=== PATIENT | female | born 1985 | race Caucasian/White ===

== ENCOUNTER 2023-03-06 22:23 | Inpatient (IN) | payer MEDICARE, MEDICAID, SELFPAY ==
--- NOTE | ~2023-03-06 | MR_ITS ---
EXAMINATION: MR FOOT WITHOUT AND WITH CONTRAST, RIGHT CLINICAL INFORMATION: Multiple ulcerations. Evaluate for osteomyelitis. COMPARISON: Right foot and ankle radiographs done earlier the same day. TECHNIQUE: MRI of the right foot was performed before and after the intravenous administration of 10 mL Gadavist on a high-field scanner. FINDINGS: Diffuse subcutaneous edema throughout the forefoot. There is dorsal skin thickening with mild subcutaneous enhancement along the medial aspect of the dorsal midfoot, consistent with focal cellulitis. No organized fluid collection or abscess formation. No marrow edema or enhancement. No periosteal reaction or cortical erosion. No evidence of acute osteomyelitis. Articular cartilage loss with mild subchondral cystic change and small marginal osteophytes at the 4th and 5th tarsometatarsal joints. No metatarsal stress reaction or fracture. No concerning lytic or blastic osseous lesion. The visualized flexor and extensor tendons are intact. No transverse tendon tear or tendon retraction. Intact Lisfranc ligament. MR/MR foot RT wo/w con IMPRESSION: 1. Focal cellulitis along the dorsal aspect of the midfoot with diffuse subcutaneous edema. No abscess formation. No evidence of acute osteomyelitis. 2. 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
--- NOTE | ~2023-03-06 | XR_ITS ---
EXAMINATION: XR ANKLE, RIGHT XR ANKLE, LEFT XR FOOT, RIGHT XR FOOT, LEFT CLINICAL INFORMATION: Cellulitis. Evaluate for osteomyelitis. COMPARISON: None available. TECHNIQUE: AP, oblique, and lateral views of the right and left ankle as well as the right and left foot. FINDINGS: RIGHT ANKLE: No acute fracture or dislocation. The ankle mortise is maintained. Small tibiotalar marginal osteophytes. No osseous erosion or periosteal reaction. Mild circumferential soft tissue swelling. Atherosclerotic calcifications. LEFT ANKLE: No acute fracture or dislocation. The ankle mortise is maintained. No joint space narrowing. Tiny tibiotalar marginal osteophytes. No osseous erosion. Mild circumferential soft tissue swelling. RIGHT FOOT: Prominent forefoot soft tissue swelling. No periosteal reaction or osseous erosion. No abnormal soft tissue calcification. No acute fracture or dislocation. LEFT FOOT: Prominent circumferential soft tissue swelling. No periosteal reaction or cortical erosion. Faint density within the dorsal soft tissues which could represent tiny foreign bodies measuring up to 0.3 cm. Mild degenerative change at the dorsal midfoot. No fracture or dislocation. XR/XR ankle RT 2V IMPRESSION: RIGHT ANKLE: Mild circumferential soft tissue swelling without acute osseous abnormality. LEFT ANKLE: Circumferential soft tissue swelling without acute osseous abnormality. RIGHT FOOT: Prominent forefoot soft tissue swelling without periosteal reaction or osseous erosion. LEFT FOOT: Prominent circumferential soft tissue swelling without acute osseous abnormality. Possible tiny foreign bodies within the dorsal soft tissues. Early osteomyelitis may be occult on plain radiographs, and if there is persistent clinical concern, nuclear medicine bone scan or MRI could help further evaluate.
--- NOTE | ~2023-03-06 | XR_ITS ---
EXAMINATION: XR ANKLE, RIGHT XR ANKLE, LEFT XR FOOT, RIGHT XR FOOT, LEFT CLINICAL INFORMATION: Cellulitis. Evaluate for osteomyelitis. COMPARISON: None available. TECHNIQUE: AP, oblique, and lateral views of the right and left ankle as well as the right and left foot. FINDINGS: RIGHT ANKLE: No acute fracture or dislocation. The ankle mortise is maintained. Small tibiotalar marginal osteophytes. No osseous erosion or periosteal reaction. Mild circumferential soft tissue swelling. Atherosclerotic calcifications. LEFT ANKLE: No acute fracture or dislocation. The ankle mortise is maintained. No joint space narrowing. Tiny tibiotalar marginal osteophytes. No osseous erosion. Mild circumferential soft tissue swelling. RIGHT FOOT: Prominent forefoot soft tissue swelling. No periosteal reaction or osseous erosion. No abnormal soft tissue calcification. No acute fracture or dislocation. LEFT FOOT: Prominent circumferential soft tissue swelling. No periosteal reaction or cortical erosion. Faint density within the dorsal soft tissues which could represent tiny foreign bodies measuring up to 0.3 cm. Mild degenerative change at the dorsal midfoot. No fracture or dislocation. XR/XR foot RT 2V IMPRESSION: RIGHT ANKLE: Mild circumferential soft tissue swelling without acute osseous abnormality. LEFT ANKLE: Circumferential soft tissue swelling without acute osseous abnormality. RIGHT FOOT: Prominent forefoot soft tissue swelling without periosteal reaction or osseous erosion. LEFT FOOT: Prominent circumferential soft tissue swelling without acute osseous abnormality. Possible tiny foreign bodies within the dorsal soft tissues. Early osteomyelitis may be occult on plain radiographs, and if there is persistent clinical concern, nuclear medicine bone scan or MRI could help further evaluate.
--- NOTE | ~2023-03-06 | XR_ITS ---
EXAMINATION: XR ANKLE, RIGHT XR ANKLE, LEFT XR FOOT, RIGHT XR FOOT, LEFT CLINICAL INFORMATION: Cellulitis. Evaluate for osteomyelitis. COMPARISON: None available. TECHNIQUE: AP, oblique, and lateral views of the right and left ankle as well as the right and left foot. FINDINGS: RIGHT ANKLE: No acute fracture or dislocation. The ankle mortise is maintained. Small tibiotalar marginal osteophytes. No osseous erosion or periosteal reaction. Mild circumferential soft tissue swelling. Atherosclerotic calcifications. LEFT ANKLE: No acute fracture or dislocation. The ankle mortise is maintained. No joint space narrowing. Tiny tibiotalar marginal osteophytes. No osseous erosion. Mild circumferential soft tissue swelling. RIGHT FOOT: Prominent forefoot soft tissue swelling. No periosteal reaction or osseous erosion. No abnormal soft tissue calcification. No acute fracture or dislocation. LEFT FOOT: Prominent circumferential soft tissue swelling. No periosteal reaction or cortical erosion. Faint density within the dorsal soft tissues which could represent tiny foreign bodies measuring up to 0.3 cm. Mild degenerative change at the dorsal midfoot. No fracture or dislocation. XR/XR foot LT 2V IMPRESSION: RIGHT ANKLE: Mild circumferential soft tissue swelling without acute osseous abnormality. LEFT ANKLE: Circumferential soft tissue swelling without acute osseous abnormality. RIGHT FOOT: Prominent forefoot soft tissue swelling without periosteal reaction or osseous erosion. LEFT FOOT: Prominent circumferential soft tissue swelling without acute osseous abnormality. Possible tiny foreign bodies within the dorsal soft tissues. Early osteomyelitis may be occult on plain radiographs, and if there is persistent clinical concern, nuclear medicine bone scan or MRI could help further evaluate.
--- NOTE | ~2023-03-06 | MR_ITS ---
EXAMINATION: MR FOOT WITHOUT AND WITH CONTRAST, LEFT CLINICAL INFORMATION: Multiple ulcerations. Evaluate for osteomyelitis. COMPARISON: Left ankle and foot radiographs dated 03/07/2023. TECHNIQUE: MRI of the left foot was performed before and after the intravenous administration of 10 mL Gadavist on a high-field scanner. FINDINGS: Soft tissue defect/ulceration along the dorsal/medial aspect of the midfoot at the level of the tarsometatarsal joints. Adjacent skin thickening and enhancement, consistent with cellulitis. There is peripherally enhancing fluid extending from the medial aspect of the midfoot along the dorsum from the 1st to the 5th metatarsals. This area measures approximately 4.0 x 7.6 x 1.2 cm (AP x ML x CC), consistent with abscess formation. No adjacent marrow edema, enhancement, periosteal reaction, or cortical erosion to suggest acute osteomyelitis. Articular cartilage loss with subchondral cystic change and marginal osteophytes at the 4th and 5th tarsometatarsal joints as well as at the cuneonavicular and talonavicular joints. No concerning lytic or blastic osseous lesion. The visualized flexor and extensor tendons are intact. Intact Lisfranc ligament. Prominent circumferential subcutaneous edema without additional abscess formation. MR/MR foot LT wo/w con IMPRESSION: 1. Soft tissue defect/ulceration along the dorsal/medial aspect of the midfoot at the level of the tarsometatarsal joints. Adjacent cellulitis with peripherally enhancing fluid extending along the dorsum of the midfoot, consistent with an abscess formation. No adjacent osseous abnormality to suggest acute osteomyelitis. 2. Prominent circumferential subcutaneous edema without additional abscess formation. 3. Moderate degenerative arthritis at the 4th and 5th tarsometatarsal joints as well as at the cuneonavicular and talonavicular joints.
--- NOTE | ~2023-03-06 | XR_ITS ---
EXAMINATION: XR WRIST, RIGHT XR WRIST, LEFT XR HAND, RIGHT XR HAND, LEFT CLINICAL INFORMATION: IV drug abuse. Ulceration. Evaluate for osseous lesion. COMPARISON: None available. TECHNIQUE: PA, lateral, oblique, and scaphoid views of the right and left hand and wrist. FINDINGS: RIGHT HAND AND WRIST: No acute fracture or dislocation. Normal carpal alignment. No joint space narrowing or marginal osteophytes. No osseous erosion or periosteal reaction. No radiopaque foreign body. Circumferential soft tissue swelling. LEFT HAND AND WRIST: No acute fracture or dislocation. Normal carpal alignment. No joint space narrowing or marginal osteophytes. No osseous erosion or periosteal reaction. No radiopaque foreign body. Circumferential soft tissue swelling. XR/XR hand wrist RT IMPRESSION: 1. RIGHT HAND AND WRIST: Circumferential soft tissue swelling without acute osseous abnormality. No osseous erosion or periosteal reaction. 2. LEFT HAND AND WRIST: Circumferential soft tissue swelling without acute osseous abnormality. No osseous erosion or periosteal reaction.
--- NOTE | ~2023-03-06 | XR_ITS ---
EXAMINATION: XR ANKLE, RIGHT XR ANKLE, LEFT XR FOOT, RIGHT XR FOOT, LEFT CLINICAL INFORMATION: Cellulitis. Evaluate for osteomyelitis. COMPARISON: None available. TECHNIQUE: AP, oblique, and lateral views of the right and left ankle as well as the right and left foot. FINDINGS: RIGHT ANKLE: No acute fracture or dislocation. The ankle mortise is maintained. Small tibiotalar marginal osteophytes. No osseous erosion or periosteal reaction. Mild circumferential soft tissue swelling. Atherosclerotic calcifications. LEFT ANKLE: No acute fracture or dislocation. The ankle mortise is maintained. No joint space narrowing. Tiny tibiotalar marginal osteophytes. No osseous erosion. Mild circumferential soft tissue swelling. RIGHT FOOT: Prominent forefoot soft tissue swelling. No periosteal reaction or osseous erosion. No abnormal soft tissue calcification. No acute fracture or dislocation. LEFT FOOT: Prominent circumferential soft tissue swelling. No periosteal reaction or cortical erosion. Faint density within the dorsal soft tissues which could represent tiny foreign bodies measuring up to 0.3 cm. Mild degenerative change at the dorsal midfoot. No fracture or dislocation. XR/XR ankle LT 2V IMPRESSION: RIGHT ANKLE: Mild circumferential soft tissue swelling without acute osseous abnormality. LEFT ANKLE: Circumferential soft tissue swelling without acute osseous abnormality. RIGHT FOOT: Prominent forefoot soft tissue swelling without periosteal reaction or osseous erosion. LEFT FOOT: Prominent circumferential soft tissue swelling without acute osseous abnormality. Possible tiny foreign bodies within the dorsal soft tissues. Early osteomyelitis may be occult on plain radiographs, and if there is persistent clinical concern, nuclear medicine bone scan or MRI could help further evaluate.
--- NOTE | ~2023-03-06 | XR_ITS ---
EXAMINATION: XR WRIST, RIGHT XR WRIST, LEFT XR HAND, RIGHT XR HAND, LEFT CLINICAL INFORMATION: IV drug abuse. Ulceration. Evaluate for osseous lesion. COMPARISON: None available. TECHNIQUE: PA, lateral, oblique, and scaphoid views of the right and left hand and wrist. FINDINGS: RIGHT HAND AND WRIST: No acute fracture or dislocation. Normal carpal alignment. No joint space narrowing or marginal osteophytes. No osseous erosion or periosteal reaction. No radiopaque foreign body. Circumferential soft tissue swelling. LEFT HAND AND WRIST: No acute fracture or dislocation. Normal carpal alignment. No joint space narrowing or marginal osteophytes. No osseous erosion or periosteal reaction. No radiopaque foreign body. Circumferential soft tissue swelling. XR/XR hand wrist LT IMPRESSION: 1. RIGHT HAND AND WRIST: Circumferential soft tissue swelling without acute osseous abnormality. No osseous erosion or periosteal reaction. 2. LEFT HAND AND WRIST: Circumferential soft tissue swelling without acute osseous abnormality. No osseous erosion or periosteal reaction.
[2023-03-06 22:44] VITALS: BP 160/90; PULSE 95; O2SAT 100
[2023-03-06 23:49] VITALS: BP 125/81; PULSE 101; RESP 20; TEMP 37.4; O2SAT 97; BMI 35.8
[2023-03-07] VITALS (9 sets, daily range): BP systolic 99–139; BP diastolic 51–72; PULSE 70–93; RESP 16–24; TEMP 36.2–38.1; O2SAT 95–98
--- NOTE | 2023-03-07 00:18 | ED.SKABFB ---
HPI - Skin/Abscess/Foreign Bdy General Chief complaint: Skin/Abscess/Foreign Body Stated complaint: WEAKNESS Time Seen by Provider: 03/07/23 00:04 Source: patient Mode of arrival: EMS Limitations: no limitations History of Present Illness HPI narrative: 38-year-old female who presents emergency department for evaluation of bilateral lower extremity skin infection. Patient states she has had cellulitis in the past and she now has cellulitis of the left ankle and right foot. She states that she also has lesions on her arms. The patient states that the infections on her feet are draining pus air and she is unable to remove her socks since they are stuck to her skin. She states she is feeling weak and fatigued. She states that whenever she feels this way she needs to be admitted for IV vancomycin. Patient states that she has been using injection opiates daily anywhere from 1-2 bags. She states that she is supposed to be in a methadone clinic however she has not received methadone for 2-3 weeks since she moved to the [facility] and has not been able to set up methadone treatment at the clinic on [facility]. Related Data Allergies Allergy/AdvReac Type Severity Reaction Status Date / Time No Known Allergies Allergy Verified 03/06/23 23:44 Review of Systems Review of Systems: Yes all other systems are reviewed and are negative PMFSH Social History Social History Smoked in Last 30 Days: No Substance Use Type: Opiates Last Used Substance: Days (ago) Any prior treatment program specific to substance use: Yes (methadone) Advance Directives: No Advance Directives Information Provided: No Physical Exam Vital Signs: Vital Signs: Last Vital Signs Temp 100.6 F H 03/07/23 05:20 Pulse 85 03/07/23 06:39 Resp 22 H 03/07/23 06:39 BP 112/51 L 03/07/23 06:39 Pulse Ox 97 03/07/23 06:39 O2 Del Method Room Air 03/07/23 06:39 BMI result Body Mass Index 35.8 Vital signs revealed an elevated pulse of 101 Exam General: Awake, alert in no distress Head: Normocephalic, atraumatic EENT: PERRL, Lids normal, sclera normal, conjunctiva normal, nose normal , ears normal, throat without erythema or exudates Neck: Supple, no adenopathy, no trachea midline or C-spine tenderness Lung: breath sounds symmetric, no wheezing, rales or rhonchi Chest: symmetric movement, nontender Heart: regular rate and rhythm, normal S1, S2 no murmurs or rubs Abdomen: soft, non-tender, nondistended, normal bowel sounds Back: no vertebral tenderness, no CVAT Extremities: no deformities, moves all extremities symmetrically Skin: Patient has purulent skin lesions on her feet with erythema of the left ankle and foot, she also has other lesions on her arms which are consistent with skin infections Neuro: Awake, alert, oriented, normal speech, cranial nerves intact, moves all extremities symmetrically Psych: Pleasant, cooperative Medications Administered Generic Name Dose Route Start Last Admin Trade Name Freq PRN Reason Stop Dose Admin Vancomycin HCl 2,000 mg in 520 mls @ 250 mls/hr 03/07/23 06:24 03/07/23 06:31 Vancomycin/Ns IV 03/07/23 08:28 250 mls/hr ONCE ONE Administration Discontinued Medications Generic Name Dose Route Start Last Admin Trade Name Freq PRN Reason Stop Dose Admin Hydromorphone HCl 1 mg 03/07/23 03:29 03/07/23 03:37 Hydromorphone Hcl 1 Mg/Ml Syringe IVPUSH 03/07/23 03:30 1 mg ONCE STA Administration Protocol Hydromorphone HCl 1 mg 03/07/23 06:29 03/07/23 06:33 Hydromorphone Hcl 1 Mg/Ml Syringe IVPUSH 03/07/23 06:30 1 mg ONCE STA Administration Protocol Sodium Chloride 1,000 mls @ 999 mls/hr 03/07/23 00:15 03/07/23 01:46 Ns IV 03/07/23 01:15 Infused .Q1H1M STA Infusion Ceftriaxone Sodium 1 gm/ 50 mls @ 100 mls/hr 03/07/23 00:16 03/07/23 06:38 Sodium Chloride IV 03/07/23 00:45 Infused ONCE ONE Infusion Lorazepam 1 mg 03/07/23 03:29 03/07/23 03:37 Lorazepam 2 Mg/Ml Vial IVPUSH 03/07/23 03:30 1 mg STAT STA Administration Medical Decision Making Medical Decision Making MDM Narrative: 38-year-old female who presents emergency department for evaluation of bilateral lower extremity skin infection. Patient states she had similar presentations in the past has had to be admitted for IV vancomycin. The patient does inject several bags of heroin per day. Patient has not received methadone from the methadone clinic for least 3 weeks. On physical examination the patient has multiple areas of purulence draining wounds on her left ankles with cellulitis of the left ankle. She also has purulent lesions without erythema of the right ankle. She has multiple chronic skin lesions on her hands and forearms bilaterally. Patient's findings are consistent with hematologic spread of bacteria from injecting drugs mainly to her ankle and consistent with cellulitis of the left ankle.. Nursing staff was able to get an IV in the patient however there was a delay in getting blood secondary to difficulty getting access. 07:27 Patient's laboratory evaluation [place] [address] and elevated CRP of 18.69. Lactic acid was elevated at 2.1. Patient was treated with hydromorphone 1 mg IV x2 for pain and Ativan 1 mg IV for anxiety. She received normal saline x1 L and was treated with ceftriaxone 1 g IV and vancomycin 2 g IV. I discussed admission over tiger text with the covering hospitalist, Dr. Burroughs and the patient will be admitted for further management. 07:36 I did discuss admission with the covering hospitalist, Dr. Lopez, he requested x-rays of the patient's ankles and feet to rule out osteomyelitis. Differential Diagnosis Differential Diagnoses: The differential diagnosis associated with the presentation includes Differential diagnosis includes but is not limited to cellulitis, abscess, bacteremia, electrolyte abnormalities, anemia Admission/Observation Consideration of admission/observation: Escalation of care including admission/observation considered Consult Healthcare Provider Management of the patient was discussed with: Hospitalist (Dr. Ashford) Lab Data [facility] Lab Attestation statement: I reviewed the patient's lab results. See MDM 03/07/23 05:13 03/07/23 05:13 Labs: Lab Results 03/07/23 Range/Units 05:13 WBC 16.8 H (4.8-10.8) X10*3/uL RBC 4.85 (4.20-5.50) X10*6/uL Hgb 12.6 (12.0-16.0) g/dl Hct 39.5 (37.0-47.0) % MCV 81.4 (80.0-98.0) fL MCH 26.0 L (27.0-33.0) pg MCHC 31.9 (31.0-35.0) g/dl RDW 14.5 (11.0-16.0) % Plt Count 250 (160-400) X10*3/uL MPV 10.6 (9.4-12.3) fL Immature Gran % (Auto) 0.5 H (0.0-0.4) % Neut % (Auto) 69.2 (45-73) % Lymph % (Auto) 21.2 (20-40) % Knox % (Auto) 7.5 (2-11) % Eos % (Auto) 1.1 (0-4) % Baso % (Auto) 0.5 (0-2) % Lymph # (Auto) 3.6 (1.2-4.9) X10*3/uL Knox # (Auto) 1.3 H (0.1-1.2) X10*3/uL Eos # (Auto) 0.2 (0.0-0.4) X10*3/uL Baso # (Auto) 0.1 (0.0-0.2) X10*3/uL Abs Immat Gran (auto) 0.09 H (0.00-0.03) X10*3/uL Absolute Neuts (auto) 11.6 H (2.0-8.3) x10*3/uL Absolute Nucleated RBC 0.000 (0.0-0.012) X10*3/uL Nucleated RBC % (auto) 0.0 (0.0-0.2) /100WBC Sodium 137 (135-145) mmol/L Potassium 3.5 (3.3-5.1) mmol/L Chloride 101 (96-108) mmol/L Carbon Dioxide 24 (22-29) mmol/L Anion Gap 16 (12-20) BUN 6 L (9-16) mg/dL Creatinine 0.79 (0.5-1.4) mg/dL Estim Creat Clear Calc 117.2 Estimated GFR > 60 Random Glucose 188 H (60-115) mg/dL Lactic Acid 2.1 H* (0.5-2.0) mmol/L Calcium 8.7 (8.4-10.2) mg/dL Total Bilirubin 0.4 (0.0-1.0) mg/dL AST 12 (5-31) U/L ALT 7 (0-31) U/L Alkaline Phosphatase 70 (39-117) U/L C-Reactive Protein 18.69 H (< or = 0.50) mg/dL Total Protein 7.3 (6.5-8.0) g/dL Albumin 3.4 L (3.5-5.0) g/dL Chronic Conditions Patient?s care impacted by: Diabetes and Other (Injection drug use)
[2023-03-07] MEDS: 0.9 % Sodium Chloride 1,000 ML 999 ML IV (00:39)
--- NOTE | 2023-03-07 00:56 | PC.NURSE ---
placed iv ling unable to get blood from it provider aware
--- NOTE | 2023-03-07 01:46 | PC.NURSE ---
delay in antibiotics as difficult stick for blood cultures
--- NOTE | 2023-03-07 03:06 | PC.NURSE ---
bethanie sandoval for contact [phone]
[2023-03-07] MEDS: LORazepam 2 MG/ML VIAL 1 MG IVPUSH ×2 (03:37→07:54)
[2023-03-07] MEDS: HYDROmorphone HCl 1 MG/ML SYRINGE IVPUSH ×4 (03:37→21:21)
[2023-03-07] MEDS: cefTRIAXone sodium 1 GM in 0.9 % Sodium Chloride 50 ML IV (05:18)
--- NOTE | 2023-03-07 05:21 | MHC.EDTECH ---
Patient is a very hard stick. This tech was able to get limited labs, only 1 set of blood cultures were able to be obtained.
--- NOTE | 2023-03-07 05:22 | PC.NURSE ---
only one set of blood cultures able to be drawn due to hard stick
[2023-03-07 05:24] LABS: MANUAL DIFF FLAG NO
[2023-03-07 05:25] LABS: Basophils Absolute Auto 0.1 X10*3/uL (0.0-0.2); Basophils Percent Auto 0.5 % (0-2); Eosinophils Absolute Auto 0.2 X10*3/uL (0.0-0.4); Eosinophils Percent Auto 1.1 % (0-4); Hematocrit 39.5 % (37.0-47.0); Hemoglobin 12.6 g/dl (12.0-16.0); Imm Gran Abs Auto 0.09 X10*3/uL (0.00-0.03); Imm Gran Pct Auto 0.5 % (0.0-0.4); Lymphocytes Absolute Auto 3.6 X10*3/uL (1.2-4.9); Lymphocytes Percent Auto 21.2 % (20-40); Mean Corpuscular HGB Conc 31.9 g/dl (31.0-35.0); Mean Corpuscular Volume 81.4 fL (80.0-98.0); Mean Platelet Volume 10.6 fL (9.4-12.3); Monocytes Absolute Auto 1.3 X10*3/uL (0.1-1.2); Monocytes Percent Auto 7.5 % (2-11); Neutrophils Absolute Auto 11.6 x10*3/uL (2.0-8.3); Neutrophils Percent Auto 69.2 % (45-73); Platelet Count 250 X10*3/uL (160-400); Red Blood Count 4.85 X10*6/uL (4.20-5.50); Red Cell Distribution Width 14.5 % (11.0-16.0); White Blood Count 16.8 X10*3/uL (4.8-10.8)
[2023-03-07 05:41] LABS: Lactic Acid 2.1 mmol/L (0.5-2.0)
[2023-03-07 05:42] LABS: Alanine Aminotransferase 7 U/L (0-31); Albumin Level 3.4 g/dL (3.5-5.0); Alkaline Phosphatase 70 U/L (39-117); Anion Gap 16 (12-20); Aspartate Amino Transferase 12 U/L (5-31); Bilirubin Total 0.4 mg/dL (0.0-1.0); Blood Urea Nitrogen 6 mg/dL (9-16); C Reactive Protein 18.69 mg/dL (< or = 0.50); Calcium 8.7 mg/dL (8.4-10.2); Carbon Dioxide 24 mmol/L (22-29); Chloride 101 mmol/L (96-108); Creatinine Clr Calc Pharmacy 117.2; Estimated Glomerular Filt Rate > 60; Glucose Random 188 mg/dL (60-115); Potassium 3.5 mmol/L (3.3-5.1); Sodium 137 mmol/L (135-145); Total Protein 7.3 g/dL (6.5-8.0)
[2023-03-07 07:22] LABS: Reflex Lactate? Lactic Acid Added
[2023-03-07] MEDS: Acetaminophen 325 MG TABLET 975 MG PO (07:52)
--- NOTE | 2023-03-07 08:00 | PC.NURSE ---
pt reporting feeling really warm. oral temp taken, pt 99.9. pt medicated per mar for low grade fever and provided with cool wash cloths.
--- NOTE | 2023-03-07 08:10 | PHA.PROG ---
Admission Date/Time: Indication: SKIN AND STRUCTURE Weight in k.7 kg Adjusted body weight in K.44 [place] body weight in K.6 Obesity Dosing Indication % IBW: 35.8 Serum Creatinine - Last 168 Hours 03/07/23 05:13 Creatinine 0.79 Estimated CrCl and GFR - Last 168 Hours 03/07/23 05:13 Estim Creat Clear Calc 117.2 Estimated GFR > 60 Vancomycin Loading Dose:2000 MG Current Vancomycin Dosing Regimen: 1250 MG Q12 Vancomycin Monitoring using AUC goal of 400 - 600 range with trough as surrogate marker: 461 (14.2) Date and Time for next Vancomycin Level to be drawn: 03/08 @1600 Pharmacist Comments on Vancomycin Plan: PT IS OBESE. WILL CHANGE INSIGHT TO OBESE MODELING AFTER FIRST TROUGH OBTAINED. Vancomycin dosing will take advantage of [employer] as a clinical decision support tool that uses Bayesian modeling to calculate individual patient's pharmacokinetic parameters and forecast the patient's drug concentration time course with the target goal AUC 24 range of 400 - 600 mg/L/hr.
--- NOTE | 2023-03-07 08:58 | PHA.MEDREC ---
Pharmacy Consult ? Medication Reconciliation Pharmacy has completed the medication reconciliation. Spoke to patient to confirm meds. Pt currently takes 38 units of lantus at bedtime. Takes adderall BID@0800,1300. Pt mentioned lorazepam, but could not name dose or regimen. PDMP reports no lorazepam.
[2023-03-07 09:46] LABS: Appearance Urine Cloudy; Color Urine Dark Yellow; Glucose Urine UA 500 mg/dL (Negative); Leukocyte Esterase Urine Trace (Negative); Nitrite Urine Negative (Negative); PH 5.5 (5.0-9.0); Specific Gravity - Urine >= 1.030 (1.005-1.025); UMIC TRIGGER UACC YES; Urine Blood Negative (Negative); Urine Ketones Trace mg/dL (Negative); Urine Protein 30 (1+) mg/dL (Neg-Trace)
[2023-03-07 09:49] LABS: Bacteria Urine 1+ (None Seen); Hyaline Casts Urine 0-2 /LPF (0-2); WBC Urine 0-5 /HPF (0-5)
[2023-03-07 09:53] LABS: Amphetamine Screen Urine Not Detected (Not Detect); Barbiturates, Urine Not Detected (Not Detect); Benzodiazepines Screen Urine Not Detected (Not Detect); Cannabinoid Screen Urine POSITIVE (Not Detect); Cocaine Screen Urine POSITIVE (Not Detect); Fentanyl, urine POSITIVE (Not Detect); Opiate Screen Urine POSITIVE (Not Detect); Phencyclidine Screen Urine Not Detected (Not Detect)
--- NOTE | 2023-03-07 09:55 | PC.NURSE ---
pt used bedside commode and gave urine sample. security asked to search pt as pt seemed very lethargic and falling asleep during conversation. security found pt's prescription for gabapentin. med sheet filled out and medications sent to pharmacy. pt compliant and understanding.
--- NOTE | 2023-03-07 10:12 | PM.IMHP ---
History of Present Illness Date of Service: 03/07/23 Attending physician on admission: David Lopez Chief Complaint: pain ble 38-year-old female with history of polysubstance abuse previously in remission with relapse about 6 days ago, IV drug abuse, mild persistent asthma, insulin-dependent type 2 diabetes, diabetic polyneuropathy, and ADHD who is severely obese with BMI greater than 35 presented to the ED earlier today for evaluation of severe pain in the bilateral lower extremities. The patient states she had had the same pair of socks on the bilateral lower legs for 2 weeks and was unable to remove them due to significant pain. Upon removal, ED provider found multiple weeping ulcers as well as swelling and erythema. The patient adamantly denies to me injecting any IV drugs into the lower extremities but states that she does use IV drugs in the arms bilaterally. States prior to 2 weeks ago, she did not notice these lesions. Has been admitted in the past [facility] in April in June of 2022 for cellulitis in the lower extremities, but no recent admissions. She has felt generally weak with chills and sweats but has not taken her temperature. She states she has 10/10 pain that limits her ambulation. SHe had planned to start methadone at [facility] 4 days ago but this did not happen. Last IVDA was yesterday. Also smokes 1/2 ppd. No etoh. On arrival, mild tachycardia of 101, vitals otherwise stable. However did develop fever of 100.6 early this morning with intermittent tachypnea to 24. Her leukocytosis of 16.8. Renal function electrolyte levels normal ID glucose 188. Initial lactic acid 2.1, repeat pending. CRP 18.69, ESR pending. Urinalysis significant for trace leukocytes, moderate glucose, 1+ protein, elevated specific gravity, negative urinary sediment, 1+ bacteria. Urine tox screen positive for opiates, fentanyl, cocaine, THC. X-rays of the bilateral ankles and bilateral feet without definitive evidence of osteomyelitis but early occult osteomyelitis possible to her radiologist. There is prominent soft tissue swelling in the bilateral ankles and feet. Review of Systems Review of Systems: General: +subjective fevers, +chills/sweats. No malaise, unintentional weight loss Cardiovascular: No chest pain, palpitations, or leg edema Respiratory: No shortness of breath, wheezing, cough GI: No abdominal pain, nausea, vomiting, diarrhea, constipation, melena, hematochezia : No dysuria, hematuria, increased urinary frequency MSK: No myalgia, back pain. +pain ble Neuro: No headaches, weakness, paresthesias Skin: +ulcers ble PMFSH Medical History (Updated 03/07/23 @ 10:35 by SHANTA Castro) Diabetic polyneuropathy ADHD Type 2 diabetes mellitus Asthma Polysubstance abuse Intravenous drug abuse Opiate use Social History (Updated 03/07/23 @ 10:36 by SHANTA Castro) Household Members: None Housing: Apartment Do you presently have visiting nurse or other home services: No Patient Tobacco Use Status: Current someday Tobacco user Tobacco use type: Cigarette Cigarette Packs Per Day: 0.5 Cigarettes Per Day: 8 Smoked in Last 30 Days: Yes Patient Interested in Nicotine Replacement: Yes Use of substances other than those prescribed or required for medical reasons: Yes Substance Use Type: Heroin Substance Use Frequency: Recent Binge Last Used Substance: Days (ago) Currently Displaying Signs/Symptoms of Drug Intoxication Withdrawal: No Any prior treatment program specific to substance use: Yes Have you been hit, kicked, punched, or otherwise hurt by someone within the past year? If so, by whom?: No Do you feel safe in your current relationship?: Yes Is there a partner from a previous relationship who is making you feel unsafe now?: No Are you made to feel afraid or neglected: No Advance Directives: No Advance Directives Information Provided: No Do you have thoughts of harming others: None Do you have a plan to hurt others: No Plan Recently lost weight without trying: No Eating poorly because of decreased appetite: No Nutrition Risks: No Nutritional Risk Patient : No : No Poor oral hygiene: No service: No Meds Allergies Allergy/AdvReac Type Severity Reaction Status Date / Time morphine Allergy Hives Verified 03/07/23 20:50 Active Medications: Current Medications Acetaminophen (Acetaminophen 325 Mg Tablet) 650 mg PO Q6H PRN PRN Reason: Pain, Mild (Pain Scale 1-3) Albuterol Sulfate (Albuterol Sulfate 90 Mcg 8 Gm Inhaler) 2 puff INHALE Q6H PRN PRN Reason: Shortness Of Breath Or Wheezing Amphetamine/Dextroamphetamine (Amphetamine Mixed Salts 10 Mg Tablet) 30 mg PO BID@0800,1300 CLARE Atorvastatin Calcium (Atorvastatin Calcium 40 Mg Tablet) 40 mg PO DAILY COUNT INCLUDES THE [facility] Dextrose (Dextrose 50 % 25 Gm/50 Ml Syringe) 25 gm IVPUSH Q15M PRN; Protocol PRN Reason: per Hypoglycemia Standing Ord. Enoxaparin Sodium (Enoxaparin Sodium 40 Mg/0.4 Ml Syringe) 40 mg SUBCUT Q24H COUNT INCLUDES THE [facility] Gabapentin (Gabapentin 400 Mg Capsule) 800 mg PO TID COUNT INCLUDES THE [facility] Glucose (Glucose Gel 15 Gm Gel..Gram.) 15 gm PO Q15M PRN; Protocol PRN Reason: per Hypoglycemia Standing Ord. Piperacillin Sod/Tazobactam (Sod 4.5 gm/ Sodium Chloride) 100 mls @ 200 mls/hr IV Q8H COUNT INCLUDES THE [facility] Vancomycin HCl 1,250 mg/ (Sodium Chloride) 250 mls @ 166.667 mls/hr IV Q12H COUNT INCLUDES THE [facility] Insulin Glargine (Insulin Glargine,Hum.Rec.Anlog 100 Unit/Ml 10 Ml Vial) 29 unit SUBCUT BEDTIME COUNT INCLUDES THE [facility] Insulin Human Lispro (Insulin Lispro 100 Unit/Ml 3 Ml Vial) 0 unit SUBCUT QIDACHS COUNT INCLUDES THE [facility]; Protocol Non-Formulary Medication (Fluticasone Propionate [Flovent Hfa]) 2 puff INHALE BID COUNT INCLUDES THE [facility] Non-Formulary Medication (Pantoprazole) 40 mg PO DAILY@0630 COUNT INCLUDES THE [facility] Ondansetron HCl (Ondansetron Hcl 4 Mg/2 Ml Vial) 4 mg IVPUSH Q8H PRN PRN Reason: Nausea and Vomiting Pharmacy Consult (Consult Rx Vancomycin Dosing) 1 each MISCELLANE DAILY PRN PRN Reason: Consult order Senna (Sennosides 8.6 Mg Tablet) 17.2 mg PO BEDTIME PRN PRN Reason: Constipation Sertraline HCl (Sertraline Hcl 25 Mg Tablet) 75 mg PO DAILY COUNT INCLUDES THE [facility] Sodium Chloride (0.9 % Sodium Chloride Flush 3 Ml Syringe) 3 ml IVFLUSH QSHIFT COUNT INCLUDES THE [facility] Home Medications Medication Instructions Recorded Confirmed Last Taken Type albuterol sulfate 90 mcg/actuation 2 puff inhalation Q6H PRN 03/07/23 03/07/23 Unknown History aerosol inhaler (Ventolin HFA) Shortness Of Breath Or Wheezing atorvastatin 40 mg tablet 40 mg PO DAILY 03/07/23 03/07/23 03/05/23 History dextroamphetamine-amphetamine 30 30 mg PO BID@0800,1300 03/07/23 03/07/23 03/05/23 History mg tablet fluticasone propionate 220 2 puff inhalation BID 03/07/23 03/07/23 03/05/23 History mcg/actuation HFA aerosol inhaler (Flovent HFA) gabapentin 800 mg tablet 800 mg PO TID 03/07/23 03/07/23 03/05/23 History insulin glargine 100 unit/mL (3 38 unit subcut BEDTIME 03/07/23 03/07/23 03/05/23 History mL) subcutaneous pen (Lantus Solostar U-100 Insulin) insulin lispro 100 unit/mL 1 sliding scale dose subcut TIDAC 03/07/23 03/07/23 03/05/23 History subcutaneous pen metformin 500 mg tablet 500 mg PO BID 03/07/23 03/07/23 03/05/23 History pantoprazole 40 mg tablet,delayed 40 mg PO DAILY@0630 03/07/23 03/07/23 03/05/23 History release sennosides 8.6 mg-docusate sodium 1 tab PO DAILY 03/07/23 03/07/23 03/05/23 History 50 mg tablet (Stool Softener-Laxative) sertraline 50 mg tablet 75 mg PO DAILY 03/07/23 03/07/23 03/05/23 History Physical Exam Vital Signs and Narrative: Vital Signs: Last Vital Signs Temp 98.3 F 03/07/23 09:15 Pulse 93 03/07/23 07:53 Resp 24 H 03/07/23 07:53 BP 112/51 L 03/07/23 06:39 Pulse Ox 97 03/07/23 06:39 O2 Del Method Room Air 03/07/23 06:39 BMI result Body Mass Index 35.8 Constitutional - Awake and Alert, No apparent distress Eyes - PERRLA, EOMI Cardiovascular - S1S2, RRR, No edema. 2+pedal pulses Respiratory - Normal lung expansion, Normal respiratory effort, No respiratory distress, CTA bilaterally Gastrointestinal - NT / ND; +BS; No rebound or guarding Extremities - no calf tenderness bilaterally, no swelling Skin - Warm/Dry. Left foot ankle- moderate circumferential swelling of the foot and ankle with 2.5cm x 1cm shallow ulceration medial aspect with purulent drainage and surrounding erythema. There also additional shallow ulceration abotu 1cm on the dorsal aspect of the foot with serous drainage. Right foot/lower leg- moderate swelling ankle with multiple shallow ulceration with purulent drainage on the dorsal and medial aspects of the about quarter sized foot with surrounding erythema and warmth. Multiple track parker noted on BUE without any fluctuance, induration. Shallow scabbed ulcerations over the dorsal aspect right wrist and left 3rd and 5th fingers with scabbing. There is induration noted on the ventral aspect of the left wrist without any purulent drainage. See images Neurological - Alert & oriented x3. sensation in tact Psychological - Appropriate affect Results Labs 03/08/23 06:04 03/08/23 06:04 Labs: Laboratory Results - last 24 hr 03/07/23 03/07/23 05:13 09:35 MCV 81.4 MCH 26.0 L MCHC 31.9 RDW 14.5 Plt Count 250 MPV 10.6 Immature Gran % (Auto) 0.5 H Neut % (Auto) 69.2 Lymph % (Auto) 21.2 [place] % (Auto) 7.5 Eos % (Auto) 1.1 Baso % (Auto) 0.5 Lymph # (Auto) 3.6 [place] # (Auto) 1.3 H Eos # (Auto) 0.2 Baso # (Auto) 0.1 Abs Immat Gran (auto) 0.09 H Absolute Neuts (auto) 11.6 H Absolute Nucleated RBC 0.000 Nucleated RBC % (auto) 0.0 Anion Gap 16 Estim Creat Clear Calc 117.2 Estimated GFR > 60 Random Glucose 188 H Lactic Acid 2.1 H* Calcium 8.7 Total Bilirubin 0.4 AST 12 ALT 7 Alkaline Phosphatase 70 C-Reactive Protein 18.69 H Total Protein 7.3 Albumin 3.4 L Urine Color Dark Yellow Urine Appearance Cloudy Urine pH 5.5 Ur Specific Thor >= 1.030 H Urine Protein 30 (1+) H Urine Glucose (UA) 500 H Urine Ketones Trace Urine Blood Negative Urine Nitrite Negative Ur Leukocyte Esterase Trace H Urine RBC 3-5 H Urine WBC 0-5 Ur Squamous Epith Cells 11-20 Urine Bacteria 1+ Hyaline Casts 0-2 Urine Opiates Screen POSITIVE H Urine Fentanyl Screen POSITIVE H Ur Barbiturates Screen Not Detected Ur Phencyclidine Scrn Not Detected Ur Amphetamines Screen Not Detected U Benzodiazepines Scrn Not Detected Urine Cocaine Screen POSITIVE H U Marijuana (THC) Screen POSITIVE H Imaging Radiologist's Impressions: Impressions Ankle X-Ray 03/07/23 07:49 IMPRESSION: RIGHT ANKLE: Mild circumferential soft tissue swelling without acute osseous abnormality. LEFT ANKLE: Circumferential soft tissue swelling without acute osseous abnormality. RIGHT FOOT: Prominent forefoot soft tissue swelling without periosteal reaction or osseous erosion. LEFT FOOT: Prominent circumferential soft tissue swelling without acute osseous abnormality. Possible tiny foreign bodies within the dorsal soft tissues. Early osteomyelitis may be occult on plain radiographs, and if there is persistent clinical concern, nuclear medicine bone scan or MRI could help further evaluate. Ankle X-Ray 03/07/23 07:49 IMPRESSION: RIGHT ANKLE: Mild circumferential soft tissue swelling without acute osseous abnormality. LEFT ANKLE: Circumferential soft tissue swelling without acute osseous abnormality. RIGHT FOOT: Prominent forefoot soft tissue swelling without periosteal reaction or osseous erosion. LEFT FOOT: Prominent circumferential soft tissue swelling without acute osseous abnormality. Possible tiny foreign bodies within the dorsal soft tissues. Early osteomyelitis may be occult on plain radiographs, and if there is persistent clinical concern, nuclear medicine bone scan or MRI could help further evaluate. Foot X-Ray 03/07/23 07:49 IMPRESSION: RIGHT ANKLE: Mild circumferential soft tissue swelling without acute osseous abnormality. LEFT ANKLE: Circumferential soft tissue swelling without acute osseous abnormality. RIGHT FOOT: Prominent forefoot soft tissue swelling without periosteal reaction or osseous erosion. LEFT FOOT: Prominent circumferential soft tissue swelling without acute osseous abnormality. Possible tiny foreign bodies within the dorsal soft tissues. Early osteomyelitis may be occult on plain radiographs, and if there is persistent clinical concern, nuclear medicine bone scan or MRI could help further evaluate. Foot X-Ray 03/07/23 07:49 IMPRESSION: RIGHT ANKLE: Mild circumferential soft tissue swelling without acute osseous abnormality. LEFT ANKLE: Circumferential soft tissue swelling without acute osseous abnormality. RIGHT FOOT: Prominent forefoot soft tissue swelling without periosteal reaction or osseous erosion. LEFT FOOT: Prominent circumferential soft tissue swelling without acute osseous abnormality. Possible tiny foreign bodies within the dorsal soft tissues. Early osteomyelitis may be occult on plain radiographs, and if there is persistent clinical concern, nuclear medicine bone scan or MRI could help further evaluate. Assessment and Plan (1) Cellulitis of left ankle: Status: Acute (2) Infected skin lesion: Status: Acute (3) Intravenous drug abuse: Status: Acute Plan 38-year-old female with history of polysubstance abuse previously in remission with relapse about 6 days ago, IV drug abuse, mild persistent asthma, insulin-dependent type 2 diabetes, diabetic polyneuropathy, and ADHD who is severely obese with BMI greater than 35 admitted for infected non pressure ulcerations BLE with cellulitis in IVDA. # infected non pressure ulcerations of the bilateral lower extremities with sepsis -febrile to 100.6, tachypneic to 24. Leukocytosis 16.4. Acute lactic acidosis 2.1 likely secondary to metformin use, but repeat pending. Doubt severe sepsis. -CRP 18.69, ESR pending. X-ray bilateral feet and ankles negative for any definitive osseous abnormality. Check MRI right lower leg, right foot, left foot -patient adamantly denies injecting any IV drugs into the lower legs and denies picking -IV vancomycin and Zosyn (initiated 03/07) -General surgery consult -wound RN consult -wound culture pending -pain management using pain scale p.r.n. -Follow CBC, cultures # polysubstance abuse with ongoing IV drug abuse -urine tox screen positive for opiates, fentanyl, cocaine, THC -initiate methadone 30 mg daily -naloxone prn RR<10 -addiction medicine consult -monitor COWS -Check HIV, Hep B/C # insulin-dependent type 2 diabetes -check hemoglobin A1c -dose adjusted basal insulin -diabetic diet -POC glucose, Humalog on sliding scale # diabetic polyneuropathy -continue gabapentin # ADHD -continue home meds # mild persistent asthma -no acute exacerbation -continue maintenance inhalers, albuterol p.r.n. DVT prophylaxis-Lovenox Full code Given significant cellulitis of the bilateral lower extremities with sepsis in active IV drug abuser at high risk for MRSA as well as bacteremia, patient will require IV antibiotics, possible debridement of ulcerations with extra consultation, and further investigation to rule out osteomyelitis which would require PICC line placement and prolonged antibiotics, awaiting blood cultures. Quality Stroke Does the patient have a stroke diagnosis?: No VTE Prior VTE?: No VTE Risk Level:: Medical - moderate - high VTE Device Contraindication: Treatment Not Indicated VTE Drug Contraindication: N/A - Med Ordered
[2023-03-07] MEDS: Piperacillin Sodium/Tazobactam 4.5 GM in 0.9 % Sodium Chloride 100 ML IV ×2 (10:24→17:37)
[2023-03-07] MEDS: Gabapentin 400 MG CAPSULE 800 MG PO ×3 (11:20→21:19)
[2023-03-07] MEDS: methADONE HCl 20 MG/2 ML ORAL.CONC 30 MG PO (11:20)
[2023-03-07] MEDS: Nicotine 14 MG PATCH.TD24 TRANSDERMA (11:21)
[2023-03-07] MEDS: Enoxaparin Sodium 40 MG/0.4 ML SYRINGE SUBCUT (11:25)
--- NOTE | 2023-03-07 11:36 | PC.NURSE ---
pt appears lethargic, sts she's really tired. with SHANTA Alvarez at bedside, t/w asked pt again if she took her prescription gabapentin that she had in possession while she was here. pt denied taking any and t/w medicated pt per mar. pt boyfriend at bedside. SHANTA Alvarez requested pt's curtain stays open.
[2023-03-07 12:12] LABS: Glucose, Whole Blood 327 mg/dL (60-115)
[2023-03-07] MEDS: Insulin Lispro 100 UNIT/ML 3 ML VIAL SUBCUT ×3 (12:47→21:20)
--- NOTE | 2023-03-07 13:11 | PC.NURSE ---
pt medicated per may for pain. nicotine patch taken off for MRI. pt on route to MRI.
[2023-03-07] MEDS: gadobutroL 10 ML VIAL IVPUSH (15:03)
--- NOTE | 2023-03-07 15:14 | MHC.RECOVRN ---
Attempted to meet with pt x 2 in ED6 after consult placed to Addiction Medicine for substance use. Per ED triage note, pt had presented with chills, bilateral LE swelling (L>R) x1.5 weeks with it getting worse over the last week with red swollen areas to her extremities x4 (some open wounds in different healing stages, some blisters, some scabbed). She reports history of admission to [facility] for similar (including skin lesions/redness with infectious disease involvement) Mar/Apr and . She reports socks on feet she has had on for over a week due to not being able to get them off; reports having them in place for over a week. Tylenol PM last taken at 2300. Upon evaluation, pt admitted for cellulitis, infected skin lesion, and IV substance use. Chart reviewed. Pt received 30 mg methadone this morning. T/w unable to meet with pt due to pt being in MRI x 4 hours per RN. Rose Marie Greenwood APRN, aware.
[2023-03-07] MEDS: Amphetamine Mixed Salts 10 MG TABLET 30 MG PO (16:46)
--- NOTE | 2023-03-07 16:53 | PC.NURSE ---
Addendum entered by Kiki Hill RN 03/07/23 16:54: pt unable to be drawn by ED techs or phlebotomy. SHANTA Alvarez aware. Original Note: pt back from MRI. medicated per may. pt eating lunch in bed. visitor at bedside. rr even/unlabored. plan of care ongoing. awaiting bed assignment.
[2023-03-07 17:18] LABS: Glucose, Whole Blood 208 mg/dL (60-115)
[2023-03-07 17:35] LABS: ~Lactic Acid-LAB USE ONLY 1.4 mmol/L (0.5-2.0)
[2023-03-07 17:40] LABS: Estimated Average Glucose 163 mg/dL; Hemoglobin A1c % 7.3 % (<6.0)
[2023-03-07 17:53] LABS: Erythrocyte Sedimentation Rate 51 MM/HR (0-20)
--- NOTE | 2023-03-07 18:48 | PC.NURSE ---
admission report complete. pt awaiting transport.
--- NOTE | 2023-03-07 19:26 | PC.NURSE ---
sister Yaritza Johnson [phone]
[2023-03-07 20:03] LABS: Glucose, Whole Blood 258 mg/dL (60-115)
[2023-03-07] MEDS: Insulin Glargine,Hum.rec.anlog 100 UNIT/ML 10 ML VIAL 29 UNIT SUBCUT (21:20)
[2023-03-07] MEDS: vancomycin HCL 1,250 MG in 0.9 % Sodium Chloride 250 ML 166.67 MG IV (21:21)
[2023-03-07] MEDS: 0.9 % Sodium Chloride Flush 3 ML SYRINGE IVFLUSH (21:22)
[2023-03-08] MEDS: Piperacillin Sodium/Tazobactam 4.5 GM in 0.9 % Sodium Chloride 100 ML IV ×3 (00:53→17:15)
[2023-03-08 04:07] LABS: HBS Num1 43.69 mIU/mL (0-7.99); HBc Num1 0.07 S/CO (0.00-0.79); HBsAGNum1 0.27 S/CO (0.00-0.99); HIV AB/AG Nonreactive (Nonreactive); HIV Num 1 0.05 S/CO (0.00-0.99); Hepatitis B Core Antibody Nonreactive (Nonreactive); Hepatitis B Surface Antigen Negative (Negative); ~HepC Num1 12.51 S/CO (0.00-0.79); ~Hepatitis B Surface Antibody REACTIVE (Nonreactive); ~Hepatitis C Antibody Reactive (Nonreactive)
--- NOTE | 2023-03-08 04:13 | HO.SKINPHOTO ---
Location:Left foot Category:ulcerative areas from IVDA Stage: Length: Width: Depth: cm Location: Category: Stage: Length: Width: Depth: cm Location: Category: Stage: Length: Width: Depth: cm Location: Category: Stage: Length: Width: Depth: cm Location: Category: Stage: Length: Width: Depth: cm Location: Category: Stage: Length: Width: Depth: cm
[2023-03-08] MEDS: HYDROmorphone HCl 1 MG/ML SYRINGE IVPUSH ×4 (04:20→23:16)
--- NOTE | 2023-03-08 04:26 | HO.SKINPHOTO ---
Location:right foot Category:ulcerative areas from IVDA Stage: Length: Width: Depth: cm Location: Category: Stage: Length: Width: Depth: cm Location: Category: Stage: Length: Width: Depth: cm Location: Category: Stage: Length: Width: Depth: cm Location: Category: Stage: Length: Width: Depth: cm Location: Category: Stage: Length: Width: Depth: cm
--- NOTE | 2023-03-08 04:31 | HO.SKINPHOTO ---
Location:Left hand Category:ulcerative areas from IVDA Stage: Length: Width: Depth: cm Location: Category: Stage: Length: Width: Depth: cm Location: Category: Stage: Length: Width: Depth: cm Location: Category: Stage: Length: Width: Depth: cm Location: Category: Stage: Length: Width: Depth: cm Location: Category: Stage: Length: Width: Depth: cm
--- NOTE | 2023-03-08 04:34 | HO.SKINPHOTO ---
Location:right hand Category: ulcerative areas from IVDA Stage: Length: Width: Depth: cm Location: Category: Stage: Length: Width: Depth: cm Location: Category: Stage: Length: Width: Depth: cm Location: Category: Stage: Length: Width: Depth: cm Location: Category: Stage: Length: Width: Depth: cm Location: Category: Stage: Length: Width: Depth: cm
--- NOTE | 2023-03-08 04:37 | PC.NURSE ---
Patient has leaking ulcerative areas on both feet from IVDA, offered to apply dressing but pt. refused and likes to keep feet uncovered . Protective pad placed under lower legs to absorb drainage.
[2023-03-08] MEDS: Omeprazole 20 MG CAPSULE.DR PO (06:22)
--- NOTE | 2023-03-08 06:27 | PC.NURSE ---
patient unable to void, blader scanned for 752 ml, st cath for 700. MD aware.
[2023-03-08 06:43] LABS: MANUAL DIFF FLAG NO
[2023-03-08 06:50] LABS: Basophils Absolute Auto 0.1 X10*3/uL (0.0-0.2); Basophils Percent Auto 0.5 % (0-2); Eosinophils Absolute Auto 0.2 X10*3/uL (0.0-0.4); Eosinophils Percent Auto 1.6 % (0-4); Hematocrit 38.5 % (37.0-47.0); Hemoglobin 12.3 g/dl (12.0-16.0); Imm Gran Abs Auto 0.09 X10*3/uL (0.00-0.03); Imm Gran Pct Auto 0.8 % (0.0-0.4); Lymphocytes Absolute Auto 2.6 X10*3/uL (1.2-4.9); Lymphocytes Percent Auto 22.6 % (20-40); Mean Corpuscular HGB Conc 31.9 g/dl (31.0-35.0); Mean Corpuscular Hemoglobin 26.1 pg (27.0-33.0); Mean Corpuscular Volume 81.7 fL (80.0-98.0); Mean Platelet Volume 11.7 fL (9.4-12.3); Monocytes Absolute Auto 0.7 X10*3/uL (0.1-1.2); Monocytes Percent Auto 5.6 % (2-11); Neutrophils Percent Auto 68.9 % (45-73); Platelet Count 235 X10*3/uL (160-400); Red Blood Count 4.71 X10*6/uL (4.20-5.50); Red Cell Distribution Width 14.5 % (11.0-16.0); White Blood Count 11.6 X10*3/uL (4.8-10.8)
[2023-03-08 07:04] LABS: Anion Gap 12 (12-20); Blood Urea Nitrogen 7 mg/dL (9-16); Calcium 8.5 mg/dL (8.4-10.2); Carbon Dioxide 27 mmol/L (22-29); Chloride 100 mmol/L (96-108); Creatinine Clr Calc Pharmacy 130.4; Estimated Glomerular Filt Rate > 60; Glucose Random 284 mg/dL (60-115); Potassium 3.6 mmol/L (3.3-5.1); Sodium 135 mmol/L (135-145)
--- NOTE | 2023-03-08 07:07 | PC.NURSE ---
Refusing dressings on her multiple wounds.
[2023-03-08 07:39] LABS: Glucose, Whole Blood 245 mg/dL (60-115)
[2023-03-08] MEDS: Insulin Lispro 100 UNIT/ML 3 ML VIAL SUBCUT ×4 (07:53→20:21)
[2023-03-08] MEDS: Nicotine 14 MG PATCH.TD24 TRANSDERMA (07:54)
[2023-03-08] MEDS: Amphetamine Mixed Salts 10 MG TABLET 30 MG PO ×2 (07:54→14:19)
[2023-03-08] MEDS: Sertraline HCL 25 MG TABLET 75 MG PO (07:54)
[2023-03-08] MEDS: Gabapentin 400 MG CAPSULE 800 MG PO ×3 (07:54→20:20)
[2023-03-08] MEDS: Atorvastatin Calcium 40 MG TABLET PO (07:54)
[2023-03-08] MEDS: 0.9 % Sodium Chloride Flush 3 ML SYRINGE IVFLUSH ×3 (07:54→23:17)
[2023-03-08] MEDS: methADONE HCl 20 MG/2 ML ORAL.CONC 30 MG PO (07:55)
--- NOTE | 2023-03-08 07:58 | PM.CNGS ---
History of Present Illness Consult details Consult date: 03/07/23 Narrative: Multiple lower extremity skin carbuncles most likely secondary to skin popping from IVDA heroin use. Pt. has had prior admissions for this in the past, treated rust IV Abx and local wound care. Similar presentation today. Pt. is semi obtunded from Rx use. Her boy friend provided collateral Hx. Chart was reviewed and Pt. evaluated. [facility] Past Medical History Medical History (Updated 03/07/23 @ 10:35 by SHANTA Castro) Diabetic polyneuropathy ADHD Type 2 diabetes mellitus Asthma Polysubstance abuse Intravenous drug abuse Opiate use Social History Social History (Updated 03/07/23 @ 10:36 by SHNATA Castro) Household Members: None Housing: Apartment Do you presently have visiting nurse or other home services: No Patient Tobacco Use Status: Current someday Tobacco user Tobacco use type: Cigarette Cigarette Packs Per Day: 0.5 Cigarettes Per Day: 8 Smoked in Last 30 Days: Yes Patient Interested in Nicotine Replacement: Yes Use of substances other than those prescribed or required for medical reasons: Yes Substance Use Type: Heroin Substance Use Frequency: Recent Binge Last Used Substance: Days (ago) Currently Displaying Signs/Symptoms of Drug Intoxication Withdrawal: No Any prior treatment program specific to substance use: Yes Have you been hit, kicked, punched, or otherwise hurt by someone within the past year? If so, by whom?: No Do you feel safe in your current relationship?: Yes Is there a partner from a previous relationship who is making you feel unsafe now?: No Are you made to feel afraid or neglected: No Advance Directives: No Advance Directives Information Provided: No Do you have thoughts of harming others: None Do you have a plan to hurt others: No Plan Recently lost weight without trying: No Eating poorly because of decreased appetite: No Nutrition Risks: No Nutritional Risk Patient : No : No Poor oral hygiene: No Meds Allergies Allergy/AdvReac Type Severity Reaction Status Date / Time morphine Allergy Hives Verified 03/07/23 20:50 Active Medications: Current Medications Acetaminophen (Acetaminophen 325 Mg Tablet) 650 mg PO Q6H PRN PRN Reason: Pain, Mild (Pain Scale 1-3) Albuterol Sulfate (Albuterol Sulfate 90 Mcg 8 Gm Inhaler) 2 puff INHALE Q6H PRN PRN Reason: Shortness Of Breath Or Wheezing Amphetamine/Dextroamphetamine (Amphetamine Mixed Salts 10 Mg Tablet) 30 mg PO BID@0800,1300 [facility] Last Admin: 03/08/23 07:54 Dose: 30 mg Atorvastatin Calcium (Atorvastatin Calcium 40 Mg Tablet) 40 mg PO DAILY [facility] Last Admin: 03/08/23 07:54 Dose: 40 mg Dextrose (Dextrose 50 % 25 Gm/50 Ml Syringe) 25 gm IVPUSH Q15M PRN; Protocol PRN Reason: per Hypoglycemia Standing Ord. Enoxaparin Sodium (Enoxaparin Sodium 40 Mg/0.4 Ml Syringe) 40 mg SUBCUT Q24H [facility] Last Admin: 03/07/23 11:25 Dose: 40 mg Fluticasone Propionate (Fluticasone Propionate 250 Mcg Blst.W.Dev) 2 puff INHALE RBID [facility] Last Admin: 03/07/23 19:24 Dose: Not Given Gabapentin (Gabapentin 400 Mg Capsule) 800 mg PO TID [facility] Last Admin: 03/08/23 07:54 Dose: 800 mg Glucose (Glucose Gel 15 Gm Gel..Gram.) 15 gm PO Q15M PRN; Protocol PRN Reason: per Hypoglycemia Standing Ord. Hydromorphone HCl (Hydromorphone Hcl 1 Mg/Ml Syringe) 1 mg IVPUSH Q4H PRN; Protocol PRN Reason: Pain, Mild (Pain Scale 1-3) Piperacillin Sod/Tazobactam (Sod 4.5 gm/ Sodium Chloride) 100 mls @ 200 mls/hr IV Q8H [facility] Last Admin: 03/08/23 07:56 Dose: 200 mls/hr Vancomycin HCl 1,250 mg/ (Sodium Chloride) 250 mls @ 166.667 mls/hr IV Q12H [facility] Last Infusion: 03/07/23 22:54 Dose: Infused Insulin Glargine (Insulin Glargine,Hum.Rec.Anlog 100 Unit/Ml 10 Ml Vial) 29 unit SUBCUT BEDTIME [facility] Last Admin: 03/07/23 21:20 Dose: 29 unit Insulin Human Lispro (Insulin Lispro 100 Unit/Ml 3 Ml Vial) 0 unit SUBCUT QIDACHS [facility]; Protocol Last Admin: 03/08/23 07:53 Dose: 4 unit Methadone HCl (Methadone Hcl 20 Mg/2 Ml Oral.Conc) 30 mg PO DAILY [facility] Last Admin: 03/08/23 07:55 Dose: 30 mg Naloxone HCl (Naloxone Hcl 0.4 Mg/Ml Vial) 0.4 mg IVPUSH ONCE PRN PRN Reason: Respiratory Rate < 10 Nicotine (Nicotine 14 Mg Patch.Td24) 14 mg TRANSDERMA DAILY [facility] Last Admin: 03/08/23 07:54 Dose: 14 mg Omeprazole (Omeprazole 20 Mg Capsule.Dr) 20 mg PO DAILY@0630 [facility] Last Admin: 03/08/23 06:22 Dose: 20 mg Ondansetron HCl (Ondansetron Hcl 4 Mg/2 Ml Vial) 4 mg IVPUSH Q8H PRN PRN Reason: Nausea and Vomiting Oxycodone HCl (Oxycodone Hcl Immed Release 5 Mg Tablet) 5 mg PO Q6H PRN PRN Reason: Pain, Moderate(Pain Scale 4-6) Pharmacy Consult (Consult Rx Vancomycin Dosing) 1 each MISCELLANE DAILY PRN PRN Reason: Consult order Senna (Sennosides 8.6 Mg Tablet) 17.2 mg PO BEDTIME PRN PRN Reason: Constipation Sertraline HCl (Sertraline Hcl 25 Mg Tablet) 75 mg PO DAILY [facility] Last Admin: 03/08/23 07:54 Dose: 75 mg Sodium Chloride (0.9 % Sodium Chloride Flush 3 Ml Syringe) 3 ml IVFLUSH QSHIFT [facility] Last Admin: 03/08/23 07:54 Dose: 3 ml Home Medications Medication Instructions Recorded Confirmed Last Taken Type albuterol sulfate 90 mcg/actuation 2 puff inhalation Q6H PRN 03/07/23 03/07/23 Unknown History aerosol inhaler (Ventolin HFA) Shortness Of Breath Or Wheezing atorvastatin 40 mg tablet 40 mg PO DAILY 03/07/23 03/07/23 03/05/23 History dextroamphetamine-amphetamine 30 30 mg PO BID@0800,1300 03/07/23 03/07/23 03/05/23 History mg tablet fluticasone propionate 220 2 puff inhalation BID 03/07/23 03/07/23 03/05/23 History mcg/actuation HFA aerosol inhaler (Flovent HFA) gabapentin 800 mg tablet 800 mg PO TID 03/07/23 03/07/23 03/05/23 History insulin glargine 100 unit/mL (3 38 unit subcut BEDTIME 03/07/23 03/07/23 03/05/23 History mL) subcutaneous pen (Lantus Solostar U-100 Insulin) insulin lispro 100 unit/mL 1 sliding scale dose subcut TIDAC 03/07/23 03/07/23 03/05/23 History subcutaneous pen metformin 500 mg tablet 500 mg PO BID 03/07/23 03/07/23 03/05/23 History pantoprazole 40 mg tablet,delayed 40 mg PO DAILY@0630 03/07/23 03/07/23 03/05/23 History release sennosides 8.6 mg-docusate sodium 1 tab PO DAILY 03/07/23 03/07/23 03/05/23 History 50 mg tablet (Stool Softener-Laxative) sertraline 50 mg tablet 75 mg PO DAILY 03/07/23 03/07/23 03/05/23 History Physical Exam Vital Signs: Vital Signs: Last Vital Signs Temp 97.2 F 03/07/23 23:46 Pulse 83 03/07/23 23:46 Resp 16 03/07/23 23:46 BP 109/59 L 03/07/23 23:46 Pulse Ox 96 03/07/23 23:46 O2 Del Method Room Air 03/07/23 23:46 BMI result Body Mass Index 35.8 Extrem: Other: Bilat LE's grossley N-vasc intact. Multiple bilateral skin lesions/carbuncles 1 to 2 cm in size, spontaneously draining. Left foot dorsum has a larger such lesion . Results Labs 03/08/23 06:04 03/08/23 06:04 Labs: Abnormal lab results 03/07/23 03/07/23 03/07/23 Range/Units 09:35 12:08 17:08 WBC (4.8-10.8) X10*3/uL MCH (27.0-33.0) pg Immature Gran % (Auto) (0.0-0.4) % Abs Immat Gran (auto) (0.00-0.03) X10*3/uL ESR 51 H (0-20) MM/HR BUN (9-16) mg/dL POC Glucose 327 H (60-115) mg/dL Random Glucose (60-115) mg/dL Hemoglobin A1c % 7.3 H (<6.0) % Ur Specific [place] >= 1.030 H (1.005-1.025) Urine Protein 30 (1+) H (Neg-Trace) mg/dL Urine Glucose (UA) 500 H (Negative) mg/dL Ur Leukocyte Esterase Trace H (Negative) Urine RBC 3-5 H (0-2) /HPF Urine Opiates Screen POSITIVE H (Not Detect) Urine Fentanyl Screen POSITIVE H (Not Detect) Urine Cocaine Screen POSITIVE H (Not Detect) U Marijuana (THC) Screen POSITIVE H (Not Detect) Hepatitis C Ab (EIA) Reactive H (Nonreactive) 03/07/23 03/07/23 03/08/23 Range/Units 17:15 19:58 06:04 WBC 11.6 H (4.8-10.8) X10*3/uL MCH 26.1 L (27.0-33.0) pg Immature Gran % (Auto) 0.8 H (0.0-0.4) % Abs Immat Gran (auto) 0.09 H (0.00-0.03) X10*3/uL ESR (0-20) MM/HR BUN 7 L (9-16) mg/dL POC Glucose 208 H 258 H (60-115) mg/dL Random Glucose 284 H (60-115) mg/dL Hemoglobin A1c % (<6.0) % Ur Specific [place] (1.005-1.025) Urine Protein (Neg-Trace) mg/dL Urine Glucose (UA) (Negative) mg/dL Ur Leukocyte Esterase (Negative) Urine RBC (0-2) /HPF Urine Opiates Screen (Not Detect) Urine Fentanyl Screen (Not Detect) Urine Cocaine Screen (Not Detect) U Marijuana (THC) Screen (Not Detect) Hepatitis C Ab (EIA) (Nonreactive) 03/08/23 Range/Units 07:23 WBC (4.8-10.8) X10*3/uL MCH (27.0-33.0) pg Immature Gran % (Auto) (0.0-0.4) % Abs Immat Gran (auto) (0.00-0.03) X10*3/uL ESR (0-20) MM/HR BUN (9-16) mg/dL POC Glucose 245 H (60-115) mg/dL Random Glucose (60-115) mg/dL Hemoglobin A1c % (<6.0) % Ur Specific [place] (1.005-1.025) Urine Protein (Neg-Trace) mg/dL Urine Glucose (UA) (Negative) mg/dL Ur Leukocyte Esterase (Negative) Urine RBC (0-2) /HPF Urine Opiates Screen (Not Detect) Urine Fentanyl Screen (Not Detect) Urine Cocaine Screen (Not Detect) U Marijuana (THC) Screen (Not Detect) Hepatitis C Ab (EIA) (Nonreactive) Short CBC 03/08/23 Range/Units 06:04 WBC 11.6 H (4.8-10.8) X10*3/uL Hgb 12.3 (12.0-16.0) g/dl Hct 38.5 (37.0-47.0) % Plt Count 235 (160-400) X10*3/uL BMP 03/08/23 06:04 Sodium 135 Potassium 3.6 Chloride 100 Carbon Dioxide 27 BUN 7 L Creatinine 0.71 Calcium 8.5 Urine 03/07/23 Range/Units 09:35 Urine Color Dark Yellow Urine Appearance Cloudy Urine pH 5.5 (5.0-9.0) Ur Specific [place] >= 1.030 H (1.005-1.025) Urine Protein 30 (1+) H (Neg-Trace) mg/dL Urine Glucose (UA) 500 H (Negative) mg/dL All other labs normal. Assessment and Plan (1) Cellulitis of left ankle: Status: Acute (2) Infected skin lesion: Status: Acute (3) Polysubstance abuse: Status: Acute (4) Intravenous drug abuse: Status: Acute (5) Sepsis: Status: Acute Plan local wound care IV Abx. Further intervention directed by Pt's clinical course. Procedures Date of Service Date of Service: 03/08/23
[2023-03-08 08:00] VITALS: BP 127/58; PULSE 80; RESP 17; TEMP 36.6; O2SAT 96
[2023-03-08 08:44] LABS: Estimated Average Glucose 166 mg/dL; Hemoglobin A1c % 7.4 % (<6.0)
[2023-03-08] MEDS: vancomycin HCL 1,250 MG in 0.9 % Sodium Chloride 250 ML 166.67 MG IV (09:01)
[2023-03-08] MEDS: Fluticasone Propionate 250 MCG BLST.W.DEV 2 PUFF INHALE ×2 (09:10→22:29)
[2023-03-08 09:12] VITALS: PULSE 80; RESP 17; O2SAT 96
[2023-03-08] MEDS: Enoxaparin Sodium 40 MG/0.4 ML SYRINGE SUBCUT (11:13)
[2023-03-08] MEDS: oxyCODONE HCl Immed Release 5 MG TABLET PO ×2 (11:13→17:15)
[2023-03-08 11:20] LABS: Glucose, Whole Blood 195 mg/dL (60-115)
--- NOTE | 2023-03-08 12:01 | MHC.CM.PN ---
pt lives alone will need lt iv antbiotics when medically stable referrals initiiated hcp completed
--- NOTE | 2023-03-08 14:00 | HO.PM.IMPN ---
Subjective Subjective Date of Service: 03/08/23 Interval History: leg cellulitis Review of Systems leg erythema and pain seems similar no fever or chills . Physical Exam Vital Signs: Vital Signs: Last Vital Signs Temp 97.8 F 03/08/23 08:00 Pulse 80 03/08/23 09:12 Resp 17 03/08/23 09:12 BP 127/58 L 03/08/23 08:00 Pulse Ox 96 03/08/23 08:00 O2 Del Method Room Air 03/08/23 08:00 BMI result Body Mass Index 35.8 Appearance: Alert.? Oriented X3.? Eyes: Pupils equal, round and reactive to light.? Sclera nonicteric.? ENT: Pharynx normal.? Moist mucous membranes. cvs: rrr, [id number]. res: clear to auscultation ,no rhonchii or wheezing abd: no rebound or guarding ,nt, bs present. ext pulses present , skin erythema and ulcers seems similar -please see pic from h&P. neuro: axo3 , nonfocal. Objective Data Active Medications Acetaminophen (Acetaminophen 325 Mg Tablet) 650 mg PO Q6H PRN PRN Reason: Pain, Mild (Pain Scale 1-3) Albuterol Sulfate (Albuterol Sulfate 90 Mcg 8 Gm Inhaler) 2 puff INHALE Q6H PRN PRN Reason: Shortness Of Breath Or Wheezing Amphetamine/Dextroamphetamine (Amphetamine Mixed Salts 10 Mg Tablet) 30 mg PO BID@0800,1300 [facility] Last Admin: 03/08/23 07:54 Dose: 30 mg Documented By: GEE Atorvastatin Calcium (Atorvastatin Calcium 40 Mg Tablet) 40 mg PO DAILY [facility] Last Admin: 03/08/23 07:54 Dose: 40 mg Documented By: GEE Dextrose (Dextrose 50 % 25 Gm/50 Ml Syringe) 25 gm IVPUSH Q15M PRN; Protocol PRN Reason: per Hypoglycemia Standing Ord. Enoxaparin Sodium (Enoxaparin Sodium 40 Mg/0.4 Ml Syringe) 40 mg SUBCUT Q24H [facility] Last Admin: 03/08/23 11:13 Dose: 40 mg Documented By: KARINE Fluticasone Propionate (Fluticasone Propionate 250 Mcg Blst.W.Dev) 2 puff INHALE RBID [facility] Last Admin: 03/08/23 09:10 Dose: 2 puff Documented By: ACACIA Gabapentin (Gabapentin 400 Mg Capsule) 800 mg PO TID [facility] Last Admin: 03/08/23 07:54 Dose: 800 mg Documented By: GEE Glucose (Glucose Gel 15 Gm Gel..Gram.) 15 gm PO Q15M PRN; Protocol PRN Reason: per Hypoglycemia Standing Ord. Hydromorphone HCl (Hydromorphone Hcl 1 Mg/Ml Syringe) 1 mg IVPUSH Q4H PRN; Protocol PRN Reason: Pain, Mild (Pain Scale 1-3) Last Admin: 03/08/23 08:02 Dose: 1 mg Documented By: GEE Piperacillin Sod/Tazobactam (Sod 4.5 gm/ Sodium Chloride) 100 mls @ 200 mls/hr IV Q8H [facility] Last Infusion: 03/08/23 08:38 Dose: Infused Documented By: GEE Vancomycin HCl 1,250 mg/ (Sodium Chloride) 250 mls @ 166.667 mls/hr IV Q12H [facility] Last Infusion: 03/08/23 10:34 Dose: Infused Documented By: GEE Insulin Glargine (Insulin Glargine,Hum.Rec.Anlog 100 Unit/Ml 10 Ml Vial) 29 unit SUBCUT BEDTIME [facility] Last Admin: 03/07/23 21:20 Dose: 29 unit Documented By: JACKIE Insulin Human Lispro (Insulin Lispro 100 Unit/Ml 3 Ml Vial) 0 unit SUBCUT QIDACHS [facility]; Protocol Last Admin: 03/08/23 11:13 Dose: 2 unit Documented By: KARINE Methadone HCl (Methadone Hcl 20 Mg/2 Ml Oral.Conc) 30 mg PO DAILY [facility] Last Admin: 03/08/23 07:55 Dose: 30 mg Documented By: GEE Methadone HCl (Methadone Hcl 20 Mg/2 Ml Oral.Conc) 10 mg PO DAILY PRN PRN Reason: Opiate Withdrawal Naloxone HCl (Naloxone Hcl 0.4 Mg/Ml Vial) 0.4 mg IVPUSH ONCE PRN PRN Reason: Respiratory Rate < 10 Nicotine (Nicotine 14 Mg Patch.Td24) 14 mg TRANSDERMA DAILY [facility] Last Admin: 03/08/23 07:54 Dose: 14 mg Documented By: GEE Omeprazole (Omeprazole 20 Mg Capsule.Dr) 20 mg PO DAILY@0630 [facility] Last Admin: 03/08/23 06:22 Dose: 20 mg Documented By: JACKIE Ondansetron HCl (Ondansetron Hcl 4 Mg/2 Ml Vial) 4 mg IVPUSH Q8H PRN PRN Reason: Nausea and Vomiting Oxycodone HCl (Oxycodone Hcl Immed Release 5 Mg Tablet) 5 mg PO Q6H PRN PRN Reason: Pain, Moderate(Pain Scale 4-6) Last Admin: 03/08/23 11:13 Dose: 5 mg Documented By: KARINE Pharmacy Consult (Consult Rx Vancomycin Dosing) 1 each MISCELLANE DAILY PRN PRN Reason: Consult order Senna (Sennosides 8.6 Mg Tablet) 17.2 mg PO BEDTIME PRN PRN Reason: Constipation Sertraline HCl (Sertraline Hcl 25 Mg Tablet) 75 mg PO DAILY [facility] Last Admin: 03/08/23 07:54 Dose: 75 mg Documented By: GEE Sodium Chloride (0.9 % Sodium Chloride Flush 3 Ml Syringe) 3 ml IVFLUSH QSHIFT [facility] Last Admin: 03/08/23 07:54 Dose: 3 ml Documented By: GEE Labs 03/08/23 06:04 03/08/23 06:04 Labs: Laboratory Results - last 24 hr 03/07/23 03/07/23 03/07/23 17:08 17:15 19:58 MCV MCH MCHC RDW Plt Count MPV Immature Gran % (Auto) Neut % (Auto) Lymph % (Auto) [place] % (Auto) Eos % (Auto) Baso % (Auto) Lymph # (Auto) [place] # (Auto) Eos # (Auto) Baso # (Auto) Abs Immat Gran (auto) Absolute Neuts (auto) Absolute Nucleated RBC Nucleated RBC % (auto) ESR 51 H Anion Gap Estim Creat Clear Calc Estimated GFR POC Glucose 208 H 258 H Random Glucose Estimat Average Glucose 163 Hemoglobin A1c % 7.3 H Lactic Acid F/U @ 2Hr 1.4 Calcium Hep Bs Antigen Negative Hep Bs Antibody REACTIVE Hep B Core Total Ab Nonreactive Hepatitis C Ab (EIA) Reactive H HIV 1&2 Ab/P24 Ag 4thGn Nonreactive 03/08/23 03/08/23 03/08/23 06:04 07:23 11:10 MCV 81.7 MCH 26.1 L MCHC 31.9 RDW 14.5 Plt Count 235 MPV 11.7 Immature Gran % (Auto) 0.8 H Neut % (Auto) 68.9 Lymph % (Auto) 22.6 [place] % (Auto) 5.6 Eos % (Auto) 1.6 Baso % (Auto) 0.5 Lymph # (Auto) 2.6 [place] # (Auto) 0.7 Eos # (Auto) 0.2 Baso # (Auto) 0.1 Abs Immat Gran (auto) 0.09 H Absolute Neuts (auto) 8.0 Absolute Nucleated RBC 0.000 Nucleated RBC % (auto) 0.0 ESR Anion Gap 12 Estim Creat Clear Calc 130.4 Estimated GFR > 60 POC Glucose 245 H 195 H Random Glucose 284 H Estimat Average Glucose 166 Hemoglobin A1c % 7.4 H Lactic Acid F/U @ 2Hr Calcium 8.5 Hep Bs Antigen Hep Bs Antibody Hep B Core Total Ab Hepatitis C Ab (EIA) HIV 1&2 Ab/P24 Ag 4thGn Microbiology Microbiology Results: Microbiology 03/07/23 03:54 Gram Stain - Final Foot - Abscess Routine Culture - Preliminary Staphylococcus aureus Streptococcus pyogenes (Grp A) 03/07/23 05:13 Blood Culture - Preliminary Blood - Venous No growth after 24 hours. Assessment and Plan (1) Sepsis: Status: Acute (2) Cellulitis of left ankle: Status: Acute (3) Infected skin lesion: Status: Acute (4) Polysubstance abuse: Status: Acute Plan 38-year-old female with history of polysubstance abuse previously in remission with relapse about 6 days ago, IV drug abuse, mild persistent asthma, insulin-dependent type 2 diabetes, diabetic polyneuropathy, and ADHD who is severely obese with BMI greater than 35 admitted for infected non pressure ulcerations BLE with cellulitis in IVDA. infected non pressure ulcerations of the bilateral lower extremities with sepsis febrile to 100.6, tachypneic to 24. Leukocytosis 16.4 improving 11.6 Acute lactic acidosis likely secondary to metformin use. CRP 18.69, ESR 51. blood culture pending X-ray bilateral feet and ankles negative for any definitive osseous abnormality. Check MRI right lower leg, right foot, left foot patient adamantly denies injecting any IV drugs into the lower legs and denies picking-IV vancomycin and Zosyn (initiated 03/07),wound RN consult,wound culture pending,pain management using pain scale p.r.n. Id eval and surgery eval. polysubstance abuse with ongoing IV drug abuse-urine tox screen positive for opiates, fentanyl, cocaine, THC. initiate methadone 30 mg daily,naloxone prn RR<10 addiction medicine consult monitor COWS HIV, Hep B: non reactive hep C(EIA) Positive Id eval insulin-dependent type 2 diabetes hemoglobin A1c 7.4 diabetic diet POC glucose, Humalog on sliding scale diabetic polyneuropathy-continue gabapentin ADHD-continue home meds mild persistent asthma-no acute exacerbation -continue maintenance inhalers, albuterol p.r.n. DVT prophylaxis-Lovenox Full code ongoing hospitlisation need : cellulitis of the bilateral lower extremities with sepsis : active IV drug abuser at high risk for MRSA as well as bacteremia, patient will require IV antibiotics, possible debridement of ulcerations with extra consultation, and further investigation to rule out osteomyelitis which would require PICC line placement and prolonged antibiotics, awaiting blood cultures. Quality Stroke Does the patient have a stroke diagnosis?: No VTE Prior VTE?: No VTE Risk Level:: Medical - moderate - high VTE Device Contraindication: Treatment Not Indicated VTE Drug Contraindication: N/A - Med Ordered
[2023-03-08 15:33] VITALS: BP 139/77; PULSE 89; RESP 16; TEMP 36.4; O2SAT 95
[2023-03-08 16:29] LABS: Glucose, Whole Blood 181 mg/dL (60-115)
[2023-03-08] MEDS: Acetaminophen 325 MG TABLET 650 MG PO (17:15)
[2023-03-08 20:03] LABS: Glucose, Whole Blood 189 mg/dL (60-115)
[2023-03-08] MEDS: Insulin Glargine,Hum.rec.anlog 100 UNIT/ML 10 ML VIAL 29 UNIT SUBCUT (20:20)
[2023-03-08 20:48] LABS: Vancomycin Random 7.7 mcg/mL (15-20)
[2023-03-08] MEDS: vancomycin HCL 1,500 MG in 0.9 % Sodium Chloride 500 ML 333.33 MG IV (21:43)
[2023-03-08 22:29] VITALS: PULSE 84; RESP 16; O2SAT 96
[2023-03-08 23:23] VITALS: BP 155/93; PULSE 84; RESP 18; TEMP 36.7; O2SAT 97
[2023-03-08 23:28] VITALS: PULSE 97
[2023-03-09] MEDS: Piperacillin Sodium/Tazobactam 4.5 GM in 0.9 % Sodium Chloride 100 ML IV ×3 (00:04→17:26)
[2023-03-09] MEDS: Omeprazole 20 MG CAPSULE.DR PO (05:45)
[2023-03-09 07:45] VITALS: BP 123/66; PULSE 73; RESP 18; TEMP 36.3; O2SAT 97
[2023-03-09] MEDS: HYDROmorphone HCl 1 MG/ML SYRINGE IVPUSH ×4 (07:53→22:39)
[2023-03-09 07:54] LABS: Glucose, Whole Blood 190 mg/dL (60-115)
[2023-03-09] MEDS: Gabapentin 400 MG CAPSULE 800 MG PO ×3 (07:57→22:38)
[2023-03-09] MEDS: Sertraline HCL 25 MG TABLET 75 MG PO (07:57)
[2023-03-09] MEDS: Amphetamine Mixed Salts 10 MG TABLET 30 MG PO ×2 (07:58→12:21)
[2023-03-09] MEDS: methADONE HCl 20 MG/2 ML ORAL.CONC 30 MG PO (07:58)
[2023-03-09] MEDS: Atorvastatin Calcium 40 MG TABLET PO (07:58)
[2023-03-09] MEDS: Nicotine 14 MG PATCH.TD24 TRANSDERMA (08:01)
[2023-03-09] MEDS: 0.9 % Sodium Chloride Flush 3 ML SYRINGE IVFLUSH ×2 (08:02→13:58)
[2023-03-09] MEDS: Insulin Lispro 100 UNIT/ML 3 ML VIAL SUBCUT ×3 (08:05→22:39)
[2023-03-09] MEDS: Fluticasone Propionate 250 MCG BLST.W.DEV 2 PUFF INHALE ×2 (08:33→19:33)
[2023-03-09 08:55] LABS: Creatinine Clr Calc Pharmacy 144.7; Estimated Glomerular Filt Rate > 60
[2023-03-09 10:11] VITALS: PULSE 73; RESP 18
[2023-03-09] MEDS: Enoxaparin Sodium 40 MG/0.4 ML SYRINGE SUBCUT (10:36)
[2023-03-09] MEDS: vancomycin HCL 1,500 MG in 0.9 % Sodium Chloride 500 ML 333.33 MG IV (10:37)
[2023-03-09] MEDS: methADONE HCl 20 MG/2 ML ORAL.CONC 10 MG PO (10:37)
--- NOTE | 2023-03-09 11:02 | MHC.CM.PN ---
EMR REVIEWED. NOT MEDICALLY CLEARED FOR DC AT THIS TIME. PLAN TO DC TO [facility] FOR IV ABX. METHADONE WAS RESTARTED AT [facility] - RUBBING BED OPERATOR TO SET UP GUEST DOSING. WILL NEED PICC. CM WILL CONTINUE TO FOLLOW.
--- NOTE | 2023-03-09 11:24 | MHC.RECOVRN ---
Met with pt in 364 to follow up on Addiction Medicine consult. Pt sitting in bed, awake, alert, easily engages in conversation. Appears comfortable. Pt received 30 mg methadone this morning. Pt reports almost 5 years in recovery with recurrence around [place]. Pt reports she had been receiving methadone from [facility] in [place] prior to , 165 mg daily. Pt reports moving from [place] to [place] and had difficulty with transportation to the [facility]. Pt reports missing doses frequently. Pt had presented to [facility] on 02/13 and was restarted at 30 mg, pt reports she was able to increase to 50 mg but was unable to return to the [facility] due to lack of transportation. Pt reports transfer had been initiated to [facility], however, pt has not presented to that OTP yet. Pt would like to continue methadone titration and continue outpatient. Pt currently reports diaphoresis and expects withdrawal to continue to progress as the day goes on. Pt reports heroin/fentanyl use, 2-10 bags daily, IV. Pt reports occasional cocaine use, IV, hx cocaine, INH, use. Pt reports last INH use years ago. Pt aware she will need terminal clerk IV antibiotics and will dose with [facility] while at [facility]. Pt denies questions or concerns for t/w. Discussed with Rose Marie Greenwood APRN.
[2023-03-09 11:35] LABS: Glucose, Whole Blood 180 mg/dL (60-115)
--- NOTE | 2023-03-09 13:55 | P.PNIM_ITS ---
Subjective Subjective Date of Service: 03/09/23 Interval History: States some subjective improvement in right foot since admission. Dorsum of left foot with large fluid filled blister. Review of Systems Denies chest pain Denies shortness of breath Denies nausea vomiting diarrhea Denies fever chills Physical Exam 2 Vital Signs: Vital Signs: Last Vital Signs Temp 97.3 F 03/09/23 07:45 Pulse 73 03/09/23 10:11 Resp 18 03/09/23 10:11 BP 123/66 03/09/23 07:45 Pulse Ox 97 03/09/23 07:45 O2 Del Method Room Air 03/09/23 07:45 BMI result Body Mass Index 35.8 Const: Other: Awake alert no acute distress Resp: Other: Clear to auscultation bilaterally no rales rhonchi or wheezes Cardio: Other: No S4; positive S1-S2; no S3 murmurs rubs or gallops GI: Other: Soft nontender nondistended normoactive bowel sounds Skin: Other: See admission photos Extrem: Other: Trace edema bilaterally Objective Data Active Medications Acetaminophen (Acetaminophen 325 Mg Tablet) 650 mg PO Q6H PRN PRN Reason: Pain, Mild (Pain Scale 1-3) Last Admin: 03/08/23 17:15 Dose: 650 mg Documented By: KARINE Albuterol Sulfate (Albuterol Sulfate 90 Mcg 8 Gm Inhaler) 2 puff INHALE Q6H PRN PRN Reason: Shortness Of Breath Or Wheezing Amphetamine/Dextroamphetamine (Amphetamine Mixed Salts 10 Mg Tablet) 30 mg PO BID@0800,1300 [facility] Last Admin: 03/09/23 12:21 Dose: 30 mg Documented By: MEME Atorvastatin Calcium (Atorvastatin Calcium 40 Mg Tablet) 40 mg PO DAILY [facility] Last Admin: 03/09/23 07:58 Dose: 40 mg Documented By: MEME Dextrose (Dextrose 50 % 25 Gm/50 Ml Syringe) 25 gm IVPUSH Q15M PRN; Protocol PRN Reason: per Hypoglycemia Standing Ord. Enoxaparin Sodium (Enoxaparin Sodium 40 Mg/0.4 Ml Syringe) 40 mg SUBCUT Q24H [facility] Last Admin: 03/09/23 10:36 Dose: 40 mg Documented By: MEME Fluticasone Propionate (Fluticasone Propionate 250 Mcg Blst.W.Dev) 2 puff INHALE RBID [facility] Last Admin: 03/09/23 08:33 Dose: 2 puff Documented By: ABHINAV Gabapentin (Gabapentin 400 Mg Capsule) 800 mg PO TID [facility] Last Admin: 03/09/23 07:57 Dose: 800 mg Documented By: MEME Glucose (Glucose Gel 15 Gm Gel..Gram.) 15 gm PO Q15M PRN; Protocol PRN Reason: per Hypoglycemia Standing Ord. Hydromorphone HCl (Hydromorphone Hcl 1 Mg/Ml Syringe) 1 mg IVPUSH Q4H PRN; Protocol PRN Reason: Pain, Mild (Pain Scale 1-3) Last Admin: 03/09/23 07:53 Dose: 1 mg Documented By: MEME Piperacillin Sod/Tazobactam (Sod 4.5 gm/ Sodium Chloride) 100 mls @ 200 mls/hr IV Q8H [facility] Last Infusion: 03/09/23 09:02 Dose: Infused Documented By: MEME Vancomycin HCl 1,500 mg/ (Sodium Chloride) 500 mls @ 333.333 mls/hr IV Q12H [facility] Last Infusion: 03/09/23 12:44 Dose: Infused Documented By: MEME Insulin Glargine (Insulin Glargine,Hum.Rec.Anlog 100 Unit/Ml 10 Ml Vial) 29 unit SUBCUT BEDTIME [facility] Last Admin: 03/08/23 20:20 Dose: 29 unit Documented By: KARINE Insulin Human Lispro (Insulin Lispro 100 Unit/Ml 3 Ml Vial) 0 unit SUBCUT QIDACHS [facility]; Protocol Last Admin: 03/09/23 12:21 Dose: 2 unit Documented By: MEME Methadone HCl (Methadone Hcl 20 Mg/2 Ml Oral.Conc) 30 mg PO DAILY [facility] Last Admin: 03/09/23 07:58 Dose: 30 mg Documented By: MEME Methadone HCl (Methadone Hcl 20 Mg/2 Ml Oral.Conc) 10 mg PO DAILY PRN PRN Reason: Opiate Withdrawal Last Admin: 03/09/23 10:37 Dose: 10 mg Documented By: MEME Naloxone HCl (Naloxone Hcl 0.4 Mg/Ml Vial) 0.4 mg IVPUSH ONCE PRN PRN Reason: Respiratory Rate < 10 Nicotine (Nicotine 14 Mg Patch.Td24) 14 mg TRANSDERMA DAILY [facility] Last Admin: 03/09/23 08:01 Dose: 14 mg Documented By: MEME Omeprazole (Omeprazole 20 Mg Capsule.Dr) 20 mg PO DAILY@0630 [facility] Last Admin: 03/09/23 05:45 Dose: 20 mg Documented By: DEVYN Ondansetron HCl (Ondansetron Hcl 4 Mg/2 Ml Vial) 4 mg IVPUSH Q8H PRN PRN Reason: Nausea and Vomiting Oxycodone HCl (Oxycodone Hcl Immed Release 5 Mg Tablet) 5 mg PO Q6H PRN PRN Reason: Pain, Moderate(Pain Scale 4-6) Last Admin: 03/08/23 17:15 Dose: 5 mg Documented By: KARINE Pharmacy Consult (Consult Rx Vancomycin Dosing) 1 each MISCELLANE DAILY PRN PRN Reason: Consult order Senna (Sennosides 8.6 Mg Tablet) 17.2 mg PO BEDTIME PRN PRN Reason: Constipation Sertraline HCl (Sertraline Hcl 25 Mg Tablet) 75 mg PO DAILY [facility] Last Admin: 03/09/23 07:57 Dose: 75 mg Documented By: MEME Sodium Chloride (0.9 % Sodium Chloride Flush 3 Ml Syringe) 3 ml IVFLUSH QSHIFT [facility] Last Admin: 03/09/23 08:02 Dose: 3 ml Documented By: MEME Labs 03/08/23 06:04 03/09/23 08:13 Labs: Laboratory Results - last 24 hr 03/08/23 03/08/23 03/08/23 16:21 19:58 20:03 Estim Creat Clear Calc Estimated GFR POC Glucose 181 H 189 H Random Vancomycin 7.7 L 03/09/23 03/09/23 03/09/23 07:40 08:13 11:30 Estim Creat Clear Calc 144.7 Estimated GFR > 60 POC Glucose 190 H 180 H Random Vancomycin Microbiology Microbiology Results: Microbiology 03/07/23 03:54 Gram Stain - Final Foot - Abscess Routine Culture - Final Staphylococcus aureus Streptococcus pyogenes (Grp A) 03/07/23 05:13 Blood Culture - Preliminary Blood - Venous No growth after 48 hours. 03/07/23 17:08 Blood Culture - Preliminary Blood - Venous No growth after 24 hours. Assessment and Plan (1) Infected skin lesion: Status: Acute (2) Polysubstance abuse: Status: Acute (3) Type 2 diabetes mellitus: Status: Acute Plan 38-year-old female with history of polysubstance abuse previously in remission with relapse about 6 days ago, IV drug abuse, mild persistent asthma, insulin- dependent type 2 diabetes, diabetic polyneuropathy, and ADHD who is severely obese with BMI greater than 35 admitted for infected non pressure ulcerations BLE with cellulitis in IVDA. 1.Infected non pressure ulcerations..bilateral lower extremities with sepsis Sepsis now resolved with treatment. MRI of feet failed to demonstrate acute osteomyelitis however ID consult pending. Inflammatory markers high -vancomycin/Zosyn (2) -wound care as ordered -await ID input 2.Polysubstance abuse Patient stays relapse secondary to the change in methadone clinics; states she was previously on large dose of methadone was withdrawing quite severely which prompted her to seek street drugs for relief -initiate methadone 30 mg daily,naloxone prn RR<10 -addiction medicine consult -monitor COWS 3.Insulin-dependent type 2 diabetes Patient notes fairly well-controlled sugars as outpatient. No acute issues thus far this admission -acceptable control on current therapies -lispro correctional scale -adjust as indicated 4.Mild persistent asthma Not a clinical factor this admission -continue maintenance inhalers, albuterol p.r.n. Lovenox Full code Requires ongoing hospitalization for IV antibiotics pending completion of cultures to determine need and duration for antibiotics. Also requiring specialist consultation at this time Quality Stroke Does the patient have a stroke diagnosis?: No VTE Prior VTE?: No VTE Risk Level:: Medical - moderate - high VTE Device Contraindication: Treatment Not Indicated VTE Drug Contraindication: N/A - Med Ordered
[2023-03-09 15:15] VITALS: BP 167/84; PULSE 75; RESP 18; TEMP 37; O2SAT 98
[2023-03-09 16:06] LABS: Glucose, Whole Blood 141 mg/dL (60-115)
--- NOTE | 2023-03-09 17:17 | HO.WOUND ---
Wound Consult: Initial 38yr old female admitted to [facility] on? 03/07/23 10:05- See progress notes and H&P for detailed history. Wound consult placed for Multiple wound sites - bilateral hands, bilateral lower legs and bilateral feet. Pt reports she did not inject into these sites however she has injected with drugs obtained from a new supplier. Infectious disease following. Left foot Left Foot Right Foot Right Foot Right Index finger Left hand Left hand Etiology: ??Ulceration suspect Xylazine wound secondary to IVDU Wound Bed: various stages of wound development Drainage / Odor: serous drainage in some wounds - left leg with serous filled bulla and purulent bulla to medial foot Edges: ? irregular Lucrecia wound: ?red pink erythema Pain: significant pain reported Goals of Treatment: ? moist wound healing Recommendations: 1. Multiple wound sites - Cleanse with NS, pat dry. Apply xeroform, gauze and gauze wrap. Change Daily. Left foot - Consider refer to General surgery for debridement. Re-consult wound care Nurse for wound deterioration or wound changes.
--- NOTE | 2023-03-09 18:29 | P.PNADD_ITS ---
Subjective Subjective Date of Service: 03/09/23 Reason For Visit: cellulitis in IVDA with multiple infected injectio Interim History: Patient is a 38 year old female currently medically admitted with sepsis. OUD--had been in recovery for several years up until late January when she started to use opiates again. Prior to January, she reports she had been stable on 165mg methadone via [facility] in [place]. She reports that January has historically been a challenging month for her, but this year compounded with transportation challenges and other social stressors. Discussed numerous wounds on hands, arms, legs and feet. She reports they started to appear the day after she started to inject. She denies any injection drug use beyond her arms. She reports that she was using various products, so unable to determine if it was any one type of bag that may have caused this. She was started on methadone upon admission and today received 40mg. When seen by this commercial insurance underwriter she was awake, alert, bright and appearing very comfortable. She acknowledged still having some withdrawal sx, but much improved. She would like to continue titrating dose with goal of establishing care with [facility] in [place] as it is very close to her apt. Review of Systems Constitutional: Reports as per HPI Mental Status Exam Mental Status Exam Patient Appearance: Appropriate Level of Consciousness: Awake and Appropriate Mood Description: Calm Affect Description: Calm Diagnostics Vital Signs (24Hr): Vital Signs - 24 hr 03/08/23 22:29 03/08/23 23:23 03/09/23 07:45 Temperature 98.0 F 97.3 F Pulse Rate 84 84 73 Respiratory Rate 16 18 18 Blood Pressure 155/93 H 123/66 Pulse Oximetry 97 97 Oxygen Delivery Method Room Air Room Air 03/09/23 10:11 03/09/23 15:15 Temperature 98.6 F Pulse Rate 73 75 Respiratory Rate 18 18 Blood Pressure 167/84 H Pulse Oximetry 98 Oxygen Delivery Method Room Air BMI result Body Mass Index 35.8 Labs 03/08/23 06:04 03/09/23 08:13 Labs: Laboratory Results - last 48 hr 03/07/23 03/07/23 03/08/23 17:08 19:58 06:04 WBC 11.6 H RBC 4.71 Hgb 12.3 Hct 38.5 MCV 81.7 MCH 26.1 L MCHC 31.9 RDW 14.5 Plt Count 235 MPV 11.7 Immature Gran % (Auto) 0.8 H Neut % (Auto) 68.9 Lymph % (Auto) 22.6 Sac % (Auto) 5.6 Eos % (Auto) 1.6 Baso % (Auto) 0.5 Lymph # (Auto) 2.6 Sac # (Auto) 0.7 Eos # (Auto) 0.2 Baso # (Auto) 0.1 Abs Immat Gran (auto) 0.09 H Absolute Neuts (auto) 8.0 Absolute Nucleated RBC 0.000 Nucleated RBC % (auto) 0.0 Sodium 135 Potassium 3.6 Chloride 100 Carbon Dioxide 27 Anion Gap 12 BUN 7 L Creatinine 0.71 Estim Creat Clear Calc 130.4 Estimated GFR > 60 POC Glucose 258 H Random Glucose 284 H Estimat Average Glucose 166 Hemoglobin A1c % 7.4 H Calcium 8.5 Random Vancomycin Hep Bs Antigen Negative Hep Bs Antibody REACTIVE Hep B Core Total Ab Nonreactive Hepatitis C Ab (EIA) Reactive H HIV 1&2 Ab/P24 Ag 4thGn Nonreactive 03/08/23 03/08/23 03/08/23 07:23 11:10 16:21 WBC RBC Hgb Hct MCV MCH MCHC RDW Plt Count MPV Immature Gran % (Auto) Neut % (Auto) Lymph % (Auto) Sac % (Auto) Eos % (Auto) Baso % (Auto) Lymph # (Auto) Sac # (Auto) Eos # (Auto) Baso # (Auto) Abs Immat Gran (auto) Absolute Neuts (auto) Absolute Nucleated RBC Nucleated RBC % (auto) Sodium Potassium Chloride Carbon Dioxide Anion Gap BUN Creatinine Estim Creat Clear Calc Estimated GFR POC Glucose 245 H 195 H 181 H Random Glucose Estimat Average Glucose Hemoglobin A1c % Calcium Random Vancomycin Hep Bs Antigen Hep Bs Antibody Hep B Core Total Ab Hepatitis C Ab (EIA) HIV 1&2 Ab/P24 Ag 4thGn 03/08/23 03/08/23 03/09/23 19:58 20:03 07:40 WBC RBC Hgb Hct MCV MCH MCHC RDW Plt Count MPV Immature Gran % (Auto) Neut % (Auto) Lymph % (Auto) Sac % (Auto) Eos % (Auto) Baso % (Auto) Lymph # (Auto) Sac # (Auto) Eos # (Auto) Baso # (Auto) Abs Immat Gran (auto) Absolute Neuts (auto) Absolute Nucleated RBC Nucleated RBC % (auto) Sodium Potassium Chloride Carbon Dioxide Anion Gap BUN Creatinine Estim Creat Clear Calc Estimated GFR POC Glucose 189 H 190 H Random Glucose Estimat Average Glucose Hemoglobin A1c % Calcium Random Vancomycin 7.7 L Hep Bs Antigen Hep Bs Antibody Hep B Core Total Ab Hepatitis C Ab (EIA) HIV 1&2 Ab/P24 Ag 4thGn 03/09/23 03/09/23 03/09/23 08:13 11:30 16:03 WBC RBC Hgb Hct MCV MCH MCHC RDW Plt Count MPV Immature Gran % (Auto) Neut % (Auto) Lymph % (Auto) Sac % (Auto) Eos % (Auto) Baso % (Auto) Lymph # (Auto) Sac # (Auto) Eos # (Auto) Baso # (Auto) Abs Immat Gran (auto) Absolute Neuts (auto) Absolute Nucleated RBC Nucleated RBC % (auto) Sodium Potassium Chloride Carbon Dioxide Anion Gap BUN Creatinine 0.64 Estim Creat Clear Calc 144.7 Estimated GFR > 60 POC Glucose 180 H 141 H Random Glucose Estimat Average Glucose Hemoglobin A1c % Calcium Random Vancomycin Hep Bs Antigen Hep Bs Antibody Hep B Core Total Ab Hepatitis C Ab (EIA) HIV 1&2 Ab/P24 Ag 4thGn Imaging Radiology Impressions: ITS Impressions Ankle X-Ray 03/07/23 07:49 IMPRESSION: RIGHT ANKLE: Mild circumferential soft tissue swelling without acute osseous abnormality. LEFT ANKLE: Circumferential soft tissue swelling without acute osseous abnormality. RIGHT FOOT: Prominent forefoot soft tissue swelling without periosteal reaction or osseous erosion. LEFT FOOT: Prominent circumferential soft tissue swelling without acute osseous abnormality. Possible tiny foreign bodies within the dorsal soft tissues. Early osteomyelitis may be occult on plain radiographs, and if there is persistent clinical concern, nuclear medicine bone scan or MRI could help further evaluate. Ankle X-Ray 03/07/23 07:49 IMPRESSION: RIGHT ANKLE: Mild circumferential soft tissue swelling without acute osseous abnormality. LEFT ANKLE: Circumferential soft tissue swelling without acute osseous abnormality. RIGHT FOOT: Prominent forefoot soft tissue swelling without periosteal reaction or osseous erosion. LEFT FOOT: Prominent circumferential soft tissue swelling without acute osseous abnormality. Possible tiny foreign bodies within the dorsal soft tissues. Early osteomyelitis may be occult on plain radiographs, and if there is persistent clinical concern, nuclear medicine bone scan or MRI could help further evaluate. Foot X-Ray 03/07/23 07:49 IMPRESSION: RIGHT ANKLE: Mild circumferential soft tissue swelling without acute osseous abnormality. LEFT ANKLE: Circumferential soft tissue swelling without acute osseous abnormality. RIGHT FOOT: Prominent forefoot soft tissue swelling without periosteal reaction or osseous erosion. LEFT FOOT: Prominent circumferential soft tissue swelling without acute osseous abnormality. Possible tiny foreign bodies within the dorsal soft tissues. Early osteomyelitis may be occult on plain radiographs, and if there is persistent clinical concern, nuclear medicine bone scan or MRI could help further evaluate. Foot X-Ray 03/07/23 07:49 IMPRESSION: RIGHT ANKLE: Mild circumferential soft tissue swelling without acute osseous abnormality. LEFT ANKLE: Circumferential soft tissue swelling without acute osseous abnormality. RIGHT FOOT: Prominent forefoot soft tissue swelling without periosteal reaction or osseous erosion. LEFT FOOT: Prominent circumferential soft tissue swelling without acute osseous abnormality. Possible tiny foreign bodies within the dorsal soft tissues. Early osteomyelitis may be occult on plain radiographs, and if there is persistent clinical concern, nuclear medicine bone scan or MRI could help further evaluate. Hand/Wrist X-Ray 03/07/23 11:19 IMPRESSION: 1. RIGHT HAND AND WRIST: Circumferential soft tissue swelling without acute osseous abnormality. No osseous erosion or periosteal reaction. 2. LEFT HAND AND WRIST: Circumferential soft tissue swelling without acute osseous abnormality. No osseous erosion or periosteal reaction. Hand/Wrist X-Ray 03/07/23 11:19 IMPRESSION: 1. RIGHT HAND AND WRIST: Circumferential soft tissue swelling without acute osseous abnormality. No osseous erosion or periosteal reaction. 2. LEFT HAND AND WRIST: Circumferential soft tissue swelling without acute osseous abnormality. No osseous erosion or periosteal reaction. Foot MRI 03/07/23 15:11 IMPRESSION: 1. Focal cellulitis along the dorsal aspect of the midfoot with diffuse subcutaneous edema. No abscess formation. No evidence of acute osteomyelitis. 2. 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 Foot MRI 03/07/23 15:27 IMPRESSION: 1. Soft tissue defect/ulceration along the dorsal/medial aspect of the midfoot at the level of the tarsometatarsal joints. Adjacent cellulitis with peripherally enhancing fluid extending along the dorsum of the midfoot, consistent with an abscess formation. No adjacent osseous abnormality to suggest acute osteomyelitis. 2. Prominent circumferential subcutaneous edema without additional abscess formation. 3. Moderate degenerative arthritis at the 4th and 5th tarsometatarsal joints as well as at the cuneonavicular and talonavicular joints. Medications Medications Current Medications Acetaminophen (Acetaminophen 325 Mg Tablet) 650 mg PO Q6H PRN PRN Reason: Pain, Mild (Pain Scale 1-3) Last Admin: 03/08/23 17:15 Dose: 650 mg Albuterol Sulfate (Albuterol Sulfate 90 Mcg 8 Gm Inhaler) 2 puff INHALE Q6H PRN PRN Reason: Shortness Of Breath Or Wheezing Amphetamine/Dextroamphetamine (Amphetamine Mixed Salts 10 Mg Tablet) 30 mg PO BID@0800,1300 [facility] Last Admin: 03/09/23 12:21 Dose: 30 mg Atorvastatin Calcium (Atorvastatin Calcium 40 Mg Tablet) 40 mg PO DAILY [facility] Last Admin: 03/09/23 07:58 Dose: 40 mg Dextrose (Dextrose 50 % 25 Gm/50 Ml Syringe) 25 gm IVPUSH Q15M PRN; Protocol PRN Reason: per Hypoglycemia Standing Ord. Enoxaparin Sodium (Enoxaparin Sodium 40 Mg/0.4 Ml Syringe) 40 mg SUBCUT Q24H [facility] Last Admin: 03/09/23 10:36 Dose: 40 mg Fluticasone Propionate (Fluticasone Propionate 250 Mcg Blst.W.Dev) 2 puff INHALE RBID [facility] Last Admin: 03/09/23 08:33 Dose: 2 puff Gabapentin (Gabapentin 400 Mg Capsule) 800 mg PO TID [facility] Last Admin: 03/09/23 15:17 Dose: 800 mg Glucose (Glucose Gel 15 Gm Gel..Gram.) 15 gm PO Q15M PRN; Protocol PRN Reason: per Hypoglycemia Standing Ord. Hydromorphone HCl (Hydromorphone Hcl 1 Mg/Ml Syringe) 1 mg IVPUSH Q4H PRN; Protocol PRN Reason: Pain, Mild (Pain Scale 1-3) Last Admin: 03/09/23 18:20 Dose: 1 mg Piperacillin Sod/Tazobactam (Sod 4.5 gm/ Sodium Chloride) 100 mls @ 200 mls/hr IV Q8H [facility] Last Infusion: 03/09/23 18:02 Dose: Infused Vancomycin HCl 1,500 mg/ (Sodium Chloride) 500 mls @ 333.333 mls/hr IV Q12H [facility] Last Infusion: 03/09/23 12:44 Dose: Infused Insulin Glargine (Insulin Glargine,Hum.Rec.Anlog 100 Unit/Ml 10 Ml Vial) 29 unit SUBCUT BEDTIME [facility] Last Admin: 03/08/23 20:20 Dose: 29 unit Insulin Human Lispro (Insulin Lispro 100 Unit/Ml 3 Ml Vial) 0 unit SUBCUT QIDACHS [facility]; Protocol Last Admin: 03/09/23 16:33 Dose: Not Given Methadone HCl (Methadone Hcl 20 Mg/2 Ml Oral.Conc) 10 mg PO DAILY PRN PRN Reason: Opiate Withdrawal Last Admin: 03/09/23 10:37 Dose: 10 mg Methadone HCl (Methadone Hcl 20 Mg/2 Ml Oral.Conc) 55 mg PO DAILY [facility] Naloxone HCl (Naloxone Hcl 0.4 Mg/Ml Vial) 0.4 mg IVPUSH ONCE PRN PRN Reason: Respiratory Rate < 10 Nicotine (Nicotine 14 Mg Patch.Td24) 14 mg TRANSDERMA DAILY [facility] Last Admin: 03/09/23 08:01 Dose: 14 mg Omeprazole (Omeprazole 20 Mg Capsule.Dr) 20 mg PO DAILY@0630 [facility] Last Admin: 03/09/23 05:45 Dose: 20 mg Ondansetron HCl (Ondansetron Hcl 4 Mg/2 Ml Vial) 4 mg IVPUSH Q8H PRN PRN Reason: Nausea and Vomiting Oxycodone HCl (Oxycodone Hcl Immed Release 5 Mg Tablet) 5 mg PO Q6H PRN PRN Reason: Pain, Moderate(Pain Scale 4-6) Last Admin: 03/08/23 17:15 Dose: 5 mg Pharmacy Consult (Consult Rx Vancomycin Dosing) 1 each MISCELLANE DAILY PRN PRN Reason: Consult order Senna (Sennosides 8.6 Mg Tablet) 17.2 mg PO BEDTIME PRN PRN Reason: Constipation Sertraline HCl (Sertraline Hcl 25 Mg Tablet) 75 mg PO DAILY [facility] Last Admin: 03/09/23 07:57 Dose: 75 mg Sodium Chloride (0.9 % Sodium Chloride Flush 3 Ml Syringe) 3 ml IVFLUSH QSHIFT [facility] Last Admin: 03/09/23 13:58 Dose: 3 ml Allergies Allergies Allergy/AdvReac Type Severity Reaction Status Date / Time morphine Allergy Hives Verified 03/07/23 20:50 Assessment & Plan Assessment & Plan (1) Opioid use disorder: Status: Acute Code(s): F11.90 - Opioid use, unspecified, uncomplicated Plan * increase methadone to 55mg in AM * continue 10mg methadone QD PRN * wounds on arms and legs consistent with appearance of xylanize related wounds--which are known to appear on areas of the body NOT used for injection drug use (patients who only inject into hands or arms, with wounds appearing on legs). Patient denies any history of skin popping as reported by other provider. * harm reduction discussion with patient, although patient is quite knowledgeable as it pertains to safer injection use, community resources, overdose prevention, etc. * salmon troll fisher to assist CM as needed to set up continuation of methadone upon discharge Total time managing care of this patient today 40 ____ minutes.
[2023-03-09 19:35] VITALS: PULSE 78; RESP 16; O2SAT 96
[2023-03-09 19:52] VITALS: BP 168/71; PULSE 64; RESP 18; TEMP 37; O2SAT 97
[2023-03-09 20:59] LABS: Glucose, Whole Blood 162 mg/dL (60-115)
[2023-03-09 21:05] LABS: Vancomycin Random 12.4 mcg/mL (15-20)
--- NOTE | 2023-03-09 21:28 | W.PM.IDCN ---
History of Present Illness Data of Consult Service Date: 03/09/23 Requesting physician: Aleksey Carlton Primary Care Provider: [facility] HPI Reason for consult: multiple infected injection drug sites She presents with one to two weeks redness and erythema over different body sites. She has left wrist redness and blisters as well as left foot blistered. She has Group A strep and MSSA from blistered areas. She has no MRSA but says only Vancomycin works well for her infected skin sites. She has temperature of 100.6 and pulse 101 on admission. Review of Systems Review of Systems: Yes all other systems are reviewed and are negative [facility] Past Medical History Medical History Diabetic polyneuropathy ADHD Type 2 diabetes mellitus Asthma Polysubstance abuse Intravenous drug abuse Opiate use Family History Family history: reviewed and not pertinent Social History Social History Household Members: None Housing: Apartment Do you presently have visiting nurse or other home services: No Patient Tobacco Use Status: Current someday Tobacco user Tobacco use type: Cigarette Cigarette Packs Per Day: 0.5 Cigarettes Per Day: 8 Smoked in Last 30 Days: Yes Patient Interested in Nicotine Replacement: Yes Use of substances other than those prescribed or required for medical reasons: Yes Substance Use Type: Heroin Substance Use Frequency: Recent Binge Last Used Substance: Days (ago) Currently Displaying Signs/Symptoms of Drug Intoxication Withdrawal: No Any prior treatment program specific to substance use: Yes Have you been hit, kicked, punched, or otherwise hurt by someone within the past year? If so, by whom?: No Do you feel safe in your current relationship?: Yes Is there a partner from a previous relationship who is making you feel unsafe now?: No Are you made to feel afraid or neglected: No Advance Directives: No Advance Directives Information Provided: No Do you have thoughts of harming others: None Do you have a plan to hurt others: No Plan Recently lost weight without trying: No Eating poorly because of decreased appetite: No Nutrition Risks: No Nutritional Risk Patient : No : No Poor oral hygiene: No service: No Meds Allergies Allergy/AdvReac Type Severity Reaction Status Date / Time morphine Allergy Hives Verified 12/31/23 20:50 Active Medications: Current Medications Acetaminophen (Acetaminophen 325 Mg Tablet) 650 mg PO Q6H PRN PRN Reason: Pain, Mild (Pain Scale 1-3) Last Admin: 03/08/23 17:15 Dose: 650 mg Albuterol Sulfate (Albuterol Sulfate 90 Mcg 8 Gm Inhaler) 2 puff INHALE Q6H PRN PRN Reason: Shortness Of Breath Or Wheezing Amphetamine/Dextroamphetamine (Amphetamine Mixed Salts 10 Mg Tablet) 30 mg PO BID@0800,1300 [facility] Last Admin: 03/09/23 12:21 Dose: 30 mg Atorvastatin Calcium (Atorvastatin Calcium 40 Mg Tablet) 40 mg PO DAILY [facility] Last Admin: 03/09/23 07:58 Dose: 40 mg Dextrose (Dextrose 50 % 25 Gm/50 Ml Syringe) 25 gm IVPUSH Q15M PRN; Protocol PRN Reason: per Hypoglycemia Standing Ord. Enoxaparin Sodium (Enoxaparin Sodium 40 Mg/0.4 Ml Syringe) 40 mg SUBCUT Q24H [facility] Last Admin: 03/09/23 10:36 Dose: 40 mg Fluticasone Propionate (Fluticasone Propionate 250 Mcg Blst.W.Dev) 2 puff INHALE RBID [facility] Last Admin: 03/09/23 19:33 Dose: 2 puff Gabapentin (Gabapentin 400 Mg Capsule) 800 mg PO TID [facility] Last Admin: 03/09/23 15:17 Dose: 800 mg Glucose (Glucose Gel 15 Gm Gel..Gram.) 15 gm PO Q15M PRN; Protocol PRN Reason: per Hypoglycemia Standing Ord. Hydromorphone HCl (Hydromorphone Hcl 1 Mg/Ml Syringe) 1 mg IVPUSH Q4H PRN; Protocol PRN Reason: Pain, Mild (Pain Scale 1-3) Last Admin: 03/09/23 18:20 Dose: 1 mg Piperacillin Sod/Tazobactam (Sod 4.5 gm/ Sodium Chloride) 100 mls @ 200 mls/hr IV Q8H [facility] Last Infusion: 03/09/23 18:02 Dose: Infused Vancomycin HCl 1,000 mg/Vancomycin HCl 750 mg/ Sodium Chloride 535 mls @ 267.5 mls/hr IV Q12H [facility] Insulin Glargine (Insulin Glargine,Hum.Rec.Anlog 100 Unit/Ml 10 Ml Vial) 29 unit SUBCUT BEDTIME [facility] Last Admin: 03/08/23 20:20 Dose: 29 unit Insulin Human Lispro (Insulin Lispro 100 Unit/Ml 3 Ml Vial) 0 unit SUBCUT QIDACHS [facility]; Protocol Last Admin: 03/09/23 16:33 Dose: Not Given Methadone HCl (Methadone Hcl 20 Mg/2 Ml Oral.Conc) 10 mg PO DAILY PRN PRN Reason: Opiate Withdrawal Last Admin: 03/09/23 10:37 Dose: 10 mg Methadone HCl (Methadone Hcl 20 Mg/2 Ml Oral.Conc) 55 mg PO DAILY [facility] Naloxone HCl (Naloxone Hcl 0.4 Mg/Ml Vial) 0.4 mg IVPUSH ONCE PRN PRN Reason: Respiratory Rate < 10 Nicotine (Nicotine 14 Mg Patch.Td24) 14 mg TRANSDERMA DAILY [facility] Last Admin: 03/09/23 08:01 Dose: 14 mg Omeprazole (Omeprazole 20 Mg Capsule.Dr) 20 mg PO DAILY@0630 [facility] Last Admin: 03/09/23 05:45 Dose: 20 mg Ondansetron HCl (Ondansetron Hcl 4 Mg/2 Ml Vial) 4 mg IVPUSH Q8H PRN PRN Reason: Nausea and Vomiting Oxycodone HCl (Oxycodone Hcl Immed Release 5 Mg Tablet) 5 mg PO Q6H PRN PRN Reason: Pain, Moderate(Pain Scale 4-6) Last Admin: 03/08/23 17:15 Dose: 5 mg Pharmacy Consult (Consult Rx Vancomycin Dosing) 1 each MISCELLANE DAILY PRN PRN Reason: Consult order Senna (Sennosides 8.6 Mg Tablet) 17.2 mg PO BEDTIME PRN PRN Reason: Constipation Sertraline HCl (Sertraline Hcl 25 Mg Tablet) 75 mg PO DAILY [facility] Last Admin: 03/09/23 07:57 Dose: 75 mg Sodium Chloride (0.9 % Sodium Chloride Flush 3 Ml Syringe) 3 ml IVFLUSH QSHIFT [facility] Last Admin: 03/09/23 13:58 Dose: 3 ml Home Medications Medication Instructions Recorded Confirmed Last Taken Type albuterol sulfate 90 mcg/actuation 2 puff inhalation Q6H PRN 03/07/23 03/07/23 Unknown History aerosol inhaler (Ventolin HFA) Shortness Of Breath Or Wheezing atorvastatin 40 mg tablet 40 mg PO DAILY 03/07/23 03/07/23 03/05/23 History dextroamphetamine-amphetamine 30 30 mg PO BID@0800,1300 03/07/23 03/07/23 03/05/23 History mg tablet fluticasone propionate 220 2 puff inhalation BID 03/07/23 03/07/23 03/05/23 History mcg/actuation HFA aerosol inhaler (Flovent HFA) gabapentin 800 mg tablet 800 mg PO TID 03/07/23 03/07/23 03/05/23 History insulin glargine 100 unit/mL (3 38 unit subcut BEDTIME 03/07/23 03/07/23 03/05/23 History mL) subcutaneous pen (Lantus Solostar U-100 Insulin) insulin lispro 100 unit/mL 1 sliding scale dose subcut TIDAC 03/07/23 03/07/23 03/05/23 History subcutaneous pen metformin 500 mg tablet 500 mg PO BID 03/07/23 03/07/23 03/05/23 History pantoprazole 40 mg tablet,delayed 40 mg PO DAILY@0630 03/07/23 03/07/23 03/05/23 History release sennosides 8.6 mg-docusate sodium 1 tab PO DAILY 03/07/23 03/07/23 03/05/23 History 50 mg tablet (Stool Softener-Laxative) sertraline 50 mg tablet 75 mg PO DAILY 03/07/23 03/07/23 03/05/23 History Physical Exam Vital Signs: Vital Signs: Last Vital Signs Temp 98.6 F 03/09/23 19:52 Pulse 64 03/09/23 19:52 Resp 18 03/09/23 19:52 BP 168/71 H 03/09/23 19:52 Pulse Ox 97 03/09/23 19:52 O2 Del Method Room Air 03/09/23 19:52 BMI result Body Mass Index 35.8 Const: General: cooperative HEENT: Head: Yes normal to inspection Face and sinus: Yes normal facial exam Mouth: Normal oral and palatal mucosa present Teeth and gingiva: dentition normal Eyes: General: appearance normal, both eyes and all related structures Pupils: Equal, round and reactive pupils present Resp: Effort & Inspection: normal respiratory effort Cardio: Rate: regular rate Rhythm: regular rhythm GI: Palpation (GI): Soft to palpation and nontender : General: Yes no CVA tenderness Back/Spine/Pelvis: Back: no CVA tenderness Skin: General skin exam: no rashes or lesions noted Neuro: General: moves all extremities Cranial nerves: Yes Equal, round and reactive pupils present Extrem: Other: left foot blister and redness, left leg redness left wrist blister Psych: Appearance: grossly normal Results Labs 03/08/23 06:04 03/09/23 08:13 Labs: BMP 03/09/23 08:13 Creatinine 0.64 Microbiology Microbiology Results: Microbiology 03/07/23 17:08 Blood - Venous Blood Culture - Preliminary No growth after 48 hours. 03/07/23 03:54 Foot - Abscess Gram Stain - Final 03/07/23 03:54 Foot - Abscess Routine Culture - Final Staphylococcus aureus Streptococcus pyogenes (Grp A) 03/07/23 05:13 Blood - Venous Blood Culture - Preliminary No growth after 48 hours. Assessment and Plan (1) Sepsis: Status: Acute Sepsis Tachycardia and fever. Likely organisms MSSA and Group A strep (2) Cellulitis of left ankle: Status: Acute Plan Would continue piperacillin/tazobactam. Can discharge Vancomycin next day or two. Po Augmentin for two weeks after.
--- NOTE | 2023-03-09 22:33 | HE.PHANOTE ---
RE: CHRIS patients level came back this evening at 12.4, renal function continues to improve. will increase dose to 1750 mg Q12H and get a level tomorrow @ 2000 to ensure safety vs efficacy
[2023-03-09] MEDS: Insulin Glargine,Hum.rec.anlog 100 UNIT/ML 10 ML VIAL 29 UNIT SUBCUT (22:38)
[2023-03-09] MEDS: vancomycin HCL 1,000 MG, vancomycin HCL 750 MG in 0.9 % Sodium Chloride 500 ML 267.5 MG IV (23:11)
[2023-03-09 23:25] VITALS: BP 147/84; PULSE 61; RESP 18; TEMP 36.6; O2SAT 97
[2023-03-10] MEDS: 0.9 % Sodium Chloride Flush 3 ML SYRINGE IVFLUSH ×3 (01:15→20:49)
[2023-03-10] MEDS: Piperacillin Sodium/Tazobactam 4.5 GM in 0.9 % Sodium Chloride 100 ML IV ×3 (01:15→18:06)
[2023-03-10] MEDS: Omeprazole 20 MG CAPSULE.DR PO (05:36)
[2023-03-10] MEDS: HYDROmorphone HCl 1 MG/ML SYRINGE IVPUSH ×2 (05:39→09:49)
[2023-03-10 07:44] VITALS: BP 140/74; PULSE 56; RESP 16; TEMP 36; O2SAT 96
[2023-03-10 07:45] LABS: Glucose, Whole Blood 106 mg/dL (60-115)
[2023-03-10] MEDS: Nicotine 14 MG PATCH.TD24 TRANSDERMA (08:01)
[2023-03-10] MEDS: methADONE HCl 20 MG/2 ML ORAL.CONC 55 MG PO (08:02)
[2023-03-10] MEDS: Atorvastatin Calcium 40 MG TABLET PO (08:02)
[2023-03-10] MEDS: Amphetamine Mixed Salts 10 MG TABLET 30 MG PO ×2 (08:02→11:59)
[2023-03-10] MEDS: Sertraline HCL 25 MG TABLET 75 MG PO (08:02)
[2023-03-10] MEDS: Gabapentin 400 MG CAPSULE 800 MG PO ×3 (08:02→20:46)
[2023-03-10] MEDS: ondansetron HCL 4 MG/2 ML VIAL IVPUSH (09:49)
[2023-03-10] MEDS: vancomycin HCL 1,000 MG, vancomycin HCL 750 MG in 0.9 % Sodium Chloride 500 ML 267.5 MG IV ×2 (09:50→20:46)
[2023-03-10] MEDS: Enoxaparin Sodium 40 MG/0.4 ML SYRINGE SUBCUT (09:50)
[2023-03-10] MEDS: Acetaminophen 325 MG TABLET 650 MG PO (12:00)
--- NOTE | 2023-03-10 12:49 | HO.PM.IMPN ---
Subjective Subjective Date of Service: 03/10/23 Interval History: No acute issues overnight. Id note appreciated. Review of Systems Denies chest pain Denies shortness of breath Denies nausea vomiting diarrhea Denies fever chills Physical Exam Vital Signs: Vital Signs: Last Vital Signs Temp 96.8 F 03/10/23 07:44 Pulse 56 03/10/23 07:44 Resp 16 03/10/23 07:44 BP 140/74 H 03/10/23 07:44 Pulse Ox 96 03/10/23 07:44 O2 Del Method Room Air 03/10/23 07:44 BMI result Body Mass Index 35.8 Const: Other: Awake alert no acute distress Resp: Other: Clear to auscultation bilaterally no rales rhonchi or wheezes Cardio: Other: No S4; positive S1-S2; no S3 murmurs rubs or gallops GI: Other: Soft nontender nondistended normoactive bowel sounds Skin: Other: See admission photos Extrem: Other: Trace edema bilaterally Objective Data Active Medications Acetaminophen (Acetaminophen 325 Mg Tablet) 650 mg PO Q6H PRN PRN Reason: Pain, Mild (Pain Scale 1-3) Last Admin: 03/10/23 12:00 Dose: 650 mg Documented By: KARINE Albuterol Sulfate (Albuterol Sulfate 90 Mcg 8 Gm Inhaler) 2 puff INHALE Q6H PRN PRN Reason: Shortness Of Breath Or Wheezing Amphetamine/Dextroamphetamine (Amphetamine Mixed Salts 10 Mg Tablet) 30 mg PO BID@0800,1300 [facility] Last Admin: 03/10/23 11:59 Dose: 30 mg Documented By: KARINE Atorvastatin Calcium (Atorvastatin Calcium 40 Mg Tablet) 40 mg PO DAILY [facility] Last Admin: 03/10/23 08:02 Dose: 40 mg Documented By: JAJA Dextrose (Dextrose 50 % 25 Gm/50 Ml Syringe) 25 gm IVPUSH Q15M PRN; Protocol PRN Reason: per Hypoglycemia Standing Ord. Enoxaparin Sodium (Enoxaparin Sodium 40 Mg/0.4 Ml Syringe) 40 mg SUBCUT Q24H [facility] Last Admin: 03/10/23 09:50 Dose: 40 mg Documented By: JAJA Fluticasone Propionate (Fluticasone Propionate 250 Mcg Blst.W.Dev) 2 puff INHALE RBID [facility] Last Admin: 03/10/23 08:18 Dose: Not Given Documented By: SASHA Non-Admin Reason: Patient Refused Gabapentin (Gabapentin 400 Mg Capsule) 800 mg PO TID [facility] Last Admin: 03/10/23 08:02 Dose: 800 mg Documented By: JAJA Glucose (Glucose Gel 15 Gm Gel..Gram.) 15 gm PO Q15M PRN; Protocol PRN Reason: per Hypoglycemia Standing Ord. Hydromorphone HCl (Hydromorphone Hcl 1 Mg/Ml Syringe) 1 mg IVPUSH Q4H PRN; Protocol PRN Reason: Pain, Mild (Pain Scale 1-3) Last Admin: 03/10/23 09:49 Dose: 1 mg Documented By: JAJA Piperacillin Sod/Tazobactam (Sod 4.5 gm/ Sodium Chloride) 100 mls @ 200 mls/hr IV Q8H [facility] Last Infusion: 03/10/23 08:39 Dose: Infused Documented By: JAJA Vancomycin HCl 1,000 mg/Vancomycin HCl 750 mg/ Sodium Chloride 535 mls @ 267.5 mls/hr IV Q12H [facility] Last Infusion: 03/10/23 11:50 Dose: Infused Documented By: JAJA Insulin Glargine (Insulin Glargine,Hum.Rec.Anlog 100 Unit/Ml 10 Ml Vial) 29 unit SUBCUT BEDTIME [facility] Last Admin: 03/09/23 22:38 Dose: 29 unit Documented By: JACKIE Insulin Human Lispro (Insulin Lispro 100 Unit/Ml 3 Ml Vial) 0 unit SUBCUT QIDACHS [facility]; Protocol Last Admin: 03/10/23 11:36 Dose: Not Given Documented By: JAJA Non-Admin Reason: No Insulin Coverage Methadone HCl (Methadone Hcl 20 Mg/2 Ml Oral.Conc) 10 mg PO DAILY PRN PRN Reason: Opiate Withdrawal Last Admin: 03/09/23 10:37 Dose: 10 mg Documented By: MEME Methadone HCl (Methadone Hcl 20 Mg/2 Ml Oral.Conc) 55 mg PO DAILY [facility] Last Admin: 03/10/23 08:02 Dose: 55 mg Documented By: JAJA Naloxone HCl (Naloxone Hcl 0.4 Mg/Ml Vial) 0.4 mg IVPUSH ONCE PRN PRN Reason: Respiratory Rate < 10 Nicotine (Nicotine 14 Mg Patch.Td24) 14 mg TRANSDERMA DAILY [facility] Last Admin: 03/10/23 08:01 Dose: 14 mg Documented By: JAJA Omeprazole (Omeprazole 20 Mg Capsule.Dr) 20 mg PO DAILY@0630 [facility] Last Admin: 03/10/23 05:36 Dose: 20 mg Documented By: AMY Ondansetron HCl (Ondansetron Hcl 4 Mg/2 Ml Vial) 4 mg IVPUSH Q8H PRN PRN Reason: Nausea and Vomiting Last Admin: 03/10/23 09:49 Dose: 4 mg Documented By: JAJA Oxycodone HCl (Oxycodone Hcl Immed Release 5 Mg Tablet) 5 mg PO Q6H PRN PRN Reason: Pain, Moderate(Pain Scale 4-6) Last Admin: 03/08/23 17:15 Dose: 5 mg Documented By: KARINE Pharmacy Consult (Consult Rx Vancomycin Dosing) 1 each MISCELLANE DAILY PRN PRN Reason: Consult order Senna (Sennosides 8.6 Mg Tablet) 17.2 mg PO BEDTIME PRN PRN Reason: Constipation Sertraline HCl (Sertraline Hcl 25 Mg Tablet) 75 mg PO DAILY [facility] Last Admin: 03/10/23 08:02 Dose: 75 mg Documented By: JAJA Sodium Chloride (0.9 % Sodium Chloride Flush 3 Ml Syringe) 3 ml IVFLUSH QSHIFT [facility] Last Admin: 03/10/23 08:38 Dose: Not Given Documented By: JAJA Non-Admin Reason: IV Running Labs 03/08/23 06:04 03/09/23 08:13 Labs: Laboratory Results - last 24 hr 03/09/23 03/09/23 03/09/23 16:03 20:38 20:54 POC Glucose 141 H 162 H Random Vancomycin 12.4 L 03/10/23 03/10/23 07:40 11:25 POC Glucose 106 126 H Random Vancomycin Microbiology Microbiology Results: Microbiology 03/07/23 17:08 Blood Culture - Preliminary Blood - Venous No growth after 48 hours. Assessment and Plan (1) Cellulitis of left ankle: Status: Acute (2) Sepsis: Status: Acute (3) Type 2 diabetes mellitus: Status: Acute (4) Opioid use disorder: Status: Acute Plan 38-year-old female with history of polysubstance abuse previously in remission with relapse about 6 days ago, IV drug abuse, mild persistent asthma, insulin-dependent type 2 diabetes, diabetic polyneuropathy, and ADHD who is severely obese with BMI greater than 35 admitted for infected non pressure ulcerations BLE with cellulitis in IVDA. 1.Infected non pressure ulcerations..bilateral lower extremities with sepsis Sepsis now resolved with treatment. MRI of feet failed to demonstrate acute osteomyelitis ;Inflammatory markers high; remains afebrile -vancomycin/Zosyn (3)... If continues to do well as per ID will DC vancomycin. -switch to Augmentin on DC -wound care as ordered 2.Polysubstance abuse Patient stays relapse secondary to the change in methadone clinics; states she was previously on large dose of methadone was withdrawing quite severely which prompted her to seek street drugs for relief -initiate methadone 30 mg daily,naloxone prn RR<10 -addiction medicine consult appreciated -monitor COWS 3.Insulin-dependent type 2 diabetes Patient notes fairly well-controlled sugars as outpatient. No acute issues thus far this admission -acceptable control on current therapies -lispro correctional scale -adjust as indicated 4.Mild persistent asthma Not a clinical factor this admission -continue maintenance inhalers, albuterol p.r.n. Lovenox Full code Requires ongoing hospitalization for IV antibiotics pending completion of cultures to determine need and duration for antibiotics. Also requiring specialist consultation at this time ongoing with Infectious Disease and surgery Quality Stroke Does the patient have a stroke diagnosis?: No VTE Prior VTE?: No VTE Risk Level:: Medical - moderate - high VTE Device Contraindication: Treatment Not Indicated VTE Drug Contraindication: N/A - Med Ordered
--- NOTE | 2023-03-10 13:15 | MHC.CM.PN ---
EMR reviewed. Per MD rounds patient improving, may not require [facility] will continue to follow.
--- NOTE | 2023-03-10 13:26 | MHC.RECOVRN ---
Pts referral sent to [facility].
--- NOTE | 2023-03-10 14:36 | MHC.RECOVRN ---
Met with pt to follow up and provide support. Pt received 55 mg methadone this morning. Reports already feeling sweaty. Informed pt there is a 10 mg methadone prn order if needed. Pt also informed referral has been sent to [facility], pt plans to present to the [facility] day after discharge. Pt denies questions or concerns for t/w.
[2023-03-10 15:32] VITALS: BP 171/97; PULSE 59; RESP 18; TEMP 36; O2SAT 96
[2023-03-10] MEDS: Insulin Lispro 100 UNIT/ML 3 ML VIAL SUBCUT ×2 (17:10→20:46)
[2023-03-10 20:43] LABS: Basophils Absolute Auto 0.1 X10*3/uL (0.0-0.2); Eosinophils Absolute Auto 0.2 X10*3/uL (0.0-0.4); Eosinophils Percent Auto 2.8 % (0-4); Hematocrit 40.7 % (37.0-47.0); Hemoglobin 13.3 g/dl (12.0-16.0); Imm Gran Abs Auto 0.06 X10*3/uL (0.00-0.03); Lymphocytes Absolute Auto 1.8 X10*3/uL (1.2-4.9); Lymphocytes Percent Auto 29.8 % (20-40); MANUAL DIFF FLAG SCAN; Mean Corpuscular HGB Conc 32.7 g/dl (31.0-35.0); Mean Corpuscular Hemoglobin 26.6 pg (27.0-33.0); Mean Corpuscular Volume 81.4 fL (80.0-98.0); Mean Platelet Volume 10.9 fL (9.4-12.3); Monocytes Absolute Auto 0.3 X10*3/uL (0.1-1.2); Monocytes Percent Auto 4.9 % (2-11); NRBC Pct Auto 0.3 /100WBC (0.0-0.2); Neutrophils Absolute Auto 3.7 x10*3/uL (2.0-8.3); Neutrophils Percent Auto 60.5 % (45-73); PLT CLUMP 1; Red Cell Distribution Width 14.5 % (11.0-16.0); SCAN SMEAR FLAG 1
[2023-03-10] MEDS: Insulin Glargine,Hum.rec.anlog 100 UNIT/ML 10 ML VIAL 29 UNIT SUBCUT (20:47)
[2023-03-10 20:52] LABS: Vancomycin Random 14.3 mcg/mL (15-20)
[2023-03-10 20:55] LABS: Alanine Aminotransferase 16 U/L (0-31); Albumin Level 2.9 g/dL (3.5-5.0); Alkaline Phosphatase 155 U/L (39-117); Anion Gap 15 (12-20); Aspartate Amino Transferase 27 U/L (5-31); Bilirubin Total 0.3 mg/dL (0.0-1.0); Blood Urea Nitrogen 6 mg/dL (9-16); Calcium 8.8 mg/dL (8.4-10.2); Carbon Dioxide 26 mmol/L (22-29); Chloride 104 mmol/L (96-108); Creatinine Clr Calc Pharmacy 123.4; Estimated Glomerular Filt Rate > 60; Glucose Fasting 156 mg/dL (60-99); Potassium 4.7 mmol/L (3.3-5.1); Sodium 140 mmol/L (135-145); Total Protein 6.9 g/dL (6.5-8.0)
--- NOTE | 2023-03-10 21:10 | HE.PHANOTE ---
re [facility] PATIENTS LEVEL CAME BACK THIS EVENING AT 14.3. PATIENTS RENAL FUNCTION HAS WORSENED, SCR OF 0.64 YESTERDAY, NOW 0.75 TODAY. CONCERNED FOR DOSE DUMPING WELL. WILL LOWER DOSE TO 1500 MG Q12H. AUC IS STILL WITHIN RANGE AT 558 PREDICTED. NEXT LEVEL 03/11 @1999
[2023-03-10 21:27] LABS: Platelet Count 220 X10*3/uL (160-400); SLIDE REVIEW VERIFIED; White Blood Count 6.1 X10*3/uL (4.8-10.8)
[2023-03-11] MEDS: Piperacillin Sodium/Tazobactam 4.5 GM in 0.9 % Sodium Chloride 100 ML IV ×2 (01:37→08:18)
[2023-03-11 06:52] VITALS: BP 172/90; PULSE 54; RESP 17; TEMP 36.6; O2SAT 95
[2023-03-11 07:16] VITALS: BP 148/72
[2023-03-11] MEDS: 0.9 % Sodium Chloride Flush 3 ML SYRINGE IVFLUSH ×2 (08:18→14:45)
[2023-03-11] MEDS: Insulin Lispro 100 UNIT/ML 3 ML VIAL SUBCUT ×3 (08:18→22:09)
[2023-03-11] MEDS: Atorvastatin Calcium 40 MG TABLET PO (08:19)
[2023-03-11] MEDS: Nicotine 14 MG PATCH.TD24 TRANSDERMA (08:19)
[2023-03-11] MEDS: Amphetamine Mixed Salts 10 MG TABLET 30 MG PO ×2 (08:19→11:52)
--- NOTE | 2023-03-11 11:49 | HO.PM.IMPN ---
Subjective Subjective Date of Service: 03/11/23 Interval History: Left foot remains painful; states cannot bear weight. Remains afebrile Review of Systems Denies chest pain Denies shortness of breath Denies nausea vomiting diarrhea Denies fever chills Physical Exam Vital Signs: Vital Signs: Last Vital Signs Temp 98 F 03/11/23 06:52 Pulse 54 03/11/23 06:52 Resp 17 03/11/23 06:52 BP 148/72 H 03/11/23 07:16 Pulse Ox 95 03/11/23 06:52 O2 Del Method Room Air 03/11/23 06:52 BMI result Body Mass Index 35.8 Const: Other: Awake alert no acute distress Resp: Other: Clear to auscultation bilaterally no rales rhonchi or wheezes Cardio: Other: No S4; positive S1-S2; no S3 murmurs rubs or gallops GI: Other: Soft nontender nondistended normoactive bowel sounds Skin: Other: See admission photos Extrem: Other: Trace edema bilaterally Objective Data Active Medications Acetaminophen (Acetaminophen 325 Mg Tablet) 650 mg PO Q6H PRN PRN Reason: Pain, Mild (Pain Scale 1-3) Last Admin: 03/10/23 12:00 Dose: 650 mg Documented By: KARINE Albuterol Sulfate (Albuterol Sulfate 90 Mcg 8 Gm Inhaler) 2 puff INHALE Q6H PRN PRN Reason: Shortness Of Breath Or Wheezing Amphetamine/Dextroamphetamine (Amphetamine Mixed Salts 10 Mg Tablet) 30 mg PO BID@0800,1300 [facility] Last Admin: 03/11/23 08:19 Dose: 30 mg Documented By: TEMI Atorvastatin Calcium (Atorvastatin Calcium 40 Mg Tablet) 40 mg PO DAILY [facility] Last Admin: 03/11/23 08:19 Dose: 40 mg Documented By: TEMI Dextrose (Dextrose 50 % 25 Gm/50 Ml Syringe) 25 gm IVPUSH Q15M PRN; Protocol PRN Reason: per Hypoglycemia Standing Ord. Enoxaparin Sodium (Enoxaparin Sodium 40 Mg/0.4 Ml Syringe) 40 mg SUBCUT Q24H [facility] Last Admin: 03/10/23 09:50 Dose: 40 mg Documented By: FOGARTB Fluticasone Propionate (Fluticasone Propionate 250 Mcg Blst.W.Dev) 2 puff INHALE RBID [facility] Last Admin: 03/11/23 07:31 Dose: Not Given Documented By: RANDI Non-Admin Reason: Patient Refused Gabapentin (Gabapentin 400 Mg Capsule) 800 mg PO TID [facility] Last Admin: 03/11/23 08:19 Dose: 800 mg Documented By: TEMI Glucose (Glucose Gel 15 Gm Gel..Gram.) 15 gm PO Q15M PRN; Protocol PRN Reason: per Hypoglycemia Standing Ord. Hydromorphone HCl (Hydromorphone Hcl 1 Mg/Ml Syringe) 1 mg IVPUSH Q4H PRN; Protocol PRN Reason: Pain, Mild (Pain Scale 1-3) Last Admin: 03/11/23 08:52 Dose: 1 mg Documented By: TEMI Piperacillin Sod/Tazobactam (Sod 4.5 gm/ Sodium Chloride) 100 mls @ 200 mls/hr IV Q8H [facility] Last Infusion: 03/11/23 08:55 Dose: Infused Documented By: TEMI Vancomycin HCl 1,500 mg/ (Sodium Chloride) 500 mls @ 333.333 mls/hr IV Q12H [facility] Last Admin: 03/11/23 10:14 Dose: 333.33 mls/hr Documented By: TEMI Insulin Glargine (Insulin Glargine,Hum.Rec.Anlog 100 Unit/Ml 10 Ml Vial) 29 unit SUBCUT BEDTIME [facility] Last Admin: 03/10/23 20:47 Dose: 29 unit Documented By: ABDULAZIZ Insulin Human Lispro (Insulin Lispro 100 Unit/Ml 3 Ml Vial) 0 unit SUBCUT QIDACHS [facility]; Protocol Last Admin: 03/11/23 11:14 Dose: Not Given Documented By: TEMI Non-Admin Reason: No Insulin Coverage Lisinopril (Lisinopril 5 Mg Tablet) 5 mg PO DAILY [facility]; Protocol Last Admin: 03/11/23 08:19 Dose: 5 mg Documented By: TEMI Methadone HCl (Methadone Hcl 20 Mg/2 Ml Oral.Conc) 10 mg PO DAILY PRN PRN Reason: Opiate Withdrawal Last Admin: 03/09/23 10:37 Dose: 10 mg Documented By: MEME Methadone HCl (Methadone Hcl 20 Mg/2 Ml Oral.Conc) 55 mg PO DAILY [facility] Last Admin: 03/11/23 08:18 Dose: 55 mg Documented By: TEMI Naloxone HCl (Naloxone Hcl 0.4 Mg/Ml Vial) 0.4 mg IVPUSH ONCE PRN PRN Reason: Respiratory Rate < 10 Nicotine (Nicotine 14 Mg Patch.Td24) 14 mg TRANSDERMA DAILY [facility] Last Admin: 03/11/23 08:19 Dose: 14 mg Documented By: TEMI Omeprazole (Omeprazole 20 Mg Capsule.Dr) 20 mg PO DAILY@0630 [facility] Last Admin: 03/11/23 06:10 Dose: 20 mg Documented By: ABDULAZIZ Ondansetron HCl (Ondansetron Hcl 4 Mg/2 Ml Vial) 4 mg IVPUSH Q8H PRN PRN Reason: Nausea and Vomiting Last Admin: 03/10/23 09:49 Dose: 4 mg Documented By: JAJA Oxycodone HCl (Oxycodone Hcl Immed Release 5 Mg Tablet) 5 mg PO Q6H PRN PRN Reason: Pain, Moderate(Pain Scale 4-6) Last Admin: 03/08/23 17:15 Dose: 5 mg Documented By: KARINE Pharmacy Consult (Consult Rx Vancomycin Dosing) 1 each MISCELLANE DAILY PRN PRN Reason: Consult order Senna (Sennosides 8.6 Mg Tablet) 17.2 mg PO BEDTIME PRN PRN Reason: Constipation Sertraline HCl (Sertraline Hcl 25 Mg Tablet) 75 mg PO DAILY [facility] Last Admin: 03/11/23 08:19 Dose: 75 mg Documented By: TEMI Sodium Chloride (0.9 % Sodium Chloride Flush 3 Ml Syringe) 3 ml IVFLUSH QSHIFT [facility] Last Admin: 03/11/23 08:18 Dose: 3 ml Documented By: TEMI Labs 03/10/23 20:24 03/10/23 20:24 Labs: Laboratory Results - last 24 hr 03/10/23 03/10/23 03/10/23 15:59 20:24 20:32 MCV 81.4 MCH 26.6 L MCHC 32.7 RDW 14.5 Plt Count 220 MPV 10.9 Immature Gran % (Auto) 1.0 H Neut % (Auto) 60.5 Lymph % (Auto) 29.8 Kane % (Auto) 4.9 Eos % (Auto) 2.8 Baso % (Auto) 1.0 Lymph # (Auto) 1.8 [place] # (Auto) 0.3 Eos # (Auto) 0.2 Baso # (Auto) 0.1 Abs Immat Gran (auto) 0.06 H Absolute Neuts (auto) 3.7 Absolute Nucleated RBC 0.020 H Nucleated RBC % (auto) 0.3 H Smear Tech's Comments VERIFIED Anion Gap 15 Estim Creat Clear Calc 123.4 Estimated GFR > 60 POC Glucose 187 H 153 H Fasting Glucose 156 H Calcium 8.8 Total Bilirubin 0.3 AST 27 ALT 16 Alkaline Phosphatase 155 H Total Protein 6.9 Albumin 2.9 L Random Vancomycin 14.3 L 03/11/23 03/11/23 07:04 11:01 MCV MCH MCHC RDW Plt Count MPV Immature Gran % (Auto) Neut % (Auto) Lymph % (Auto) Kane % (Auto) Eos % (Auto) Baso % (Auto) Lymph # (Auto) Kane # (Auto) Eos # (Auto) Baso # (Auto) Abs Immat Gran (auto) Absolute Neuts (auto) Absolute Nucleated RBC Nucleated RBC % (auto) Smear Tech's Comments Anion Gap Estim Creat Clear Calc Estimated GFR POC Glucose 184 H 115 Fasting Glucose Calcium Total Bilirubin AST ALT Alkaline Phosphatase Total Protein Albumin Random Vancomycin Assessment and Plan (1) Infected skin lesion: Status: Acute (2) Type 2 diabetes mellitus: Status: Acute Plan 38-year-old female with history of polysubstance abuse previously in remission with relapse about 6 days ago, IV drug abuse, mild persistent asthma, insulin-dependent type 2 diabetes, diabetic polyneuropathy, and ADHD who is severely obese with BMI greater than 35 admitted for infected non pressure ulcerations BLE with cellulitis in IVDA. 1.Infected non pressure ulcerations..bilateral lower extremities with sepsis Sepsis now resolved with treatment. MRI of feet failed to demonstrate acute osteomyelitis ;Inflammatory markers high; remains afebrile -vancomycin/Zosyn (3)... Can DC vancomycin today after dosing complete -switch to Augmentin on DC -wound care as ordered 2.Polysubstance abuse Patient stays relapse secondary to the change in methadone clinics; states she was previously on large dose of methadone was withdrawing quite severely which prompted her to seek street drugs for relief -initiate methadone 30 mg daily,naloxone prn RR<10 -addiction medicine consult appreciated -monitor COWS 3.Insulin-dependent type 2 diabetes Patient notes fairly well-controlled sugars as outpatient. No acute issues thus far this admission -acceptable control on current therapies -lispro correctional scale -adjust as indicated 4.Mild persistent asthma Not a clinical factor this admission -continue maintenance inhalers, albuterol p.r.n. Lovenox Full code Requires ongoing hospitalization for IV antibiotics pending completion of cultures to determine need and duration for antibiotics. Also requiring specialist consultation at this time ongoing with Infectious Disease and surgery Quality Stroke Does the patient have a stroke diagnosis?: No VTE Prior VTE?: No VTE Risk Level:: Medical - moderate - high VTE Device Contraindication: Treatment Not Indicated VTE Drug Contraindication: N/A - Med Ordered
[2023-03-11] MEDS: Enoxaparin Sodium 40 MG/0.4 ML SYRINGE SUBCUT (11:52)
--- NOTE | 2023-03-11 12:58 | MHC.CM.PN ---
Per MD patient will dc home with PO abx. However, per RN patient is not able to bear weight left foot and would like crutches. Dr. Carlton will order PT eval.
[2023-03-11 15:54] VITALS: BP 140/72; PULSE 61; RESP 18; TEMP 36.8; O2SAT 98
[2023-03-11] MEDS: methADONE HCl 20 MG/2 ML ORAL.CONC 10 MG PO (17:13)
[2023-03-11 19:59] VITALS: BP 166/99; PULSE 57; RESP 17; TEMP 36.2; O2SAT 96
[2023-03-11 20:56] LABS: Vancomycin Random 14.6 mcg/mL (15-20)
--- NOTE | 2023-03-11 21:02 | HE.PHANOTE ---
aleja cates Pts level came back this evening at 14.6. Patients AUC is within goal at about 544, will continue with current dose 1500 mg Q12H. getting a level 03/13 @1999.
[2023-03-11 23:43] VITALS: BP 154/78; PULSE 55; RESP 18; TEMP 36; O2SAT 95
[2023-03-12 06:51] VITALS: BP 152/90; PULSE 58; RESP 17; TEMP 36.1; O2SAT 98
[2023-03-12] MEDS: Nicotine 14 MG PATCH.TD24 TRANSDERMA (07:31)
[2023-03-12] MEDS: Amphetamine Mixed Salts 10 MG TABLET 30 MG PO (07:31)
[2023-03-12 10:57] LABS: Alanine Aminotransferase 22 U/L (0-31); Albumin Level 3.2 g/dL (3.5-5.0); Alkaline Phosphatase 144 U/L (39-117); Anion Gap 13 (12-20); Aspartate Amino Transferase 33 U/L (5-31); Bilirubin Total 0.3 mg/dL (0.0-1.0); Blood Urea Nitrogen 6 mg/dL (9-16); Carbon Dioxide 30 mmol/L (22-29); Chloride 101 mmol/L (96-108); Creatinine Clr Calc Pharmacy 120.2; Estimated Glomerular Filt Rate > 60; Glucose Fasting 152 mg/dL (60-99); Potassium 3.8 mmol/L (3.3-5.1); Sodium 140 mmol/L (135-145); Total Protein 7.5 g/dL (6.5-8.0)
[2023-03-12 11:14] VITALS: BP 152/90; PULSE 58; O2SAT 98
--- NOTE | 2023-03-12 11:37 | MHC.CM.PN ---
EMR REVIEWED. PER MD ROUNDS PATIENT MEDICALLY CLEARED. PT RECOMMENDING STR - REFERRAL IS IN TO [facility]. TOOL INSPECTOR TO SET UP GUEST DOSING. CM WILL CONTINUE TO FOLLOW.
--- NOTE | 2023-03-12 11:50 | MHC.RECOVRN ---
CM notified t/w pt discharge plan is to go to [facility]. Spoke with Lorna at [facility] who informed t/w pt is still active in their system. Lorna also informed t/w that pts referral needs to come from [facility], not directly to [facility]. Once referral is received and reviewed, pt will be all set to dose while at [facility]. T/w sent referral to CM who will forward to [facility]. Discussed with CM. T/w available if needed.
--- NOTE | 2023-03-12 13:19 | HO.PM.IMPN ---
Subjective Subjective Date of Service: 03/12/23 Interval History: Complaining of bilateral lower extremity pain left greater than right, unable to ambulate, denies fever, no chills, no nausea, no vomiting tolerating diet, no other acute issues overnight. Review of Systems All other system reviewed and negative. Physical Exam Vital Signs: Vital Signs: Last Vital Signs Temp 97 F 03/12/23 06:51 Pulse 58 03/12/23 11:14 Resp 17 03/12/23 06:51 BP 152/90 H 03/12/23 11:14 Pulse Ox 98 03/12/23 11:14 O2 Del Method Room Air 03/12/23 06:51 BMI result Body Mass Index 35.8 Const: Other: General resting comfortably in no acute distress. Neck no JVD. CVS regular rate rhythm, Respiratory lungs clear to auscultation, no respiratory distress, no wheeze, no rhonchi. Gastrointestinal abdomen soft, nontender, bowel sounds audible Extremities . Multiple bilateral skin lesions 1-2 cm in size no drainage/dorsum of left foot large lesion Neuro nonfocal Psych appropriate affect Objective Data Active Medications Acetaminophen (Acetaminophen 325 Mg Tablet) 650 mg PO Q6H PRN PRN Reason: Pain, Mild (Pain Scale 1-3) Last Admin: 03/10/23 12:00 Dose: 650 mg Documented By: KARINE Albuterol Sulfate (Albuterol Sulfate 90 Mcg 8 Gm Inhaler) 2 puff INHALE Q6H PRN PRN Reason: Shortness Of Breath Or Wheezing Amphetamine/Dextroamphetamine (Amphetamine Mixed Salts 10 Mg Tablet) 30 mg PO BID@0800,1300 [facility] Last Admin: 03/12/23 07:31 Dose: 30 mg Documented By: KARINE Atorvastatin Calcium (Atorvastatin Calcium 40 Mg Tablet) 40 mg PO DAILY [facility] Last Admin: 03/12/23 07:31 Dose: 40 mg Documented By: KARINE Dextrose (Dextrose 50 % 25 Gm/50 Ml Syringe) 25 gm IVPUSH Q15M PRN; Protocol PRN Reason: per Hypoglycemia Standing Ord. Enoxaparin Sodium (Enoxaparin Sodium 40 Mg/0.4 Ml Syringe) 40 mg SUBCUT Q24H [facility] Last Admin: 03/12/23 11:03 Dose: 40 mg Documented By: TEMI Fluticasone Propionate (Fluticasone Propionate 250 Mcg Blst.W.Dev) 2 puff INHALE RBID [facility] Last Admin: 03/12/23 07:36 Dose: Not Given Documented By: RANDI Non-Admin Reason: Patient Refused Gabapentin (Gabapentin 400 Mg Capsule) 800 mg PO TID [facility] Last Admin: 03/12/23 07:32 Dose: 800 mg Documented By: KARINE Glucose (Glucose Gel 15 Gm Gel..Gram.) 15 gm PO Q15M PRN; Protocol PRN Reason: per Hypoglycemia Standing Ord. Hydromorphone HCl (Hydromorphone Hcl 1 Mg/Ml Syringe) 1 mg IVPUSH Q4H PRN; Protocol PRN Reason: Pain, Mild (Pain Scale 1-3) Last Admin: 03/12/23 09:08 Dose: 1 mg Documented By: TEMI Piperacillin Sod/Tazobactam (Sod 4.5 gm/ Sodium Chloride) 100 mls @ 200 mls/hr IV Q8H [facility] Last Infusion: 03/12/23 09:06 Dose: Infused Documented By: TEMI Vancomycin HCl 1,500 mg/ (Sodium Chloride) 500 mls @ 333.333 mls/hr IV Q12H [facility] Last Infusion: 03/12/23 10:55 Dose: Infused Documented By: TEMI Insulin Glargine (Insulin Glargine,Hum.Rec.Anlog 100 Unit/Ml 10 Ml Vial) 29 unit SUBCUT BEDTIME [facility] Last Admin: 03/11/23 22:08 Dose: 29 unit Documented By: ABDULAZIZ Insulin Human Lispro (Insulin Lispro 100 Unit/Ml 3 Ml Vial) 0 unit SUBCUT QIDACHS [facility]; Protocol Last Admin: 03/12/23 11:04 Dose: Not Given Documented By: TEMI Non-Admin Reason: No Insulin Coverage Lisinopril (Lisinopril 5 Mg Tablet) 5 mg PO DAILY [facility]; Protocol Last Admin: 03/12/23 07:31 Dose: 5 mg Documented By: KARINE Methadone HCl (Methadone Hcl 20 Mg/2 Ml Oral.Conc) 10 mg PO DAILY PRN PRN Reason: Opiate Withdrawal Last Admin: 03/11/23 17:13 Dose: 10 mg Documented By: TEMI Methadone HCl (Methadone Hcl 20 Mg/2 Ml Oral.Conc) 55 mg PO DAILY [facility] Last Admin: 03/12/23 07:32 Dose: 55 mg Documented By: KARINE Naloxone HCl (Naloxone Hcl 0.4 Mg/Ml Vial) 0.4 mg IVPUSH ONCE PRN PRN Reason: Respiratory Rate < 10 Nicotine (Nicotine 14 Mg Patch.Td24) 14 mg TRANSDERMA DAILY [facility] Last Admin: 03/12/23 07:31 Dose: 14 mg Documented By: KARINE Omeprazole (Omeprazole 20 Mg Capsule.Dr) 20 mg PO DAILY@0630 [facility] Last Admin: 03/12/23 04:34 Dose: 20 mg Documented By: ABDULAZIZ Ondansetron HCl (Ondansetron Hcl 4 Mg/2 Ml Vial) 4 mg IVPUSH Q8H PRN PRN Reason: Nausea and Vomiting Last Admin: 03/10/23 09:49 Dose: 4 mg Documented By: JAJA Pharmacy Consult (Consult Rx Vancomycin Dosing) 1 each MISCELLANE DAILY PRN PRN Reason: Consult order Senna (Sennosides 8.6 Mg Tablet) 17.2 mg PO BEDTIME PRN PRN Reason: Constipation Sertraline HCl (Sertraline Hcl 25 Mg Tablet) 75 mg PO DAILY [facility] Last Admin: 03/12/23 07:31 Dose: 75 mg Documented By: KARINE Sodium Chloride (0.9 % Sodium Chloride Flush 3 Ml Syringe) 3 ml IVFLUSH QSHIFT [facility] Last Admin: 03/12/23 07:31 Dose: 3 ml Documented By: KARINE Labs 03/12/23 10:00 03/12/23 10:00 Labs: Laboratory Results - last 24 hr 03/11/23 03/11/23 03/11/23 16:39 20:27 20:48 MCV MCH MCHC RDW Plt Count MPV Immature Gran % (Auto) Neut % (Auto) Lymph % (Auto) [place] % (Auto) Eos % (Auto) Baso % (Auto) Lymph # (Auto) [place] # (Auto) Eos # (Auto) Baso # (Auto) Abs Immat Gran (auto) Absolute Neuts (auto) Absolute Nucleated RBC Nucleated RBC % (auto) Anion Gap Estim Creat Clear Calc 121.8 Estimated GFR > 60 POC Glucose 170 H 164 H Fasting Glucose Calcium Total Bilirubin AST ALT Alkaline Phosphatase Total Protein Albumin Random Vancomycin 14.6 L 03/12/23 03/12/23 03/12/23 07:02 10:00 10:56 MCV 80.8 MCH 26.1 L MCHC 32.3 RDW 14.2 Plt Count 336 D MPV 10.9 Immature Gran % (Auto) 0.9 H Neut % (Auto) 53.0 Lymph % (Auto) 36.5 [place] % (Auto) 5.8 Eos % (Auto) 2.9 Baso % (Auto) 0.9 Lymph # (Auto) 3.2 [place] # (Auto) 0.5 Eos # (Auto) 0.3 Baso # (Auto) 0.1 Abs Immat Gran (auto) 0.08 H Absolute Neuts (auto) 4.6 Absolute Nucleated RBC 0.000 Nucleated RBC % (auto) 0.0 Anion Gap 13 Estim Creat Clear Calc 120.2 Estimated GFR > 60 POC Glucose 144 H 144 H Fasting Glucose 152 H Calcium 9.0 Total Bilirubin 0.3 AST 33 H ALT 22 Alkaline Phosphatase 144 H Total Protein 7.5 Albumin 3.2 L Random Vancomycin Microbiology Microbiology Results: Microbiology 03/07/23 05:13 Blood Culture - Final Blood - Venous No growth after 5 days. Assessment and Plan (1) Infected skin lesion: Status: Acute (2) Type 2 diabetes mellitus: Status: Acute Plan 38-year-old female with history of polysubstance abuse previously in remission with relapse about 6 days ago, IV drug abuse, mild persistent asthma, insulin-dependent type 2 diabetes, diabetic polyneuropathy, and ADHD who is severely obese with BMI greater than 35 admitted for infected non pressure ulcerations BLE with cellulitis in IVDA. 1.Infected non pressure ulcerations..bilateral lower extremities with sepsis Sepsis resolved with treatment. MRI of feet failed to demonstrate acute osteomyelitis ;Inflammatory markers high; remains afebrile Will DC IV vancomycin Continue IV Zosyn and place on by mouth Augmentin prior to discharge for 2 weeks, continue wound care as ordered. Obtained PT eval since patient unable to ambulate, PT recommend short-term rehab. 2.Polysubstance abuse Patient says relapse secondary to the change in methadone clinics; states she was previously on large dose of methadone was withdrawing quite severely which prompted her to seek street drugs for relief -continue methadone 55 mg daily, and 10 mg as needed, naloxone prn RR<10 -addiction medicine consult appreciated -monitor COWS 3.Insulin-dependent type 2 diabetes Patient notes fairly well-controlled sugars as outpatient. Blood sugars stable, continue Lantus 29 units at bedtime and lispro correctional scale, adjust as indicated 4.Mild persistent asthma no acute exacerbation continue home inhalers Lovenox Full code Requires ongoing hospitalization for IV antibiotics pending completion of cultures to determine need and duration for antibiotics. Also requiring specialist consultation at this time ongoing with Infectious Disease and surgery Quality Stroke Does the patient have a stroke diagnosis?: No VTE Prior VTE?: No VTE Risk Level:: Medical - moderate - high VTE Device Contraindication: Treatment Not Indicated VTE Drug Contraindication: N/A - Med Ordered
--- NOTE | 2023-03-12 15:59 | HO.WOUND ---
Wound Consult: Follow up 38yr old female admitted to [facility] on? 03/07/23 10:05- See progress notes and H&P for detailed history. Wound consult placed for Multiple wound sites - bilateral hands, bilateral lower legs and bilateral feet. Pt reports she did not inject into these sites however she has injected with drugs obtained from a new supplier. Infectious disease following. Todays assessment she reports dressing was last completed 03/10/23 and reports decrease in pain outside of Left midfoot - she reports significant pain and unable to apply pressure. Dressings were removed and skin assessed - see below for details. Overall the wounds have significantly improved - Left mid foot site remains concerning. Surgery reconsulted by Dr. Maloney. Left foot 03/09/23 03/09/23 Right Foot 03/09/23 Todays 03/12/23 Left hand 03/09/23 Etiology: ??Ulceration suspect Xylazine wound secondary to IVDU Wound Bed: various stages of wound development - overall improving - all wounds progressing towards healing. Drainage / Odor: serous drainage in some wounds - left leg bulla ruptured - area observed in photo with fluctuance to yellow fibrinous necrotic yellow green tissue. Probes 0.5cm soft wound bed - creamy drainage concern for abscess. Edges: ? irregular Lucrecia wound: ?red pink erythema Pain: significant pain reported to left mid foot unable to walk per pt statement Goals of Treatment: ? moist wound healing Recommendations: 1. Multiple wound sites - Cleanse with NS, pat dry. Apply xeroform, gauze and gauze wrap. Change Daily. Left foot - Consider refer to General surgery for debridement. Cleanse with NS, pat dry. Apply single layer xeroform to ruptured bulla and Alginate to mid foot wound. Cover with ABD pad wrap and Change daily. Re-consult wound care Nurse for wound deterioration or wound changes.
[2023-03-12 16:00] VITALS: BP 133/84; PULSE 80; RESP 18; TEMP 37.1; O2SAT 97
[2023-03-13] VITALS: BP 146/89; PULSE 80; PULSE 88; RESP 18; TEMP 36.1; O2SAT 98
[2023-03-13 04:15] VITALS: BP 130/84; PULSE 75
[2023-03-13 07:20] VITALS: BP 118/79; PULSE 71; RESP 18; TEMP 36; O2SAT 95
[2023-03-13] MEDS: Nicotine 14 MG PATCH.TD24 TRANSDERMA (07:50)
[2023-03-13 08:00] VITALS: PULSE 71
--- NOTE | 2023-03-13 15:36 | HO.PM.IMPN ---
Subjective Subjective Date of Service: 03/13/23 Interval History: Complaining of bilateral foot pain receiving IV Dilaudid for pain control, no fevers, no chills tolerating diet no acute issues overnight. Review of Systems All other system are reviewed and negative. Physical Exam Vital Signs: Vital Signs: Last Vital Signs Temp 96.8 F 03/13/23 07:20 Pulse 71 03/13/23 07:20 Resp 18 03/13/23 07:20 BP 118/79 03/13/23 07:20 Pulse Ox 95 03/13/23 07:20 O2 Del Method Room Air 03/13/23 07:20 BMI result Body Mass Index 35.8 Const: Other: General resting comfortably in no acute distress. Neck no JVD. CVS regular rate rhythm, Respiratory lungs clear to auscultation, no respiratory distress, no wheeze, no rhonchi. Gastrointestinal abdomen soft, nontender, bowel sounds audible Extremities . Multiple bilateral skin lesions 1-2 cm in size no drainage/dorsum of left foot large bullae , small lesion medial right foot with yellow eschar, no surrounding fluctuation. Neuro non focal Psych appropriate affect Objective Data Active Medications Acetaminophen (Acetaminophen 325 Mg Tablet) 650 mg PO Q6H PRN PRN Reason: Pain, Mild (Pain Scale 1-3) Last Admin: 03/13/23 05:51 Dose: 650 mg Documented By: QUETA Albuterol Sulfate (Albuterol Sulfate 90 Mcg 8 Gm Inhaler) 2 puff INHALE Q6H PRN PRN Reason: Shortness Of Breath Or Wheezing Amphetamine/Dextroamphetamine (Amphetamine Mixed Salts 10 Mg Tablet) 30 mg PO BID@0800,1300 [facility] Last Admin: 03/13/23 13:43 Dose: 30 mg Documented By: STEPHANIE Atorvastatin Calcium (Atorvastatin Calcium 40 Mg Tablet) 40 mg PO DAILY [facility] Last Admin: 03/13/23 07:50 Dose: 40 mg Documented By: STEPHANIE Dextrose (Dextrose 50 % 25 Gm/50 Ml Syringe) 25 gm IVPUSH Q15M PRN; Protocol PRN Reason: per Hypoglycemia Standing Ord. Enoxaparin Sodium (Enoxaparin Sodium 40 Mg/0.4 Ml Syringe) 40 mg SUBCUT Q24H [facility] Last Admin: 03/13/23 11:49 Dose: 40 mg Documented By: STEPHANIE Fluticasone Propionate (Fluticasone Propionate 250 Mcg Blst.W.Dev) 2 puff INHALE RBID [facility] Last Admin: 03/13/23 08:45 Dose: Not Given Documented By: ACACIA Non-Admin Reason: Patient Refused Gabapentin (Gabapentin 400 Mg Capsule) 800 mg PO TID [facility] Last Admin: 03/13/23 14:18 Dose: 800 mg Documented By: STEPHANIE Glucose (Glucose Gel 15 Gm Gel..Gram.) 15 gm PO Q15M PRN; Protocol PRN Reason: per Hypoglycemia Standing Ord. Hydromorphone HCl (Hydromorphone Hcl 1 Mg/Ml Syringe) 0.5 mg IVPUSH Q4H PRN; Protocol PRN Reason: Pain, Mild (Pain Scale 1-3) Last Admin: 03/13/23 13:43 Dose: 0.5 mg Documented By: STEPHANIE Piperacillin Sod/Tazobactam (Sod 4.5 gm/ Sodium Chloride) 100 mls @ 200 mls/hr IV Q8H [facility] Last Infusion: 03/13/23 08:30 Dose: Infused Documented By: STEPHANIE Insulin Glargine (Insulin Glargine,Hum.Rec.Anlog 100 Unit/Ml 10 Ml Vial) 29 unit SUBCUT BEDTIME [facility] Last Admin: 03/12/23 20:50 Dose: 29 unit Documented By: JOSSRISGianna Insulin Human Lispro (Insulin Lispro 100 Unit/Ml 3 Ml Vial) 0 unit SUBCUT QIDACHS [facility]; Protocol Last Admin: 03/13/23 11:47 Dose: Not Given Documented By: STEPHANIE Non-Admin Reason: No Insulin Coverage Lisinopril (Lisinopril 5 Mg Tablet) 5 mg PO DAILY [facility]; Protocol Last Admin: 03/13/23 07:49 Dose: 5 mg Documented By: STEPHANIE Methadone HCl (Methadone Hcl 20 Mg/2 Ml Oral.Conc) 10 mg PO DAILY PRN PRN Reason: Opiate Withdrawal Last Admin: 03/11/23 17:13 Dose: 10 mg Documented By: TEMI Methadone HCl (Methadone Hcl 20 Mg/2 Ml Oral.Conc) 55 mg PO DAILY [facility] Last Admin: 03/13/23 07:49 Dose: 55 mg Documented By: STEPHANIE Naloxone HCl (Naloxone Hcl 0.4 Mg/Ml Vial) 0.4 mg IVPUSH ONCE PRN PRN Reason: Respiratory Rate < 10 Nicotine (Nicotine 14 Mg Patch.Td24) 14 mg TRANSDERMA DAILY [facility] Last Admin: 03/13/23 07:50 Dose: 14 mg Documented By: STEPHANIE Omeprazole (Omeprazole 20 Mg Capsule.Dr) 20 mg PO DAILY@0630 [facility] Last Admin: 03/13/23 05:51 Dose: 20 mg Documented By: QUETA Ondansetron HCl (Ondansetron Hcl 4 Mg/2 Ml Vial) 4 mg IVPUSH Q8H PRN PRN Reason: Nausea and Vomiting Last Admin: 03/10/23 09:49 Dose: 4 mg Documented By: FOGARTWill Senna (Sennosides 8.6 Mg Tablet) 17.2 mg PO BEDTIME PRN PRN Reason: Constipation Sertraline HCl (Sertraline Hcl 25 Mg Tablet) 75 mg PO DAILY [facility] Last Admin: 03/13/23 07:50 Dose: 75 mg Documented By: STEPHANIE Sodium Chloride (0.9 % Sodium Chloride Flush 3 Ml Syringe) 3 ml IVFLUSH QSHIFT [facility] Last Admin: 03/13/23 07:51 Dose: 3 ml Documented By: STEPHANIE Labs 03/12/23 10:00 03/12/23 10:00 Labs: Laboratory Results - last 24 hr 03/12/23 03/12/23 03/13/23 16:38 20:31 07:18 POC Glucose 142 H 135 H 155 H 03/13/23 11:27 POC Glucose 129 H Microbiology Microbiology Results: Microbiology 03/07/23 17:08 Blood Culture - Final Blood - Venous No growth after 5 days. Assessment and Plan (1) Infected skin lesion: Status: Acute (2) Type 2 diabetes mellitus: Status: Acute Plan 38-year-old female with history of polysubstance abuse previously in remission with relapse about 6 days ago, IV drug abuse, mild persistent asthma, insulin-dependent type 2 diabetes, diabetic polyneuropathy, and ADHD who is severely obese with BMI greater than 35 admitted for infected non pressure ulcerations BLE with cellulitis in IVDA. 1.Infected non pressure ulcerations..bilateral lower extremities with sepsis Sepsis resolved with treatment. MRI of feet failed to demonstrate acute osteomyelitis ;Inflammatory markers high; remains afebrile Continue IV Zosyn and place on by mouth Augmentin prior to discharge for 2 weeks, continue wound care as ordered. PT recommend short-term rehab. manager call center arranging for safe discharge. Will DC IV Dilaudid and transition to by mouth oxycodone 2.Polysubstance abuse Patient says relapse secondary to the change in methadone clinics; states she was previously on large dose of methadone was withdrawing quite severely which prompted her to seek street drugs for relief -continue methadone 55 mg daily, and 10 mg as needed, naloxone prn RR<10 -addiction medicine consult appreciated 3.Insulin-dependent type 2 diabetes Blood sugars stable, continue Lantus 29 units at bedtime and lispro correctional scale, adjust as indicated 4.Mild persistent asthma no acute exacerbation continue home inhalers Lovenox Full code Requires ongoing hospitalization for IV antibiotics pending completion of cultures to determine need and duration for antibiotics. Also requiring specialist consultation at this time ongoing with Infectious Disease and surgery Quality Stroke Does the patient have a stroke diagnosis?: No VTE Prior VTE?: No VTE Risk Level:: Medical - moderate - high VTE Device Contraindication: Treatment Not Indicated VTE Drug Contraindication: N/A - Med Ordered
[2023-03-13 16:00] VITALS: BP 112/68; PULSE 71; RESP 18; TEMP 36.1; O2SAT 96
[2023-03-14] VITALS: BP 137/83; PULSE 64; PULSE 71; RESP 16; TEMP 36.2; O2SAT 94
[2023-03-14 06:41] VITALS: BP 116/74; PULSE 76
[2023-03-14 07:48] VITALS: BP 107/67; PULSE 74; RESP 18; TEMP 36; O2SAT 96
[2023-03-14] MEDS: Nicotine 14 MG PATCH.TD24 TRANSDERMA (07:59)
--- NOTE | 2023-03-14 10:10 | HO.PM.IMPN ---
Subjective Subjective Date of Service: 03/14/23 Interval History: Offers no acute complaints, good pain control both feet, tolerating diet no nausea, no vomiting, no abdominal pain, no withdrawal symptoms no acute issues overnight. Review of Systems All other system reviewed and negative Physical Exam Vital Signs: Vital Signs: Last Vital Signs Temp 96.8 F 03/14/23 07:48 Pulse 74 03/14/23 07:48 Resp 18 03/14/23 07:48 BP 107/67 03/14/23 07:48 Pulse Ox 96 03/14/23 07:48 O2 Del Method Room Air 03/14/23 07:48 BMI result Body Mass Index 35.8 Const: Other: General awake alert x3, resting comfortably in no acute distress. Neck no JVD. CVS regular rate rhythm, Respiratory lungs clear to auscultation, no respiratory distress, no wheeze, no rhonchi. Gastrointestinal abdomen soft, non tender, bowel sounds audible Extremities . Multiple bilateral skin lesions 1-2 cm in size no drainage/dorsum of left foot large bullae , small lesion medial right foot , no drainage, no surrounding fluctuation. Neuro non focal Psych appropriate affect Objective Data Active Medications Acetaminophen (Acetaminophen 325 Mg Tablet) 650 mg PO Q6H PRN PRN Reason: Pain, Mild (Pain Scale 1-3) Last Admin: 03/14/23 07:58 Dose: 650 mg Documented By: KARINE Albuterol Sulfate (Albuterol Sulfate 90 Mcg 8 Gm Inhaler) 2 puff INHALE Q6H PRN PRN Reason: Shortness Of Breath Or Wheezing Amphetamine/Dextroamphetamine (Amphetamine Mixed Salts 10 Mg Tablet) 30 mg PO BID@0800,1300 [facility] Last Admin: 03/14/23 07:58 Dose: 30 mg Documented By: KARINE Atorvastatin Calcium (Atorvastatin Calcium 40 Mg Tablet) 40 mg PO DAILY [facility] Last Admin: 03/14/23 07:58 Dose: 40 mg Documented By: KARINE Dextrose (Dextrose 50 % 25 Gm/50 Ml Syringe) 25 gm IVPUSH Q15M PRN; Protocol PRN Reason: per Hypoglycemia Standing Ord. Enoxaparin Sodium (Enoxaparin Sodium 40 Mg/0.4 Ml Syringe) 40 mg SUBCUT Q24H [facility] Last Admin: 03/13/23 11:49 Dose: 40 mg Documented By: STEPHANIE Fluticasone Propionate (Fluticasone Propionate 250 Mcg Blst.W.Dev) 2 puff INHALE RBID [facility] Last Admin: 03/14/23 08:17 Dose: Not Given Documented By: ACACIA Non-Admin Reason: Patient Refused Gabapentin (Gabapentin 400 Mg Capsule) 800 mg PO TID [facility] Last Admin: 03/14/23 07:58 Dose: 800 mg Documented By: KARINE Glucose (Glucose Gel 15 Gm Gel..Gram.) 15 gm PO Q15M PRN; Protocol PRN Reason: per Hypoglycemia Standing Ord. Piperacillin Sod/Tazobactam (Sod 4.5 gm/ Sodium Chloride) 100 mls @ 200 mls/hr IV Q8H [facility] Last Infusion: 03/14/23 08:42 Dose: Infused Documented By: KARINE Insulin Glargine (Insulin Glargine,Hum.Rec.Anlog 100 Unit/Ml 10 Ml Vial) 29 unit SUBCUT BEDTIME [facility] Last Admin: 03/13/23 20:45 Dose: 29 unit Documented By: CATHLEENDEGianna Insulin Human Lispro (Insulin Lispro 100 Unit/Ml 3 Ml Vial) 0 unit SUBCUT QIDACHS [facility]; Protocol Last Admin: 03/14/23 07:48 Dose: Not Given Documented By: KARINE Non-Admin Reason: No Insulin Coverage Lisinopril (Lisinopril 5 Mg Tablet) 5 mg PO DAILY [facility]; Protocol Last Admin: 03/14/23 07:58 Dose: 5 mg Documented By: KARINE Methadone HCl (Methadone Hcl 20 Mg/2 Ml Oral.Conc) 10 mg PO DAILY PRN PRN Reason: Opiate Withdrawal Last Admin: 03/11/23 17:13 Dose: 10 mg Documented By: TEMI Methadone HCl (Methadone Hcl 20 Mg/2 Ml Oral.Conc) 55 mg PO DAILY [facility] Last Admin: 03/14/23 07:59 Dose: 55 mg Documented By: KARINE Naloxone HCl (Naloxone Hcl 0.4 Mg/Ml Vial) 0.4 mg IVPUSH ONCE PRN PRN Reason: Respiratory Rate < 10 Nicotine (Nicotine 14 Mg Patch.Td24) 14 mg TRANSDERMA DAILY [facility] Last Admin: 03/14/23 07:59 Dose: 14 mg Documented By: KARINE Omeprazole (Omeprazole 20 Mg Capsule.Dr) 20 mg PO DAILY@0630 [facility] Last Admin: 03/14/23 06:36 Dose: 20 mg Documented By: QUETA Ondansetron HCl (Ondansetron Hcl 4 Mg/2 Ml Vial) 4 mg IVPUSH Q8H PRN PRN Reason: Nausea and Vomiting Last Admin: 03/10/23 09:49 Dose: 4 mg Documented By: FOGARTB Oxycodone HCl (Oxycodone Hcl Immed Release 5 Mg Tablet) 5 mg PO Q4H PRN PRN Reason: Pain, Severe (Pain Scale 7-10) Last Admin: 03/14/23 07:59 Dose: 5 mg Documented By: KARINE Senna (Sennosides 8.6 Mg Tablet) 17.2 mg PO BEDTIME PRN PRN Reason: Constipation Sertraline HCl (Sertraline Hcl 25 Mg Tablet) 75 mg PO DAILY [facility] Last Admin: 03/14/23 07:57 Dose: 75 mg Documented By: KARINE Sodium Chloride (0.9 % Sodium Chloride Flush 3 Ml Syringe) 3 ml IVFLUSH QSHIFT [facility] Last Admin: 03/14/23 06:50 Dose: 3 ml Documented By: QUETA Labs 03/12/23 10:00 03/12/23 10:00 Labs: Laboratory Results - last 24 hr 03/13/23 03/13/23 03/13/23 11:27 16:30 20:04 POC Glucose 129 H 158 H 217 H 03/14/23 07:47 POC Glucose 86 Assessment and Plan (1) Infected skin lesion: Status: Acute (2) Type 2 diabetes mellitus: Status: Acute Plan 38-year-old female with history of polysubstance abuse previously in remission with relapse about 6 days ago, IV drug abuse, mild persistent asthma, insulin-dependent type 2 diabetes, diabetic polyneuropathy, and ADHD who is severely obese with BMI greater than 35 admitted for infected non pressure ulcerations BLE with cellulitis in IV. 1.Infected non pressure ulcerations..bilateral lower extremities with sepsis Sepsis resolved MRI of feet showed no acute osteomyelitis on IV Zosyn ,place on by mouth Augmentin prior to discharge for 2 weeks, continue wound care as ordered. PT recommend short-term rehab. manager of international arranging for safe discharge. good pain control on by mouth oxycodone 2.Polysubstance abuse Patient says relapse secondary to the change in methadone clinics; states she was previously on large dose of methadone was withdrawing quite severely which prompted her to seek street drugs for relief -continue methadone 55 mg daily, and 10 mg as needed, naloxone prn RR<10 -addiction medicine consult appreciated 3.Insulin-dependent type 2 diabetes Blood sugars stable, continue Lantus 29 units at bedtime and lispro correctional scale, adjust as indicated 4.Mild persistent asthma no acute exacerbation continue home inhalers Lovenox Full code Requires ongoing hospitalization for IV antibiotics pending completion of cultures to determine need and duration for antibiotics. Also requiring specialist consultation at this time ongoing with Infectious Disease and surgery Quality Stroke Does the patient have a stroke diagnosis?: No VTE Prior VTE?: No VTE Risk Level:: Medical - moderate - high VTE Device Contraindication: Treatment Not Indicated VTE Drug Contraindication: N/A - Med Ordered
[2023-03-14 16:00] VITALS: BP 123/64; PULSE 54; RESP 16; TEMP 36.2; O2SAT 96
[2023-03-14 19:25] VITALS: BP 136/72; PULSE 76; RESP 18; TEMP 37.1; O2SAT 95
[2023-03-15] VITALS: BP 124/81; PULSE 67; RESP 16; TEMP 36; O2SAT 97
[2023-03-15 07:48] VITALS: BP 123/79; PULSE 65; RESP 16; TEMP 36; O2SAT 97
[2023-03-15 08:00] VITALS: PULSE 65
[2023-03-15] MEDS: Nicotine 14 MG PATCH.TD24 TRANSDERMA (09:48)
--- NOTE | 2023-03-15 10:59 | MHC.CM.PN ---
EMR reviewed. Per MD rounds patient is medically cleared for dc to [facility]. BLS transport booked for 1pm to [facility]. Patient, RN and MD aware. IMM delivered.
--- NOTE | 2023-03-15 12:25 | PM.DS ---
DS: Providers Provider Date of Service: 03/15/23 Date of admission: 03/07/23 10:05 Primary care physician: [facility] Consults: 03/07/23 10:08 Addiction Medicine Routine Consulting Provider: Addiction Covering Reason for consultation: IVDA, polysubstance abuse 03/07/23 10:49 Consult to General Surgery Routine Consulting Provider: [facility] General Surgeons Reason for consultation: infected ulcer L foot, ?debridement Consult to Wound Care Routine Reason for consultation: wound rn- multiple ulcer ble 03/08/23 14:11 Consult to Infectious Diseases Routine Consulting Provider: [facility] Infectious Disease Reason for consultation: sepsis sec to cellulitis Has provider been notified: No 03/12/23 07:17 Consult to Wound Care Routine Reason for consultation: ZOEY le cellulitis DS: Diagnosis Discharge Diagnosis (1) Infected skin lesion: Status: Acute (2) Type 2 diabetes mellitus: Status: Acute DS: Summary Hospital Course Hospital Course: History of presenting illness: Date of Service: 03/07/23 Attending physician on admission: David Lopez Chief Complaint: pain ble 38-year-old female with history of polysubstance abuse previously in remission with relapse about 6 days ago, IV drug abuse, mild persistent asthma, insulin-dependent type 2 diabetes, diabetic polyneuropathy, and ADHD who is severely obese with BMI greater than 35 presented to the ED earlier today for evaluation of severe pain in the bilateral lower extremities. The patient states she had had the same pair of socks on the bilateral lower legs for 2 weeks and was unable to remove them due to significant pain. Upon removal, ED provider found multiple weeping ulcers as well as swelling and erythema. The patient adamantly denies to me injecting any IV drugs into the lower extremities but states that she does use IV drugs in the arms bilaterally. States prior to 2 weeks ago, she did not notice these lesions. Has been admitted in the past [facility] in April in June of 2022 for cellulitis in the lower extremities, but no recent admissions. She has felt generally weak with chills and sweats but has not taken her temperature. She states she has 10/10 pain that limits her ambulation. SHe had planned to start methadone at [facility] 4 days ago but this did not happen. Last IVDA was yesterday. Also smokes 1/2 ppd. No etoh. On arrival, mild tachycardia of 101, vitals otherwise stable. However did develop fever of 100.6 early this morning with intermittent tachypnea to 24. Her leukocytosis of 16.8. Renal function electrolyte levels normal DC glucose 188. Initial lactic acid 2.1, repeat pending. CRP 18.69, ESR pending. Urinalysis significant for trace leukocytes, moderate glucose, 1+ protein, elevated specific gravity, negative urinary sediment, 1+ bacteria. Urine tox screen positive for opiates, fentanyl, cocaine, THC. X-rays of the bilateral ankles and bilateral feet without definitive evidence of osteomyelitis but early occult osteomyelitis possible to her radiologist. There is prominent soft tissue swelling in the bilateral ankles and feet. Hospital course: 38-year-old female with history of polysubstance abuse previously in remission with relapse about 6 days ago, IV drug abuse, mild persistent asthma, insulin-dependent type 2 diabetes, diabetic polyneuropathy, and ADHD who is severely obese with BMI greater than 35 admitted for infected non pressure ulcerations BLE with cellulitis in IV. Patient admitted with a diagnosis of sepsis due to Infected non pressure ulcerations,bilateral lower extremities with left ankle cellulitis patient treated with IV vancomycin and Zosyn blood cultures came back negative MRI of both feet showed no evidence of acute osteomyelitis, patient seen by General surgery and Wound Care and received dressing changes to open wounds that her gradually healing, ID recommend 2 weeks of by mouth Augmentin is started today with end date 03/29, continue oxycodone 5 mg as needed for pain control, patient seen by Physical therapy and is being discharged to short-term rehab due to difficulty in ambulation. In regard to Polysubstance abuse , patient seen by Addiction Team and started on methadone 55 mg daily and 10 mg as needed as per patient she relapse secondary to the change in methadone clinics; states she was previously on large dose of methadone was withdrawing quite severely which prompted her to seek street drugs for relief. Insulin-dependent type 2 diabetes Blood sugars stable, continue Lantus at bedtime and lispro correctional scale, adjust as indicated and resume metformin Mild persistent asthma no acute exacerbation continue home inhalers. Time Attestation Discharge coordination time: Greater than 30 minutes Quality: Safe Use of Opioids Does Pt have an Active Cancer Diagnosis on the Problem List?: No Quality: Stroke Does the patient have a stroke diagnosis?: No Physical Exam Vital Signs: Vital Signs: Last Vital Signs Temp 96.8 F 03/15/23 07:48 Pulse 65 03/15/23 07:48 Resp 16 03/15/23 07:48 BP 123/79 03/15/23 07:48 Pulse Ox 97 03/15/23 07:48 O2 Del Method Room Air 03/15/23 07:48 BMI result Body Mass Index 35.8 Const: Other: General awake alert x3, resting comfortably in no acute distress. Neck no JVD. CVS regular rate rhythm, Respiratory lungs clear to auscultation, no respiratory distress, no wheeze, no rhonchi. Gastrointestinal abdomen soft, non tender, bowel sounds audible Extremities . Multiple bilateral skin lesions 1-2 cm in size no drainage/dorsum of left foot large bullae , small lesion medial right foot , no drainage, no surrounding fluctuation. Neuro non focal Psych appropriate affect DS: Data Data Completed and Pending Labs on day of discharge: Laboratory Results - last 24 hr 03/14/23 03/14/23 03/15/23 16:26 19:24 07:52 POC Glucose 214 H 190 H 133 H 03/15/23 11:19 POC Glucose 158 H Discharge Plan Discharge Anticipated Discharge Date/Time: 03/15/23 11:59 Patient Disposition: Xfer SNF Discharge Diagnosis: Bilateral lower extremity infected non pressure ulcers Sepsis/ Polysubstance abuse Referrals: [facility] [Outside] - 1 Day (For short term rehab) Center,[facility] [Primary Care Provider] - 1 Week Discharge Medications: New nicotine 14 mg/24 hr Patch 24 Hour 14 mg transdermal DAILY Qty: 28 0RF amoxicillin-pot clavulanate 875-125 mg tablet 1 tab PO BID Qty: 28 0RF oxycodone 5 mg Tablet 5 mg PO Q4H PRN (Reason: Pain, Severe (Pain Scale 7-10)) Qty: 20 0RF Rx Instructions: Partial Fill upon patient request. Continued atorvastatin 40 mg tablet 40 mg PO DAILY metformin 500 mg tablet 500 mg PO BID sennosides-docusate sodium [Stool Softener-Laxative] 8.6-50 mg tablet 1 tab PO DAILY dextroamphetamine-amphetamine 30 mg tablet 30 mg PO BID@0800,1300 gabapentin 800 mg tablet 800 mg PO TID pantoprazole 40 mg tablet,delayed release (DR/EC) 40 mg PO DAILY@0630 fluticasone propionate [Flovent HFA] 220 mcg/actuation HFA aerosol inhaler 2 puff inhalation BID albuterol sulfate [Ventolin HFA] 90 mcg/actuation HFA aerosol inhaler 2 puff inhalation Q6H PRN (Reason: Shortness Of Breath Or Wheezing) sertraline 50 mg tablet 75 mg PO DAILY insulin lispro 100 unit/mL insulin pen 1 sliding scale dose subcut TIDAC Changed insulin glargine [Lantus Solostar U-100 Insulin] 100 unit/mL (3 mL) insulin pen 30 unit subcut BEDTIME Qty: 15 0RF Discharge Orders: Discharge Order (Routine); Ordered 03/15/23 Ordered By: Jayshree Burroughs Diet: Diabetic diet Activity on Discharge: As tolerated Stand Alone Forms: Patient Portal Discharge page Activity Restrictions/Additional Instructions: Dressing change orders: Left foot - cleanse with NS, pat dry. Apply single layer xeroform to ruptured bulla and alginate to mid foot wound. Cover with ABD paid and gauze wrap. Change daily. Multiple wound sites - Cleanse with NS, pat dry. Apply xeroform, gauze and wrap. Change daily. Care Plan Goals: Dressing change both feet as directed Continue methadone Take Augmentin 1 tablet twice daily for 2 weeks Health Concerns: Diabetes/polysubstance abuse Plan of Treatment: Outpatient follow-up with primary care physician Assessment: As above
== END 2023-03-15 14:34 | disposition skilled nursing facility (03) | DRG 872 ==
LOC: HO.ED 03-07 07:29 → HO.EDOVER 03-07 10:12 → HO.S3 03-07 17:05
PROVIDERS: Hospitalist; Internal Medicine; Admitting Provider Physician Assistant; Emergency Provider Emergency Medicine Emergency Medical Services; Visit Provider Hospitalist
DX: A41.9 Sepsis, unspecified organism (principal); L03.116 Cellulitis of left lower limb; F11.20 Opioid dependence, uncomplicated; L03.115 Cellulitis of right lower limb; E87.21 Acute metabolic acidosis; L97.829 Non-pressure chronic ulcer of other part of left lower leg with unspecified severity; L97.819 Non-pressure chronic ulcer of other part of right lower leg with unspecified severity; F90.9 Attention-deficit hyperactivity disorder, unspecified type; E66.01 Morbid (severe) obesity due to excess calories; Z68.35 Body mass index [BMI] 35.0-35.9, adult; L02.436 Carbuncle of left lower limb; L02.435 Carbuncle of right lower limb; E11.42 Type 2 diabetes mellitus with diabetic polyneuropathy; F17.210 Nicotine dependence, cigarettes, uncomplicated; F19.10 Other psychoactive substance abuse, uncomplicated; Z59.82 Transportation insecurity; J45.30 Mild persistent asthma, uncomplicated; Z71.6 Tobacco abuse counseling; Z91.148 Patient's other noncompliance with medication regimen for other reason; Z79.4 Long term (current) use of insulin; Z79.51 Long term (current) use of inhaled steroids; Z79.84 Long term (current) use of oral hypoglycemic drugs; Z79.899 Other long term (current) drug therapy
CPT/HCPCS: 36415; 73110; 73130; 73600; 73620; 73720; 80048; 80053; 80202; 80307; 81001; 82565; 82947; 83036; 83605; 85025; 85652; 86140; 86704; 86706; 86803; 87040; 87070; 87077; 87147; 87186; 87205; 87340; 87389; 94640; 97162; 99285; A9585; J0696; J1170; J1650; J2060; J2405; J2543; J3370; J3371

== ENCOUNTER → 2023-03-07 10:05 | Outpatient (BNV) | payer MEDICARE, MEDICAID, SELFPAY | PROVIDERS: Admitting Provider Physician Assistant; Emergency Provider Emergency Medicine Emergency Medical Services; Visit Provider Internal Medicine | DX: A41.9 Sepsis, unspecified organism (principal); L03.116 Cellulitis of left lower limb | CPT/HCPCS: 99222 ==

== ENCOUNTER → 2023-03-07 10:05 | Outpatient (BNV) | payer MEDICARE, MEDICAID, SELFPAY | PROVIDERS: Admitting Provider Physician Assistant; Emergency Provider Emergency Medicine Emergency Medical Services; Visit Provider Nurse Practitioner Psychiatric/Mental Health | DX: F11.90 Opioid use, unspecified, uncomplicated (principal) | CPT/HCPCS: 99232 ==

== ENCOUNTER → 2023-03-07 10:05 | Outpatient (BNV) | payer MEDICARE, MEDICAID, SELFPAY | PROVIDERS: Admitting Provider Physician Assistant; Emergency Provider Emergency Medicine Emergency Medical Services; Visit Provider Physician Assistant | DX: L08.89 Other specified local infections of the skin and subcutaneous tissue (principal); E11.628 Type 2 diabetes mellitus with other skin complications | CPT/HCPCS: 99223; 99232; 99233; 99239 ==

== ENCOUNTER → 2023-03-07 10:05 | Outpatient (BNV) | payer MEDICARE, MEDICAID, SELFPAY | PROVIDERS: Admitting Provider Physician Assistant; Emergency Provider Emergency Medicine Emergency Medical Services; Visit Provider Surgery | DX: L03.116 Cellulitis of left lower limb (principal); L08.9 Local infection of the skin and subcutaneous tissue, unspecified; F19.10 Other psychoactive substance abuse, uncomplicated; A41.9 Sepsis, unspecified organism | CPT/HCPCS: 99222 ==

== ENCOUNTER 2023-05-01 18:32 | Inpatient (IN) | payer MEDICARE, MEDICAID, SELFPAY ==
[2023-05-01] VITALS (14 sets, daily range): BP systolic 127–157; BP diastolic 79–101; PULSE 97–113; RESP 17–26; TEMP 36.5–36.9; O2SAT 90–99; BMI 37.1
--- NOTE | 2023-05-01 | ECG_ITS ---
Test Reason : SOB Blood Pressure : / mmHG Vent. Rate : 114 BPM Atrial Rate : 114 BPM P-R Int : 120 ms QRS Dur : 084 ms QT Int : 316 ms P-R-T Axes : 027 086 038 degrees QTc Int : 435 ms Sinus tachycardia Possible Left atrial enlargement Borderline ECG No previous ECGs available Referred By: Generic ED Physician Electronically Signed By:MERLINE BURNS MD
--- NOTE | ~2023-05-01 | XR_ITS ---
EXAMINATION: XR CHEST CLINICAL INFORMATION: Shortness of breath COMPARISON: None available. TECHNIQUE: Frontal view of the chest was obtained. FINDINGS: Bilateral low lung volumes. Slight bronchial thickening. Right basilar opacity which may represent atelectasis versus evolving infectious/inflammatory etiology. No pneumothorax. Trachea is midline. Cardiac mediastinal silhouette is not enlarged. No large pleural effusion. Osseous structures are intact. Soft tissues are unremarkable. XR/XR chest 1V IMPRESSION: 1. Bilateral low lung volumes. 2. Slight bronchial thickening. 3. Right basilar opacity which may represent atelectasis versus evolving infectious/inflammatory etiology.
--- NOTE | ~2023-05-01 | MR_ITS ---
EXAMINATION: MR HAND WITHOUT AND WITH CONTRAST, LEFT CLINICAL INFORMATION: Wound at the base of the 1st metacarpal. Evaluate for osteomyelitis, abscess. COMPARISON: Left hand and wrist radiographs dated 05/03/2023 and 03/07/2023. TECHNIQUE: Multisequence MR imaging of the left hand was obtained before and after the IV administration of 10 mL Gadavist contrast on a high-field strength scanner. FINDINGS: Soft tissue defect along the radial aspect of the 1st metacarpal with adjacent skin thickening and subcutaneous edema as well as postcontrast enhancement. Edema extends distally within the thumb. Findings are consistent with acute cellulitis. No organized fluid collection or abscess formation. No adjacent marrow edema, periosteal reaction, cortical erosion, or postcontrast enhancement to suggest acute osteomyelitis. No acute fracture or dislocation. Normal carpal alignment. No concerning lytic or blastic osseous lesion. Lobulated fluid/cystic structure along the dorsal aspect of the 2nd metacarpophalangeal joint measuring up to 0.5 x 1.5 x 2.4 cm with minimal peripheral postcontrast enhancement. Findings could represent a synovial recess versus ganglion cyst. Alternatively, findings could indicate a giant cell tumor of the tendon sheath. Volar and dorsal subcutaneous edema adjacent to the metacarpals and extending into the fingers. No additional organized fluid collection. No soft tissue mass or enhancing soft tissue lesion. The visualized flexor and extensor tendons are intact. No transverse tendon tear or tendon retraction. The collateral ligament are grossly intact. MR/MR hand LT wo/w con IMPRESSION: 1. Soft tissue defect along the radial aspect of the 1st metacarpal with adjacent cellulitis. No abscess formation. No evidence of acute osteomyelitis. 2. Lobulated fluid/cystic structure along the dorsal aspect of the 2nd metacarpophalangeal joint measuring up to 2.4 cm with minimal peripheral enhancement. Findings could represent a synovial recess versus ganglion cyst. Alternatively, findings could indicate a giant cell tumor of the tendon sheath. 3. Volar and dorsal subcutaneous edema adjacent to the metacarpals and extending into the fingers.
--- NOTE | ~2023-05-01 | CT_ITS ---
EXAMINATION: CT ANGIOGRAM OF THE CHEST WITH AND WITHOUT CONTRAST (CT PULMONARY ANGIOGRAM FOR PE) CLINICAL INFORMATION: Reason for Exam R sided pleuritic chest pain, IVDA COMPARISON: Previous chest x-ray from earlier the same day TECHNIQUE: Prior to contrast administration, noncontrast localization images were obtained. Subsequently, multidetector volumetric imaging was performed from the thoracic inlet to below the diaphragms following the administration of 65 mL Omnipaque 350 intravenous contrast. No contrast reaction reported Sagittal, coronal, and MIP oblique sagittal reformatted images were obtained on the CT workstation, uploaded to PACS, and reviewed. This CT examination was performed using dose optimization techniques as appropriate, variously including the following: *Automated exposure control *Adjustment of mA and/or kV according to patient size (this includes techniques or standardized protocols for targeted exams where dose is matched to indication/reason for exam; i.e. extremities or head) *Use of iterative reconstruction technique Total exam dose-length product 513 mGy-cm FINDINGS: Limited exam due to artifact from respiratory motion. QUALITY OF STUDY/CONTRAST BOLUS: Satisfactory. PULMONARY ARTERIES: No pulmonary emboli. THORACIC AORTA: No aneurysm. LUNG: Airspace disease in the right middle lobe suggestive of pneumonia. Peripheral 2.5 cm upper lobe nodule with question cavitation. The left lung is clear. PLEURA: No pleural effusion or pneumothorax. MEDIASTINUM: Normal heart size. No pericardial effusion. No hilar or mediastinal lymphadenopathy. No evidence of septal bowing or right heart strain. CORONARY ARTERY CALCIFICATION: None visualized on this study. CHEST WALL/AXILLA: No axillary or internal mammary lymphadenopathy. OSSEOUS STRUCTURES: No acute or suspicious osseous abnormality. UPPER ABDOMEN: Unremarkable. No reflux of contrast into the hepatic veins to suggest elevated right heart pressures. CT/CT angio chest PE protocol IMPRESSION: Limited exam due to respiratory motion. No evidence of pulmonary embolism. Right middle lobe pneumonia. Cavitary nodule right upper lobe, probably infectious or inflammatory as well. Given history, septic emboli should be considered. VTE: negative
--- NOTE | ~2023-05-01 | XR_ITS ---
EXAMINATION: XR HAND/WRIST, LEFT CLINICAL INFORMATION: Left hand infection COMPARISON: Left hand x-ray on 03/07/2023 TECHNIQUE: PA, lateral, and oblique views of the left hand and wrist, left scaphoid view. FINDINGS: BONES: Bony structures are intact. There is no focal bone destruction or periosteal reaction seen. JOINTS: Alignment of joints is normal. SOFT TISSUE: Soft tissue prominence is again visualized in left hand extending to proximal segment of the left fingers. No radiopaque foreign body or abnormal air collection is seen. XR/XR hand wrist LT IMPRESSION: 1. Unchanged Normal x-rays of left hand and left wrist. No fracture or dislocation or signs of osteomyelitis are found. 2. Possible recurrence left hand cellulitis.
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
--- NOTE | 2023-05-01 19:03 | MHC.EDTECH ---
Patient difficult stick. Kylee, orthotic technician will try to get collect labs.
--- NOTE | 2023-05-01 20:06 | PC.NURSE ---
pt desat to 90 placed on 2L and went up to 93 with more comfort. Let provider know
[2023-05-01 20:13] LABS: Hematocrit 40.9 % (37.0-47.0); Hemoglobin 13.5 g/dl (12.0-16.0); Mean Corpuscular Hemoglobin 26.9 pg (27.0-33.0); Mean Corpuscular Volume 81.5 fL (80.0-98.0); Mean Platelet Volume 10.2 fL (9.4-12.3); Platelet Count 279 X10*3/uL (160-400); Red Blood Count 5.02 X10*6/uL (4.20-5.50); Red Cell Distribution Width 16.2 % (11.0-16.0); White Blood Count 25.8 X10*3/uL (4.8-10.8)
[2023-05-01] MEDS: HYDROmorphone HCl 0.5 MG/0.5 ML SYRINGE IVPUSH (20:15)
[2023-05-01] MEDS: cefTRIAXone sodium 2 GM in 0.9 % Sodium Chloride 50 ML IV (20:15)
[2023-05-01 20:18] LABS: INTERNATIONAL NORM RATIO 1.3 (0.9-1.1); Prothrombin Time 15.5 SEC (11.1-13.3)
[2023-05-01] MEDS: 0.9 % Sodium Chloride 500 ML IV (20:25)
[2023-05-01 20:26] LABS: Lactic Acid 1.8 mmol/L (0.5-2.0)
[2023-05-01 20:31] LABS: Alanine Aminotransferase 10 U/L (0-31); Albumin Level 4.2 g/dL (3.5-5.0); Alkaline Phosphatase 88 U/L (39-117); Anion Gap 20 (12-20); Aspartate Amino Transferase 9 U/L (5-31); Bilirubin Total 1.1 mg/dL (0.0-1.0); Blood Urea Nitrogen 13 mg/dL (9-16); C Reactive Protein 21.16 mg/dL (< or = 0.50); Calcium 9.4 mg/dL (8.4-10.2); Carbon Dioxide 23 mmol/L (22-29); Chloride 93 mmol/L (96-108); Creatinine Clr Calc Pharmacy 91.6; Estimated Glomerular Filt Rate 59; Glucose Random 337 mg/dL (60-115); Potassium 3.8 mmol/L (3.3-5.1); Sodium 132 mmol/L (135-145); Total Protein 8.4 g/dL (6.5-8.0)
[2023-05-01 20:34] LABS: SLIDE REVIEW MANUAL DIFF
[2023-05-01 20:37] LABS: Atypical Lymph Absolute Manual 0.3 x10*3/uL; Atypical Lymphs Percent Manual 1 % (0-6); Band Neutrophils Percent 4 % (3-5); Lymphocytes Absolute Manual 2.8 X10*3/uL (1.2-4.9); Lymphocytes Percent Manual 11 % (20-40); Monocytes Absolute Manual 1.5 X10*3/uL (0.1-1.2); Monocytes Percent Manual 6 % (2-11); Neutrophils Absolute Manual 21.2 X10*3/uL (2.0-8.3); Neutrophils Percent Manual 78 % (45-73); Troponin-I High Sensitivity < 2.7 ng/L (<3.5-17.0)
[2023-05-01 20:40] LABS: Platelet Estimate NORMAL (NORMAL); Platelet Morphology Comment NORMAL; RBC Morphology NORMAL
[2023-05-01] MEDS: vancomycin/NS 2,000 MG/500 ML PLAST..BAG 250 MG IV (20:47)
[2023-05-01 20:49] LABS: Influenza A PCR NEGATIVE (Negative); Influenza B PCR NEGATIVE (Negative); Resp Syncy Virus RNA Qual PCR NEGATIVE (Negative); SARS COV2 PCR INHOUSE NEGATIVE (Negative)
[2023-05-01] MEDS: LORazepam 1 MG TABLET PO (21:02)
[2023-05-01 21:10] LABS: Erythrocyte Sedimentation Rate 48 MM/HR (0-20)
--- NOTE | 2023-05-01 21:20 | PC.NURSE ---
pt IV not suitable for IV contrast, IV ultrasound line was placed and may have infiltrated. Josefina stopped and provider made aware. Another IV ultrasound will have to be placed
[2023-05-01 22:01] LABS: B Type Natriuretic Peptide 17 pg/mL (<100)
[2023-05-01] MEDS: Magnesium Sulfate/H2O 2 GM/50 ML PIGGYBACK IV (22:02)
[2023-05-01] MEDS: iohexoL 350 MG/ML 100 ML INFUS..BTL IV (22:02)
[2023-05-01] MEDS: HYDROmorphone HCl 1 MG/ML SYRINGE IVPUSH (22:04)
--- NOTE | 2023-05-01 22:14 | PC.NURSE ---
delay in administration of mag and vayncomyicin due to needing another IV line placed. Provider aware
[2023-05-02] VITALS (7 sets, daily range): BP systolic 98–148; BP diastolic 57–80; PULSE 70–107; RESP 16–20; TEMP 36.3–36.9; O2SAT 93–97; BMI 36.9
[2023-05-02] MEDS: Ketorolac Tromethamine 15 MG/ML VIAL IVPUSH ×2 (00:45→08:34)
[2023-05-02] MEDS: Acetaminophen 325 MG TABLET 650 MG PO ×2 (00:45→16:40)
--- NOTE | 2023-05-02 00:47 | PM.IMHP ---
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 She described the pain as a stabbing sensation with intensity of 10/10. It increases with inspiration. The pain radiates to the right back. She denied any cough, fevers and chills. Despite taking methadone she is to using IV heroin. She denied any gastrointestinal or genitourinary symptoms. In the ED, she was found to have sinus tachycardia. She was placed on supplemental oxygen via nasal cannula -she is now on 2L/min. Blood workup was remarkable for leukocytosis of 25.8 and hypomagnesemia of 1.0. There is no lactic acidosis. Her glucose is 337. Bicarb is normal. BNP and LFTs are normal. Creatinine is 1.8. Chest CTA was limited however showed no evidence of pulmonary embolism. There is right middle lobe pneumonia + cavitary nodule of the right upper lobe (infectious versus inflammatory, given the history septic emboli should be considered). ED tx: Ceftriaxone 1 g IV, vancomycin 2 g IV, magnesium 2 g IV, lorazepam 1 mg p.o., Dilaudid 1.5 mg IV (total). Review of Systems Review of Systems: All 12 systems were reviewed and normal except as noted in HPI. [facility] Medical History Diabetic polyneuropathy ADHD Type 2 diabetes mellitus Asthma Polysubstance abuse Intravenous drug abuse Opiate use Social History Household Members: None Housing: Apartment Do you presently have visiting nurse or other home services: No Patient Tobacco Use Status: Never used Tobacco Tobacco use type: Cigarette Cigarette Packs Per Day: 0.5 Cigarettes Per Day: 8 Smoked in Last 30 Days: Yes Substance Use Type: Heroin Advance Directives: No Advance Directives Information Provided: No Nutrition Risks: No Nutritional Risk Patient : No service: No Meds Allergies Allergy/AdvReac Type Severity Reaction Status Date / Time morphine Allergy Hives Verified 03/07/23 20:50 Active Medications: Current Medications Acetaminophen (Acetaminophen 325 Mg Tablet) 650 mg PO Q6H [facility] Stop: 05/02/23 18:31 Last Admin: 05/02/23 00:45 Dose: 650 mg Heparin Sodium (Porcine) (Heparin Sodium,Porcine 5,000 Unit/Ml Vial) 5,000 unit SUBCUT Q8H [facility] Hydromorphone HCl (Hydromorphone Hcl 1 Mg/Ml Syringe) 0.8 mg IVPUSH Q3H PRN; Protocol PRN Reason: Pain, Severe (Pain Scale 7-10) Ceftriaxone Sodium 2 gm/ (Sodium Chloride) 50 mls @ 100 mls/hr IV Q24H [facility] Sodium Chloride (Ns) 1,000 mls @ 150 mls/hr IVCONT .Q6H40M [facility] Ketorolac Tromethamine (Ketorolac Tromethamine 15 Mg/Ml Vial) 15 mg IVPUSH Q8H [facility] Stop: 05/02/23 08:36 Last Admin: 05/02/23 00:45 Dose: 15 mg Lorazepam (Lorazepam 0.5 Mg Tablet) 0.5 mg PO Q4H PRN PRN Reason: Anxiety Methadone HCl (Methadone Hcl 20 Mg/2 Ml Oral.Conc) 105 mg PO DAILY [facility] Pharmacy Consult (Consult Rx Vancomycin Dosing) 1 each MISCELLANE DAILY PRN PRN Reason: Consult order Sodium Chloride (0.9 % Sodium Chloride Flush 3 Ml Syringe) 3 ml IVFLUSH QSHIFT [facility] Home Medications Medication Instructions Recorded Confirmed Last Taken Type albuterol sulfate 90 mcg/actuation 2 puff inhalation Q6H PRN 03/07/23 03/07/23 Unknown History aerosol inhaler (Ventolin HFA) Shortness Of Breath Or Wheezing atorvastatin 40 mg tablet 40 mg PO DAILY 03/07/23 03/07/23 03/05/23 History dextroamphetamine-amphetamine 30 30 mg PO BID@0800,1300 03/07/23 03/07/23 03/05/23 History mg tablet fluticasone propionate 220 2 puff inhalation BID 03/07/23 03/07/23 03/05/23 History mcg/actuation HFA aerosol inhaler (Flovent HFA) gabapentin 800 mg tablet 800 mg PO TID 03/07/23 03/07/23 03/05/23 History insulin lispro 100 unit/mL 1 sliding scale dose subcut TIDAC 03/07/23 03/07/23 03/05/23 History subcutaneous pen metformin 500 mg tablet 500 mg PO BID 03/07/23 03/07/23 03/05/23 History pantoprazole 40 mg tablet,delayed 40 mg PO DAILY@0630 03/07/23 03/07/23 03/05/23 History release sennosides 8.6 mg-docusate sodium 1 tab PO DAILY 03/07/23 03/07/23 03/05/23 History 50 mg tablet (Stool Softener-Laxative) sertraline 50 mg tablet 75 mg PO DAILY 03/07/23 03/07/23 03/05/23 History Physical Exam Vital Signs and Narrative: Vital Signs: Last Vital Signs Temp 97.7 F 05/01/23 22:12 Pulse 97 05/01/23 23:23 Resp 17 05/01/23 22:30 BP 127/97 H 05/01/23 23:23 Pulse Ox 95 05/01/23 23:23 O2 Del Method Nasal Cannula 05/01/23 23:23 O2 Flow Rate 2 05/01/23 23:23 BMI result Body Mass Index 37.1 Constitutional - Awake and Alert. Looks uncomfortable due to pain. Drowsy but able to communicate. HEENT - Atraumatic, normocephalic. No scleral icterus. Dry oral mucosa. Heart - RRR, (+) murmur. Lungs - Normal lung expansion, Normal respiratory effort, No respiratory distress, Tachypnea. Right mid/lower field decreased breath sounds. Left lung clear. No wheezing. Gastrointestinal - NT / ND; +BS; No rebound or guarding - No CVA tenderness Extremities - no calf tenderness bilaterally, no swelling Musculoskeletal - Normal inspection, normal ROM Skin - Warm/Dry. Multiple needle track parker more prominent in the arms. Neurological - Alert & oriented x3. No focal weakness. Normal speech. Psychological - Anxious affect Results Labs 05/01/23 20:02 05/01/23 20:02 Labs: Laboratory Results - last 24 hr 05/01/23 20:02 MCV 81.5 MCH 26.9 L MCHC 33.0 RDW 16.2 H Plt Count 279 MPV 10.2 Immature Gran % (Auto) Cancelled Neut % (Auto) Cancelled Lymph % (Auto) Cancelled [place] % (Auto) Cancelled Eos % (Auto) Cancelled Baso % (Auto) Cancelled Lymph # (Auto) Cancelled [place] # (Auto) Cancelled Eos # (Auto) Cancelled Baso # (Auto) Cancelled Abs Immat Gran (auto) Cancelled Absolute Neuts (auto) Cancelled Absolute Nucleated RBC 0.000 Nucleated RBC % (auto) 0.0 Neutrophils % (Manual) 78 H Band Neutrophils % 4 Lymphocytes % (Manual) 11 L Atypical Lymphs % (Man) 1 Monocytes % (Manual) 6 Abs Neuts (Manual) 21.2 H Lymphocytes # (Manual) 2.8 Atyp Lymphs # (Manual) 0.3 Monocytes # (Manual) 1.5 H Platelet Estimate NORMAL Plt Morphology Comment NORMAL RBC Morphology NORMAL Smear Tech's Comments MANUAL DIFF ESR 48 H PT 15.5 H INR 1.3 H Anion Gap 20 Estim Creat Clear Calc 91.6 Estimated GFR 59 Random Glucose 337 H Lactic Acid 1.8 Calcium 9.4 Magnesium 1.0 L* Total Bilirubin 1.1 H AST 9 ALT 10 Alkaline Phosphatase 88 Troponin I High Sens < 2.7 C-Reactive Protein 21.16 H B-Natriuretic Peptide 17 Total Protein 8.4 H Albumin 4.2 Influenza Type A (PCR) NEGATIVE Influenza Type B (PCR) NEGATIVE RSV RNA Qual (PCR) NEGATIVE SARS-CoV-2 RNA (RT-PCR) NEGATIVE Imaging Radiologist's Impressions: Impressions Chest X-Ray 05/01/23 19:39 IMPRESSION: 1. Bilateral low lung volumes. 2. Slight bronchial thickening. 3. Right basilar opacity which may represent atelectasis versus evolving infectious/inflammatory etiology. Chest CTA 05/01/23 22:06 IMPRESSION: Limited exam due to respiratory motion. No evidence of pulmonary embolism. Right middle lobe pneumonia. Cavitary nodule right upper lobe, probably infectious or inflammatory as well. Given history, septic emboli should be considered. VTE: negative Assessment and Plan (1) Pneumonia: Qualifiers: Laterality: right Lung location: unspecified part of lung Pneumonia type: due to unspecified organism Qualified Code(s): J18.9 - Pneumonia, unspecified organism Status: Acute (2) Opioid use disorder: Status: Acute (3) Hypomagnesemia: Status: Acute Plan Gloria Hernandez is a 38 years old woman admitted with: Right upper lobe cavitary nodule likely abscess associated with right middle lobe pneumonia and sepsis likely secondary to septic emboli/endocarditis. Admit to hospitalist service. Telemetry. Pulse oximetry. Supplemental oxygen as needed. Continue IV fluids. Continue empiric IV antibiotic therapy with vancomycin and ceftriaxone. Check echocardiogram. Blood cultures obtained -will follow results. ID and pulmonology consult. Right chest pain, pleuritic secondary to above. Continue treatment with acetaminophen, Toradol and Dilaudid. IV drug use, ongoing. Continue methadone. Addiction medicine consult fever. Type 2 diabetes mellitus, uncontrolled. Blood glucose monitoring before meals at bedtime. Continue treatment with Lantus and insulin sliding scale. Diabetic diet. Check hemoglobin A1c. Asthma. DuoNeb as needed. History of ADHD. Dextroamphetamine on hold -pt is tachycardic. DVT prophylaxis: Heparin subcut Code status: Full Patient will need hospitalization for at least 2 midnights for right lung abscess/pneumonia/sepsis/? Endocarditis treatment with IV antibiotics, IV fluids and close monitoring of vital signs. Also, she will need to undergo an echocardiogram and ID consult. Quality Stroke Does the patient have a stroke diagnosis?: No VTE Prior VTE?: No VTE Risk Level:: Medical - moderate - high VTE Device Contraindication: Treatment Not Indicated VTE Drug Contraindication: N/A - Med Ordered
--- NOTE | 2023-05-02 00:59 | PC.NURSE ---
38 year old presents with R side R pain x 3 days and dyspnea ( desat to 90 in ED so placed on 2L) . Pt also has R hand cellulits due to IV drug abuse heroin. Last used yesterday. PMH : IVDA, asthma, DM. Sepsis protocol iniciated at 2018 . IV antibiotics given with 500 bolus. Mag was 1.0 and replaced. Lactic 1.[address]- possibly septic emboli due to hx however poor imaging. Pt will have echo in am as well as meet with infectious disease and addition medicine. Pt is on methadone. Pt is hard stick and has ultrasound 20 gauge in R forearm. Can ambulate however in a lot of pain.
[2023-05-02 01:13] LABS: Amphetamine Screen Urine Not Detected (Not Detect); Barbiturates, Urine Not Detected (Not Detect); Benzodiazepines Screen Urine Not Detected (Not Detect); Cannabinoid Screen Urine POSITIVE (Not Detect); Cocaine Screen Urine POSITIVE (Not Detect); Fentanyl, urine POSITIVE (Not Detect); Opiate Screen Urine POSITIVE (Not Detect); Phencyclidine Screen Urine Not Detected (Not Detect)
[2023-05-02] MEDS: 0.9 % Sodium Chloride 1,000 ML 150 ML IVCONT ×4 (01:19→21:40)
[2023-05-02] MEDS: 0.9 % Sodium Chloride 250 ML 999 ML IV (01:19)
[2023-05-02 01:45] LABS: Glucose, Whole Blood 283 mg/dL (60-115)
[2023-05-02] MEDS: Insulin Glargine,Hum.rec.anlog 100 UNIT/ML 10 ML VIAL 30 UNIT SUBCUT ×2 (01:46→21:36)
[2023-05-02] MEDS: Insulin Lispro 100 UNIT/ML 3 ML VIAL SUBCUT ×5 (01:46→21:35)
[2023-05-02 01:47] LABS: Hematocrit 38.6 % (37.0-47.0); Hemoglobin 12.9 g/dl (12.0-16.0); Mean Corpuscular HGB Conc 33.4 g/dl (31.0-35.0); Mean Corpuscular Hemoglobin 27.4 pg (27.0-33.0); Mean Platelet Volume 10.2 fL (9.4-12.3); Platelet Count 246 X10*3/uL (160-400); Red Blood Count 4.71 X10*6/uL (4.20-5.50); Red Cell Distribution Width 16.1 % (11.0-16.0); White Blood Count 25.6 X10*3/uL (4.8-10.8)
[2023-05-02 01:59] LABS: Alanine Aminotransferase 9 U/L (0-31); Albumin Level 3.8 g/dL (3.5-5.0); Alkaline Phosphatase 82 U/L (39-117); Anion Gap 17 (12-20); Aspartate Amino Transferase 9 U/L (5-31); Basophils Percent Auto 0.4 % (0-2); Blood Urea Nitrogen 13 mg/dL (9-16); Calcium 8.8 mg/dL (8.4-10.2); Carbon Dioxide 22 mmol/L (22-29); Chloride 96 mmol/L (96-108); Creatinine Clr Calc Pharmacy 109.7; Eosinophils Percent Auto 0.4 % (0-4); Estimated Glomerular Filt Rate > 60; Glucose Random 292 mg/dL (60-115); Imm Gran Abs Auto 0.72 X10*3/uL (0.00-0.03); Imm Gran Pct Auto 2.8 % (0.0-0.4); Lymphocytes Percent Auto 7.3 % (20-40); Magnesium 1.5 mg/dL (1.6-2.6); Neutrophils Absolute Auto 20.7 x10*3/uL (2.0-8.3); Neutrophils Percent Auto 81.1 % (45-73); Potassium 3.9 mmol/L (3.3-5.1); Sodium 131 mmol/L (135-145); Total Protein 7.6 g/dL (6.5-8.0)
[2023-05-02 02:00] LABS: Basophils Absolute Auto 0.1 X10*3/uL (0.0-0.2); Eosinophils Absolute Auto 0.1 X10*3/uL (0.0-0.4); Lymphocytes Absolute Auto 1.9 X10*3/uL (1.2-4.9); MANUAL DIFF FLAG SCAN; SCAN SMEAR FLAG 1
[2023-05-02] MEDS: LORazepam 0.5 MG TABLET PO ×2 (07:14→21:59)
[2023-05-02 07:21] LABS: Glucose, Whole Blood 243 mg/dL (60-115)
--- NOTE | 2023-05-02 07:46 | PC.NURSE ---
patient a&ox3, lungs diminished throughout, monitor technician intact-nsr, ivf running per order, poc obtained, pt requested ativan- pt medicated per pt request, warm blankets given for comfort, call bazan within reach, will continue to monitor
[2023-05-02] MEDS: methADONE HCl 20 MG/2 ML ORAL.CONC 105 MG PO (08:29)
[2023-05-02] MEDS: Heparin Sodium,Porcine 5,000 UNIT/ML VIAL 5000 UNIT SUBCUT ×2 (08:29→16:40)
--- NOTE | 2023-05-02 08:33 | PC.NURSE ---
patient sleeping, woke to verbal stimulus, pt medicated per order, given breakfast, ivf running per order, call bazan within reach, will continue to monitor
--- NOTE | 2023-05-02 08:51 | HE.PHANOTE ---
re methadone last dose 105 mg given 05/01/23 @miguelina salamanca
--- NOTE | 2023-05-02 10:23 | PHA.PROG ---
Admission Date/Time: May 02, 2023 00:27 Indication: endocarditis Weight in k.501 kg Adjusted body weight in K.961 [place] body weight in Kg: Obesity Dosing Indication % IBW: BMI 37.1 Serum Creatinine - Last 168 Hours 05/01/23 05/02/23 20:02 01:36 Creatinine 1.03 0.86 Estimated CrCl and GFR - Last 168 Hours 05/01/23 05/02/23 20:02 01:36 Estim Creat Clear Calc 91.6 109.7 Estimated GFR 59 > 60 Vancomycin Loading Dose: 2000 mg Current Vancomycin Dosing Regimen: 750 mg Q8H Vancomycin Monitoring using AUC goal of 400 - 600 range with trough as surrogate marker: 551 Date and Time for next Vancomycin Level to be drawn: 05/03 @0900 Pharmacist Comments on Vancomycin Plan: predicted trough 17.9 Vancomycin dosing will take advantage of [id number] as a clinical decision support tool that uses Bayesian modeling to calculate individual patient's pharmacokinetic parameters and forecast the patient's drug concentration time course with the target goal AUC 24 range of 400 - 600 mg/L/hr.
--- NOTE | 2023-05-02 10:36 | PHA.MEDREC ---
Pharmacy Consult ? Medication Reconciliation Pharmacy has completed the medication reconciliation. Patient does not take metformin anymore due to it giving the patient extreme diarrhea . Pt takes methadone 105 mg daily and gets at [facility].
[2023-05-02] MEDS: vancomycin HCL 750 MG in 0.9 % Sodium Chloride 250 ML 265 MG IV ×2 (11:12→18:29)
[2023-05-02 11:15] LABS: Glucose, Whole Blood 220 mg/dL (60-115)
--- NOTE | 2023-05-02 13:13 | PM.CNPUL ---
History of Present Illness History of Present Illness Consult date: 05/02/23 Chief complaint: Right Lung Cavitary Nodule Narrative: 38-year-old lady, active 15+ pack-year smoker, with underlying history of diabetes mellitus, IV substance abuse, asthma admitted on 05/02/2023 with dyspnea and right-sided chest pain for 3 days slowly progressive. On initial CT chest patient with right basilar early pneumonia and developing right upper lobe abscess. Patient with prior history of MSSA infections. She was started on broad-spectrum antibiotics and admitted to Medicine [facility]. Review of Systems Constitutional: Constitutional: Denies daytime sleepiness, Denies excessive sweating, Denies fatigue, Denies fever(s), Denies lethargy, Denies malaise, Denies night sweats, Denies snoring and Denies weight loss Eyes: Eyes: Denies blurry vision and Denies itchy eyes ENT: Denies nasal congestion, Denies post nasal drip, Denies sinus pain, Denies sinus pressure and Denies other ( Thrush) Cardiovascular: Cardiovascular: Denies chest pain, Denies pedal edema, Denies dyspnea, Denies orthopnea and Denies paroxysmal nocturnal dyspnea Respiratory: Respiratory: Denies cough, Denies hemoptysis, Denies excessive phlegm production, Denies dyspnea, Denies snoring and Denies wheezing Gastrointestinal: Gastrointestinal: Denies abdominal pain and Denies heartburn Musculoskeletal: Musculoskeletal: Denies myalgias, Denies arthralgias and Denies joint swelling Integumentary/Breasts: Skin/Breast: Denies rash Neurologic: Denies memory loss and Denies seizure-like activity Psychiatric: Psychiatric: Denies abnormal sleep pattern, Denies anxiety and Denies memory loss Endocrine: Endocrine: Denies excessive sweating, Denies fatigue and Denies heat intolerance Hematologic/Lymphatic: Hematologic/Lymphatic: Denies easy bruising Allergic/Immunologic: Allergic/Immunologic: Denies itchy eyes, Denies seasonal rhinorrhea and Denies wheezing PMFSH Past Medical History Medical History Diabetic polyneuropathy ADHD Type 2 diabetes mellitus Asthma Polysubstance abuse Intravenous drug abuse Opiate use Social History Social History Household Members: None Housing: Apartment Do you presently have visiting nurse or other home services: No Patient Tobacco Use Status: Never used Tobacco Tobacco use type: Cigarette Cigarette Packs Per Day: 0.5 Cigarettes Per Day: 8 Smoked in Last 30 Days: Yes Substance Use Type: Heroin Advance Directives: No Advance Directives Information Provided: No Nutrition Risks: No Nutritional Risk Patient : No service: No Meds Allergies Allergy/AdvReac Type Severity Reaction Status Date / Time morphine Allergy Hives Verified 03/07/23 20:50 Active Medications: Current Medications Acetaminophen (Acetaminophen 325 Mg Tablet) 650 mg PO Q6H [facility] Stop: 05/02/23 18:31 Last Admin: 05/02/23 07:03 Dose: Not Given Albuterol/Ipratropium (Albuterol/Iprat 2.5/0.5mg 3 Ml Ampul.Neb) 3 ml INHALE RQ4H WHILE AWAKE PRN PRN Reason: Shortness of Breath/Wheezing Dextrose (Dextrose 50 % 25 Gm/50 Ml Syringe) 25 gm IVPUSH Q15M PRN; Protocol PRN Reason: per Hypoglycemia Standing Ord. Glucose (Glucose Gel 15 Gm Gel..Gram.) 15 gm PO Q15M PRN; Protocol PRN Reason: per Hypoglycemia Standing Ord. Heparin Sodium (Porcine) (Heparin Sodium,Porcine 5,000 Unit/Ml Vial) 5,000 unit SUBCUT Q8H [facility] Last Admin: 05/02/23 08:29 Dose: 5,000 unit Hydromorphone HCl (Hydromorphone Hcl 1 Mg/Ml Syringe) 1 mg IVPUSH Q3H PRN; Protocol PRN Reason: Pain, Severe (Pain Scale 7-10) Ceftriaxone Sodium 2 gm/ (Sodium Chloride) 50 mls @ 100 mls/hr IV Q24H [facility] Sodium Chloride (Ns) 1,000 mls @ 150 mls/hr IVCONT .Q6H40M [facility] Last Admin: 05/02/23 07:09 Dose: 150 mls/hr Vancomycin HCl 750 mg/ Sodium (Chloride) 265 mls @ 265 mls/hr IV Q8H [facility] Last Admin: 05/02/23 11:12 Dose: 265 mls/hr Insulin Glargine (Insulin Glargine,Hum.Rec.Anlog 100 Unit/Ml 10 Ml Vial) 30 unit SUBCUT BEDTIME [facility] Last Admin: 05/02/23 01:46 Dose: 30 unit Insulin Human Lispro (Insulin Lispro 100 Unit/Ml 3 Ml Vial) 0 unit SUBCUT QIDACHS [facility]; Protocol Last Admin: 05/02/23 08:28 Dose: 4 unit Lorazepam (Lorazepam 0.5 Mg Tablet) 0.5 mg PO Q4H PRN PRN Reason: Anxiety Last Admin: 05/02/23 07:14 Dose: 0.5 mg Methadone HCl (Methadone Hcl 20 Mg/2 Ml Oral.Conc) 105 mg PO DAILY [facility] Last Admin: 05/02/23 08:29 Dose: 105 mg Pharmacy Consult (Consult Rx Vancomycin Dosing) 1 each MISCELLANE DAILY PRN PRN Reason: Consult order Sodium Chloride (0.9 % Sodium Chloride Flush 3 Ml Syringe) 3 ml IVFLUSH QSHIFT [facility] Last Admin: 05/02/23 07:09 Dose: Not Given Home Medications Medication Instructions Recorded Confirmed Last Taken Type albuterol sulfate 90 mcg/actuation 2 puff inhalation Q6H PRN 03/07/23 05/02/23 Unknown History aerosol inhaler (Ventolin HFA) Shortness Of Breath Or Wheezing atorvastatin 40 mg tablet 40 mg PO DAILY 03/07/23 05/02/23 3 Days Ago History ~04/29/23 dextroamphetamine-amphetamine 30 30 mg PO BID@0800,1300 03/07/23 05/02/23 3 Days Ago History mg tablet ~04/29/23 gabapentin 800 mg tablet 800 mg PO TID 03/07/23 05/02/23 3 Days Ago History ~04/29/23 insulin lispro 100 unit/mL 1 sliding scale dose subcut TIDAC 03/07/23 05/02/23 3 Days Ago History subcutaneous pen ~04/29/23 pantoprazole 40 mg tablet,delayed 40 mg PO DAILY@0630 03/07/23 05/02/23 3 Days Ago History release ~04/29/23 sennosides 8.6 mg-docusate sodium 1 tab PO DAILY PRN Constipation 03/07/23 05/02/23 03/05/23 History 50 mg tablet (Stool Softener-Laxative) sertraline 50 mg tablet 75 mg PO DAILY 03/07/23 05/02/23 3 Days Ago History ~04/29/23 acetaminophen 325 mg tablet 650 mg PO Q6H PRN Pain 05/02/23 05/02/23 Unknown History (Tylenol) methadone 10 mg/mL oral 105 mg PO DAILY 05/02/23 05/02/23 05/01/23 History concentrate (Methadone Intensol) nicotine 21 mg/24 hr daily 1 patch transdermal DAILY 05/02/23 05/02/23 3 Days Ago History transdermal patch ~04/29/23 Physical Exam Vital Signs: Vital Signs: Last Vital Signs Temp 98.1 F 05/02/23 11:29 Pulse 86 05/02/23 11:29 Resp 17 05/02/23 11:29 BP 98/58 L 05/02/23 11:29 Pulse Ox 94 05/02/23 11:29 O2 Del Method Room Air 05/02/23 11:29 O2 Flow Rate 2 05/01/23 23:23 BMI result Body Mass Index 37.1 Const: General: no acute distress and alert Nutritional Appearance: obese Orientation/consciousness: Other orientation findings ( oriented) HEENT: Head: Yes atraumatic Eyes: General: appearance normal, both eyes and all related structures Sclerae: sclerae normal EOM: EOMs intact bilaterally Neck: Neck: Yes supple Lymphatic: no lymphadenopathy noted Resp: Effort & Inspection: normal respiratory effort and no use of accessory muscles Auscultation: clear to auscultation bilaterally Cardio: Rate: regular rate Rhythm: regular rhythm Heart sounds: no gallops, no murmurs and no rubs Skin: General skin exam: other ( warm) Extrem: General: No clubbing, No cyanosis and No edema Results Laboratory Findings 05/02/23 01:36 05/02/23 01:36 ABG, PT/INR, D-dimer: PT/INR, D-dimer PT 15.5 SEC (11.1-13.3) H 05/01/23 20:02 INR 1.3 (0.9-1.1) H 05/01/23 20:02 Abnormal lab findings: Abnormal Labs 05/01/23 05/02/23 05/02/23 20:02 00:59 01:36 WBC 25.8 H 25.6 H MCH 26.9 L RDW 16.2 H 16.1 H Immature Gran % (Auto) 2.8 H Neut % (Auto) 81.1 H Lymph % (Auto) 7.3 L [place] # (Auto) 2.0 H Abs Immat Gran (auto) 0.72 H Absolute Neuts (auto) 20.7 H Neutrophils % (Manual) 78 H Lymphocytes % (Manual) 11 L Abs Neuts (Manual) 21.2 H Monocytes # (Manual) 1.5 H ESR 48 H PT 15.5 H INR 1.3 H Sodium 132 L 131 L Chloride 93 L POC Glucose Random Glucose 337 H 292 H Magnesium 1.0 L* 1.5 L Total Bilirubin 1.1 H C-Reactive Protein 21.16 H Total Protein 8.4 H Urine Opiates Screen POSITIVE H Urine Fentanyl Screen POSITIVE H Urine Cocaine Screen POSITIVE H U Marijuana (THC) Screen POSITIVE H 05/02/23 05/02/23 05/02/23 01:40 07:17 11:11 WBC MCH RDW Immature Gran % (Auto) Neut % (Auto) Lymph % (Auto) [place] # (Auto) Abs Immat Gran (auto) Absolute Neuts (auto) Neutrophils % (Manual) Lymphocytes % (Manual) Abs Neuts (Manual) Monocytes # (Manual) ESR PT INR Sodium Chloride POC Glucose 283 H 243 H 220 H Random Glucose Magnesium Total Bilirubin C-Reactive Protein Total Protein Urine Opiates Screen Urine Fentanyl Screen Urine Cocaine Screen U Marijuana (THC) Screen Assessment and Plan (1) Pulmonary abscess: Status: Acute (2) Pneumonia: Qualifiers: Laterality: right Lung location: unspecified part of lung Pneumonia type: due to unspecified organism Qualified Code(s): J18.9 - Pneumonia, unspecified organism Status: Acute Plan Impression: 38-year-old lady IV drug user admitted with dyspnea and right-sided chest pain secondary to developing pneumonia/pulmonary abscess versus septic embolus. Recommendations: Agree with broad-spectrum antibiotics with staphylococcal coverage until cultures speciated. Will require total 28 day treatment course. Follow-up in pulmonary office with CT scan in 1 month. Procedures Date of Service Date of Service: 05/02/23
[2023-05-02 13:41] LABS: Glucose, Whole Blood 190 mg/dL (60-115)
--- NOTE | 2023-05-02 15:16 | PM.EVENT ---
Event Note Date of Service: 05/02/23 Event Note: Patient is seen and examined this morning by hospitalist service. Seen and examined again Denies any new complaints, has some chest soreness right side,seem to be short of breath improving . No fevers Physical exam: Unchanged from H&P Assessment and plan: Unchanged from H&P Pneumonia versus possible pulmonary abscess: seen by Pulmonary-Continue IV vanco and Zosyn Monitor respiratory status mild hyponatremia due to decreased po intake will recheck sodium Above management discussed with the patient in detail length she understand in agreement with the plan, discussed with the Pulmonary plan is to be continued on IV vanco and Zosyn, may need antibiotics for a month and then repeat CT scan outpatient. Time Spent With Patient Time: Total time managing care of this patient today ____ minutes.
--- NOTE | 2023-05-02 15:22 | MHC.RECOVRN ---
Met with pt in ED 20 (awaiting inpt. Bed) after consult placed to Addiction Medicine for H/O IVDU and currently on Methadone.? Chart review completed and received report from floor nurse Karlee. Pt had presented to the ED with right chest pain for 3 days which worsened and was accompanied by SOB, chills, fever.? ?Pt is admitted ?to the floor for right upper lobe nodule and right middle lobe pneumonia and sepsis requiring IV abx.? She is currently on 105mg of methadone for MAT with a h/o IV drug use.? ? Upon assessment pt is sitting up in bed awake but drowsy.? ?Pt denies any current W/D sx other than sweating and that is consistent with my assessment.? Pt reports he has been on MAT for several years (around 20 years).? She reports at her highest use she was injecting 5 bundles of heroin/day.? She was managed on 165mg of methadone/day until Nov when? she missed several days of her clinic appt?s and she was decreased back to 30mg.? Since then she has been in the hospital and rehab and most recent D/C was from [facility] approx. 1 month ago.? At that time she was on 90mg of methadone and was recently increased (about a week ago) to 105mg at [facility].? She does report that even with the 165mg she was experiencing W/D sx to include yawning, sneezing, diarrhea and nausea every day around 3-4PM.? Her last use of heroin was yesterday when she used 1 bag via nasal route.? Pt has cellulitis to bilat hands from injecting.? Pt is interested in continuing her titration of methadone and possibly a split dose. T/W gave report to newspaper carriers supervisor Rose Marie Greenwood, SON and pt?s nurse Karlee.? Provider to F/U with pt tomorrow.? I went back and informed nurse of provider recommendations and she will update pt.? Will continue to provide support while admitted.
[2023-05-02 16:26] LABS: Glucose, Whole Blood 235 mg/dL (60-115)
[2023-05-02 16:42] LABS: Sodium 134 mmol/L (135-145)
[2023-05-02] MEDS: oxyCODONE HCl Immed Release 5 MG TABLET PO (16:42)
[2023-05-02 19:45] LABS: Glucose, Whole Blood 179 mg/dL (60-115)
[2023-05-02] MEDS: Gabapentin 400 MG CAPSULE 800 MG PO (21:36)
[2023-05-02] MEDS: cefTRIAXone sodium 2 GM in 0.9 % Sodium Chloride 50 ML IV (21:52)
[2023-05-03] VITALS (18 sets, daily range): BP systolic 131–168; BP diastolic 75–99; PULSE 103–123; RESP 17–20; TEMP 36.2–37.1; O2SAT 89–95
[2023-05-03] MEDS: oxyCODONE HCl Immed Release 5 MG TABLET PO (00:59)
[2023-05-03] MEDS: Heparin Sodium,Porcine 5,000 UNIT/ML VIAL 5000 UNIT SUBCUT ×3 (01:00→16:32)
[2023-05-03] MEDS: vancomycin HCL 750 MG in 0.9 % Sodium Chloride 250 ML 265 MG IV (02:51)
[2023-05-03] MEDS: HYDROmorphone HCl 1 MG/ML SYRINGE IVPUSH ×6 (03:16→22:25)
[2023-05-03] MEDS: LORazepam 0.5 MG TABLET PO ×3 (04:13→16:32)
[2023-05-03] MEDS: Omeprazole 20 MG CAPSULE.DR PO (05:50)
[2023-05-03] MEDS: methADONE HCl 20 MG/2 ML ORAL.CONC 105 MG PO (05:50)
[2023-05-03 06:13] LABS: Estimated Average Glucose 154 mg/dL
[2023-05-03] MEDS: 0.9 % Sodium Chloride 1,000 ML 150 ML IVCONT ×3 (06:15→22:11)
[2023-05-03 06:18] LABS: Creatinine Clr Calc Pharmacy 136.3; Estimated Glomerular Filt Rate > 60
[2023-05-03 06:18] LABS: Lactic Acid 1.8 mmol/L (0.5-2.0)
--- NOTE | 2023-05-03 07:00 | CA_ITS ---
Transthoracic Echocardiogram Patient (Last, First, Middle): Gloria Hernandez, Gender: Female Date of : 1985 Age: 38 Procedure Date: 05/03/2023 Procedure Type: Transthoracic Echocardiogram [place] [facility] [place]: 170.18 cm Weight: 106.6 kg BSA: 2.17 m2 Heart Rate: bpm BP: 135 / 90 mmHg Spud Sorter: Referring MD: Carmen Rain MD Symptoms: BACTEREMIA, Assess for endocarditis Study Quality: Adequate ECG Rhythm: Sinus Conclusions: - The left ventricular systolic function is normal. The calculated ejection fraction is 65% by biplane method. - No obvious valvular pathology seen on this study. Findings Left Ventricle Normal left ventricular cavity size. There is normal left ventricular wall thickness. The left ventricular systolic function is normal. The calculated ejection fraction is 65% by biplane method. There is no evidence of regional wall motion abnormalities. Diastolic function is normal for age. Right Ventricle Normal right ventricular cavity size and systolic function. Atria Both atria are normal in size. Aortic Valve There is a normal trileaflet aortic valve. There is no aortic valve stenosis. There is no aortic valve regurgitation. Mitral Valve The mitral valve appears normal. There is trace mitral valve regurgitation. There is no mitral valve stenosis. Pulmonic Valve The pulmonic valve is likely normal. Tricuspid Valve There is trace tricuspid valve regurgitation. There is no evidence of pulmonary hypertension. Great Vessels The asc aorta is normal in size. Venous The inferior vena cava is normal in size and collapses greater than 50% with inspiration. Pericardium/Pleural There is no evidence of pericardial effusion. Prior Study Comparison No prior study available for comparison. Recommendations, Care & Conclusions No obvious valvular pathology seen on this study. Consider a RAHEL if clinically appropriate. Measurements 2D Linear Measurements IVSd: 1.00 0.6-0.9/0.6-1.0 cm LVIDd: 4.65 3.9-5.3/4.2-5.9 cm LVIDd Index: 2.14 2.4-3.2/2.2-3.1 cm/m2 LVIDs: 3.01 2.0-3.6 cm LVPWd: 1.06 0.7-1.1 cm Ao Root: 3.00 2.1-3.5 cm LA Diam: 3.80 2.7-3.8/3.0-4.0 cm LAIDs Index: 1.75 1.5-2.3 cm/m2 LV Mass: 209.21 67-162/88-224 g LV Mass Index: 96.41 43-95/49-115 g/m2 LVOT Diam: 2.00 3.0+(-)1.3 cm 2D Systolic Function EF 4C: 71.60 >55% EF 2C: 55.90 >55% EF BiP: 65.30 >55% Mitral Valve MV Pk E: 1.05 MV PK A: 1.30 MV Decel Time: 139.00 E/A: 0.80 E'Lateral: 14.10 E'Medial: 7.94 E/E' Med: 13.20 E/E' Lat: 7.40 PHT: 41.00 MVA PHT: 5.37 Decel Austin: 7.52 Aortic Valve AoV Pk Kb: 2.20 AoV Mn Kb: 1.53 AoV VTI: 0.40 AoV Pk Grad: 19.00 Aov Mn Grad: 11.00 DAVID Cont.VTI: 1.73 LVOT LVOT Pk Kb: 1.11 LVOT Mn Kb: 0.76 LVOT VTI: 0.22 LVOT Pk Grad: 5.00 LVOT Mn Grad: 3.00 LVOT Diam: 2.00 LVOT Area: 3.14 Diastolic Function MV Pk E: 1.05 MV Pk A: 1.30 E/A: 0.80 E'Medial: 7.94 E/E' Med: 13.20 E' Laterial: 14.10 E/E' Lat: 7.40 Right Ventricle TAPSE (mm): 28.00 TVS' Kb: 15.00 Tricuspid Valve TR Pk Kb: 1.98 TR Pk Grad: 16.00 RA Press: 3.00 RVSP: 19.00 Great Vessels Aorta Ao Root-2D: 3.00 2.0-3.7 cm Ao Asc: 3.20 2.1-3.4 cm Pulmonary Valve PV Pk Kb: 1.40 Peak PV Grad: 8.00 Updated in Other Vendor System with Status of Final Jack Reed MD electronically signed on 05/03/2023 1:35:41 PM with status of Final
[2023-05-03 07:43] LABS: Glucose, Whole Blood 222 mg/dL (60-115)
[2023-05-03] MEDS: Sertraline HCL 25 MG TABLET 75 MG PO (07:44)
[2023-05-03] MEDS: Atorvastatin Calcium 40 MG TABLET PO (07:44)
[2023-05-03] MEDS: Nicotine 21 MG PATCH.TD24 TRANSDERMA (07:44)
[2023-05-03] MEDS: Gabapentin 400 MG CAPSULE 800 MG PO ×3 (07:44→22:10)
[2023-05-03] MEDS: Amphetamine Mixed Salts 10 MG TABLET 30 MG PO ×2 (07:44→11:27)
[2023-05-03] MEDS: Insulin Lispro 100 UNIT/ML 3 ML VIAL SUBCUT ×2 (07:45→16:32)
--- NOTE | 2023-05-03 08:22 | MHC.CM.PN ---
CM met with Patient at bedside and addressed IMM with her, providing Patient with the original and a copy has been placed on the chart. Patient lives alone in an apartment and she was not using any DME [employer]MINISTR[employer]. Home/resume Methadone from [facility] on is the plan and CM has initialed and will follow for dc planning. HCP is on file (Mark), and the PCP is Dr. Luz Elena Miller.
[2023-05-03 09:28] LABS: Hematocrit 37.1 % (37.0-47.0); Mean Corpuscular HGB Conc 32.3 g/dl (31.0-35.0); Mean Corpuscular Hemoglobin 26.6 pg (27.0-33.0); Mean Corpuscular Volume 82.3 fL (80.0-98.0); Mean Platelet Volume 10.7 fL (9.4-12.3); Platelet Count 227 X10*3/uL (160-400); Red Blood Count 4.51 X10*6/uL (4.20-5.50); Red Cell Distribution Width 16.3 % (11.0-16.0); White Blood Count 19.6 X10*3/uL (4.8-10.8)
[2023-05-03 09:42] LABS: Vancomycin Trough 6.8 mcg/mL (10.0-20.0)
--- NOTE | 2023-05-03 10:06 | HE.PHANOTE ---
Re: Vanco Renal function remains stable. Trough returned at 6.8. Based on patient's age and weight, dose is increased to 1,250mg Q8H. Next trough 05/04 at 0900.
--- NOTE | 2023-05-03 11:12 | HO.ADDICTCON ---
History of Present Illness Date of Service: 05/03/2023 Chief Complaint: Right Lung Cavitary Nodule Reason for Consult: OUD--methadone dose adjustment Sources of Information: patient interviewed and chart reviewed HPI Narrative: Patient is a 38 year old female with history of OUD, currently medically admitted with pulmonary abscess. Consult request as patient reported to golf technician that current methadoen dose was not covering her sx the entire day Patient seen in room 453 with golf technician. She was awake, sitting up in bed, engaged in interview. Noted to have heavy eyelids several times during interview--but still appropriately responding to questions. She reports her methadone dose is currently 105mg, however it was 165mg (unclear how recently) and due to missing several doses her previous clinic ([facility]) restarted her dose at 30mg once she presented to the clinic again. She states that when she receives her AM dose she feels perfectly fine, great until about 4 or 5pm when she reports mild withdrawal sx present --yawning, teary eyes, restlessness. She states she has been talking to her OTP about this and, per her report, were considering split dosing. She denies any ongoing substance use, with the exception of prior to admission using one bag to help with the pain in her chest. No withdrawal sx noted during assessment. Patient showing various areas on arms and legs where wounds have healed--left hand, around the thumb, noted to be red and swollen. Several other similar areas on her fingers noted. Visibly becoming SOB when talking. Medical Evaluation Reviewed: Yes Review of Systems Constitutional: Reports as per HPI Cardiovascular: Reports dyspnea Respiratory: Reports dyspnea Diagnostics Vital Signs (24Hr): Vital Signs - 24 hr 05/02/23 11:29 05/02/23 16:00 05/02/23 19:30 Temperature 98.1 F 97.6 F 97.9 F Pulse Rate 86 84 70 Respiratory Rate 17 20 20 Blood Pressure 98/58 L 109/57 L 120/71 Pulse Oximetry 94 94 93 Oxygen Delivery Method Room Air Room Air Room Air 05/02/23 23:05 05/03/23 03:11 05/03/23 04:07 Temperature 97.3 F 98.5 F Pulse Rate 77 105 H Respiratory Rate 20 20 20 Blood Pressure 148/73 H 159/85 H Pulse Oximetry 93 93 Oxygen Delivery Method Room Air Room Air 05/03/23 05:24 05/03/23 07:11 05/03/23 07:44 Temperature 98.7 F Pulse Rate 110 H Respiratory Rate 20 17 18 Blood Pressure 135/90 H Pulse Oximetry 89 L Oxygen Delivery Method Room Air 05/03/23 08:14 Temperature Pulse Rate Respiratory Rate 18 Blood Pressure Pulse Oximetry Oxygen Delivery Method BMI result Body Mass Index 36.9 Labs 05/03/23 09:17 05/03/23 05:44 Labs: Laboratory Results - last 48 hr 05/01/23 05/02/23 05/02/23 20:02 00:59 01:36 WBC 25.8 H 25.6 H RBC 5.02 4.71 Hgb 13.5 12.9 Hct 40.9 38.6 MCV 81.5 82.0 MCH 26.9 L 27.4 MCHC 33.0 33.4 RDW 16.2 H 16.1 H Plt Count 279 246 MPV 10.2 10.2 Immature Gran % (Auto) Cancelled 2.8 H Neut % (Auto) Cancelled 81.1 H Lymph % (Auto) Cancelled 7.3 L Cooper % (Auto) Cancelled 8.0 Eos % (Auto) Cancelled 0.4 Baso % (Auto) Cancelled 0.4 Lymph # (Auto) Cancelled 1.9 Cooper # (Auto) Cancelled 2.0 H Eos # (Auto) Cancelled 0.1 Baso # (Auto) Cancelled 0.1 Abs Immat Gran (auto) Cancelled 0.72 H Absolute Neuts (auto) Cancelled 20.7 H Absolute Nucleated RBC 0.000 0.000 Nucleated RBC % (auto) 0.0 0.0 Neutrophils % (Manual) 78 H Band Neutrophils % 4 Lymphocytes % (Manual) 11 L Atypical Lymphs % (Man) 1 Monocytes % (Manual) 6 Abs Neuts (Manual) 21.2 H Lymphocytes # (Manual) 2.8 Atyp Lymphs # (Manual) 0.3 Monocytes # (Manual) 1.5 H Platelet Estimate NORMAL Plt Morphology Comment NORMAL RBC Morphology NORMAL Smear Tech's Comments MANUAL DIFF ESR 48 H PT 15.5 H INR 1.3 H Sodium 132 L 131 L Potassium 3.8 3.9 Chloride 93 L 96 Carbon Dioxide 23 22 Anion Gap 20 17 BUN 13 13 Creatinine 1.03 0.86 Estim Creat Clear Calc 91.6 109.7 Estimated GFR 59 > 60 POC Glucose Random Glucose 337 H 292 H Estimat Average Glucose Hemoglobin A1c % Lactic Acid 1.8 Calcium 9.4 8.8 D Magnesium 1.0 L* 1.5 L Total Bilirubin 1.1 H 1.0 AST 9 9 ALT 10 9 Alkaline Phosphatase 88 82 Troponin I High Sens < 2.7 C-Reactive Protein 21.16 H B-Natriuretic Peptide 17 Total Protein 8.4 H 7.6 Albumin 4.2 3.8 Hold Red Top See Note Hold Yellow Top Vancomycin Trough Urine Opiates Screen POSITIVE H Urine Fentanyl Screen POSITIVE H Ur Barbiturates Screen Not Detected Ur Phencyclidine Scrn Not Detected Ur Amphetamines Screen Not Detected U Benzodiazepines Scrn Not Detected Urine Cocaine Screen POSITIVE H U Marijuana (THC) Screen POSITIVE H Influenza Type A (PCR) NEGATIVE Influenza Type B (PCR) NEGATIVE RSV RNA Qual (PCR) NEGATIVE SARS-CoV-2 RNA (RT-PCR) NEGATIVE 05/02/23 05/02/23 05/02/23 01:40 07:17 11:11 WBC RBC Hgb Hct MCV MCH MCHC RDW Plt Count MPV Immature Gran % (Auto) Neut % (Auto) Lymph % (Auto) Cooper % (Auto) Eos % (Auto) Baso % (Auto) Lymph # (Auto) Cooper # (Auto) Eos # (Auto) Baso # (Auto) Abs Immat Gran (auto) Absolute Neuts (auto) Absolute Nucleated RBC Nucleated RBC % (auto) Neutrophils % (Manual) Band Neutrophils % Lymphocytes % (Manual) Atypical Lymphs % (Man) Monocytes % (Manual) Abs Neuts (Manual) Lymphocytes # (Manual) Atyp Lymphs # (Manual) Monocytes # (Manual) Platelet Estimate Plt Morphology Comment RBC Morphology Smear Tech's Comments ESR PT INR Sodium Potassium Chloride Carbon Dioxide Anion Gap BUN Creatinine Estim Creat Clear Calc Estimated GFR POC Glucose 283 H 243 H 220 H Random Glucose Estimat Average Glucose Hemoglobin A1c % Lactic Acid Calcium Magnesium Total Bilirubin AST ALT Alkaline Phosphatase Troponin I High Sens C-Reactive Protein B-Natriuretic Peptide Total Protein Albumin Hold Red Top Hold Yellow Top Vancomycin Trough Urine Opiates Screen Urine Fentanyl Screen Ur Barbiturates Screen Ur Phencyclidine Scrn Ur Amphetamines Screen U Benzodiazepines Scrn Urine Cocaine Screen U Marijuana (THC) Screen Influenza Type A (PCR) Influenza Type B (PCR) RSV RNA Qual (PCR) SARS-CoV-2 RNA (RT-PCR) 05/02/23 05/02/23 05/02/23 13:38 15:51 16:23 WBC RBC Hgb Hct MCV MCH MCHC RDW Plt Count MPV Immature Gran % (Auto) Neut % (Auto) Lymph % (Auto) Cooper % (Auto) Eos % (Auto) Baso % (Auto) Lymph # (Auto) Cooper # (Auto) Eos # (Auto) Baso # (Auto) Abs Immat Gran (auto) Absolute Neuts (auto) Absolute Nucleated RBC Nucleated RBC % (auto) Neutrophils % (Manual) Band Neutrophils % Lymphocytes % (Manual) Atypical Lymphs % (Man) Monocytes % (Manual) Abs Neuts (Manual) Lymphocytes # (Manual) Atyp Lymphs # (Manual) Monocytes # (Manual) Platelet Estimate Plt Morphology Comment RBC Morphology Smear Tech's Comments ESR PT INR Sodium 134 L Potassium Chloride Carbon Dioxide Anion Gap BUN Creatinine Estim Creat Clear Calc Estimated GFR POC Glucose 190 H 235 H Random Glucose Estimat Average Glucose Hemoglobin A1c % Lactic Acid Calcium Magnesium Total Bilirubin AST ALT Alkaline Phosphatase Troponin I High Sens C-Reactive Protein B-Natriuretic Peptide Total Protein Albumin Hold Red Top Hold Yellow Top Vancomycin Trough Urine Opiates Screen Urine Fentanyl Screen Ur Barbiturates Screen Ur Phencyclidine Scrn Ur Amphetamines Screen U Benzodiazepines Scrn Urine Cocaine Screen U Marijuana (THC) Screen Influenza Type A (PCR) Influenza Type B (PCR) RSV RNA Qual (PCR) SARS-CoV-2 RNA (RT-PCR) 05/02/23 05/03/23 05/03/23 19:32 05:44 05:45 WBC RBC Hgb Hct MCV MCH MCHC RDW Plt Count MPV Immature Gran % (Auto) Neut % (Auto) Lymph % (Auto) Cooper % (Auto) Eos % (Auto) Baso % (Auto) Lymph # (Auto) Cooper # (Auto) Eos # (Auto) Baso # (Auto) Abs Immat Gran (auto) Absolute Neuts (auto) Absolute Nucleated RBC Nucleated RBC % (auto) Neutrophils % (Manual) Band Neutrophils % Lymphocytes % (Manual) Atypical Lymphs % (Man) Monocytes % (Manual) Abs Neuts (Manual) Lymphocytes # (Manual) Atyp Lymphs # (Manual) Monocytes # (Manual) Platelet Estimate Plt Morphology Comment RBC Morphology Smear Tech's Comments ESR PT INR Sodium Potassium Chloride Carbon Dioxide Anion Gap BUN Creatinine 0.69 Estim Creat Clear Calc 136.3 Estimated GFR > 60 POC Glucose 179 H Random Glucose Estimat Average Glucose 154 Hemoglobin A1c % 7.0 H Lactic Acid 1.8 Calcium Magnesium Total Bilirubin AST ALT Alkaline Phosphatase Troponin I High Sens C-Reactive Protein B-Natriuretic Peptide Total Protein Albumin Hold Red Top Hold Yellow Top Cancelled Vancomycin Trough Urine Opiates Screen Urine Fentanyl Screen Ur Barbiturates Screen Ur Phencyclidine Scrn Ur Amphetamines Screen U Benzodiazepines Scrn Urine Cocaine Screen U Marijuana (THC) Screen Influenza Type A (PCR) Influenza Type B (PCR) RSV RNA Qual (PCR) SARS-CoV-2 RNA (RT-PCR) 05/03/23 05/03/23 07:33 09:17 WBC 19.6 H RBC 4.51 Hgb 12.0 Hct 37.1 MCV 82.3 MCH 26.6 L MCHC 32.3 RDW 16.3 H Plt Count 227 MPV 10.7 Immature Gran % (Auto) Neut % (Auto) Lymph % (Auto) Cooper % (Auto) Eos % (Auto) Baso % (Auto) Lymph # (Auto) Cooper # (Auto) Eos # (Auto) Baso # (Auto) Abs Immat Gran (auto) Absolute Neuts (auto) Absolute Nucleated RBC 0.000 Nucleated RBC % (auto) 0.0 Neutrophils % (Manual) Band Neutrophils % Lymphocytes % (Manual) Atypical Lymphs % (Man) Monocytes % (Manual) Abs Neuts (Manual) Lymphocytes # (Manual) Atyp Lymphs # (Manual) Monocytes # (Manual) Platelet Estimate Plt Morphology Comment RBC Morphology Smear Tech's Comments ESR PT INR Sodium Potassium Chloride Carbon Dioxide Anion Gap BUN Creatinine Estim Creat Clear Calc Estimated GFR POC Glucose 222 H Random Glucose Estimat Average Glucose Hemoglobin A1c % Lactic Acid Calcium Magnesium Total Bilirubin AST ALT Alkaline Phosphatase Troponin I High Sens C-Reactive Protein B-Natriuretic Peptide Total Protein Albumin Hold Red Top Hold Yellow Top Vancomycin Trough 6.8 L Urine Opiates Screen Urine Fentanyl Screen Ur Barbiturates Screen Ur Phencyclidine Scrn Ur Amphetamines Screen U Benzodiazepines Scrn Urine Cocaine Screen U Marijuana (THC) Screen Influenza Type A (PCR) Influenza Type B (PCR) RSV RNA Qual (PCR) SARS-CoV-2 RNA (RT-PCR) Imaging Radiology Impressions: ITS Impressions Chest X-Ray 05/01/23 19:39 IMPRESSION: 1. Bilateral low lung volumes. 2. Slight bronchial thickening. 3. Right basilar opacity which may represent atelectasis versus evolving infectious/inflammatory etiology. Chest CTA 05/01/23 22:06 IMPRESSION: Limited exam due to respiratory motion. No evidence of pulmonary embolism. Right middle lobe pneumonia. Cavitary nodule right upper lobe, probably infectious or inflammatory as well. Given history, septic emboli should be considered. VTE: negative Mental Status Exam Mental Status Exam Level of Consciousness: Awake and Appropriate Patient Behavior: Appropriate and Talkative Mood Description: Calm Affect Description: Calm Medications Medications Current Medications Acetaminophen (Acetaminophen 325 Mg Tablet) 975 mg PO Q8H PRN PRN Reason: Pain, Severe (Pain Scale 7-10) Albuterol/Ipratropium (Albuterol/Iprat 2.5/0.5mg 3 Ml Ampul.Neb) 3 ml INHALE RQ4H WHILE AWAKE PRN PRN Reason: Shortness of Breath/Wheezing Amphetamine/Dextroamphetamine (Amphetamine Mixed Salts 10 Mg Tablet) 30 mg PO BID@0800,1300 [facility] Last Admin: 05/03/23 07:44 Dose: 30 mg Atorvastatin Calcium (Atorvastatin Calcium 40 Mg Tablet) 40 mg PO DAILY [facility] Last Admin: 05/03/23 07:44 Dose: 40 mg Dextrose (Dextrose 50 % 25 Gm/50 Ml Syringe) 25 gm IVPUSH Q15M PRN; Protocol PRN Reason: per Hypoglycemia Standing Ord. Gabapentin (Gabapentin 400 Mg Capsule) 800 mg PO TID [facility] Last Admin: 05/03/23 07:44 Dose: 800 mg Glucose (Glucose Gel 15 Gm Gel..Gram.) 15 gm PO Q15M PRN; Protocol PRN Reason: per Hypoglycemia Standing Ord. Heparin Sodium (Porcine) (Heparin Sodium,Porcine 5,000 Unit/Ml Vial) 5,000 unit SUBCUT Q8H [facility] Last Admin: 05/03/23 07:44 Dose: 5,000 unit Hydromorphone HCl (Hydromorphone Hcl 1 Mg/Ml Syringe) 1 mg IVPUSH Q3H PRN; Protocol PRN Reason: Pain, Severe (Pain Scale 7-10) Last Admin: 05/03/23 07:44 Dose: 1 mg Ceftriaxone Sodium 2 gm/ (Sodium Chloride) 50 mls @ 100 mls/hr IV Q24H [facility] Last Infusion: 05/02/23 23:34 Dose: Infused Sodium Chloride (Ns) 1,000 mls @ 150 mls/hr IVCONT .Q6H40M [facility] Last Admin: 05/03/23 06:15 Dose: 150 mls/hr Vancomycin HCl 1,250 mg/ (Sodium Chloride) 250 mls @ 166.667 mls/hr IV Q8H [facility] Insulin Glargine (Insulin Glargine,Hum.Rec.Anlog 100 Unit/Ml 10 Ml Vial) 30 unit SUBCUT BEDTIME [facility] Last Admin: 05/02/23 21:36 Dose: 30 unit Insulin Human Lispro (Insulin Lispro 100 Unit/Ml 3 Ml Vial) 0 unit SUBCUT QIDACHS [facility]; Protocol Last Admin: 05/03/23 07:45 Dose: 4 unit Ketorolac Tromethamine (Ketorolac Tromethamine 30 Mg/Ml Vial) 30 mg IVPUSH Q6H PRN PRN Reason: Pain, Severe (Pain Scale 7-10) Lorazepam (Lorazepam 0.5 Mg Tablet) 0.5 mg PO Q4H PRN PRN Reason: Anxiety Last Admin: 05/03/23 04:13 Dose: 0.5 mg Methadone HCl (Methadone Hcl 20 Mg/2 Ml Oral.Conc) 105 mg PO DAILY [facility] Last Admin: 05/03/23 05:50 Dose: 105 mg Nicotine (Nicotine 21 Mg Patch.Td24) 21 mg TRANSDERMA DAILY [facility] Last Admin: 05/03/23 07:44 Dose: 21 mg Omeprazole (Omeprazole 20 Mg Capsule.Dr) 20 mg PO DAILY@0630 [facility] Last Admin: 05/03/23 05:50 Dose: 20 mg Oxycodone HCl (Oxycodone Hcl Immed Release 5 Mg Tablet) 5 mg PO Q4H PRN PRN Reason: Pain, Severe (Pain Scale 7-10) Last Admin: 05/03/23 00:59 Dose: 5 mg Pharmacy Consult (Consult Rx Vancomycin Dosing) 1 each MISCELLANE DAILY PRN PRN Reason: Consult order Senna/Docusate Sodium (Sennosides/Docusate Sodium Tablet) 1 tab PO DAILY PRN PRN Reason: Constipation Sertraline HCl (Sertraline Hcl 25 Mg Tablet) 75 mg PO DAILY [facility] Last Admin: 05/03/23 07:44 Dose: 75 mg Sodium Chloride (0.9 % Sodium Chloride Flush 3 Ml Syringe) 3 ml IVFLUSH QSHIFT [facility] Last Admin: 05/03/23 07:20 Dose: Not Given Allergies Allergies Allergy/AdvReac Type Severity Reaction Status Date / Time morphine Allergy Hives Verified 03/07/23 20:50 Assessment & Plan Assessment & Plan (1) Opioid use disorder: Status: Acute Code(s): F11.90 - Opioid use, unspecified, uncomplicated Assessment and Plan: will split dose starting 05/04--70mg @0800 and 35mg @1700 patient already engaged with OTP--NEO Soler will continue to follow Total time managing care of this patient today __45__ minutes. PMFSH Past Medical History Medical History Diabetic polyneuropathy ADHD Type 2 diabetes mellitus Asthma Polysubstance abuse Intravenous drug abuse Opiate use Social History Social History Household Members: None Housing: Apartment Do you presently have visiting nurse or other home services: No Patient Tobacco Use Status: Current everyday Tobacco user Tobacco use type: Cigarette Cigarette Packs Per Day: 0.5 Cigarettes Per Day: 10.0 Substance Use Type: Crack/Cocaine, Heroin and Marijuana service: No
[2023-05-03] MEDS: vancomycin HCL 1,250 MG in 0.9 % Sodium Chloride 250 ML 166.67 MG IV ×2 (11:27→18:26)
[2023-05-03 11:35] LABS: Glucose, Whole Blood 145 mg/dL (60-115)
--- NOTE | 2023-05-03 11:45 | HO.WOUND ---
Wound Consult: Initial 38yr old?F admitted to [facility] [place] on - See progress notes and H&P for detailed history.? Wound consult placed for Left Foot and Bilateral Hand wounds - POA .? Patient agreeable to assessment and photo documentation.? Left Hand +Radial Pulse - pt c/o numbness and tingling in 3rd, 4th and 5th fingers, hearing aid dispenser strength equal in both hands. Etiology: ??Suspected abscess secondary to IV injection site Measurements: 2cm x 2cm Wound Bed: observed purulence under epidermal layer - significant fluctuance noted Drainage / Odor: none Edges: ?advancing Lucrecia wound: ?Red Erythema, painful to touch Goals of Treatment: ? consult to Surgery for I&D eval. - no topical interventions needed at this time. Right Hand Etiology: ?? IV injection site Measurements: no open wound Wound Bed: red erythema noted - no fluctance noted - some swelling noted Drainage / Odor: none Edges: ?advancing Lucrecia wound: ?Red Erythema, tender to touch Goals of Treatment: ? no topical interventions needed at this time - monitor for wound development Left Foot Etiology: ??resolving injury secondary to IVDU Measurements: 0.2cm x 1cm Wound Bed: dry adherent scab - no induration no fluctuance no s/s of active infection noted Drainage / Odor: none Edges: ?well defined Lucrecia wound: mild erytema and hyperpigmentation noted Goals of Treatment: ? Hydorcolloid to protect from scratching and pt picking - will allow for moist wound healing Recommendations: 1. Turn and Reposition every 2 hours and as needed for patient comfort.? Use pillows or wedges to support off loading positions. 2. Off Load all bony prominences with use of pillows and heel boots if needed.? Apply Preventative foams where needed. ? 3. Monitor for incontinence and moisture control, use barrier creams when needed for prevention and treatment. 4. Provide adequate and supplemental nutrition.? 5. Order or Continue low air loss mattress. 6. When applicable maintain blood glucose levels per Providers order. 7. Left Foot - Cleanse with NS, pat dry. Cover with cut to size hydrocolloid, change every 3 days. Re-consult wound care Nurse for wound deterioration or wound changes.
--- NOTE | 2023-05-03 12:27 | PM.CNOR ---
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 While admitted to the medical service, she was noted to have pain / swelling and drainage of the left thumb. She states she injected heroin into the left thumb approximately 5 days ago. States she has been using IV drugs for about 20 years. Orthopedics consulted for further recommendations. Review of Systems Review of Systems: Yes all other systems are reviewed and are negative PMFSH Past Medical History Medical History Diabetic polyneuropathy ADHD Type 2 diabetes mellitus Asthma Polysubstance abuse Intravenous drug abuse Opiate use Social History Social History Household Members: None Housing: Apartment Do you presently have visiting nurse or other home services: No Patient Tobacco Use Status: Current everyday Tobacco user Tobacco use type: Cigarette Cigarette Packs Per Day: 0.5 Cigarettes Per Day: 10.0 Substance Use Type: Crack/Cocaine, Heroin and Marijuana service: No Meds Allergies Allergy/AdvReac Type Severity Reaction Status Date / Time morphine Allergy Hives Verified 03/07/23 20:50 Active Medications: Current Medications Acetaminophen (Acetaminophen 325 Mg Tablet) 975 mg PO Q8H PRN PRN Reason: Pain, Severe (Pain Scale 7-10) Albuterol/Ipratropium (Albuterol/Iprat 2.5/0.5mg 3 Ml Ampul.Neb) 3 ml INHALE RQ4H WHILE AWAKE PRN PRN Reason: Shortness of Breath/Wheezing Amphetamine/Dextroamphetamine (Amphetamine Mixed Salts 10 Mg Tablet) 30 mg PO BID@0800,1300 [facility] Last Admin: 05/03/23 11:27 Dose: 30 mg Atorvastatin Calcium (Atorvastatin Calcium 40 Mg Tablet) 40 mg PO DAILY [facility] Last Admin: 05/03/23 07:44 Dose: 40 mg Dextrose (Dextrose 50 % 25 Gm/50 Ml Syringe) 25 gm IVPUSH Q15M PRN; Protocol PRN Reason: per Hypoglycemia Standing Ord. Gabapentin (Gabapentin 400 Mg Capsule) 800 mg PO TID [facility] Last Admin: 05/03/23 07:44 Dose: 800 mg Glucose (Glucose Gel 15 Gm Gel..Gram.) 15 gm PO Q15M PRN; Protocol PRN Reason: per Hypoglycemia Standing Ord. Heparin Sodium (Porcine) (Heparin Sodium,Porcine 5,000 Unit/Ml Vial) 5,000 unit SUBCUT Q8H [facility] Last Admin: 05/03/23 07:44 Dose: 5,000 unit Hydromorphone HCl (Hydromorphone Hcl 1 Mg/Ml Syringe) 1 mg IVPUSH Q3H PRN; Protocol PRN Reason: Pain, Severe (Pain Scale 7-10) Last Admin: 05/03/23 11:26 Dose: 1 mg Ceftriaxone Sodium 2 gm/ (Sodium Chloride) 50 mls @ 100 mls/hr IV Q24H [facility] Last Infusion: 05/02/23 23:34 Dose: Infused Sodium Chloride (Ns) 1,000 mls @ 150 mls/hr IVCONT .Q6H40M [facility] Last Admin: 05/03/23 06:15 Dose: 150 mls/hr Vancomycin HCl 1,250 mg/ (Sodium Chloride) 250 mls @ 166.667 mls/hr IV Q8H [facility] Last Admin: 05/03/23 11:27 Dose: 166.67 mls/hr Insulin Glargine (Insulin Glargine,Hum.Rec.Anlog 100 Unit/Ml 10 Ml Vial) 30 unit SUBCUT BEDTIME [facility] Last Admin: 05/02/23 21:36 Dose: 30 unit Insulin Human Lispro (Insulin Lispro 100 Unit/Ml 3 Ml Vial) 0 unit SUBCUT QIDACHS [facility]; Protocol Last Admin: 05/03/23 11:35 Dose: Not Given Ketorolac Tromethamine (Ketorolac Tromethamine 30 Mg/Ml Vial) 30 mg IVPUSH Q6H PRN PRN Reason: Pain, Severe (Pain Scale 7-10) Lorazepam (Lorazepam 0.5 Mg Tablet) 0.5 mg PO Q4H PRN PRN Reason: Anxiety Last Admin: 05/03/23 11:27 Dose: 0.5 mg Methadone HCl (Methadone Hcl 20 Mg/2 Ml Oral.Conc) 70 mg PO DAILY@0800 [facility] Methadone HCl (Methadone Hcl 20 Mg/2 Ml Oral.Conc) 35 mg PO DAILY@1700 [facility] Nicotine (Nicotine 21 Mg Patch.Td24) 21 mg TRANSDERMA DAILY [facility] Last Admin: 05/03/23 07:44 Dose: 21 mg Omeprazole (Omeprazole 20 Mg Capsule.Dr) 20 mg PO DAILY@0630 [facility] Last Admin: 05/03/23 05:50 Dose: 20 mg Oxycodone HCl (Oxycodone Hcl Immed Release 5 Mg Tablet) 5 mg PO Q4H PRN PRN Reason: Pain, Severe (Pain Scale 7-10) Last Admin: 05/03/23 00:59 Dose: 5 mg Pharmacy Consult (Consult Rx Vancomycin Dosing) 1 each MISCELLANE DAILY PRN PRN Reason: Consult order Senna/Docusate Sodium (Sennosides/Docusate Sodium Tablet) 1 tab PO DAILY PRN PRN Reason: Constipation Sertraline HCl (Sertraline Hcl 25 Mg Tablet) 75 mg PO DAILY [facility] Last Admin: 05/03/23 07:44 Dose: 75 mg Sodium Chloride (0.9 % Sodium Chloride Flush 3 Ml Syringe) [facility] Last Admin: 05/03/23 07:20 Dose: Not Given Home Medications Medication Instructions Recorded Confirmed Last Taken Type albuterol sulfate 90 mcg/actuation 2 puff inhalation Q6H PRN 03/07/23 05/02/23 Unknown History aerosol inhaler (Ventolin HFA) Shortness Of Breath Or Wheezing atorvastatin 40 mg tablet 40 mg PO DAILY 03/07/23 05/02/23 3 Days Ago History ~04/29/23 dextroamphetamine-amphetamine 30 30 mg PO BID@0800,1300 03/07/23 05/02/23 3 Days Ago History mg tablet ~04/29/23 gabapentin 800 mg tablet 800 mg PO TID 03/07/23 05/02/23 3 Days Ago History ~04/29/23 insulin lispro 100 unit/mL 1 sliding scale dose subcut TIDAC 03/07/23 05/02/23 3 Days Ago History subcutaneous pen ~04/29/23 pantoprazole 40 mg tablet,delayed 40 mg PO DAILY@0630 03/07/23 05/02/23 3 Days Ago History release ~04/29/23 sennosides 8.6 mg-docusate sodium 1 tab PO DAILY PRN Constipation 12/31/23 02/25/24 12/29/23 History 50 mg tablet (Stool Softener-Laxative) sertraline 50 mg tablet 75 mg PO DAILY 03/07/23 05/02/23 3 Days Ago History ~04/29/23 acetaminophen 325 mg tablet 650 mg PO Q6H PRN Pain 05/02/23 05/02/23 Unknown History (Tylenol) methadone 10 mg/mL oral 105 mg PO DAILY 05/02/23 05/02/23 05/01/23 History concentrate (Methadone Intensol) nicotine 21 mg/24 hr daily 1 patch transdermal DAILY 05/02/23 05/02/23 3 Days Ago History transdermal patch ~04/29/23 Physical Exam Vital Signs: Vital Signs: Last Vital Signs Temp 98.5 F 05/03/23 11:57 Pulse 109 H 05/03/23 11:57 Resp 17 05/03/23 11:57 BP 131/75 05/03/23 11:57 Pulse Ox 91 L 05/03/23 11:57 O2 Del Method Room Air 05/03/23 11:57 O2 Flow Rate 2 05/01/23 23:23 BMI result Body Mass Index 36.9 Extrem: Other: Left thumb abscess tatianna the ip joint of the left thumb. No active drainage. She is able to extend all digits and make a fist. No pain with axial loading. NVi. Results Labs 05/03/23 09:17 05/03/23 05:44 Labs: Abnormal lab results 05/02/23 05/02/23 05/02/23 Range/Units 13:38 15:51 16:23 WBC (4.8-10.8) X10*3/uL MCH (27.0-33.0) pg RDW (11.0-16.0) % Sodium 134 L (135-145) mmol/L POC Glucose 190 H 235 H (60-115) mg/dL Hemoglobin A1c % (<6.0) % Vancomycin Trough (10.0-20.0) mcg/mL 05/02/23 05/03/23 05/03/23 Range/Units 19:32 05:44 07:33 WBC (4.8-10.8) X10*3/uL MCH (27.0-33.0) pg RDW (11.0-16.0) % Sodium (135-145) mmol/L POC Glucose 179 H 222 H (60-115) mg/dL Hemoglobin A1c % 7.0 H (<6.0) % Vancomycin Trough (10.0-20.0) mcg/mL 05/03/23 05/03/23 Range/Units 09:17 11:30 WBC 19.6 H (4.8-10.8) X10*3/uL MCH 26.6 L (27.0-33.0) pg RDW 16.3 H (11.0-16.0) % Sodium (135-145) mmol/L POC Glucose 145 H (60-115) mg/dL Hemoglobin A1c % (<6.0) % Vancomycin Trough 6.8 L (10.0-20.0) mcg/mL H & H 05/01/23 05/02/23 05/03/23 Range/Units 20:02 01:36 09:17 Hgb 13.5 12.9 12.0 (12.0-16.0) g/dl Hct 40.9 38.6 37.1 (37.0-47.0) % Coagulation 05/01/23 Range/Units 20:02 INR 1.3 H (0.9-1.1) All other labs normal. Assessment and Plan (1) Abscess of left hand: Status: Acute Plan Will discuss case with Dr Kessler - it appears the patient would benefit from I&D left hand; however, the patient did eat breakfast and started eating lunch . Continue IV abx Warm water compress Xr Lt hand pending Procedures Date of Service Date of Service: 05/03/23
--- NOTE | 2023-05-03 13:43 | P.PNIM_ITS ---
Subjective Subjective Date of Service: 05/03/23 Interval History: pneumonia and possible lung abcess Review of Systems sob somewhat improving still has right sided chest soarness possible abcess of left hand Physical Exam 2 Vital Signs: Vital Signs: Last Vital Signs Temp 98.5 F 05/03/23 11:57 Pulse 109 H 05/03/23 11:57 Resp 17 05/03/23 11:57 BP 131/75 05/03/23 11:57 Pulse Ox 91 L 05/03/23 11:57 O2 Del Method Room Air 05/03/23 11:57 O2 Flow Rate 2 05/01/23 23:23 BMI result Body Mass Index 36.9 Appearance: Alert.? Oriented X3.? cvs: rrr, [id number] , no murmur res:air entry fair ,diminshed on right upper lung /has few cracles. abd: no rebound or guarding ,nt, bs present. ext pulses present , no cyanosis . left hand erythema and flacutation(please see wound care note pic) neuro: axo3 , nonfocal. Objective Data Active Medications Acetaminophen (Acetaminophen 325 Mg Tablet) 975 mg PO Q8H PRN PRN Reason: Pain, Severe (Pain Scale 7-10) Albuterol/Ipratropium (Albuterol/Iprat 2.5/0.5mg 3 Ml Ampul.Neb) 3 ml INHALE RQ4H WHILE AWAKE PRN PRN Reason: Shortness of Breath/Wheezing Amphetamine/Dextroamphetamine (Amphetamine Mixed Salts 10 Mg Tablet) 30 mg PO BID@0800,1300 [facility] Last Admin: 05/03/23 11:27 Dose: 30 mg Documented By: ELICEO Atorvastatin Calcium (Atorvastatin Calcium 40 Mg Tablet) 40 mg PO DAILY [facility] Last Admin: 05/03/23 07:44 Dose: 40 mg Documented By: ELICEO Dextrose (Dextrose 50 % 25 Gm/50 Ml Syringe) 25 gm IVPUSH Q15M PRN; Protocol PRN Reason: per Hypoglycemia Standing Ord. Gabapentin (Gabapentin 400 Mg Capsule) 800 mg PO TID [facility] Last Admin: 05/03/23 07:44 Dose: 800 mg Documented By: ELICEO Glucose (Glucose Gel 15 Gm Gel..Gram.) 15 gm PO Q15M PRN; Protocol PRN Reason: per Hypoglycemia Standing Ord. Heparin Sodium (Porcine) (Heparin Sodium,Porcine 5,000 Unit/Ml Vial) 5,000 unit SUBCUT Q8H [facility] Last Admin: 05/03/23 07:44 Dose: 5,000 unit Documented By: ELICEO Hydromorphone HCl (Hydromorphone Hcl 1 Mg/Ml Syringe) 1 mg IVPUSH Q3H PRN; Protocol PRN Reason: Pain, Severe (Pain Scale 7-10) Last Admin: 05/03/23 11:26 Dose: 1 mg Documented By: ELICEO Ceftriaxone Sodium 2 gm/ (Sodium Chloride) 50 mls @ 100 mls/hr IV Q24H [facility] Last Infusion: 05/02/23 23:34 Dose: Infused Documented By: TRUE Sodium Chloride (Ns) 1,000 mls @ 150 mls/hr IVCONT .Q6H40M [facility] Last Admin: 05/03/23 06:15 Dose: 150 mls/hr Documented By: TRUE Vancomycin HCl 1,250 mg/ (Sodium Chloride) 250 mls @ 166.667 mls/hr IV Q8H [facility] Last Infusion: 05/03/23 12:57 Dose: Infused Documented By: ELICEO Insulin Glargine (Insulin Glargine,Hum.Rec.Anlog 100 Unit/Ml 10 Ml Vial) 30 unit SUBCUT BEDTIME [facility] Last Admin: 05/02/23 21:36 Dose: 30 unit Documented By: TRUE Insulin Human Lispro (Insulin Lispro 100 Unit/Ml 3 Ml Vial) 0 unit SUBCUT QIDACHS [facility]; Protocol Last Admin: 05/03/23 11:35 Dose: Not Given Documented By: ELICEO Non-Admin Reason: poc= 145 Ketorolac Tromethamine (Ketorolac Tromethamine 30 Mg/Ml Vial) 30 mg IVPUSH Q6H PRN PRN Reason: Pain, Severe (Pain Scale 7-10) Lorazepam (Lorazepam 0.5 Mg Tablet) 0.5 mg PO Q4H PRN PRN Reason: Anxiety Last Admin: 05/03/23 11:27 Dose: 0.5 mg Documented By: ELICEO Methadone HCl (Methadone Hcl 20 Mg/2 Ml Oral.Conc) 70 mg PO DAILY@0800 [facility] Methadone HCl (Methadone Hcl 20 Mg/2 Ml Oral.Conc) 35 mg PO DAILY@1700 [facility] Nicotine (Nicotine 21 Mg Patch.Td24) 21 mg TRANSDERMA DAILY [facility] Last Admin: 05/03/23 07:44 Dose: 21 mg Documented By: ELICEO Omeprazole (Omeprazole 20 Mg Capsule.Dr) 20 mg PO DAILY@0630 [facility] Last Admin: 05/03/23 05:50 Dose: 20 mg Documented By: TRUE Oxycodone HCl (Oxycodone Hcl Immed Release 5 Mg Tablet) 5 mg PO Q4H PRN PRN Reason: Pain, Severe (Pain Scale 7-10) Last Admin: 05/03/23 00:59 Dose: 5 mg Documented By: TRUE Pharmacy Consult (Consult Rx Vancomycin Dosing) 1 each MISCELLANE DAILY PRN PRN Reason: Consult order Senna/Docusate Sodium (Sennosides/Docusate Sodium Tablet) 1 tab PO DAILY PRN PRN Reason: Constipation Sertraline HCl (Sertraline Hcl 25 Mg Tablet) 75 mg PO DAILY [facility] Last Admin: 05/03/23 07:44 Dose: 75 mg Documented By: ELICEO Sodium Chloride (0.9 % Sodium Chloride Flush 3 Ml Syringe) 3 ml IVFLUSH QSHIFT [facility] Last Admin: 05/03/23 07:20 Dose: Not Given Documented By: ELICEO Non-Admin Reason: IV Running Labs 05/03/23 09:17 05/03/23 05:44 Labs: Laboratory Results - last 24 hr 05/02/23 05/02/23 05/03/23 15:51 19:32 05:44 MCV MCH MCHC RDW Plt Count MPV Absolute Nucleated RBC Nucleated RBC % (auto) Estim Creat Clear Calc 136.3 Estimated GFR > 60 POC Glucose 235 H 179 H Estimat Average Glucose 154 Hemoglobin A1c % 7.0 H Lactic Acid Hold Yellow Top Cancelled Vancomycin Trough 05/03/23 05/03/23 05/03/23 05:45 07:33 09:17 MCV 82.3 MCH 26.6 L MCHC 32.3 RDW 16.3 H Plt Count 227 MPV 10.7 Absolute Nucleated RBC 0.000 Nucleated RBC % (auto) 0.0 Estim Creat Clear Calc Estimated GFR POC Glucose 222 H Estimat Average Glucose Hemoglobin A1c % Lactic Acid 1.8 Hold Yellow Top Vancomycin Trough 6.8 L 05/03/23 11:30 MCV MCH MCHC RDW Plt Count MPV Absolute Nucleated RBC Nucleated RBC % (auto) Estim Creat Clear Calc Estimated GFR POC Glucose 145 H Estimat Average Glucose Hemoglobin A1c % Lactic Acid Hold Yellow Top Vancomycin Trough Microbiology Microbiology Results: Microbiology 05/01/23 20:02 Blood Culture - Preliminary Blood - Venous No growth after 24 hours. 05/01/23 20:02 Blood Culture - Preliminary Blood - Venous No growth after 24 hours. Assessment and Plan (1) Abscess of left hand: Status: Acute (2) Pulmonary abscess: Status: Acute (3) Pneumonia: Status: Acute Plan 38 years old woman admitted with: Right upper lobe cavitary nodule likely abscess associated with right middle lobe pneumonia and sepsis likely secondary to septic emboli/endocarditis. leucocytosis improving,mild tachycardia ,blood cultures pending lactic acid normal hepatitis c ,hiv testing added. echo moniter on tele,Pulse oximetry, Supplemental oxygen , IV fluids,empiric IV antibiotic therapy with vancomycin and ceftriaxone,iv pain meds. pulm eval noted - Pulmonary plan is to be continued on IV vanco and Zosyn(intiated 05/02), may need antibiotics for a month and then repeat CT scan outpatient. Id eval pending left hand abcess -possible sec to ivdu, continue iv antibiotics , ortho eval. IV drug use, ongoing. Continue methadone. Addiction medicine consult Type 2 diabetes mellitus, uncontrolled. hemoglobin A1c 7.0. Diabetic diet. fs with coverage. Asthma. DuoNeb as needed. History of ADHD. Dextroamphetamine ,if remain tachycardic consider holding. DVT prophylaxis: Heparin subcut. Code status: Full ongoing hospitlisation need for 72-96 hrs : right lung abscess/pneumonia/sepsis/? Endocarditis, hand abcess treatment with IV antibiotics, IV pain meds ,renal function/electrolytic abnormalities and close monitoring of vital signs. may need echocardiogram and expert follow up . Quality Stroke Does the patient have a stroke diagnosis?: No VTE Prior VTE?: No VTE Risk Level:: Medical - moderate - high VTE Device Contraindication: Treatment Not Indicated VTE Drug Contraindication: N/A - Med Ordered
--- NOTE | 2023-05-03 13:53 | P.CDIM_ITS ---
PROVIDER RESPONSE TEXT: To clarify, the appropriate diagnosis supported by the clinical indicators: Obesity QUERY TEXT: PHYSICIAN'S DOCUMENTATION REQUEST Date of Query: 05/03/2023 11:03 AM EST Patient Name: Gloria Hernandez Admit Date: 05/02/2023 Dear David Lopez, A review of the medical record indicates additional documentation may be needed. Please review below and update the documentation accordingly. Clinical Indicators: Nursing notes Height and Weight: BMI 36.9 106.8kg If possible, please provide an associated diagnosis related to the abnormal BMI, such as: Obesity Obesity Due to other cause Specify the other cause Other (explain) Clinically unable to determine (explain) Thank you, Marcy Lin, CCS, CDIS Use of terms such as suspected, likely, concern for, or probable (associated with a specific diagnosi s that is being evaluated, monitored, or treated as if it exists) are acceptable and can be coded in the inpatient se tting, when documented at the time of discharge. Please use your independent medical judgment in providing your response. THIS QUERY IS PART OF THE PERMANENT MEDICAL RECORD
[2023-05-03] MEDS: 0.9 % Sodium Chloride Flush 3 ML SYRINGE IVFLUSH ×2 (14:54→22:14)
--- NOTE | 2023-05-03 15:23 | P.PNPL_ITS ---
Subjective Subjective Date of Service: 05/03/23 Interval history: Respiratory status and chest discomfort improving. Objective Data Labs 05/03/23 09:17 05/03/23 05:44 Labs: Laboratory Results - last 24 hr 05/02/23 05/02/23 05/02/23 15:51 16:23 19:32 WBC RBC Hgb Hct MCV MCH MCHC RDW Plt Count MPV Absolute Nucleated RBC Nucleated RBC % (auto) Sodium 134 L Creatinine Estim Creat Clear Calc Estimated GFR POC Glucose 235 H 179 H Estimat Average Glucose Hemoglobin A1c % Lactic Acid Hold Yellow Top Vancomycin Trough 05/03/23 05/03/23 05/03/23 05:44 05:45 07:33 WBC RBC Hgb Hct MCV MCH MCHC RDW Plt Count MPV Absolute Nucleated RBC Nucleated RBC % (auto) Sodium Creatinine 0.69 Estim Creat Clear Calc 136.3 Estimated GFR > 60 POC Glucose 222 H Estimat Average Glucose 154 Hemoglobin A1c % 7.0 H Lactic Acid 1.8 Hold Yellow Top Cancelled Vancomycin Trough 05/03/23 05/03/23 09:17 11:30 WBC 19.6 H RBC 4.51 Hgb 12.0 Hct 37.1 MCV 82.3 MCH 26.6 L MCHC 32.3 RDW 16.3 H Plt Count 227 MPV 10.7 Absolute Nucleated RBC 0.000 Nucleated RBC % (auto) 0.0 Sodium Creatinine Estim Creat Clear Calc Estimated GFR POC Glucose 145 H Estimat Average Glucose Hemoglobin A1c % Lactic Acid Hold Yellow Top Vancomycin Trough 6.8 L Microbiology Microbiology Results: Microbiology 05/01/23 20:02 Blood - Venous Blood Culture - Preliminary No growth after 24 hours. 05/01/23 20:02 Blood - Venous Blood Culture - Preliminary No growth after 24 hours. Physical Exam 2 Vital Signs: Vital Signs: Last Vital Signs Temp 98.5 F 05/03/23 11:57 Pulse 109 H 05/03/23 11:57 Resp 18 05/03/23 14:53 BP 131/75 05/03/23 11:57 Pulse Ox 91 L 05/03/23 11:57 O2 Del Method Room Air 05/03/23 11:57 O2 Flow Rate 2 05/01/23 23:23 BMI result Body Mass Index 36.9 Const: General: no acute distress, alert and awake Nutritional Appearance: obese Eyes: Sclerae: sclerae normal EOM: EOMs intact bilaterally Neck: Neck: Yes no lymphadenopathy, Yes trachea midline and Yes supple Resp: Effort & Inspection: normal respiratory effort and no respiratory distress Auscultation: clear to auscultation bilaterally Cardio: Rate: tachycardic Rhythm: regular rhythm Heart sounds: no gallops, no murmurs and no rubs GI: Palpation (GI): Soft to palpation and Other GI palpation findings present ( Nontender) Auscultation: normal bowel sounds Extrem: General: Yes no pedal edema, No clubbing and No cyanosis Procedures Date of Service Date of Service: 05/03/23 Assessment and Plan Assessment and plan (1) Pulmonary abscess: Status: Acute (2) Pneumonia: Status: Acute Plan Impression: 38-year-old lady IV drug user admitted with dyspnea and right-sided chest pain secondary to developing pneumonia/pulmonary abscess versus septic embolus. Blood cultures negative to date. Recommendations: Continue broad-spectrum antibiotics with staphylococcal coverage until cultures speciated. Will require total 28 day treatment course. Follow-up in pulmonary office with CT scan in 1 month. Time Spent With Patient Time: Total time managing care of this patient today ____ minutes. Progress Note: Quality Stroke Does the patient have a stroke diagnosis?: No
[2023-05-03 16:26] LABS: Glucose, Whole Blood 261 mg/dL (60-115)
--- NOTE | 2023-05-03 16:26 | W.PM.IDCN ---
History of Present Illness Data of Consult Service Date: 05/03/23 Requesting physician: David Lopez Primary Care Provider: Luz Elena Miller MD HPI Reason for consult: hand abscess She presents with weakness and fatigue. She has injected into hand and shows abscess left. She is going to get probable debridement. She has prior Group A strep and MSSA. Review of Systems Review of Systems: Yes all other systems are reviewed and are negative PMFSH Past Medical History Medical History Diabetic polyneuropathy ADHD Type 2 diabetes mellitus Asthma Polysubstance abuse Intravenous drug abuse Opiate use Family History Family history: reviewed and not pertinent Social History Social History Household Members: None Housing: Apartment Do you presently have visiting nurse or other home services: No Patient Tobacco Use Status: Current everyday Tobacco user Tobacco use type: Cigarette Cigarette Packs Per Day: 0.5 Cigarettes Per Day: 10.0 Substance Use Type: Crack/Cocaine, Heroin and Marijuana service: No Meds Allergies Allergy/AdvReac Type Severity Reaction Status Date / Time morphine Allergy Hives Verified 03/07/23 20:50 Active Medications: Current Medications Acetaminophen (Acetaminophen 325 Mg Tablet) 975 mg PO Q8H PRN PRN Reason: Pain, Severe (Pain Scale 7-10) Albuterol/Ipratropium (Albuterol/Iprat 2.5/0.5mg 3 Ml Ampul.Neb) 3 ml INHALE RQ4H WHILE AWAKE PRN PRN Reason: Shortness of Breath/Wheezing Amphetamine/Dextroamphetamine (Amphetamine Mixed Salts 10 Mg Tablet) 30 mg PO BID@0800,1300 [facility] Last Admin: 05/03/23 11:27 Dose: 30 mg Atorvastatin Calcium (Atorvastatin Calcium 40 Mg Tablet) 40 mg PO DAILY [facility] Last Admin: 05/03/23 07:44 Dose: 40 mg Dextrose (Dextrose 50 % 25 Gm/50 Ml Syringe) 25 gm IVPUSH Q15M PRN; Protocol PRN Reason: per Hypoglycemia Standing Ord. Gabapentin (Gabapentin 400 Mg Capsule) 800 mg PO TID [facility] Last Admin: 05/03/23 14:53 Dose: 800 mg Glucose (Glucose Gel 15 Gm Gel..Gram.) 15 gm PO Q15M PRN; Protocol PRN Reason: per Hypoglycemia Standing Ord. Heparin Sodium (Porcine) (Heparin Sodium,Porcine 5,000 Unit/Ml Vial) 5,000 unit SUBCUT Q8H [facility] Last Admin: 05/03/23 07:44 Dose: 5,000 unit Hydromorphone HCl (Hydromorphone Hcl 1 Mg/Ml Syringe) 1 mg IVPUSH Q3H PRN; Protocol PRN Reason: Pain, Severe (Pain Scale 7-10) Last Admin: 05/03/23 14:53 Dose: 1 mg Ceftriaxone Sodium 2 gm/ (Sodium Chloride) 50 mls @ 100 mls/hr IV Q24H [facility] Last Infusion: 05/02/23 23:34 Dose: Infused Sodium Chloride (Ns) 1,000 mls @ 150 mls/hr IVCONT .Q6H40M [facility] Last Admin: 05/03/23 14:53 Dose: 150 mls/hr Vancomycin HCl 1,250 mg/ (Sodium Chloride) 250 mls @ 166.667 mls/hr IV Q8H [facility] Last Infusion: 05/03/23 12:57 Dose: Infused Insulin Glargine (Insulin Glargine,Hum.Rec.Anlog 100 Unit/Ml 10 Ml Vial) 30 unit SUBCUT BEDTIME [facility] Last Admin: 05/02/23 21:36 Dose: 30 unit Insulin Human Lispro (Insulin Lispro 100 Unit/Ml 3 Ml Vial) 0 unit SUBCUT QIDACHS [facility]; Protocol Last Admin: 05/03/23 11:35 Dose: Not Given Ketorolac Tromethamine (Ketorolac Tromethamine 30 Mg/Ml Vial) 30 mg IVPUSH Q6H PRN PRN Reason: Pain, Severe (Pain Scale 7-10) Lorazepam (Lorazepam 0.5 Mg Tablet) 0.5 mg PO Q4H PRN PRN Reason: Anxiety Last Admin: 05/03/23 11:27 Dose: 0.5 mg Methadone HCl (Methadone Hcl 20 Mg/2 Ml Oral.Conc) 70 mg PO DAILY@0800 [facility] Methadone HCl (Methadone Hcl 20 Mg/2 Ml Oral.Conc) 35 mg PO DAILY@1700 [facility] Nicotine (Nicotine 21 Mg Patch.Td24) 21 mg TRANSDERMA DAILY [facility] Last Admin: 05/03/23 07:44 Dose: 21 mg Omeprazole (Omeprazole 20 Mg Capsule.Dr) 20 mg PO DAILY@0630 [facility] Last Admin: 05/03/23 05:50 Dose: 20 mg Oxycodone HCl (Oxycodone Hcl Immed Release 5 Mg Tablet) 5 mg PO Q4H PRN PRN Reason: Pain, Severe (Pain Scale 7-10) Last Admin: 05/03/23 00:59 Dose: 5 mg Pharmacy Consult (Consult Rx Vancomycin Dosing) 1 each MISCELLANE DAILY PRN PRN Reason: Consult order Senna/Docusate Sodium (Sennosides/Docusate Sodium Tablet) 1 tab PO DAILY PRN PRN Reason: Constipation Sertraline HCl (Sertraline Hcl 25 Mg Tablet) 75 mg PO DAILY [facility] Last Admin: 05/03/23 07:44 Dose: 75 mg Sodium Chloride (0.9 % Sodium Chloride Flush 3 Ml Syringe) 3 ml IVFLUSH QSHIFT [facility] Last Admin: 05/03/23 14:54 Dose: 3 ml Home Medications Medication Instructions Recorded Confirmed Last Taken Type albuterol sulfate 90 mcg/actuation 2 puff inhalation Q6H PRN 03/07/23 05/02/23 Unknown History aerosol inhaler (Ventolin HFA) Shortness Of Breath Or Wheezing atorvastatin 40 mg tablet 40 mg PO DAILY 03/07/23 05/02/23 3 Days Ago History ~04/29/23 dextroamphetamine-amphetamine 30 30 mg PO BID@0800,1300 03/07/23 05/02/23 3 Days Ago History mg tablet ~04/29/23 gabapentin 800 mg tablet 800 mg PO TID 03/07/23 05/02/23 3 Days Ago History ~04/29/23 insulin lispro 100 unit/mL 1 sliding scale dose subcut TIDAC 03/07/23 05/02/23 3 Days Ago History subcutaneous pen ~04/29/23 pantoprazole 40 mg tablet,delayed 40 mg PO DAILY@0630 03/07/23 05/02/23 3 Days Ago History release ~04/29/23 sennosides 8.6 mg-docusate sodium 1 tab PO DAILY PRN Constipation 03/07/23 05/02/23 03/05/23 History 50 mg tablet (Stool Softener-Laxative) sertraline 50 mg tablet 75 mg PO DAILY 03/07/23 05/02/23 3 Days Ago History ~04/29/23 acetaminophen 325 mg tablet 650 mg PO Q6H PRN Pain 05/02/23 05/02/23 Unknown History (Tylenol) methadone 10 mg/mL oral 105 mg PO DAILY 05/02/23 05/02/23 05/01/23 History concentrate (Methadone Intensol) nicotine 21 mg/24 hr daily 1 patch transdermal DAILY 05/02/23 05/02/23 3 Days Ago History transdermal patch ~04/29/23 Physical Exam Vital Signs: Vital Signs: Last Vital Signs Temp 97.7 F 05/03/23 16:00 Pulse 113 H 05/03/23 16:00 Resp 18 05/03/23 16:00 BP 155/92 H 05/03/23 16:00 Pulse Ox 91 L 05/03/23 16:00 O2 Del Method Room Air 05/03/23 16:00 O2 Flow Rate 2 05/01/23 23:23 BMI result Body Mass Index 36.9 Extrem: Other: hand bilateral swelling left more than right Results Labs 05/03/23 09:17 05/03/23 05:44 Labs: Short CBC 05/03/23 Range/Units 09:17 WBC 19.6 H (4.8-10.8) X10*3/uL Hgb 12.0 (12.0-16.0) g/dl Hct 37.1 (37.0-47.0) % Plt Count 227 (160-400) X10*3/uL BMP 05/02/23 05/03/23 16:23 05:44 Sodium 134 L Creatinine 0.69 Microbiology Microbiology Results: Microbiology 05/01/23 20:02 Blood - Venous Blood Culture - Preliminary No growth after 24 hours. 05/01/23 20:02 Blood - Venous Blood Culture - Preliminary No growth after 24 hours. Assessment and Plan (1) Abscess of left hand: Status: Acute Cultures negative so far. There is osteomyelitis concern. Probable IV Kefzol 2 g tid at [facility] but wait on cultures. (2) Cellulitis: Qualifiers: Laterality: left Site of cellulitis: extremity Site of cellulitis of extremity: upper extremity Qualified Code(s): L03.114 - Cellulitis of left upper limb Status: Acute (3) Opiate use: Status: Acute
[2023-05-03 20:08] LABS: Glucose, Whole Blood 226 mg/dL (60-115)
[2023-05-03 22:01] LABS: Glucose, Whole Blood 131 mg/dL (60-115)
[2023-05-03] MEDS: cefTRIAXone sodium 2 GM in 0.9 % Sodium Chloride 50 ML IV (22:10)
[2023-05-03] MEDS: Insulin Glargine,Hum.rec.anlog 100 UNIT/ML 10 ML VIAL 30 UNIT SUBCUT (22:12)
[2023-05-04] VITALS (13 sets, daily range): BP systolic 131–169; BP diastolic 67–103; PULSE 98–119; RESP 16–21; TEMP 36–37.1; O2SAT 87–96
[2023-05-04] MEDS: LORazepam 0.5 MG TABLET PO ×3 (00:12→13:58)
[2023-05-04] MEDS: Heparin Sodium,Porcine 5,000 UNIT/ML VIAL 5000 UNIT SUBCUT (00:12)
[2023-05-04] MEDS: HYDROmorphone HCl 1 MG/ML SYRINGE IVPUSH ×5 (02:26→22:14)
[2023-05-04] MEDS: vancomycin HCL 1,250 MG in 0.9 % Sodium Chloride 250 ML 166.67 MG IV (04:29)
[2023-05-04 07:14] LABS: Glucose, Whole Blood 154 mg/dL (60-115)
[2023-05-04] MEDS: methADONE HCl 20 MG/2 ML ORAL.CONC 70 MG PO (08:09)
[2023-05-04] MEDS: Sertraline HCL 25 MG TABLET 75 MG PO (08:10)
[2023-05-04] MEDS: Atorvastatin Calcium 40 MG TABLET PO (08:10)
[2023-05-04] MEDS: Gabapentin 400 MG CAPSULE 800 MG PO ×3 (08:10→21:19)
[2023-05-04] MEDS: Amphetamine Mixed Salts 10 MG TABLET 30 MG PO ×2 (08:10→13:55)
[2023-05-04] MEDS: Nicotine 21 MG PATCH.TD24 TRANSDERMA (08:10)
[2023-05-04] MEDS: 0.9 % Sodium Chloride Flush 3 ML SYRINGE IVFLUSH ×2 (08:11→18:08)
[2023-05-04 09:38] LABS: Hematocrit 35.8 % (37.0-47.0); Hemoglobin 11.7 g/dl (12.0-16.0); Mean Corpuscular HGB Conc 32.7 g/dl (31.0-35.0); Mean Corpuscular Hemoglobin 26.6 pg (27.0-33.0); Mean Corpuscular Volume 81.4 fL (80.0-98.0); Mean Platelet Volume 9.7 fL (9.4-12.3); Platelet Count 270 X10*3/uL (160-400); Red Cell Distribution Width 16.3 % (11.0-16.0); White Blood Count 16.2 X10*3/uL (4.8-10.8)
[2023-05-04 09:53] LABS: Vancomycin Random 13.9 mcg/mL (15-20)
[2023-05-04 09:54] LABS: Anion Gap 12 (12-20); Blood Urea Nitrogen 5 mg/dL (9-16); Carbon Dioxide 26 mmol/L (22-29); Chloride 101 mmol/L (96-108); Creatinine Clr Calc Pharmacy 156.7; Estimated Glomerular Filt Rate > 60; Glucose Random 149 mg/dL (60-115); Potassium 3.5 mmol/L (3.3-5.1); Sodium 135 mmol/L (135-145)
--- NOTE | 2023-05-04 10:17 | HE.PHANOTE ---
RE: VANCO DOSING Trough came back as 13.9. Dose is increased to 1500 mg q8h, starting @1100 05/04/23 (predicted AUC 520 and trough 14.7). Next random is scheduled @0900 on 05/05/23.
[2023-05-04 10:25] LABS: HBS Num1 27.69 mIU/mL (0-7.99); HBc Num1 0.14 S/CO (0.00-0.79); HBsAGNum1 0.59 S/CO (0.00-0.99); HIV AB/AG Nonreactive (Nonreactive); HIV Num 1 0.63 S/CO (0.00-0.99); Hepatitis B Core Antibody Nonreactive (Nonreactive); Hepatitis B Surface Antigen Negative (Negative); ~Hepatitis B Surface Antibody REACTIVE (Nonreactive)
[2023-05-04] MEDS: 0.9 % Sodium Chloride 1,000 ML 150 ML IVCONT (11:01)
[2023-05-04] MEDS: vancomycin HCL 1,500 MG in 0.9 % Sodium Chloride 500 ML 333.33 MG IV ×2 (11:02→19:06)
[2023-05-04] MEDS: Sennosides/Docusate Sodium TABLET 1 TAB PO (11:03)
[2023-05-04 11:36] LABS: Glucose, Whole Blood 129 mg/dL (60-115)
--- NOTE | 2023-05-04 13:36 | MHC.CM.PN ---
Patient's HCP has been uploaded into [facility] and a copy placed on the chart.
--- NOTE | 2023-05-04 13:40 | MHC.CM.PN ---
Patient has named a new HCP Agent; the new Agent is Marcial @ [phone].
--- NOTE | 2023-05-04 14:03 | HO.PM.IMPN ---
Subjective Subjective Date of Service: 05/04/23 Interval History: minimal cough dyspnea improving L hand painful Review of Systems Review of Systems: Yes all other systems are reviewed and are negative Physical Exam Vital Signs: Vital Signs: Last Vital Signs Temp 96.8 F 05/04/23 11:28 Pulse 113 H 05/04/23 11:28 Resp 19 05/04/23 11:34 BP 131/67 05/04/23 11:28 Pulse Ox 92 05/04/23 11:28 O2 Del Method Nasal Cannula 05/04/23 11:28 O2 Flow Rate 2 05/04/23 11:28 BMI result Body Mass Index 36.9 Gen: in no acute distress HEENT: sclera anicteric, moist mucus membranes Neck: supple Lungs: clear to auscultation bilaterally Heart: regular rate and rhythm, no murmurs Abd: soft, non-tender, non-distended Ext: no edema, L hand with erythema/fluctuance over base of thumb Skin: warm/well-perfused, multiple hyperpigmented round macules on feet Neuro: alert and oriented x3, no focal findings Psych: appropriate affect Objective Data Active Medications Acetaminophen (Acetaminophen 325 Mg Tablet) 975 mg PO Q8H PRN PRN Reason: Pain, Severe (Pain Scale 7-10) Albuterol/Ipratropium (Albuterol/Iprat 2.5/0.5mg 3 Ml Ampul.Neb) 3 ml INHALE RQ4H WHILE AWAKE PRN PRN Reason: Shortness of Breath/Wheezing Amphetamine/Dextroamphetamine (Amphetamine Mixed Salts 10 Mg Tablet) 30 mg PO BID@0800,1300 [facility] Last Admin: 05/04/23 13:55 Dose: 30 mg Documented By: ELICEO Atorvastatin Calcium (Atorvastatin Calcium 40 Mg Tablet) 40 mg PO DAILY [facility] Last Admin: 05/04/23 08:10 Dose: 40 mg Documented By: ELICEO Dextrose (Dextrose 50 % 25 Gm/50 Ml Syringe) 25 gm IVPUSH Q15M PRN; Protocol PRN Reason: per Hypoglycemia Standing Ord. Enoxaparin Sodium (Enoxaparin Sodium 40 Mg/0.4 Ml Syringe) 40 mg SUBCUT Q24H [facility] Last Admin: 05/04/23 09:17 Dose: Not Given Documented By: ELICEO Non-Admin Reason: Physician Held Med Gabapentin (Gabapentin 400 Mg Capsule) 800 mg PO TID [facility] Last Admin: 05/04/23 13:55 Dose: 800 mg Documented By: ELICEO Glucose (Glucose Gel 15 Gm Gel..Gram.) 15 gm PO Q15M PRN; Protocol PRN Reason: per Hypoglycemia Standing Ord. Hydromorphone HCl (Hydromorphone Hcl 1 Mg/Ml Syringe) 1 mg IVPUSH Q3H PRN; Protocol PRN Reason: Pain, Severe (Pain Scale 7-10) Last Admin: 05/04/23 11:03 Dose: 1 mg Documented By: ELICEO Ceftriaxone Sodium 2 gm/ (Sodium Chloride) 50 mls @ 100 mls/hr IV Q24H [facility] Last Infusion: 05/03/23 22:40 Dose: Infused Documented By: AMAN Vancomycin HCl 1,500 mg/ (Sodium Chloride) 500 mls @ 333.333 mls/hr IV Q8H [facility] Last Infusion: 05/04/23 12:33 Dose: Infused Documented By: ELICEO Insulin Glargine (Insulin Glargine,Hum.Rec.Anlog 100 Unit/Ml 10 Ml Vial) 30 unit SUBCUT BEDTIME [facility] Last Admin: 05/03/23 22:12 Dose: 15 unit Documented By: AMAN Comments: reduced dose per Dr. Fernandez, Pt NPO at midnight. Insulin Human Lispro (Insulin Lispro 100 Unit/Ml 3 Ml Vial) 0 unit SUBCUT QIDACHS [facility]; Protocol Last Admin: 05/04/23 11:34 Dose: Not Given Documented By: ELICEO Non-Admin Reason: [id number] Ketorolac Tromethamine (Ketorolac Tromethamine 30 Mg/Ml Vial) 30 mg IVPUSH Q6H PRN PRN Reason: Pain, Severe (Pain Scale 7-10) Lorazepam (Lorazepam 0.5 Mg Tablet) 0.5 mg PO Q4H PRN PRN Reason: Anxiety Last Admin: 05/04/23 13:58 Dose: 0.5 mg Documented By: ELICEO Methadone HCl (Methadone Hcl 20 Mg/2 Ml Oral.Conc) 70 mg PO DAILY@0800 [facility] Last Admin: 05/04/23 08:09 Dose: 70 mg Documented By: ELICEO Methadone HCl (Methadone Hcl 20 Mg/2 Ml Oral.Conc) 35 mg PO DAILY@1700 [facility] Nicotine (Nicotine 21 Mg Patch.Td24) 21 mg TRANSDERMA DAILY [facility] Last Admin: 05/04/23 08:10 Dose: 21 mg Documented By: ELICEO Omeprazole (Omeprazole 20 Mg Capsule.Dr) 20 mg PO DAILY@0630 [facility] Last Admin: 05/04/23 06:50 Dose: Not Given Documented By: VI Non-Admin Reason: NPO Pre-Op Oxycodone HCl (Oxycodone Hcl Immed Release 5 Mg Tablet) 5 mg PO Q4H PRN PRN Reason: Pain, Severe (Pain Scale 7-10) Last Admin: 05/03/23 00:59 Dose: 5 mg Documented By: TRUE Pharmacy Consult (Consult Rx Vancomycin Dosing) 1 each MISCELLANE DAILY PRN PRN Reason: Consult order Senna/Docusate Sodium (Sennosides/Docusate Sodium Tablet) 1 tab PO DAILY PRN PRN Reason: Constipation Last Admin: 05/04/23 11:03 Dose: 1 tab Documented By: ELICEO Sertraline HCl (Sertraline Hcl 25 Mg Tablet) 75 mg PO DAILY [facility] Last Admin: 05/04/23 08:10 Dose: 75 mg Documented By: ELICEO Sodium Chloride (0.9 % Sodium Chloride Flush 3 Ml Syringe) 3 ml IVFLUSH QSHIFT [facility] Last Admin: 05/04/23 08:11 Dose: 3 ml Documented By: ELICEO Labs 05/04/23 09:26 05/04/23 09:26 Labs: Laboratory Results - last 24 hr 05/03/23 05/03/23 05/03/23 16:19 19:30 21:57 MCV MCH MCHC RDW Plt Count MPV Absolute Nucleated RBC Nucleated RBC % (auto) Anion Gap Estim Creat Clear Calc Estimated GFR POC Glucose 261 H 226 H 131 H Random Glucose Calcium Random Vancomycin Hep Bs Antigen Hep Bs Antibody Hep B Core Total Ab HIV 1&2 Ab/P24 Ag 4thGn 05/04/23 05/04/23 05/04/23 07:11 09:26 09:26 MCV 81.4 MCH 26.6 L MCHC 32.7 RDW 16.3 H Plt Count 270 MPV 9.7 Absolute Nucleated RBC 0.000 Nucleated RBC % (auto) 0.0 Anion Gap 12 Estim Creat Clear Calc 156.7 156.7 Estimated GFR > 60 POC Glucose 154 H Random Glucose Calcium Random Vancomycin Hep Bs Antigen Hep Bs Antibody Hep B Core Total Ab HIV 1&2 Ab/P24 Ag 4thGn 05/04/23 05/04/23 09:26 11:32 MCV MCH MCHC RDW Plt Count MPV Absolute Nucleated RBC Nucleated RBC % (auto) Anion Gap Estim Creat Clear Calc Estimated GFR > 60 POC Glucose 129 H Random Glucose 149 H Calcium 9.0 Random Vancomycin 13.9 L Hep Bs Antigen Negative Hep Bs Antibody REACTIVE Hep B Core Total Ab Nonreactive HIV 1&2 Ab/P24 Ag 4thGn Nonreactive Microbiology Microbiology Results: Microbiology 05/01/23 20:02 Blood Culture - Preliminary Blood - Venous No growth after 48 hours. 05/01/23 20:02 Blood Culture - Preliminary Blood - Venous No growth after 48 hours. Assessment and Plan (1) Abscess of left hand: Status: Acute (2) Pulmonary abscess: Status: Acute (3) Pneumonia: Status: Acute Plan d3 38yo F with OUD presenting with dyspnea, admitted with sepsis due to RML PNA with associated RUL cavitary nodule, also L hand purulent cellulitis acute hypoxic resp failure due to cavitary pneumonia - Pulm consulted- suggest 28d ABX then repeat CT scan, IV vancomycin + ceftriaxone 05/02-, blood culture negative to date - wean O2 as tolerated - TTE 05/03: - The left ventricular systolic function is normal. The calculated ejection fraction is 65% by biplane method. - No obvious valvular pathology seen on this study. L hand purulent cellulitis - to OR for I+D today, MRI to r/o osteomyelitis OUD - HCV viral load pending; HIV negative, HBV immune - Addiction Medicine consulted, on methadone DM2 - A1c 7, correction-dose lispro mild intermittent asthma - prn nebs ADHD - continue Adderall mood disorder - sertraline tobacco abuse - NRT VTE ppx - LMWH dispo - TBD In my clinical judgment, the patient requires continued inpatient hospitalization for the following reasons: IV ABX, operative intervention Total time managing care of this patient today: 40 minutes. Quality Stroke Does the patient have a stroke diagnosis?: No VTE Prior VTE?: No VTE Risk Level:: Medical - moderate - high VTE Device Contraindication: Treatment Not Indicated VTE Drug Contraindication: N/A - Med Ordered
[2023-05-04 14:37] LABS: Glucose, Whole Blood 136 mg/dL (60-115)
--- NOTE | 2023-05-04 15:26 | MHC.SHP ---
Pre-Procedural Eval Section A - 24 Hr Update-Section A only Date of Service: 05/04/23 The patient is an INPATIENT: Yes Changes since office visit: No Cold of Flu in the past 2 weeks, No New Medical Problems, No Changes in Medication and No Patient answered all questions The patient has been examined within 24 hours of the surgical procedure. The History & Physical has been completed within 30 days and I have reviewed it.: Yes Section B - Complete if H&P > 30 days Chief Complaint: Left hand abscess I and D Allergies: Allergies Allergy/AdvReac Type Severity Reaction Status Date / Time morphine Allergy Hives Verified 03/07/23 20:50 Plan I have reviewed the history and physical and performed a pertinent physical examination on my patient. No changes have occurred unless specified. Time Spent With Patient Time: Total time managing care of this patient today ____ minutes.
--- NOTE | 2023-05-04 15:27 | MHC.SHP ---
Pre-Procedural Eval Section A - 24 Hr Update-Section A only Date of Service: 05/04/23 The patient is an INPATIENT: No Changes since office visit: Yes Cold of Flu in the past 2 weeks, Yes New Medical Problems, Yes Changes in Medication and Yes Patient answered all questions The patient has been examined within 24 hours of the surgical procedure. The History & Physical has been completed within 30 days and I have reviewed it.: No Section B - Complete if H&P > 30 days Chief Complaint: Left hand abscess I and D Allergies: Allergies Allergy/AdvReac Type Severity Reaction Status Date / Time morphine Allergy Hives Verified 03/07/23 20:50 Exam Exam Comment: She was alert oriented and in no acute distress. She had a single IV just proximal to her left upper extremity abscess. The anesthesia team was busy assessing her to try to place a different peripheral IV line. Left radial sided hand abscess secondary to IV drug use Numbness particularly in the middle ring and small fingers, not acute She is able to bring her fingers close to a fist and back into extension. She can oppose her thumb to her fingers. She also has some mild erythema over the right and left 2nd MCP joints with good active flexion and extension of those joints. Plan I have reviewed the history and physical and performed a pertinent physical examination on my patient. No changes have occurred unless specified. Assessment and plan: 1. Left hand abscess secondary to IV drug use I educated the patient about this condition We discussed operative and non operative treatment options and I am recommending surgery. The patient wishes to proceed with surgery. The risks and benefits of operative treatment were discussed with the patient and the patient wishes to proceed with surgery. These risks include, but are not limited to risk of damage to blood vessels, nerves, tendons, infection, recurrence, incomplete relief of preoperative symptoms, persistent pain, possible need for further surgery and the risks associated with regional blocks and anesthesia. The plan is to take the patient to the operating room for the following procedures: 1. Left hand I&D 2. [ ] All of the preoperative paperwork including the consent was filled out today. All the patient's questions were answered. Time Spent With Patient Time: Total time managing care of this patient today ____ minutes.
--- NOTE | 2023-05-04 15:50 | W.PM.OPN ---
Operative Note Operative Note Date of Service: 05/04/23 Narrative: Operative Note Narrative: Preop diagnosis: 1. Left radial sided hand infection and abscess Postop diagnosis: Same Procedure: 1. Left radial sided hand I&D Surgeon: Tomasa Kessler MD Anesthesia: General Anesthesia Findings: Partially decompressed abscess over the left dorsal 1st metacarpal. Abscess multilocular with purulence found in abscess over dorsal radial aspect of the CMC joint. From this area we had copious thick creamy yellow purulence. Implants: None Tourniquet time: None minutes EBL: 5.0 ml Specimen: Cultures from purulent drainage Drains: None Complications: None Disposition: Brought to the recovery room in stable condition Plan: Admit back to floor for IV antibiotics. Wound check tomorrow and daily dressing changes. Remove all drains tomorrow. Check cultures and adjust antibiotics Early OT to begin active hand and wrist range of motion exercises Indications: The patient is a 38 year old woman with left radial hand abscess secondary to IV drug use . The risks and benefits of operative treatment, including but not limited to risk of damage to blood vessels, nerves, tendons, infection, recurrence, persistent pain or numbness, incomplete resolution of preoperative symptoms, or need for further surgery were discussed with the patient and they wished to proceed with surgery. Procedure: Once consent was obtained patient was brought back to the operating suite and placed in the operating table in a supine position. . Perioperative antibiotics and anesthesia was administered by the anesthesia team. A tourniquet was applied to the proximal aspect of the left upper extremity and the limb was prepped and draped in a standard surgical fashion. The tourniquet was not inflated during the case. There was a blister type wound measuring about a cm in diameter over the dorsal aspect of the left thumb proximal phalanx. I entered this area using tenotomy scissors. There appears to have been partially decompressed abscess cavity over the dorsal aspect of the proximal phalanx that extended distally to about the MCP joint and proximally along the proximal phalanx with an approximate width of about 2 cm. I did however enter another abscess cavity more proximally at about the dorsal aspect of the CMC joint. From this area we got copious amounts of thick creamy yellow purulence. Cultures were taken of this purulence. No other abscess cavities were identified. The nonviable tissue about the skin was sharply debrided using tenotomy scissors. I then copiously irrigated the abscess cavities with normal saline using both a bulb syringe as well as 10 mL syringes with an Angiocath. Once satisfied with our I and D iodoform drains x2 were placed to facilitate drainage, and a sterile dressing was applied. The patient appears to have tolerated the procedure well and with no complications. All digits were well vascularized conclusion of the case.
--- NOTE | 2023-05-04 16:30 | P.PNPL_ITS ---
Subjective Subjective Date of Service: 05/04/23 Interval history: Respiratory status essentially at baseline, still with some chest discomfort. Objective Data Labs 05/04/23 09:26 05/04/23 09:26 Labs: Laboratory Results - last 24 hr 05/03/23 05/03/23 05/04/23 19:30 21:57 07:11 WBC RBC Hgb Hct MCV MCH MCHC RDW Plt Count MPV Absolute Nucleated RBC Nucleated RBC % (auto) Sodium Potassium Chloride Carbon Dioxide Anion Gap BUN Creatinine Estim Creat Clear Calc Estimated GFR POC Glucose 226 H 131 H 154 H Random Glucose Calcium Random Vancomycin Hep Bs Antigen Hep Bs Antibody Hep B Core Total Ab HIV 1&2 Ab/P24 Ag 4thGn 05/04/23 05/04/23 05/04/23 09:26 09:26 09:26 WBC 16.2 H RBC 4.40 Hgb 11.7 L Hct 35.8 L MCV 81.4 MCH 26.6 L MCHC 32.7 RDW 16.3 H Plt Count 270 MPV 9.7 Absolute Nucleated RBC 0.000 Nucleated RBC % (auto) 0.0 Sodium 135 Potassium 3.5 Chloride 101 Carbon Dioxide 26 Anion Gap 12 BUN 5 L Creatinine 0.60 0.60 Estim Creat Clear Calc 156.7 156.7 Estimated GFR > 60 POC Glucose Random Glucose Calcium Random Vancomycin Hep Bs Antigen Hep Bs Antibody Hep B Core Total Ab HIV 1&2 Ab/P24 Ag 4thGn 05/04/23 05/04/23 05/04/23 09:26 11:32 14:32 WBC RBC Hgb Hct MCV MCH MCHC RDW Plt Count MPV Absolute Nucleated RBC Nucleated RBC % (auto) Sodium Potassium Chloride Carbon Dioxide Anion Gap BUN Creatinine Estim Creat Clear Calc Estimated GFR > 60 POC Glucose 129 H 136 H Random Glucose 149 H Calcium 9.0 Random Vancomycin 13.9 L Hep Bs Antigen Negative Hep Bs Antibody REACTIVE Hep B Core Total Ab Nonreactive HIV 1&2 Ab/P24 Ag 4thGn Nonreactive Microbiology Microbiology Results: Microbiology 05/01/23 20:02 Blood - Venous Blood Culture - Preliminary No growth after 48 hours. 05/01/23 20:02 Blood - Venous Blood Culture - Preliminary No growth after 48 hours. Physical Exam 2 Vital Signs: Vital Signs: Last Vital Signs Temp 97.1 F 05/04/23 14:43 Pulse 100 05/04/23 14:43 Resp 16 05/04/23 14:43 BP 146/88 H 05/04/23 14:43 Pulse Ox 93 05/04/23 14:43 O2 Del Method Nasal Cannula 05/04/23 14:43 O2 Flow Rate 2 05/04/23 14:43 BMI result Body Mass Index 36.9 Const: General: no acute distress, alert and awake Nutritional Appearance: obese Eyes: Sclerae: sclerae normal EOM: EOMs intact bilaterally Neck: Neck: Yes no lymphadenopathy, Yes trachea midline and Yes supple Resp: Effort & Inspection: normal respiratory effort and no respiratory distress Auscultation: clear to auscultation bilaterally Cardio: Rate: tachycardic Rhythm: regular rhythm Heart sounds: no gallops, no murmurs and no rubs GI: Palpation (GI): Soft to palpation and Other GI palpation findings present ( Nontender) Auscultation: normal bowel sounds Extrem: General: Yes no pedal edema, No clubbing and No cyanosis Procedures Date of Service Date of Service: 05/04/23 Assessment and Plan Assessment and plan (1) Pulmonary abscess: Status: Acute (2) Pneumonia: Status: Acute Assessment and Plan: Impression: 38-year-old lady IV drug user admitted with dyspnea and right-sided chest pain secondary to developing pneumonia/pulmonary abscess versus septic embolus. Blood cultures negative to date. Recommendations: Cultures negative to date. Consider repeating blood cultures. Will require total 28 day treatment course. Follow-up in pulmonary office with CT scan in 1 month. Time Spent With Patient Time: Total time managing care of this patient today ____ minutes. Progress Note: Quality Stroke Does the patient have a stroke diagnosis?: No
[2023-05-04 18:06] LABS: Glucose, Whole Blood 164 mg/dL (60-115)
[2023-05-04] MEDS: methADONE HCl 20 MG/2 ML ORAL.CONC 35 MG PO (18:08)
[2023-05-04] MEDS: Insulin Lispro 100 UNIT/ML 3 ML VIAL SUBCUT ×2 (18:08→21:20)
[2023-05-04 20:55] LABS: Glucose, Whole Blood 315 mg/dL (60-115)
[2023-05-04] MEDS: Insulin Glargine,Hum.rec.anlog 100 UNIT/ML 10 ML VIAL 30 UNIT SUBCUT (21:19)
[2023-05-04] MEDS: Ketorolac Tromethamine 30 MG/ML VIAL IVPUSH (21:26)
[2023-05-04] MEDS: cefTRIAXone sodium 2 GM in 0.9 % Sodium Chloride 50 ML IV (22:08)
[2023-05-05] MEDS: vancomycin HCL 1,500 MG in 0.9 % Sodium Chloride 500 ML 333.33 MG IV (03:32)
[2023-05-05] MEDS: 0.9 % Sodium Chloride Flush 3 ML SYRINGE IVFLUSH ×3 (03:35→21:58)
[2023-05-05 03:41] VITALS: BP 160/95; PULSE 74; RESP 16; TEMP 36.2; O2SAT 90
[2023-05-05] MEDS: Omeprazole 20 MG CAPSULE.DR PO (05:55)
[2023-05-05] MEDS: HYDROmorphone HCl 1 MG/ML SYRINGE IVPUSH ×3 (05:55→22:04)
[2023-05-05 06:09] LABS: Hematocrit 34.5 % (37.0-47.0); Hemoglobin 11.4 g/dl (12.0-16.0); Mean Corpuscular Volume 81.6 fL (80.0-98.0); Mean Platelet Volume 10.5 fL (9.4-12.3); Platelet Count 263 X10*3/uL (160-400); Red Blood Count 4.23 X10*6/uL (4.20-5.50); Red Cell Distribution Width 16.2 % (11.0-16.0)
[2023-05-05 06:24] LABS: Creatinine Clr Calc Pharmacy 120.5; Estimated Glomerular Filt Rate > 60
[2023-05-05 06:31] LABS: Magnesium 1.6 mg/dL (1.6-2.6)
[2023-05-05 06:47] LABS: Procalcitonin 0.37 ng/mL
[2023-05-05 07:11] LABS: Glucose, Whole Blood 335 mg/dL (60-115)
[2023-05-05 07:30] VITALS: BP 136/84; PULSE 66; RESP 20; TEMP 36.2; O2SAT 92
[2023-05-05] MEDS: Enoxaparin Sodium 40 MG/0.4 ML SYRINGE SUBCUT (07:49)
[2023-05-05] MEDS: Sertraline HCL 25 MG TABLET 75 MG PO (07:50)
[2023-05-05] MEDS: Atorvastatin Calcium 40 MG TABLET PO (07:50)
[2023-05-05] MEDS: Nicotine 21 MG PATCH.TD24 TRANSDERMA (07:50)
[2023-05-05] MEDS: Gabapentin 400 MG CAPSULE 800 MG PO ×3 (07:50→21:57)
[2023-05-05] MEDS: Sennosides/Docusate Sodium TABLET 1 TAB PO (07:50)
[2023-05-05] MEDS: oxyCODONE HCl Immed Release 5 MG TABLET PO (07:52)
[2023-05-05] MEDS: Acetaminophen 325 MG TABLET 975 MG PO (07:52)
[2023-05-05] MEDS: Amphetamine Mixed Salts 10 MG TABLET 30 MG PO ×2 (07:53→14:11)
[2023-05-05] MEDS: Ketorolac Tromethamine 30 MG/ML VIAL IVPUSH (07:53)
[2023-05-05] MEDS: methADONE HCl 20 MG/2 ML ORAL.CONC 70 MG PO (07:53)
[2023-05-05] MEDS: Insulin Lispro 100 UNIT/ML 3 ML VIAL SUBCUT ×4 (07:53→22:01)
--- NOTE | 2023-05-05 08:05 | PM.PNORT ---
Subjective Subjective Date of Service: 05/05/23 Interval history: POD 1 s/p I&D left thumb no overnight events bandage intact c/o mild discomfort Physical Exam Vital Signs: Vital Signs: Last Vital Signs Temp 97.2 F 05/05/23 07:30 Pulse 66 05/05/23 07:30 Resp 20 05/05/23 07:30 BP 136/84 05/05/23 07:30 Pulse Ox 92 05/05/23 07:30 O2 Del Method Room Air 05/05/23 07:30 O2 Flow Rate 3 05/04/23 17:31 BMI result Body Mass Index 36.9 Const: General: cooperative, healthy appearing and no acute distress Resp: Effort & Inspection: normal respiratory effort and able to speak in complete sentences Cardio: Rate: regular rate Peripheral pulses: Peripheral pulses 2+ throughout GI: Palpation (GI): Soft to palpation Skin: General skin exam: no rashes or lesions noted Extrem: Other: Left thumb packing intact, slight erythema around the incision site, no active drainage. She is able to extend and flex all digits. NVI. Procedures Date of Service Date of Service: 05/05/23 Progress Note: A&P Assessment and plan (1) Abscess of left hand: Status: Acute Assessment and Plan: Continue iv abx cultures pending hand OT daily dry dressing changes. Time Spent With Patient Time: Total time managing care of this patient today ____ minutes. Quality Stroke Does the patient have a stroke diagnosis?: No VTE Prior VTE?: No VTE Risk Level:: Medical - moderate - high VTE Device Contraindication: Treatment Not Indicated VTE Drug Contraindication: N/A - Med Ordered
[2023-05-05 08:46] LABS: Syphilis Screen Nonreactive (Nonreactive)
--- NOTE | 2023-05-05 09:35 | P.PNIM_ITS ---
Subjective Subjective Date of Service: 05/05/23 Interval History: POD1 hand drainage, moderate pain, no fever dyspnea/cough improved, not hypoxic Review of Systems Review of Systems: Yes all other systems are reviewed and are negative Physical Exam 2 Vital Signs: Vital Signs: Last Vital Signs Temp 97.2 F 05/05/23 07:30 Pulse 66 05/05/23 07:30 Resp 20 05/05/23 07:30 BP 136/84 05/05/23 07:30 Pulse Ox 92 05/05/23 07:30 O2 Del Method Room Air 05/05/23 07:30 O2 Flow Rate 3 05/04/23 17:31 BMI result Body Mass Index 36.9 Gen: in no acute distress HEENT: sclera anicteric, moist mucus membranes Neck: supple Lungs: clear to auscultation bilaterally Heart: regular rate and rhythm, no murmurs Abd: soft, non-tender, non-distended Ext: no edema, L hand in dressing Skin: warm/well-perfused, multiple hyperpigmented round macules on feet Neuro: alert and oriented x3, no focal findings Psych: appropriate affect Objective Data Active Medications Acetaminophen (Acetaminophen 325 Mg Tablet) 975 mg PO Q8H PRN PRN Reason: Pain, Severe (Pain Scale 7-10) Last Admin: 05/05/23 07:52 Dose: 975 mg Documented By: CHRIS Albuterol/Ipratropium (Albuterol/Iprat 2.5/0.5mg 3 Ml Ampul.Neb) 3 ml INHALE RQ4H WHILE AWAKE PRN PRN Reason: Shortness of Breath/Wheezing Amphetamine/Dextroamphetamine (Amphetamine Mixed Salts 10 Mg Tablet) 30 mg PO BID@0800,1300 [facility] Last Admin: 05/05/23 07:53 Dose: 30 mg Documented By: CHRIS Atorvastatin Calcium (Atorvastatin Calcium 40 Mg Tablet) 40 mg PO DAILY [facility] Last Admin: 05/05/23 07:50 Dose: 40 mg Documented By: CHRIS Dextrose (Dextrose 50 % 25 Gm/50 Ml Syringe) 25 gm IVPUSH Q15M PRN; Protocol PRN Reason: per Hypoglycemia Standing Ord. Enoxaparin Sodium (Enoxaparin Sodium 40 Mg/0.4 Ml Syringe) 40 mg SUBCUT Q24H [facility] Last Admin: 05/05/23 07:49 Dose: 40 mg Documented By: CHRIS Gabapentin (Gabapentin 400 Mg Capsule) 800 mg PO TID [facility] Last Admin: 05/05/23 07:50 Dose: 800 mg Documented By: CHRIS Glucose (Glucose Gel 15 Gm Gel..Gram.) 15 gm PO Q15M PRN; Protocol PRN Reason: per Hypoglycemia Standing Ord. Hydromorphone HCl (Hydromorphone Hcl 1 Mg/Ml Syringe) 1 mg IVPUSH Q3H PRN; Protocol PRN Reason: Pain, Severe (Pain Scale 7-10) Last Admin: 05/05/23 05:55 Dose: 1 mg Documented By: ANNA MARIE Ceftriaxone Sodium 2 gm/ (Sodium Chloride) 50 mls @ 100 mls/hr IV Q24H [facility] Last Infusion: 05/04/23 22:51 Dose: Infused Documented By: AMRITA Vancomycin HCl 1,500 mg/ (Sodium Chloride) 500 mls @ 333.333 mls/hr IV Q8H [facility] Last Infusion: 05/05/23 05:09 Dose: Infused Documented By: ANNA MARIE Insulin Glargine (Insulin Glargine,Hum.Rec.Anlog 100 Unit/Ml 10 Ml Vial) 30 unit SUBCUT BEDTIME [facility] Last Admin: 05/04/23 21:19 Dose: 30 unit Documented By: AMRITA Insulin Human Lispro (Insulin Lispro 100 Unit/Ml 3 Ml Vial) 0 unit SUBCUT QIDACHS [facility]; Protocol Last Admin: 05/05/23 07:53 Dose: 10 unit Documented By: CHRIS Lorazepam (Lorazepam 0.5 Mg Tablet) 0.5 mg PO Q4H PRN PRN Reason: Anxiety Last Admin: 05/04/23 13:58 Dose: 0.5 mg Documented By: ELICEO Methadone HCl (Methadone Hcl 20 Mg/2 Ml Oral.Conc) 70 mg PO DAILY@0800 [facility] Last Admin: 05/05/23 07:53 Dose: 70 mg Documented By: CHRIS Methadone HCl (Methadone Hcl 20 Mg/2 Ml Oral.Conc) 35 mg PO DAILY@1700 [facility] Last Admin: 05/04/23 18:08 Dose: 35 mg Documented By: AMRITA Nicotine (Nicotine 21 Mg Patch.Td24) 21 mg TRANSDERMA DAILY [facility] Last Admin: 05/05/23 07:50 Dose: 21 mg Documented By: CHRIS Omeprazole (Omeprazole 20 Mg Capsule.) 20 mg PO DAILY@0630 [facility] Last Admin: 05/05/23 05:55 Dose: 20 mg Documented By: ANNA MARIE Oxycodone HCl (Oxycodone Hcl Immed Release 5 Mg Tablet) 5 mg PO Q4H PRN PRN Reason: Pain, Severe (Pain Scale 7-10) Last Admin: 05/05/23 07:52 Dose: 5 mg Documented By: CHRIS Pharmacy Consult (Consult Rx Vancomycin Dosing) 1 each MISCELLANE DAILY PRN PRN Reason: Consult order Senna/Docusate Sodium (Sennosides/Docusate Sodium Tablet) 1 tab PO DAILY PRN PRN Reason: Constipation Last Admin: 05/05/23 07:50 Dose: 1 tab Documented By: CHRIS Sertraline HCl (Sertraline Hcl 25 Mg Tablet) 75 mg PO DAILY [facility] Last Admin: 05/05/23 07:50 Dose: 75 mg Documented By: CHRIS Sodium Chloride (0.9 % Sodium Chloride Flush 3 Ml Syringe) 3 ml IVFLUSH QSHIFT [facility] Last Admin: 05/05/23 07:54 Dose: 3 ml Documented By: CHRIS Labs 05/05/23 05:42 05/05/23 05:42 Labs: Laboratory Results - last 24 hr 05/04/23 05/04/23 05/04/23 09:26 09:26 09:26 MCV 81.4 MCH 26.6 L MCHC 32.7 RDW 16.3 H Plt Count 270 MPV 9.7 Absolute Nucleated RBC 0.000 Nucleated RBC % (auto) 0.0 Anion Gap 12 Estim Creat Clear Calc 156.7 156.7 Estimated GFR > 60 > 60 POC Glucose Random Glucose 149 H Calcium 9.0 Magnesium Procalcitonin Random Vancomycin 13.9 L T.pallidum Ab (EIA) Hep Bs Antigen Negative Hep Bs Antibody REACTIVE Hep B Core Total Ab Nonreactive HIV 1&2 Ab/P24 Ag 4thGn Nonreactive 05/04/23 05/04/23 05/04/23 11:32 14:32 18:02 MCV MCH MCHC RDW Plt Count MPV Absolute Nucleated RBC Nucleated RBC % (auto) Anion Gap Estim Creat Clear Calc Estimated GFR POC Glucose 129 H 136 H 164 H Random Glucose Calcium Magnesium Procalcitonin Random Vancomycin T.pallidum Ab (EIA) Hep Bs Antigen Hep Bs Antibody Hep B Core Total Ab HIV 1&2 Ab/P24 Ag 4thGn 05/04/23 05/05/23 05/05/23 20:46 05:42 07:09 MCV 81.6 MCH 27.0 MCHC 33.0 RDW 16.2 H Plt Count 263 MPV 10.5 Absolute Nucleated RBC 0.000 Nucleated RBC % (auto) 0.0 Anion Gap Estim Creat Clear Calc 120.5 Estimated GFR > 60 POC Glucose 315 H 335 H Random Glucose Calcium Magnesium 1.6 Procalcitonin 0.37 Random Vancomycin T.pallidum Ab (EIA) Nonreactive Hep Bs Antigen Hep Bs Antibody Hep B Core Total Ab HIV 1&2 Ab/P24 Ag 4thGn Microbiology Microbiology Results: Microbiology 05/04/23 Unknown Gram Stain - Final Hand Left Assessment and Plan (1) Abscess of left hand: Status: Acute (2) Pulmonary abscess: Status: Acute (3) Pneumonia: Status: Acute Plan d4 38yo F with OUD presenting with dyspnea, admitted with sepsis due to RML PNA with associated RUL cavitary nodule, also L hand purulent cellulitis acute hypoxic resp failure due to cavitary pneumonia - Pulm consulted- suggest 28d ABX then repeat CT scan, IV vancomycin + ceftriaxone 05/02-, blood cultures negative - weaned off O2 - TTE 05/03: - The left ventricular systolic function is normal. The calculated ejection fraction is 65% by biplane method. - No obvious valvular pathology seen on this study. L hand purulent cellulitis - POD#1 I+D, start OT - MRI to r/o osteomyelitis OUD - HCV viral load pending; HIV negative, HBV immune - Addiction Medicine consulted, on split-dose methadone DM2 - A1c 7, correction-dose lispro mild intermittent asthma - prn nebs ADHD - continue Adderall mood disorder - sertraline tobacco abuse - NRT VTE ppx - LMWH dispo - TBD In my clinical judgment, the patient requires continued inpatient hospitalization for the following reasons: IV ABX, postop care Total time managing care of this patient today: 35 minutes. Quality Stroke Does the patient have a stroke diagnosis?: No VTE Prior VTE?: No VTE Risk Level:: Medical - moderate - high VTE Device Contraindication: Treatment Not Indicated VTE Drug Contraindication: N/A - Med Ordered
--- NOTE | 2023-05-05 10:14 | HO.POSTANES ---
Post Anesthesia Evaluation Post Anesthesia Evaluation Date of Service: 05/05/23 Vital Signs: Vital Signs Temp Pulse Resp BP Pulse Ox O2 Del Method 05/05/23 07:30 97.2 F 66 20 136/84 92 Room Air 05/05/23 03:41 97.2 F 74 16 160/95 H 90 L Room Air Anesthesia: General Mental Status: Awake Pain Control: Satisfactory Nausea/Vomiting: None Hydration: Adequate Anesthesia-Related Issues: No Anes. Related Issues
--- NOTE | 2023-05-05 10:27 | MHC.CM.PN ---
Per ROUNDS discussion, Patient is not yet medically cleared for dc today(pending MRI to determine id PICC & LT IVABT is needed); Patient is agreeable to [facility] if LT IVABT is necessary. CM will follow.
[2023-05-05 10:32] LABS: Vancomycin Random 19.5 mcg/mL (15-20)
[2023-05-05] MEDS: vancomycin HCL 1,000 MG in 0.9 % Sodium Chloride 250 ML 270 MG IV ×2 (11:00→17:13)
[2023-05-05 11:20] LABS: Glucose, Whole Blood 328 mg/dL (60-115)
--- NOTE | 2023-05-05 12:03 | PC.NURSE ---
Patient off unit at this time to IR for PICC placement.
--- NOTE | 2023-05-05 14:16 | HO.PICC ---
PICC Line Insertion NPICC INSERTION Diagnosis: ABSCESS LEFT HAND Indication: MAT WEAVER ANTIBX Pertinent Labs: REVIEWED Technique: Following informed consent including risks, benefits and alternatives and using sterile technique including cap and mask, sterile gown, glove and drape, the RIGHT arm was prepped and draped in the usual sterile fashion of full barrier technique with [facility]. Following completion of [place] Protocol the skin and soft tissues were anesthetized with 1% Lidocaine plain. Using ultrasound guidance, RIGHT BRACHIAL vein access was obtained. Over an 0.018 wire through peel-away sheath, a 4FR SINGLE LUMEN PASV PICC line was positioned. Catheter length is 41CM internal length, 0CM external length, for a total trimmed length of 41CM. The procedure was performed in RM 272. Tip verification was performed by Sb Casillas with Sherlock 3CG. Tip located in SVC. Ultrasound was used to document vein patency and for needle entry. A formal ultrasound picture and cardiac rhythm strip was recorded. Vascular Barbed Wire Machine Operator has released the line for use and it is currently dressed with a StatLock, Tegaderm, and CHG disc. Verification has been performed for blood return and line patency. Arm Circumference: 29.5CM Equipment: Qardio POWERPICC SOLO CATHETER WITH SHERLOCK 3CG Catheter Type: 4FR SINGLE LUMEN PICC PASV Lot #:[id number]
[2023-05-05] MEDS: 0.9 % Sodium Chloride Flush 10 ML SYRINGE 5 ML IVFLUSH ×2 (14:18→21:58)
[2023-05-05 14:53] LABS: HCV Log PCR <1.18 NOT DETECTED Log IU/mL (NOT DETECTED); HepC Viral Load <15 NOT DETECTED IU/mL (NOT DETECTED)
[2023-05-05 15:24] VITALS: BP 157/88; PULSE 71; RESP 18; TEMP 36.2; O2SAT 92
[2023-05-05 16:52] LABS: Glucose, Whole Blood 346 mg/dL (60-115)
[2023-05-05] MEDS: methADONE HCl 20 MG/2 ML ORAL.CONC 35 MG PO (17:14)
[2023-05-05 19:24] VITALS: BP 160/95; PULSE 92; RESP 20; TEMP 36.9; O2SAT 98
[2023-05-05 20:56] LABS: Glucose, Whole Blood 169 mg/dL (60-115)
[2023-05-05] MEDS: cefTRIAXone sodium 2 GM in 0.9 % Sodium Chloride 50 ML IV (21:51)
[2023-05-05] MEDS: Insulin Glargine,Hum.rec.anlog 100 UNIT/ML 10 ML VIAL 30 UNIT SUBCUT (22:01)
[2023-05-05] MEDS: LORazepam 0.5 MG TABLET PO (23:42)
[2023-05-06] VITALS (12 sets, daily range): BP systolic 137–164; BP diastolic 77–91; PULSE 53–89; RESP 18–20; TEMP 36–36.8; O2SAT 92–96
[2023-05-06] MEDS: oxyCODONE HCl Immed Release 5 MG TABLET PO ×3 (02:48→20:12)
[2023-05-06] MEDS: vancomycin HCL 1,000 MG in 0.9 % Sodium Chloride 250 ML 270 MG IV ×2 (02:48→09:50)
[2023-05-06] MEDS: Omeprazole 20 MG CAPSULE.DR PO (05:08)
[2023-05-06 07:09] LABS: Glucose, Whole Blood 269 mg/dL (60-115)
--- NOTE | 2023-05-06 07:28 | P.CDIM_ITS ---
PROVIDER RESPONSE TEXT: To clarify, the appropriate diagnosis supported by the clinical indicators: Diabetes mellitus Type 2 with hyperglycemia QUERY TEXT: PHYSICIAN'S DOCUMENTATION REQUEST Date of Query: 05/05/2023 10:07 AM EST Patient Name: Gloria Hernandez Admit Date: 05/02/2023 Dear Sreekanth Friedman, A review of the medical record indicates additional documentation may be needed. Please review below and update the documentation accordingly. Clinical Indicators: POC glucose 315 H 335 H Insulin A1c, correction - dose lispro Please clarify the following regarding the Complications of Diabetes Mellitus (DM): Diabetes mellitus Type 2 with hyperglycemia Other Other (explain) Clinically unable to determine (explain) Thank you, Marcy Lin, CCS, CDIS Use of terms such as suspected, likely, concern for, or probable (associated with a specific diagnosi s that is being evaluated, monitored, or treated as if it exists) are acceptable and can be coded in the inpatient se tting, when documented at the time of discharge. Please use your independent medical judgment in providing your response. THIS QUERY IS PART OF THE PERMANENT MEDICAL RECORD
[2023-05-06] MEDS: methADONE HCl 20 MG/2 ML ORAL.CONC 70 MG PO (09:47)
[2023-05-06] MEDS: Sertraline HCL 25 MG TABLET 75 MG PO (09:48)
[2023-05-06] MEDS: Insulin Lispro 100 UNIT/ML 3 ML VIAL SUBCUT ×4 (09:48→21:10)
[2023-05-06] MEDS: Enoxaparin Sodium 40 MG/0.4 ML SYRINGE SUBCUT (09:48)
[2023-05-06] MEDS: Amphetamine Mixed Salts 10 MG TABLET 30 MG PO ×2 (09:49→12:05)
[2023-05-06] MEDS: 0.9 % Sodium Chloride Flush 3 ML SYRINGE IVFLUSH ×3 (09:49→13:16)
[2023-05-06] MEDS: Nicotine 21 MG PATCH.TD24 TRANSDERMA (09:49)
[2023-05-06] MEDS: Atorvastatin Calcium 40 MG TABLET PO (09:49)
[2023-05-06] MEDS: Gabapentin 400 MG CAPSULE 800 MG PO ×3 (09:49→20:12)
[2023-05-06] MEDS: gadobutroL 10 ML VIAL IVPUSH (09:55)
[2023-05-06 10:48] LABS: Creatinine Clr Calc Pharmacy 130.6; Estimated Glomerular Filt Rate > 60; Vancomycin Random 23.9 mcg/mL (15-20)
--- NOTE | 2023-05-06 11:05 | P.PNIM_ITS ---
Subjective Subjective Date of Service: 05/06/23 Interval History: C/o dyspnea though not hypoxic. Wheezing. C/o hand pain No fever Review of Systems Review of Systems: Yes all other systems are reviewed and are negative Physical Exam 2 Vital Signs: Vital Signs: Last Vital Signs Temp 98.2 F 05/06/23 08:00 Pulse 74 05/06/23 08:00 Resp 18 05/06/23 08:00 BP 157/86 H 05/06/23 08:00 Pulse Ox 95 05/06/23 08:00 O2 Del Method Room Air 05/06/23 08:00 O2 Flow Rate 3 05/04/23 17:31 BMI result Body Mass Index 36.9 Gen: in no acute distress HEENT: sclera anicteric, moist mucus membranes Neck: supple Lungs: extensive bilateral expiratory wheezing Heart: regular rate and rhythm, no murmurs Abd: soft, non-tender, non-distended Ext: no edema, L hand in dressing, RUE PICC Skin: warm/well-perfused, multiple hyperpigmented round macules on feet Neuro: alert and oriented x3, no focal findings Psych: appropriate affect Objective Data Active Medications Acetaminophen (Acetaminophen 325 Mg Tablet) 975 mg PO Q8H PRN PRN Reason: Pain, Severe (Pain Scale 7-10) Last Admin: 05/05/23 07:52 Dose: 975 mg Documented By: CHRIS Albuterol/Ipratropium (Albuterol/Iprat 2.5/0.5mg 3 Ml Ampul.Neb) 3 ml INHALE RQ4H WHILE AWAKE PRN PRN Reason: Shortness of Breath/Wheezing Amphetamine/Dextroamphetamine (Amphetamine Mixed Salts 10 Mg Tablet) 30 mg PO BID@0800,1300 [facility] Last Admin: 05/06/23 09:49 Dose: 30 mg Documented By: KRISTY Atorvastatin Calcium (Atorvastatin Calcium 40 Mg Tablet) 40 mg PO DAILY [facility] Last Admin: 05/06/23 09:49 Dose: 40 mg Documented By: KRISTY Dextrose (Dextrose 50 % 25 Gm/50 Ml Syringe) 25 gm IVPUSH Q15M PRN; Protocol PRN Reason: per Hypoglycemia Standing Ord. Enoxaparin Sodium (Enoxaparin Sodium 40 Mg/0.4 Ml Syringe) 40 mg SUBCUT Q24H [facility] Last Admin: 05/06/23 09:48 Dose: 40 mg Documented By: KRISTY Gabapentin (Gabapentin 400 Mg Capsule) 800 mg PO TID [facility] Last Admin: 05/06/23 09:49 Dose: 800 mg Documented By: KRISTY Glucose (Glucose Gel 15 Gm Gel..Gram.) 15 gm PO Q15M PRN; Protocol PRN Reason: per Hypoglycemia Standing Ord. Hydromorphone HCl (Hydromorphone Hcl 1 Mg/Ml Syringe) 1 mg IVPUSH Q3H PRN; Protocol PRN Reason: Pain, Severe (Pain Scale 7-10) Last Admin: 05/05/23 22:04 Dose: 1 mg Documented By: DALIA Ceftriaxone Sodium 2 gm/ (Sodium Chloride) 50 mls @ 100 mls/hr IV Q24H [facility] Last Infusion: 05/05/23 22:25 Dose: Infused Documented By: DALIA Vancomycin HCl 1,000 mg/ (Sodium Chloride) 270 mls @ 270 mls/hr IV Q8H [facility] Last Admin: 05/06/23 09:50 Dose: 270 mls/hr Documented By: KRISTY Insulin Glargine (Insulin Glargine,Hum.Rec.Anlog 100 Unit/Ml 10 Ml Vial) 30 unit SUBCUT BEDTIME [facility] Last Admin: 05/05/23 22:01 Dose: 30 unit Documented By: DALIA Insulin Human Lispro (Insulin Lispro 100 Unit/Ml 3 Ml Vial) 0 unit SUBCUT QIDACHS [facility]; Protocol Last Admin: 05/06/23 09:48 Dose: 6 unit Documented By: KRISTY Lorazepam (Lorazepam 0.5 Mg Tablet) 0.5 mg PO Q4H PRN PRN Reason: Anxiety Last Admin: 05/05/23 23:42 Dose: 0.5 mg Documented By: DALIA Methadone HCl (Methadone Hcl 20 Mg/2 Ml Oral.Conc) 70 mg PO DAILY@0800 [facility] Last Admin: 05/06/23 09:47 Dose: 70 mg Documented By: KRISTY Methadone HCl (Methadone Hcl 20 Mg/2 Ml Oral.Conc) 35 mg PO DAILY@1700 [facility] Last Admin: 05/05/23 17:14 Dose: 35 mg Documented By: CHRIS Nicotine (Nicotine 21 Mg Patch.Td24) 21 mg TRANSDERMA DAILY [facility] Last Admin: 05/06/23 09:49 Dose: 21 mg Documented By: KRISTY Omeprazole (Omeprazole 20 Mg Capsule.) 20 mg PO DAILY@0630 [facility] Last Admin: 05/06/23 05:08 Dose: 20 mg Documented By: DALIA Oxycodone HCl (Oxycodone Hcl Immed Release 5 Mg Tablet) 5 mg PO Q4H PRN PRN Reason: Pain, Severe (Pain Scale 7-10) Last Admin: 05/06/23 09:48 Dose: 5 mg Documented By: KRISTY Pharmacy Consult (Consult Rx Vancomycin Dosing) 1 each MISCELLANE DAILY PRN PRN Reason: Consult order Senna/Docusate Sodium (Sennosides/Docusate Sodium Tablet) 1 tab PO DAILY PRN PRN Reason: Constipation Last Admin: 05/05/23 07:50 Dose: 1 tab Documented By: CHRIS Sertraline HCl (Sertraline Hcl 25 Mg Tablet) 75 mg PO DAILY [facility] Last Admin: 05/06/23 09:48 Dose: 75 mg Documented By: KRISTY Sodium Chloride (0.9 % Sodium Chloride Flush 3 Ml Syringe) 3 ml IVFLUSH QSHIFT [facility] Last Admin: 05/06/23 09:49 Dose: 3 ml Documented By: KRISTY Sodium Chloride (0.9 % Sodium Chloride Flush 10 Ml Syringe) 5 ml IVFLUSH TID [facility] Last Admin: 05/05/23 21:58 Dose: 5 ml Documented By: DALIA Labs 05/05/23 05:42 05/06/23 10:15 Labs: Laboratory Results - last 24 hr 05/04/23 05/05/23 05/05/23 09:26 11:17 16:49 Hold Purple Top Estim Creat Clear Calc Estimated GFR POC Glucose 328 H 346 H Random Vancomycin Hep C Viral Load <15 NOT DETECTED Hep C Viral Load Log <1.18 NOT DETECTED 05/05/23 05/06/23 05/06/23 20:52 07:04 10:15 Hold Purple Top SEE NOTE Estim Creat Clear Calc 130.6 Estimated GFR > 60 POC Glucose 169 H 269 H Random Vancomycin 23.9 H Hep C Viral Load Hep C Viral Load Log Impressions Hand MRI 02/29/24 09:19 IMPRESSION: 1. Soft tissue defect along the radial aspect of the 1st metacarpal with adjacent cellulitis. No abscess formation. No evidence of acute osteomyelitis. 2. Lobulated fluid/cystic structure along the dorsal aspect of the 2nd metacarpophalangeal joint measuring up to 2.4 cm with minimal peripheral enhancement. Findings could represent a synovial recess versus ganglion cyst. Alternatively, findings could indicate a giant cell tumor of the tendon sheath. 3. Volar and dorsal subcutaneous edema adjacent to the metacarpals and extending into the fingers. Microbiology Microbiology Results: Microbiology 05/04/23 Unknown Gram Stain - Final Hand Left Routine Culture - Preliminary No growth to date. Assessment and Plan (1) Abscess of left hand: Status: Acute (2) Pulmonary abscess: Status: Acute (3) Pneumonia: Status: Acute Plan d5 38yo F with OUD presenting with dyspnea, admitted with sepsis due to RML PNA with associated RUL cavitary nodule, also L hand purulent cellulitis acute hypoxic resp failure due to cavitary pneumonia - Pulm consulted- suggest 28d ABX then repeat CT scan, IV vancomycin + ceftriaxone 05/02-, blood cultures negative. Discuss antibiotic coverage with ID. - weaned off O2 - TTE 05/03: - The left ventricular systolic function is normal. The calculated ejection fraction is 65% by biplane method. - No obvious valvular pathology seen on this study. mild intermittent asthma with acute exacerbation - will give prednisone 40 mg/d -3/4 - prn nebs L hand purulent cellulitis - POD#2 I+D, OT consulted and will need outpt hand therapy - follow wound culture - MRI without evidence of osteomyelitis; discuss 2nd MCP joint findings with Ortho - on IV vanco + ceftriaxone 05/02- as above; discuss antibiotic coverage with ID OUD - HCV no active infection; HIV negative, HBV immune - Addiction Medicine consulted, on split-dose methadone DM2 with hyperglycemia - A1c 7, correction-dose lispro- increase doses ADHD - continue Adderall mood disorder - sertraline tobacco abuse - NRT VTE ppx - LMWH dispo - PT consultation In my clinical judgment, the patient requires continued inpatient hospitalization for the following reasons: IV ABX, postop care Total time managing care of this patient today: 45 minutes. Quality Stroke Does the patient have a stroke diagnosis?: No VTE Prior VTE?: No VTE Risk Level:: Medical - moderate - high VTE Device Contraindication: Treatment Not Indicated VTE Drug Contraindication: N/A - Med Ordered
[2023-05-06] MEDS: Albuterol/Iprat 2.5/0.5MG 3 ML AMPUL.NEB INHALE ×2 (11:35→15:19)
[2023-05-06 11:43] LABS: Glucose, Whole Blood 229 mg/dL (60-115)
[2023-05-06] MEDS: predniSONE 20 MG TABLET 40 MG PO (12:05)
[2023-05-06] MEDS: HYDROmorphone HCl 1 MG/ML SYRINGE IVPUSH ×2 (12:06→18:44)
[2023-05-06 15:56] LABS: Glucose, Whole Blood 251 mg/dL (60-115)
[2023-05-06 17:30] LABS: Vancomycin Random 12.9 mcg/mL (15-20)
[2023-05-06] MEDS: methADONE HCl 20 MG/2 ML ORAL.CONC 35 MG PO (18:33)
[2023-05-06] MEDS: 0.9 % Sodium Chloride Flush 10 ML SYRINGE 5 ML IVFLUSH ×3 (18:35→20:13)
[2023-05-06] MEDS: vancomycin HCL 1,250 MG in 0.9 % Sodium Chloride 250 ML 166.67 MG IV (20:11)
[2023-05-06] MEDS: cefTRIAXone sodium 2 GM in 0.9 % Sodium Chloride 50 ML IV (20:12)
[2023-05-06] MEDS: Acetaminophen 325 MG TABLET 975 MG PO (20:12)
[2023-05-06] MEDS: Albuterol Sulfate (0.083%) 2.5 MG/3 ML VIAL.NEB INHALE (20:30)
[2023-05-06 20:44] LABS: Glucose, Whole Blood 400 mg/dL (60-115)
[2023-05-06] MEDS: Insulin Glargine,Hum.rec.anlog 100 UNIT/ML 10 ML VIAL 30 UNIT SUBCUT (21:10)
[2023-05-07] VITALS (12 sets, daily range): BP systolic 120–184; BP diastolic 71–99; PULSE 56–85; RESP 17–20; TEMP 35.8–36.9; O2SAT 92–95
[2023-05-07] MEDS: Benzonatate 100 MG CAPSULE 200 MG PO ×3 (01:24→20:38)
[2023-05-07] MEDS: Acetaminophen 325 MG TABLET 975 MG PO (03:52)
[2023-05-07] MEDS: oxyCODONE HCl Immed Release 5 MG TABLET PO ×2 (03:52→10:21)
[2023-05-07] MEDS: vancomycin HCL 1,250 MG in 0.9 % Sodium Chloride 250 ML 166.7 MG IV ×2 (03:53→11:45)
[2023-05-07] MEDS: Omeprazole 20 MG CAPSULE.DR PO (05:46)
[2023-05-07] MEDS: Albuterol/Iprat 2.5/0.5MG 3 ML AMPUL.NEB INHALE ×2 (08:05→15:35)
[2023-05-07 08:08] LABS: Glucose, Whole Blood 281 mg/dL (60-115)
[2023-05-07] MEDS: predniSONE 20 MG TABLET 40 MG PO (08:14)
[2023-05-07] MEDS: Gabapentin 400 MG CAPSULE 800 MG PO ×3 (08:14→20:37)
[2023-05-07] MEDS: Sertraline HCL 25 MG TABLET 75 MG PO ×2 (08:14→08:29)
[2023-05-07] MEDS: Nicotine 21 MG PATCH.TD24 TRANSDERMA (08:15)
[2023-05-07] MEDS: Insulin Lispro 100 UNIT/ML 3 ML VIAL SUBCUT ×4 (08:15→20:39)
[2023-05-07] MEDS: methADONE HCl 20 MG/2 ML ORAL.CONC 70 MG PO (08:15)
[2023-05-07] MEDS: 0.9 % Sodium Chloride Flush 3 ML SYRINGE IVFLUSH ×2 (08:16→18:06)
[2023-05-07 08:27] LABS: Creatinine Clr Calc Pharmacy 142.5; Estimated Glomerular Filt Rate > 60
[2023-05-07] MEDS: Amphetamine Mixed Salts 10 MG TABLET 30 MG PO ×2 (08:27→12:36)
[2023-05-07] MEDS: Enoxaparin Sodium 40 MG/0.4 ML SYRINGE SUBCUT (08:28)
[2023-05-07] MEDS: Atorvastatin Calcium 40 MG TABLET PO (08:29)
[2023-05-07] MEDS: 0.9 % Sodium Chloride Flush 10 ML SYRINGE 5 ML IVFLUSH ×2 (10:20→18:05)
--- NOTE | 2023-05-07 10:21 | MHC.CM.PN ---
Patient is not yet medically cleared for dc (IV ABT & Post Op care); [facility] is following regarding ? of 6 weeks IVABT (Methadone). CM will follow.
[2023-05-07 11:30] LABS: Glucose, Whole Blood 192 mg/dL (60-115)
--- NOTE | 2023-05-07 12:13 | MHC.CM.PN ---
Per MD, Patient will need 6 weeks of IV ABT; referral to [facility] (and their sister facilities) has been updated. CM awaits bed availability. CM will follow.
--- NOTE | 2023-05-07 12:15 | MHC.RECOVRN ---
Addendum entered by Jada Cardozo 05/07/23 12:20: Pt will need guest dosing set up between [facility] and [facility] in [place] if/when accepted to [facility]. Original Note: Met with pt to follow up and provide support. Pt sitting in bed, awake, alert, easily engages in conversation. Pt provided with coloring supplies/word searches. Pt states this methadone thing isn't working. Pt reports feeling withdrawal symptoms around 3-4pm daily, including sweating and nausea. Pt denies other questions or concerns. Discussed with Rose Marie Greenwood APRN.
--- NOTE | 2023-05-07 14:03 | PM.PNORT ---
Subjective Subjective Date of Service: 05/07/23 Interval history: POD 3 s/p I&D left thumb no overnight events bandage intact c/o mild discomfort Physical Exam Vital Signs: Vital Signs: Last Vital Signs Temp 96.5 F L 05/07/23 07:31 Pulse 60 05/07/23 09:55 Resp 18 05/07/23 08:05 BP 165/84 H 05/07/23 07:31 Pulse Ox 94 05/07/23 07:31 O2 Del Method Room Air 05/07/23 07:31 O2 Flow Rate 3 05/04/23 17:31 BMI result Body Mass Index 36.9 Const: General: cooperative, healthy appearing and no acute distress Resp: Effort & Inspection: normal respiratory effort and able to speak in complete sentences Cardio: Rate: regular rate Peripheral pulses: Peripheral pulses 2+ throughout GI: Palpation (GI): Soft to palpation Skin: General skin exam: no rashes or lesions noted Extrem: Other: Left thumb swelling improving, no active drainage. No purulance or abscess formation. There is edema over the dorsum of the hand which may be consistent with isidro wrap too tight. She is able to extend and flex all digits. NVI. Procedures Date of Service Date of Service: 05/07/23 Progress Note: A&P Assessment and plan (1) Abscess of left hand: Status: Acute Assessment and Plan: Continue iv abx No evidence of abscess hand OT daily dry dressing changes. Time Spent With Patient Time: Total time managing care of this patient today ____ minutes. Quality Stroke Does the patient have a stroke diagnosis?: No VTE Prior VTE?: No VTE Risk Level:: Medical - moderate - high VTE Device Contraindication: Treatment Not Indicated VTE Drug Contraindication: N/A - Med Ordered
[2023-05-07] MEDS: oxyCODONE HCl Immed Release 5 MG TABLET 10 MG PO ×2 (14:43→20:38)
[2023-05-07 16:16] LABS: Glucose, Whole Blood 314 mg/dL (60-115)
--- NOTE | 2023-05-07 16:42 | HO.PM.IMPN ---
Subjective Subjective Date of Service: 05/07/23 Interval History: No acute issues. Tolerant of therapies Physical Exam Vital Signs: Vital Signs: Last Vital Signs Temp 96.5 F L 05/07/23 15:26 Pulse 64 05/07/23 15:35 Resp 18 05/07/23 15:35 BP 183/99 H 05/07/23 15:26 Pulse Ox 94 05/07/23 15:26 O2 Del Method Room Air 05/07/23 15:26 O2 Flow Rate 3 05/04/23 17:31 BMI result Body Mass Index 36.9 Objective Data Active Medications Acetaminophen (Acetaminophen 325 Mg Tablet) 975 mg PO Q8H PRN PRN Reason: Pain, Severe (Pain Scale 7-10) Last Admin: 05/07/23 03:52 Dose: 975 mg Documented By: DALIA Albuterol Sulfate (Albuterol Sulfate (0.083%) 2.5 Mg/3 Ml Vial.Neb) 2.5 mg INHALE Q2H PRN PRN Reason: Shortness of Breath/Wheezing Last Admin: 05/06/23 20:30 Dose: 2.5 mg Documented By: TIMOTHY Albuterol/Ipratropium (Albuterol/Iprat 2.5/0.5mg 3 Ml Ampul.Neb) 3 ml INHALE RQ4H WHILE AWAKE [facility] Last Admin: 05/07/23 15:35 Dose: 3 ml Documented By: SASHA Amphetamine/Dextroamphetamine (Amphetamine Mixed Salts 10 Mg Tablet) 30 mg PO BID@0800,1300 [facility] Last Admin: 05/07/23 12:36 Dose: 30 mg Documented By: KRISTY Atorvastatin Calcium (Atorvastatin Calcium 40 Mg Tablet) 40 mg PO DAILY [facility] Last Admin: 05/07/23 08:29 Dose: 40 mg Documented By: KRISTY Benzonatate (Benzonatate 100 Mg Capsule) 200 mg PO TID PRN PRN Reason: Cough Last Admin: 05/07/23 14:42 Dose: 200 mg Documented By: KRISTY Dextrose (Dextrose 50 % 25 Gm/50 Ml Syringe) 25 gm IVPUSH Q15M PRN; Protocol PRN Reason: per Hypoglycemia Standing Ord. Enoxaparin Sodium (Enoxaparin Sodium 40 Mg/0.4 Ml Syringe) 40 mg SUBCUT Q24H [facility] Last Admin: 05/07/23 08:28 Dose: 40 mg Documented By: KRISTY Gabapentin (Gabapentin 400 Mg Capsule) 800 mg PO TID [facility] Last Admin: 05/07/23 14:42 Dose: 800 mg Documented By: KRISTY Glucose (Glucose Gel 15 Gm Gel..Gram.) 15 gm PO Q15M PRN; Protocol PRN Reason: per Hypoglycemia Standing Ord. Ceftriaxone Sodium 2 gm/ (Sodium Chloride) 50 mls @ 100 mls/hr IV Q24H [facility] Last Infusion: 05/06/23 22:15 Dose: Infused Documented By: DALIA Vancomycin HCl 1,250 mg/ (Sodium Chloride) 250 mls @ 166.667 mls/hr IV Q8H [facility] Last Infusion: 05/07/23 14:46 Dose: Infused Documented By: KRISTY Insulin Glargine (Insulin Glargine,Hum.Rec.Anlog 100 Unit/Ml 10 Ml Vial) 30 unit SUBCUT BEDTIME [facility] Last Admin: 05/06/23 21:10 Dose: 30 unit Documented By: DALIA Insulin Human Lispro (Insulin Lispro 100 Unit/Ml 3 Ml Vial) 0 unit SUBCUT QIDACHS [facility]; Protocol Last Admin: 05/07/23 12:42 Dose: 4 unit Documented By: KRISTY Methadone HCl (Methadone Hcl 20 Mg/2 Ml Oral.Conc) 70 mg PO DAILY@0800 [facility] Last Admin: 05/07/23 08:15 Dose: 70 mg Documented By: KRISTY Methadone HCl (Methadone Hcl 20 Mg/2 Ml Oral.Conc) 35 mg PO DAILY@1700 [facility] Last Admin: 05/06/23 18:33 Dose: 35 mg Documented By: KRISTY Nicotine (Nicotine 21 Mg Patch.Td24) 21 mg TRANSDERMA DAILY [facility] Last Admin: 05/07/23 08:15 Dose: 21 mg Documented By: KRISTY Omeprazole (Omeprazole 20 Mg Capsule.Dr) 20 mg PO DAILY@0630 [facility] Last Admin: 05/07/23 05:46 Dose: 20 mg Documented By: DALIA Oxycodone HCl (Oxycodone Hcl Immed Release 5 Mg Tablet) 10 mg PO Q4H PRN PRN Reason: Pain, Severe (Pain Scale 7-10) Last Admin: 05/07/23 14:43 Dose: 10 mg Documented By: KRISTY Pharmacy Consult (Consult Rx Vancomycin Dosing) 1 each MISCELLANE DAILY PRN PRN Reason: Consult order Prednisone (Prednisone 20 Mg Tablet) 40 mg PO DAILY [facility] Stop: 05/10/23 09:01 Last Admin: 05/07/23 08:14 Dose: 40 mg Documented By: KRISTY Senna/Docusate Sodium (Sennosides/Docusate Sodium Tablet) 1 tab PO DAILY PRN PRN Reason: Constipation Last Admin: 05/05/23 07:50 Dose: 1 tab Documented By: AIYANA-RIVION Sertraline HCl (Sertraline Hcl 25 Mg Tablet) 75 mg PO DAILY [facility] Last Admin: 05/07/23 08:29 Dose: 75 mg Documented By: KRISTY Sodium Chloride (0.9 % Sodium Chloride Flush 3 Ml Syringe) 3 ml IVFLUSH QSHIFT [facility] Last Admin: 05/07/23 08:16 Dose: 3 ml Documented By: KRISTY Sodium Chloride (0.9 % Sodium Chloride Flush 10 Ml Syringe) 5 ml IVFLUSH TID [facility] Last Admin: 05/07/23 10:20 Dose: 5 ml Documented By: KRISTY Labs 05/05/23 05:42 05/07/23 07:44 Labs: Laboratory Results - last 24 hr 05/06/23 05/06/23 05/07/23 17:08 20:37 07:29 Hold Purple Top Estim Creat Clear Calc Estimated GFR POC Glucose 400 H* 281 H Random Vancomycin 12.9 L 05/07/23 05/07/23 05/07/23 07:44 11:27 16:11 Hold Purple Top SEE NOTE Estim Creat Clear Calc 142.5 Estimated GFR > 60 POC Glucose 192 H 314 H Random Vancomycin Microbiology Microbiology Results: Microbiology 05/04/23 Unknown Gram Stain - Final Hand Left Routine Culture - Final No growth after 2 days 05/01/23 20:02 Blood Culture - Final Blood - Venous No growth after 5 days. 05/01/23 20:02 Blood Culture - Final Blood - Venous No growth after 5 days. Assessment and Plan (1) Pulmonary abscess: Status: Acute (2) Abscess of left hand: Status: Acute Plan 38yo F with OUD presenting with dyspnea, admitted with sepsis due to RML PNA with associated RUL cavitary nodule, also L hand purulent cellulitis 1.Acute hypoxic resp failure due to cavitary pneumonia; awaiting placement [facility] for [facility]-term antibiotics -CTX 05/30 -weaned off O2 - continue current therapies 2.Mild intermittent asthma with acute exacerbation - continue oral prednisone taper - prn nebs 3.L hand purulent cellulitis -MRI without evidence of osteomyelitis; discuss 2nd MCP joint findings with Ortho -IV vanco/ceftriaxone 05/30- -will discuss with ID in the am 4.OUD - 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
[2023-05-07 17:43] LABS: Vancomycin Random 59.9 mcg/mL (15-20)
[2023-05-07] MEDS: methADONE HCl 20 MG/2 ML ORAL.CONC 35 MG PO (18:05)
[2023-05-07 19:50] LABS: Glucose, Whole Blood 354 mg/dL (60-115)
[2023-05-07 20:35] LABS: Vancomycin Random 15.8 mcg/mL (15-20)
[2023-05-07] MEDS: Insulin Glargine,Hum.rec.anlog 100 UNIT/ML 10 ML VIAL 30 UNIT SUBCUT (20:39)
[2023-05-07] MEDS: Alteplase Cath Clear 2 MG/2 ML VIAL INTRACATH (22:19)
[2023-05-08] MEDS: cefTRIAXone sodium 2 GM in 0.9 % Sodium Chloride 50 ML IV (01:00)
[2023-05-08] MEDS: vancomycin HCL 1,250 MG in 0.9 % Sodium Chloride 250 ML 166.67 MG IV ×2 (01:40→10:57)
[2023-05-08 03:36] VITALS: BP 137/90; PULSE 66; RESP 18; TEMP 36.7; O2SAT 94
[2023-05-08] MEDS: oxyCODONE HCl Immed Release 5 MG TABLET 10 MG PO ×4 (05:40→20:56)
[2023-05-08] MEDS: Omeprazole 20 MG CAPSULE.DR PO (05:40)
--- NOTE | 2023-05-08 06:09 | MHC.PIE ---
Around 1999, PICC line found to be occluded. Will not flush and negative blood return. Numerous nurse attempts. Nurse machine maintenance supervisor aware. MD notified. Alteplase ordered and administered to PICC line per policy. Dwell time approximately 2.5 hours. Vitals taken per policy. Pt denies complaints and remains alert and oriented x4. PICC functional, intact, patent, with positive blood return presently. Call bazan in reach. Plan of care ongoing.
[2023-05-08 06:43] VITALS: RESP 16
[2023-05-08 07:09] VITALS: BP 146/78; PULSE 62; RESP 18; TEMP 36.6; O2SAT 93
[2023-05-08 07:26] LABS: Glucose, Whole Blood 231 mg/dL (60-115)
[2023-05-08 07:33] LABS: Creatinine Clr Calc Pharmacy 140.3; Estimated Glomerular Filt Rate > 60
[2023-05-08] MEDS: Amphetamine Mixed Salts 10 MG TABLET 30 MG PO ×2 (07:39→12:01)
[2023-05-08] MEDS: Enoxaparin Sodium 40 MG/0.4 ML SYRINGE SUBCUT (07:39)
[2023-05-08] MEDS: Insulin Lispro 100 UNIT/ML 3 ML VIAL SUBCUT ×4 (07:39→20:56)
[2023-05-08] MEDS: Gabapentin 400 MG CAPSULE 800 MG PO ×3 (07:40→20:56)
[2023-05-08] MEDS: Sertraline HCL 25 MG TABLET 75 MG PO (07:40)
[2023-05-08] MEDS: Atorvastatin Calcium 40 MG TABLET PO (07:40)
[2023-05-08] MEDS: predniSONE 20 MG TABLET 40 MG PO (07:41)
[2023-05-08] MEDS: 0.9 % Sodium Chloride Flush 3 ML SYRINGE IVFLUSH ×2 (07:42→16:05)
[2023-05-08] MEDS: Nicotine 21 MG PATCH.TD24 TRANSDERMA (07:42)
[2023-05-08] MEDS: methADONE HCl 20 MG/2 ML ORAL.CONC 70 MG PO (08:53)
[2023-05-08] MEDS: 0.9 % Sodium Chloride Flush 10 ML SYRINGE 5 ML IVFLUSH ×3 (08:54→20:56)
[2023-05-08] MEDS: Benzonatate 100 MG CAPSULE 200 MG PO (10:43)
[2023-05-08] MEDS: LORazepam 1 MG TABLET PO (10:44)
[2023-05-08 11:17] LABS: Glucose, Whole Blood 275 mg/dL (60-115)
--- NOTE | 2023-05-08 13:48 | HO.PM.IMPN ---
Subjective Subjective Date of Service: 05/08/23 Interval History: No acute issues. Remains tolerant therapies Review of Systems Denies chest pain Denies shortness of breath Denies nausea vomiting diarrhea denies fever chills Physical Exam Vital Signs: Vital Signs: Last Vital Signs Temp 97.8 F 05/08/23 07:09 Pulse 62 05/08/23 07:09 Resp 18 05/08/23 07:09 BP 146/78 H 05/08/23 07:09 Pulse Ox 93 05/08/23 07:09 O2 Del Method Room Air 05/08/23 07:09 O2 Flow Rate 3 05/04/23 17:31 BMI result Body Mass Index 36.9 Const: Other: Awake alert no acute distress Resp: Other: Clear to auscultation bilaterally no rales rhonchi or wheezes Cardio: Other: No S4; positive S1-S2; no S3 murmurs rubs or gallops Extrem: Other: No edema Objective Data Active Medications Acetaminophen (Acetaminophen 325 Mg Tablet) 975 mg PO Q8H PRN PRN Reason: Pain, Severe (Pain Scale 7-10) Last Admin: 05/07/23 03:52 Dose: 975 mg Documented By: DALIA Albuterol Sulfate (Albuterol Sulfate (0.083%) 2.5 Mg/3 Ml Vial.Neb) 2.5 mg INHALE Q2H PRN PRN Reason: Shortness of Breath/Wheezing Last Admin: 05/06/23 20:30 Dose: 2.5 mg Documented By: TIMOTHY Albuterol/Ipratropium (Albuterol/Iprat 2.5/0.5mg 3 Ml Ampul.Neb) 3 ml INHALE RQ4H WHILE AWAKE [facility] Last Admin: 05/08/23 11:08 Dose: Not Given Documented By: ACACIA Non-Admin Reason: Patient Refused Amphetamine/Dextroamphetamine (Amphetamine Mixed Salts 10 Mg Tablet) 30 mg PO BID@0800,1300 [facility] Last Admin: 05/08/23 12:01 Dose: 30 mg Documented By: GIUSEPPE Atorvastatin Calcium (Atorvastatin Calcium 40 Mg Tablet) 40 mg PO DAILY [facility] Last Admin: 05/08/23 07:40 Dose: 40 mg Documented By: GIUSEPPE Benzonatate (Benzonatate 100 Mg Capsule) 200 mg PO TID PRN PRN Reason: Cough Last Admin: 05/08/23 10:43 Dose: 200 mg Documented By: GIUSEPPE Dextrose (Dextrose 50 % 25 Gm/50 Ml Syringe) 25 gm IVPUSH Q15M PRN; Protocol PRN Reason: per Hypoglycemia Standing Ord. Enoxaparin Sodium (Enoxaparin Sodium 40 Mg/0.4 Ml Syringe) 40 mg SUBCUT Q24H [facility] Last Admin: 05/08/23 07:39 Dose: 40 mg Documented By: GIUSEPPE Gabapentin (Gabapentin 400 Mg Capsule) 800 mg PO TID [facility] Last Admin: 05/08/23 07:40 Dose: 800 mg Documented By: GIUSEPPE Glucose (Glucose Gel 15 Gm Gel..Gram.) 15 gm PO Q15M PRN; Protocol PRN Reason: per Hypoglycemia Standing Ord. Ceftriaxone Sodium 2 gm/ (Sodium Chloride) 50 mls @ 100 mls/hr IV Q24H [facility] Vancomycin HCl 1,250 mg/ (Sodium Chloride) 250 mls @ 166.667 mls/hr IV Q8H [facility] Last Infusion: 05/08/23 12:31 Dose: Infused Documented By: GIUSEPPE Insulin Glargine (Insulin Glargine,Hum.Rec.Anlog 100 Unit/Ml 10 Ml Vial) 30 unit SUBCUT BEDTIME [facility] Last Admin: 05/07/23 20:39 Dose: 30 unit Documented By: TRUE Insulin Human Lispro (Insulin Lispro 100 Unit/Ml 3 Ml Vial) 0 unit SUBCUT QIDACHS [facility]; Protocol Last Admin: 05/08/23 12:00 Dose: 8 unit Documented By: GIUSEPPE Methadone HCl (Methadone Hcl 20 Mg/2 Ml Oral.Conc) 70 mg PO DAILY@0800 [facility] Last Admin: 05/08/23 08:53 Dose: 70 mg Documented By: GIUSEPPE Methadone HCl (Methadone Hcl 20 Mg/2 Ml Oral.Conc) 35 mg PO DAILY@1700 [facility] Last Admin: 05/07/23 18:05 Dose: 35 mg Documented By: KRISTY Nicotine (Nicotine 21 Mg Patch.Td24) 21 mg TRANSDERMA DAILY [facility] Last Admin: 05/08/23 07:42 Dose: 21 mg Documented By: GIUSEPPE Omeprazole (Omeprazole 20 Mg Capsule.Dr) 20 mg PO DAILY@0630 [facility] Last Admin: 05/08/23 05:40 Dose: 20 mg Documented By: LAFLAMCandelario Oxycodone HCl (Oxycodone Hcl Immed Release 5 Mg Tablet) 10 mg PO Q4H PRN PRN Reason: Pain, Severe (Pain Scale 7-10) Last Admin: 05/08/23 10:43 Dose: 10 mg Documented By: GIUSEPPE Pharmacy Consult (Consult Rx Vancomycin Dosing) 1 each MISCELLANE DAILY PRN PRN Reason: Consult order Prednisone (Prednisone 20 Mg Tablet) 40 mg PO DAILY [facility] Stop: 05/10/23 09:01 Last Admin: 05/08/23 07:41 Dose: 40 mg Documented By: GIUSEPPE Senna/Docusate Sodium (Sennosides/Docusate Sodium Tablet) 1 tab PO DAILY PRN PRN Reason: Constipation Last Admin: 05/05/23 07:50 Dose: 1 tab Documented By: CHRIS Sertraline HCl (Sertraline Hcl 25 Mg Tablet) 75 mg PO DAILY [facility] Last Admin: 05/08/23 07:40 Dose: 75 mg Documented By: GIUSEPPE Sodium Chloride (0.9 % Sodium Chloride Flush 3 Ml Syringe) 3 ml IVFLUSH QSHIFT [facility] Last Admin: 05/08/23 07:42 Dose: 3 ml Documented By: GIUSEPPE Sodium Chloride (0.9 % Sodium Chloride Flush 10 Ml Syringe) 5 ml IVFLUSH TID [facility] Last Admin: 05/08/23 08:54 Dose: 5 ml Documented By: GIUSEPPE Labs 05/05/23 05:42 05/08/23 07:06 Labs: Laboratory Results - last 24 hr 05/07/23 05/07/23 05/07/23 16:11 17:16 19:46 Estim Creat Clear Calc Estimated GFR POC Glucose 314 H 354 H* Random Vancomycin 59.9 H* 05/07/23 05/08/23 05/08/23 20:00 07:06 07:19 Estim Creat Clear Calc 140.3 Estimated GFR > 60 POC Glucose 231 H Random Vancomycin 15.8 05/08/23 11:11 Estim Creat Clear Calc Estimated GFR POC Glucose 275 H Random Vancomycin Assessment and Plan (1) Pulmonary abscess: Status: Acute (2) Abscess of left hand: Status: Acute Plan 38yo F with OUD presenting with dyspnea, admitted with sepsis due to RML PNA with associated RUL cavitary nodule, also L hand purulent cellulitis 1.Acute hypoxic resp failure due to cavitary pneumonia; awaiting placement at [facility] for long-term antibiotics -CTX 06/30 -weaned off O2 -continue current therapies 2.Mild intermittent asthma with acute exacerbation - continue oral prednisone taper - prn nebs 3.L hand purulent cellulitis -MRI without evidence of osteomyelitis; discuss 2nd MCP joint findings with Ortho -IV vanco/ceftriaxone 06/30- -will discuss with ID in the am 4.OUD - 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
[2023-05-08 15:31] VITALS: BP 159/82; PULSE 70; RESP 18; TEMP 36.1; O2SAT 93
[2023-05-08 16:13] LABS: Glucose, Whole Blood 363 mg/dL (60-115)
[2023-05-08] MEDS: methADONE HCl 20 MG/2 ML ORAL.CONC 35 MG PO (16:40)
[2023-05-08 17:03] LABS: Vancomycin Random 30.2 mcg/mL (15-20)
--- NOTE | 2023-05-08 19:07 | HO.SKINPHOTO ---
Location: L hand Category: Stage: Length: Width: Depth: cm Location: Category: Stage: Length: Width: Depth: cm Location: Category: Stage: Length: Width: Depth: cm Location: Category: Stage: Length: Width: Depth: cm Location: Category: Stage: Length: Width: Depth: cm Location: Category: Stage: Length: Width: Depth: cm
[2023-05-08 19:25] VITALS: BP 142/79; PULSE 68; RESP 18; TEMP 36; O2SAT 94
[2023-05-08 20:11] LABS: Glucose, Whole Blood 353 mg/dL (60-115)
[2023-05-08] MEDS: Insulin Glargine,Hum.rec.anlog 100 UNIT/ML 10 ML VIAL 30 UNIT SUBCUT (20:55)
[2023-05-08 23:17] VITALS: RESP 18
[2023-05-09] MEDS: oxyCODONE HCl Immed Release 5 MG TABLET 10 MG PO ×5 (01:51→21:07)
[2023-05-09] MEDS: cefTRIAXone sodium 2 GM in 0.9 % Sodium Chloride 50 ML IV (01:52)
[2023-05-09 03:21] VITALS: BP 127/83; PULSE 73; RESP 18; TEMP 36; O2SAT 93
[2023-05-09 03:26] VITALS: RESP 18
[2023-05-09] MEDS: Omeprazole 20 MG CAPSULE.DR PO (06:12)
[2023-05-09 06:45] LABS: Creatinine Clr Calc Pharmacy 140.3; Estimated Glomerular Filt Rate > 60
[2023-05-09 06:50] LABS: Vancomycin Random 6.1 mcg/mL (15-20)
[2023-05-09 07:16] VITALS: BP 123/78; PULSE 70; RESP 18; TEMP 36.6; O2SAT 94
[2023-05-09 07:29] LABS: Glucose, Whole Blood 151 mg/dL (60-115)
[2023-05-09] MEDS: methADONE HCl 20 MG/2 ML ORAL.CONC 70 MG PO (07:44)
[2023-05-09] MEDS: Insulin Lispro 100 UNIT/ML 3 ML VIAL SUBCUT ×4 (07:45→21:30)
[2023-05-09] MEDS: Nicotine 21 MG PATCH.TD24 TRANSDERMA (07:46)
[2023-05-09] MEDS: Amphetamine Mixed Salts 10 MG TABLET 30 MG PO ×2 (07:47→13:06)
[2023-05-09] MEDS: Enoxaparin Sodium 40 MG/0.4 ML SYRINGE SUBCUT (07:47)
[2023-05-09] MEDS: Sertraline HCL 25 MG TABLET 75 MG PO (07:48)
[2023-05-09] MEDS: Atorvastatin Calcium 40 MG TABLET PO (07:48)
[2023-05-09] MEDS: Gabapentin 400 MG CAPSULE 800 MG PO ×3 (07:48→21:02)
[2023-05-09] MEDS: predniSONE 20 MG TABLET 40 MG PO (07:48)
[2023-05-09] MEDS: 0.9 % Sodium Chloride Flush 10 ML SYRINGE 5 ML IVFLUSH ×3 (07:50→21:02)
[2023-05-09] MEDS: vancomycin HCL 1,500 MG in 0.9 % Sodium Chloride 500 ML 333.33 MG IV (07:55)
[2023-05-09] MEDS: 0.9 % Sodium Chloride Flush 3 ML SYRINGE IVFLUSH ×2 (07:56→16:40)
[2023-05-09] MEDS: LORazepam 1 MG TABLET PO (09:42)
[2023-05-09] MEDS: Benzonatate 100 MG CAPSULE 200 MG PO ×2 (09:43→21:07)
[2023-05-09 09:56] VITALS: PULSE 70; RESP 18; O2SAT 94
[2023-05-09] MEDS: Albuterol Sulfate (0.083%) 2.5 MG/3 ML VIAL.NEB INHALE (09:56)
--- NOTE | 2023-05-09 10:16 | HE.PHANOTE ---
Vanco Dosing Patient level subtherapeutic at 6 after dose being held due to supratherapeutic levels. Will adjust dose to decrease frequency to Q12H to allow patient more time to clear medications. Will start patient on vancomycin 1500 mg Q12H 05/08 @ 0800. Will get a level in 24 hours on 04/11 @ 0600. Patient's levels have been unpredicatble and may need to be switch to alternative treatment if we cannot find a suitable regimen. Tabitha Holt, PharmD
[2023-05-09 11:25] LABS: Glucose, Whole Blood 301 mg/dL (60-115)
--- NOTE | 2023-05-09 12:27 | HO.PM.IMPN ---
Subjective Subjective Date of Service: 05/09/23 Interval History: No acute issues overnight. Mild anxiety treated well with p.r.n. Ativan Review of Systems Denies chest pain Denies shortness of breath Denies nausea vomiting diarrhea denies fever chills Physical Exam Vital Signs: Vital Signs: Last Vital Signs Temp 97.8 F 05/09/23 07:16 Pulse 70 05/09/23 09:56 Resp 18 05/09/23 09:56 BP 123/78 05/09/23 07:16 Pulse Ox 94 05/09/23 07:16 O2 Del Method Room Air 05/09/23 07:16 O2 Flow Rate 3 05/04/23 17:31 BMI result Body Mass Index 36.9 Const: Other: Awake alert no acute distress Resp: Other: Clear to auscultation bilaterally no rales rhonchi or wheezes Cardio: Other: No S4; positive S1-S2; no S3 murmurs rubs or gallops Extrem: Other: No edema Objective Data Active Medications Acetaminophen (Acetaminophen 325 Mg Tablet) 975 mg PO Q8H PRN PRN Reason: Pain, Severe (Pain Scale 7-10) Last Admin: 05/07/23 03:52 Dose: 975 mg Documented By: DALIA Albuterol Sulfate (Albuterol Sulfate (0.083%) 2.5 Mg/3 Ml Vial.Neb) 2.5 mg INHALE Q2H PRN PRN Reason: Shortness of Breath/Wheezing Last Admin: 05/09/23 09:56 Dose: 2.5 mg Documented By: ACACIA Amphetamine/Dextroamphetamine (Amphetamine Mixed Salts 10 Mg Tablet) 30 mg PO BID@0800,1300 [facility] Last Admin: 05/09/23 07:47 Dose: 30 mg Documented By: GIUSEPPE Atorvastatin Calcium (Atorvastatin Calcium 40 Mg Tablet) 40 mg PO DAILY [facility] Last Admin: 05/09/23 07:48 Dose: 40 mg Documented By: GIUSEPPE Benzonatate (Benzonatate 100 Mg Capsule) 200 mg PO TID PRN PRN Reason: Cough Last Admin: 05/09/23 09:43 Dose: 200 mg Documented By: GIUSEPPE Dextrose (Dextrose 50 % 25 Gm/50 Ml Syringe) 25 gm IVPUSH Q15M PRN; Protocol PRN Reason: per Hypoglycemia Standing Ord. Enoxaparin Sodium (Enoxaparin Sodium 40 Mg/0.4 Ml Syringe) 40 mg SUBCUT Q24H [facility] Last Admin: 05/09/23 07:47 Dose: 40 mg Documented By: GIUSEPPE Gabapentin (Gabapentin 400 Mg Capsule) 800 mg PO TID [facility] Last Admin: 05/09/23 07:48 Dose: 800 mg Documented By: GIUSEPPE Glucose (Glucose Gel 15 Gm Gel..Gram.) 15 gm PO Q15M PRN; Protocol PRN Reason: per Hypoglycemia Standing Ord. Ceftriaxone Sodium 2 gm/ (Sodium Chloride) 50 mls @ 100 mls/hr IV Q24H [facility] Last Infusion: 05/09/23 03:39 Dose: Infused Documented By: TRUE Vancomycin HCl 1,500 mg/ (Sodium Chloride) 500 mls @ 333.333 mls/hr IV Q12H [facility] Last Infusion: 05/09/23 09:43 Dose: Infused Documented By: GIUSEPPE Insulin Glargine (Insulin Glargine,Hum.Rec.Anlog 100 Unit/Ml 10 Ml Vial) 30 unit SUBCUT BEDTIME [facility] Last Admin: 05/08/23 20:55 Dose: 30 unit Documented By: TRUE Insulin Human Lispro (Insulin Lispro 100 Unit/Ml 3 Ml Vial) 0 unit SUBCUT QIDACHS [facility]; Protocol Last Admin: 05/09/23 07:45 Dose: 4 unit Documented By: GIUSEPPE Lorazepam (Lorazepam 1 Mg Tablet) 1 mg PO BID PRN PRN Reason: anxiety/restlessness Last Admin: 05/09/23 09:42 Dose: 1 mg Documented By: GIUSEPPE Methadone HCl (Methadone Hcl 20 Mg/2 Ml Oral.Conc) 70 mg PO DAILY@0800 [facility] Last Admin: 05/09/23 07:44 Dose: 70 mg Documented By: GIUSEPPE Methadone HCl (Methadone Hcl 20 Mg/2 Ml Oral.Conc) 35 mg PO DAILY@1700 [facility] Last Admin: 05/08/23 16:40 Dose: 35 mg Documented By: GIUSEPPE Nicotine (Nicotine 21 Mg Patch.Td24) 21 mg TRANSDERMA DAILY [facility] Last Admin: 05/09/23 07:46 Dose: 21 mg Documented By: GIUSEPPE Omeprazole (Omeprazole 20 Mg Capsule.) 20 mg PO DAILY@0630 [facility] Last Admin: 05/09/23 06:12 Dose: 20 mg Documented By: TRUE Oxycodone HCl (Oxycodone Hcl Immed Release 5 Mg Tablet) 10 mg PO Q4H PRN PRN Reason: Pain, Severe (Pain Scale 7-10) Last Admin: 05/09/23 06:12 Dose: 10 mg Documented By: TRUE Pharmacy Consult (Consult Rx Vancomycin Dosing) 1 each MISCELLANE DAILY PRN PRN Reason: Consult order Prednisone (Prednisone 20 Mg Tablet) 40 mg PO DAILY [facility] Stop: 05/10/23 09:01 Last Admin: 05/09/23 07:48 Dose: 40 mg Documented By: GIUSEPPE Senna/Docusate Sodium (Sennosides/Docusate Sodium Tablet) 1 tab PO DAILY PRN PRN Reason: Constipation Last Admin: 05/05/23 07:50 Dose: 1 tab Documented By: CHRIS Sertraline HCl (Sertraline Hcl 25 Mg Tablet) 75 mg PO DAILY [facility] Last Admin: 05/09/23 07:48 Dose: 75 mg Documented By: GIUSEPPE Sodium Chloride (0.9 % Sodium Chloride Flush 3 Ml Syringe) 3 ml IVFLUSH QSHIFT [facility] Last Admin: 05/09/23 07:56 Dose: 3 ml Documented By: GIUSEPPE Sodium Chloride (0.9 % Sodium Chloride Flush 10 Ml Syringe) 5 ml IVFLUSH TID [facility] Last Admin: 05/09/23 07:50 Dose: 5 ml Documented By: GIUSEPPE Labs 05/05/23 05:42 05/09/23 06:06 Labs: Laboratory Results - last 24 hr 05/08/23 05/08/23 05/08/23 16:01 16:23 19:29 Estim Creat Clear Calc Estimated GFR POC Glucose 363 H* 353 H* Random Vancomycin 30.2 H* 05/09/23 05/09/23 05/09/23 06:06 07:18 11:15 Estim Creat Clear Calc 140.3 Estimated GFR > 60 POC Glucose 151 H 301 H Random Vancomycin 6.1 L Assessment and Plan (1) Pulmonary abscess: Status: Acute (2) Abscess of left hand: Status: Acute Plan 38yo F with OUD presenting with dyspnea, admitted with sepsis due to RML PNA with associated RUL cavitary nodule, also L hand purulent cellulitis 1.Acute hypoxic resp failure due to cavitary pneumonia; awaiting placement at [facility] for long-term antibiotics -CTX 07/30 -weaned off O2 -continue current therapies 2.Mild intermittent asthma with acute exacerbation - continue oral prednisone taper - prn nebs 3.L hand purulent cellulitis -MRI without evidence of osteomyelitis; discuss 2nd MCP joint findings with Ortho -IV vanco/ceftriaxone 07/30- 4.OUD - 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
[2023-05-09 15:38] VITALS: BP 147/89; PULSE 75; RESP 18; TEMP 36.3; O2SAT 93
[2023-05-09 16:16] LABS: Glucose, Whole Blood 316 mg/dL (60-115)
[2023-05-09] MEDS: methADONE HCl 20 MG/2 ML ORAL.CONC 35 MG PO (16:39)
[2023-05-09 20:00] VITALS: BP 130/70; PULSE 83; RESP 19; TEMP 36.1; O2SAT 93
[2023-05-09 20:25] LABS: Glucose, Whole Blood 225 mg/dL (60-115)
[2023-05-09] MEDS: vancomycin HCL 1,500 MG in 0.9 % Sodium Chloride 500 ML 333 MG IV (21:01)
[2023-05-09] MEDS: Insulin Glargine,Hum.rec.anlog 100 UNIT/ML 10 ML VIAL 30 UNIT SUBCUT (21:30)
[2023-05-10] MEDS: cefTRIAXone sodium 2 GM in 0.9 % Sodium Chloride 50 ML IV (02:48)
[2023-05-10] MEDS: 0.9 % Sodium Chloride Flush 3 ML SYRINGE IVFLUSH ×4 (02:49→20:39)
[2023-05-10 03:27] VITALS: BP 136/59; PULSE 60; RESP 20; TEMP 36.1; O2SAT 96
[2023-05-10] MEDS: Omeprazole 20 MG CAPSULE.DR PO (06:14)
[2023-05-10] MEDS: oxyCODONE HCl Immed Release 5 MG TABLET 10 MG PO ×3 (06:15→18:09)
[2023-05-10 07:25] VITALS: BP 130/80; PULSE 72; RESP 20; TEMP 36.5; O2SAT 94
[2023-05-10 07:50] LABS: Glucose, Whole Blood 224 mg/dL (60-115)
[2023-05-10] MEDS: Amphetamine Mixed Salts 10 MG TABLET 30 MG PO ×2 (08:26→12:32)
[2023-05-10] MEDS: Enoxaparin Sodium 40 MG/0.4 ML SYRINGE SUBCUT (08:26)
[2023-05-10] MEDS: Insulin Lispro 100 UNIT/ML 3 ML VIAL SUBCUT ×4 (08:26→20:38)
[2023-05-10] MEDS: Gabapentin 400 MG CAPSULE 800 MG PO ×3 (08:26→20:38)
[2023-05-10] MEDS: methADONE HCl 20 MG/2 ML ORAL.CONC 70 MG PO (08:27)
[2023-05-10] MEDS: Sertraline HCL 25 MG TABLET 75 MG PO (08:27)
[2023-05-10] MEDS: predniSONE 20 MG TABLET 40 MG PO (08:27)
[2023-05-10] MEDS: Nicotine 21 MG PATCH.TD24 TRANSDERMA (08:28)
[2023-05-10] MEDS: Atorvastatin Calcium 40 MG TABLET PO (08:29)
[2023-05-10] MEDS: 0.9 % Sodium Chloride Flush 10 ML SYRINGE 5 ML IVFLUSH ×2 (08:30→16:15)
[2023-05-10 09:27] LABS: Vancomycin Random 9.8 mcg/mL (15-20)
[2023-05-10 09:30] LABS: Creatinine Clr Calc Pharmacy 128.8; Estimated Glomerular Filt Rate > 60
--- NOTE | 2023-05-10 10:16 | HO.WOUND ---
Wound Consult: Follow up 38yr old?F admitted to [facility] [place] on - See progress notes and H&P for detailed history.? Wound consult follow up for Left Foot and Left Hand I&D site.? Patient agreeable to assessment and photo documentation.? Left Hand Initial Assessment Left Hand post I&D site by Ortho team Measurements: 1.5cm x 0.8cm Wound Bed: dry adherent yellow slough with areas of pink wound bed noted Drainage / Odor: none - dried dressing adherent to wound bed Edges: per photo review - erythema appears to be decreasing Lu[place] wound: painful to touch Goals of Treatment: ? discussed with Conrado WOMACK for Ortho Service ok with switch dressing to wound gel for moist wound healing. Right Hand Etiology: IV injection site - no open wound - resolved site. Left Foot Etiology:?resolving injury secondary to IVDU - Hydoroclloid in place changed yesterday 05/09/23 - continue with hydrocolloid application. Recommendations: 1. Turn and Reposition every 2 hours and as needed for patient comfort.? Use pillows or wedges to support off loading positions. 2. Off Load all bony prominences with use of pillows and heel boots if needed.? Apply Preventative foams where needed. ? 3. Monitor for incontinence and moisture control, use barrier creams when needed for prevention and treatment. 4. Provide adequate and supplemental nutrition.? 5. Order or Continue low air loss mattress. 6. When applicable maintain blood glucose levels per Providers order. 7. Left Foot - Cleanse with NS, pat dry. Cover with cut to size hydrocolloid, change every 3 days. 8. Left Hand - Cleanse and irrigate with NS, Pat dry. Apply generous amount of [place] gel to wound bed , cover with dry gauze, ABD pad and gauze wrap. Change every other day. Re-consult wound care Nurse for wound deterioration or wound changes.
--- NOTE | 2023-05-10 10:38 | MHC.CM.PN ---
Patient is medically cleared for dc to SNF for LT IVABT; r/t Patient's Methadone, only [facility] and their Sister facilities are an option for dc. [facility] has been updated and continues to follow for bed availability.
[2023-05-10] MEDS: vancomycin HCL 1,000 MG in 0.9 % Sodium Chloride 250 ML 270 MG IV ×2 (10:58→16:17)
[2023-05-10] MEDS: LORazepam 1 MG TABLET PO ×2 (11:04→20:38)
[2023-05-10 11:29] LABS: Glucose, Whole Blood 297 mg/dL (60-115)
--- NOTE | 2023-05-10 14:02 | P.PNIM_ITS ---
Subjective Subjective Date of Service: 05/10/23 Interval History: No acute changes. Anxiety remains an issue; p.r.n. Ativan with relief Review of Systems Denies chest pain Denies shortness of breath Denies nausea vomiting diarrhea denies fever chills Physical Exam 2 Vital Signs: Vital Signs: Last Vital Signs Temp 97.7 F 05/10/23 07:25 Pulse 72 05/10/23 07:25 Resp 20 05/10/23 07:25 BP 130/80 05/10/23 07:25 Pulse Ox 94 05/10/23 07:25 O2 Del Method Room Air 05/10/23 07:25 O2 Flow Rate 3 05/04/23 17:31 BMI result Body Mass Index 36.9 Const: Other: Awake alert no acute distress Resp: Other: Clear to auscultation bilaterally no rales rhonchi or wheezes Cardio: Other: No S4; positive S1-S2; no S3 murmurs rubs or gallops Extrem: Other: No edema Objective Data Active Medications Acetaminophen (Acetaminophen 325 Mg Tablet) 975 mg PO Q8H PRN PRN Reason: Pain, Severe (Pain Scale 7-10) Last Admin: 05/07/23 03:52 Dose: 975 mg Documented By: DALIA Albuterol Sulfate (Albuterol Sulfate (0.083%) 2.5 Mg/3 Ml Vial.Neb) 2.5 mg INHALE Q2H PRN PRN Reason: Shortness of Breath/Wheezing Last Admin: 05/09/23 09:56 Dose: 2.5 mg Documented By: ACACIA Amphetamine/Dextroamphetamine (Amphetamine Mixed Salts 10 Mg Tablet) 30 mg PO BID@0800,1300 [facility] Last Admin: 05/10/23 12:32 Dose: 30 mg Documented By: KAITLIN Atorvastatin Calcium (Atorvastatin Calcium 40 Mg Tablet) 40 mg PO DAILY [facility] Last Admin: 05/10/23 08:29 Dose: 40 mg Documented By: KAITLIN Benzonatate (Benzonatate 100 Mg Capsule) 200 mg PO TID PRN PRN Reason: Cough Last Admin: 05/09/23 21:07 Dose: 200 mg Documented By: DALIA Dextrose (Dextrose 50 % 25 Gm/50 Ml Syringe) 25 gm IVPUSH Q15M PRN; Protocol PRN Reason: per Hypoglycemia Standing Ord. Enoxaparin Sodium (Enoxaparin Sodium 40 Mg/0.4 Ml Syringe) 40 mg SUBCUT Q24H [facility] Last Admin: 05/10/23 08:26 Dose: 40 mg Documented By: KAITLIN Gabapentin (Gabapentin 400 Mg Capsule) 800 mg PO TID [facility] Last Admin: 05/10/23 08:26 Dose: 800 mg Documented By: KAITLIN Glucose (Glucose Gel 15 Gm Gel..Gram.) 15 gm PO Q15M PRN; Protocol PRN Reason: per Hypoglycemia Standing Ord. Ceftriaxone Sodium 2 gm/ (Sodium Chloride) 50 mls @ 100 mls/hr IV Q24H [facility] Last Infusion: 05/10/23 03:20 Dose: Infused Documented By: DALIA Vancomycin HCl 1,000 mg/ (Sodium Chloride) 270 mls @ 270 mls/hr IV Q8H [facility] Last Infusion: 05/10/23 12:21 Dose: Infused Documented By: KAITLIN Insulin Glargine (Insulin Glargine,Hum.Rec.Anlog 100 Unit/Ml 10 Ml Vial) 30 unit SUBCUT BEDTIME [facility] Last Admin: 05/09/23 21:30 Dose: 30 unit Documented By: DALIA Insulin Human Lispro (Insulin Lispro 100 Unit/Ml 3 Ml Vial) 0 unit SUBCUT QIDACHS [facility]; Protocol Last Admin: 05/10/23 11:37 Dose: 8 unit Documented By: KAITLIN Lorazepam (Lorazepam 1 Mg Tablet) 1 mg PO BID PRN PRN Reason: anxiety/restlessness Last Admin: 05/10/23 11:04 Dose: 1 mg Documented By: KAITLIN Methadone HCl (Methadone Hcl 20 Mg/2 Ml Oral.Conc) 70 mg PO DAILY@0800 [facility] Last Admin: 05/10/23 08:27 Dose: 70 mg Documented By: KAITLIN Methadone HCl (Methadone Hcl 20 Mg/2 Ml Oral.Conc) 35 mg PO DAILY@1700 [facility] Last Admin: 05/09/23 16:39 Dose: 35 mg Documented By: GIUSEPPE Nicotine (Nicotine 21 Mg Patch.Td24) 21 mg TRANSDERMA DAILY [facility] Last Admin: 05/10/23 08:28 Dose: 21 mg Documented By: KAITLIN Omeprazole (Omeprazole 20 Mg Capsule.) 20 mg PO DAILY@0630 [facility] Last Admin: 05/10/23 06:14 Dose: 20 mg Documented By: DALIA Oxycodone HCl (Oxycodone Hcl Immed Release 5 Mg Tablet) 10 mg PO Q4H PRN PRN Reason: Pain, Severe (Pain Scale 7-10) Last Admin: 05/10/23 12:33 Dose: 10 mg Documented By: KAITLIN Pharmacy Consult (Consult Rx Vancomycin Dosing) 1 each MISCELLANE DAILY PRN PRN Reason: Consult order Senna/Docusate Sodium (Sennosides/Docusate Sodium Tablet) 1 tab PO DAILY PRN PRN Reason: Constipation Last Admin: 05/05/23 07:50 Dose: 1 tab Documented By: CHRIS Sertraline HCl (Sertraline Hcl 25 Mg Tablet) 75 mg PO DAILY [facility] Last Admin: 05/10/23 08:27 Dose: 75 mg Documented By: KAITLIN Sodium Chloride (0.9 % Sodium Chloride Flush 3 Ml Syringe) 3 ml IVFLUSH QSHIFT [facility] Last Admin: 05/10/23 08:28 Dose: 3 ml Documented By: KAITLIN Sodium Chloride (0.9 % Sodium Chloride Flush 10 Ml Syringe) 5 ml IVFLUSH TID [facility] Last Admin: 05/10/23 08:30 Dose: 5 ml Documented By: KAITLIN Labs 05/05/23 05:42 05/10/23 08:18 Labs: Laboratory Results - last 24 hr 05/09/23 05/09/23 05/10/23 16:10 19:26 07:28 Hold Purple Top SEE NOTE Estim Creat Clear Calc Estimated GFR POC Glucose 316 H 225 H 224 H Random Vancomycin 05/10/23 05/10/23 08:18 11:20 Hold Purple Top Estim Creat Clear Calc 128.8 Estimated GFR > 60 POC Glucose 297 H Random Vancomycin 9.8 L Assessment and Plan (1) Pulmonary abscess: Status: Acute (2) Abscess of left hand: Status: Acute Plan 38yo F with OUD presenting with dyspnea, admitted with sepsis due to RML PNA with associated RUL cavitary nodule, also L hand purulent cellulitis 1.Acute hypoxic resp failure due to cavitary pneumonia; awaiting placement at [facility] for long-term antibiotics -CTX 08/30 -weaned off O2 -continue current therapies 2.Mild intermittent asthma with acute exacerbation - continue oral prednisone taper - prn nebs 3.L hand purulent cellulitis -MRI without evidence of osteomyelitis; discuss 2nd MCP joint findings with Ortho -IV vanco/ceftriaxone 08/30- 4.OUD - 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
[2023-05-10 15:01] VITALS: BP 135/71; PULSE 89; RESP 20; TEMP 36.5; O2SAT 92
[2023-05-10 15:52] LABS: Glucose, Whole Blood 421 mg/dL (60-115)
[2023-05-10] MEDS: methADONE HCl 20 MG/2 ML ORAL.CONC 35 MG PO (16:15)
[2023-05-10] MEDS: Insulin Lispro 100 UNIT/ML 3 ML VIAL 15 UNIT SUBCUT (16:16)
[2023-05-10 19:55] VITALS: BP 116/59; PULSE 76; RESP 18; TEMP 36.4; O2SAT 96
[2023-05-10 20:18] LABS: Glucose, Whole Blood 292 mg/dL (60-115)
[2023-05-10] MEDS: Insulin Glargine,Hum.rec.anlog 100 UNIT/ML 10 ML VIAL 30 UNIT SUBCUT (20:39)
[2023-05-11 00:10] VITALS: BP 113/54; PULSE 70; RESP 19; TEMP 36.1; O2SAT 95
[2023-05-11] MEDS: cefTRIAXone sodium 2 GM in 0.9 % Sodium Chloride 50 ML IV (02:21)
[2023-05-11] MEDS: oxyCODONE HCl Immed Release 5 MG TABLET 10 MG PO ×3 (02:34→22:27)
[2023-05-11] MEDS: vancomycin HCL 1,000 MG in 0.9 % Sodium Chloride 250 ML 270 MG IV (03:11)
[2023-05-11 03:29] VITALS: BP 127/63; PULSE 73; RESP 17; TEMP 36.4; O2SAT 94
--- NOTE | 2023-05-11 03:51 | PC.NURSE ---
Transferred to the unit at 0330, alert and oriented, denies any discomfort, pt claimed she just got pain med prior to transfer, left hand dressing intact, +CMS on the left hand, snacks requested and provided.
[2023-05-11] MEDS: Omeprazole 20 MG CAPSULE.DR PO (06:01)
[2023-05-11 07:23] VITALS: BP 102/50; PULSE 72; RESP 14; TEMP 36.1; O2SAT 96
[2023-05-11 07:33] LABS: Glucose, Whole Blood 364 mg/dL (60-115)
[2023-05-11] MEDS: 0.9 % Sodium Chloride Flush 3 ML SYRINGE IVFLUSH ×2 (08:01→14:47)
[2023-05-11] MEDS: Gabapentin 400 MG CAPSULE 800 MG PO ×3 (08:23→19:39)
[2023-05-11] MEDS: Insulin Lispro 100 UNIT/ML 3 ML VIAL SUBCUT ×4 (08:23→19:40)
[2023-05-11] MEDS: Enoxaparin Sodium 40 MG/0.4 ML SYRINGE SUBCUT (08:24)
[2023-05-11] MEDS: Nicotine 21 MG PATCH.TD24 TRANSDERMA (08:24)
[2023-05-11] MEDS: Amphetamine Mixed Salts 10 MG TABLET 30 MG PO ×2 (08:24→12:12)
[2023-05-11] MEDS: Atorvastatin Calcium 40 MG TABLET PO (08:24)
[2023-05-11] MEDS: LORazepam 1 MG TABLET PO ×2 (08:24→22:27)
[2023-05-11] MEDS: methADONE HCl 20 MG/2 ML ORAL.CONC 70 MG PO (08:24)
[2023-05-11] MEDS: Sertraline HCL 25 MG TABLET 75 MG PO (08:24)
[2023-05-11 08:25] LABS: Vancomycin Random 18.6 mcg/mL (15-20)
[2023-05-11 08:26] LABS: Estimated Glomerular Filt Rate > 60
[2023-05-11] MEDS: 0.9 % Sodium Chloride Flush 10 ML SYRINGE 5 ML IVFLUSH ×4 (08:28→19:30)
--- NOTE | 2023-05-11 08:35 | HE.PHANOTE ---
NETTIE PEREZ Patients level came back this morning at 18.6. When using [employer] as a tool the program is showing her predicted trough should have been 14.2. Patient is running higher than predicted by program. Will decrease dose to 750 mg Q8H and get a level after two doses to see how patients level changes. Renal function has worsen this morning and remains unstable. Next level due for 05/11 @0800
[2023-05-11] MEDS: vancomycin HCL 750 MG in 0.9 % Sodium Chloride 250 ML 265 MG IV ×2 (10:35→17:47)
[2023-05-11 11:18] LABS: Glucose, Whole Blood 290 mg/dL (60-115)
[2023-05-11 15:12] VITALS: BP 119/69; PULSE 106; RESP 18; TEMP 37; O2SAT 95
--- NOTE | 2023-05-11 16:01 | P.PNIM_ITS ---
Subjective Subjective Date of Service: 05/11/23 Interval History: Acute hypoxic resp failure due to cavitary pneumonia Review of Systems sob improving,some right sided chest soarness possible abcess of left hand Physical Exam 2 Vital Signs: Vital Signs: Last Vital Signs Temp 98.6 F 05/11/23 15:12 Pulse 106 H 05/11/23 15:12 Resp 18 05/11/23 15:12 BP 119/69 05/11/23 15:12 Pulse Ox 95 05/11/23 15:12 O2 Del Method Room Air 05/11/23 15:12 O2 Flow Rate 3 05/04/23 17:31 BMI result Body Mass Index 36.9 Appearance: Alert.? Oriented X3.? cvs: [id number], [id number]. res:air entry fair ,diminshed on right upper lung /has few cracles. abd: no rebound or guarding ,nt, bs present. ext pulses present , no cyanosis . left hand erythema seems improving neuro: axo3 , nonfocal. Objective Data Active Medications Acetaminophen (Acetaminophen 325 Mg Tablet) 975 mg PO Q8H PRN PRN Reason: Pain, Severe (Pain Scale 7-10) Last Admin: 05/07/23 03:52 Dose: 975 mg Documented By: DALIA Albuterol Sulfate (Albuterol Sulfate (0.083%) 2.5 Mg/3 Ml Vial.Neb) 2.5 mg INHALE Q2H PRN PRN Reason: Shortness of Breath/Wheezing Last Admin: 05/09/23 09:56 Dose: 2.5 mg Documented By: ACACIA Amphetamine/Dextroamphetamine (Amphetamine Mixed Salts 10 Mg Tablet) 30 mg PO BID@0800,1300 [facility] Last Admin: 05/11/23 12:12 Dose: 30 mg Documented By: TEMI Atorvastatin Calcium (Atorvastatin Calcium 40 Mg Tablet) 40 mg PO DAILY [facility] Last Admin: 05/11/23 08:24 Dose: 40 mg Documented By: TEMI Benzonatate (Benzonatate 100 Mg Capsule) 200 mg PO TID PRN PRN Reason: Cough Last Admin: 05/09/23 21:07 Dose: 200 mg Documented By: DALIA Dextrose (Dextrose 50 % 25 Gm/50 Ml Syringe) 25 gm IVPUSH Q15M PRN; Protocol PRN Reason: per Hypoglycemia Standing Ord. Enoxaparin Sodium (Enoxaparin Sodium 40 Mg/0.4 Ml Syringe) 40 mg SUBCUT Q24H [facility] Last Admin: 05/11/23 08:24 Dose: 40 mg Documented By: TEMI Gabapentin (Gabapentin 400 Mg Capsule) 800 mg PO TID [facility] Last Admin: 05/11/23 14:47 Dose: 800 mg Documented By: TEMI Glucose (Glucose Gel 15 Gm Gel..Gram.) 15 gm PO Q15M PRN; Protocol PRN Reason: per Hypoglycemia Standing Ord. Ceftriaxone Sodium 2 gm/ (Sodium Chloride) 50 mls @ 100 mls/hr IV Q24H [facility] Last Infusion: 05/11/23 03:09 Dose: Infused Documented By: DALIA Vancomycin HCl 750 mg/ Sodium (Chloride) 265 mls @ 265 mls/hr IV Q8H [facility] Last Infusion: 05/11/23 12:13 Dose: Infused Documented By: TEMI Insulin Glargine (Insulin Glargine,Hum.Rec.Anlog 100 Unit/Ml 10 Ml Vial) 30 unit SUBCUT BEDTIME [facility] Last Admin: 05/10/23 20:39 Dose: 30 unit Documented By: DALIA Insulin Human Lispro (Insulin Lispro 100 Unit/Ml 3 Ml Vial) 0 unit SUBCUT QIDACHS [facility]; Protocol Lorazepam (Lorazepam 1 Mg Tablet) 1 mg PO BID PRN PRN Reason: anxiety/restlessness Last Admin: 05/11/23 08:24 Dose: 1 mg Documented By: TEMI Methadone HCl (Methadone Hcl 20 Mg/2 Ml Oral.Conc) 70 mg PO DAILY@0800 [facility] Last Admin: 05/11/23 08:24 Dose: 70 mg Documented By: TEMI Methadone HCl (Methadone Hcl 20 Mg/2 Ml Oral.Conc) 35 mg PO DAILY@1700 [facility] Last Admin: 05/10/23 16:15 Dose: 35 mg Documented By: KAITLIN Nicotine (Nicotine 21 Mg Patch.Td24) 21 mg TRANSDERMA DAILY [facility] Last Admin: 05/11/23 08:24 Dose: 21 mg Documented By: TEMI Omeprazole (Omeprazole 20 Mg Capsule.Dr) 20 mg PO DAILY@0630 [facility] Last Admin: 05/11/23 06:01 Dose: 20 mg Documented By: KELSIEGianna Oxycodone HCl (Oxycodone Hcl Immed Release 5 Mg Tablet) 10 mg PO Q4H PRN PRN Reason: Pain, Severe (Pain Scale 7-10) Last Admin: 05/11/23 10:55 Dose: 10 mg Documented By: TEMI Pharmacy Consult (Consult Rx Vancomycin Dosing) 1 each MISCELLANE DAILY PRN PRN Reason: Consult order Senna/Docusate Sodium (Sennosides/Docusate Sodium Tablet) 1 tab PO DAILY PRN PRN Reason: Constipation Last Admin: 05/05/23 07:50 Dose: 1 tab Documented By: AIYANA-RIVLA Sertraline HCl (Sertraline Hcl 25 Mg Tablet) 75 mg PO DAILY [facility] Last Admin: 05/11/23 08:24 Dose: 75 mg Documented By: TEMI Sodium Chloride (0.9 % Sodium Chloride Flush 3 Ml Syringe) 3 ml IVFLUSH QSHIFT [facility] Last Admin: 05/11/23 14:47 Dose: 3 ml Documented By: TEMI Sodium Chloride (0.9 % Sodium Chloride Flush 10 Ml Syringe) 5 ml IVFLUSH TID [facility] Last Admin: 05/11/23 14:48 Dose: 5 ml Documented By: TEMI Labs 05/05/23 05:42 05/11/23 08:00 Labs: Laboratory Results - last 24 hr 05/10/23 05/11/23 05/11/23 19:14 07:24 08:00 Hold Purple Top SEE NOTE Estim Creat Clear Calc 119.0 Estimated GFR > 60 POC Glucose 292 H 364 H* Random Vancomycin 18.6 05/11/23 11:08 Hold Purple Top Estim Creat Clear Calc Estimated GFR POC Glucose 290 H Random Vancomycin Assessment and Plan (1) Abscess of left hand: Status: Acute (2) Pulmonary abscess: Status: Acute Plan 38 years old woman admitted with: Right upper lobe cavitary nodule likely abscess associated with right middle lobe pneumonia and sepsis likely secondary to septic emboli/endocarditis. Pulm consulted- suggest 28d ABX then repeat CT scan, IV vancomycin + ceftriaxone 05/02-, blood cultures negative, weaned off O2 TTE 05/03: - The left ventricular systolic function is normal. The calculated ejection fraction is 65% by biplane method. - No obvious valvular pathology seen on this study. left hand abcess -possible sec to ivdu, continue iv antibiotics , ortho eval. L hand purulent cellulitis - POD#1 I+D, start OT - MRI to r/o osteomyelitis OUD - HCV viral load pending; HIV negative, HBV immune - Addiction Medicine consulted, on split-dose methadone Asthma. DuoNeb as needed. History of ADHD. Dextroamphetamine . DVT prophylaxis: Heparin subcut. Code status: Full ongoing hospitlisation need for IV antibiotics to treat cavitary pneumonia and left hand cellulitis,also need placement. Quality Stroke Does the patient have a stroke diagnosis?: No VTE Prior VTE?: No VTE Risk Level:: Medical - moderate - high VTE Device Contraindication: Treatment Not Indicated VTE Drug Contraindication: N/A - Med Ordered
[2023-05-11 16:24] LABS: Glucose, Whole Blood 203 mg/dL (60-115)
[2023-05-11] MEDS: methADONE HCl 20 MG/2 ML ORAL.CONC 35 MG PO (17:03)
[2023-05-11 19:22] VITALS: BP 122/73; PULSE 92; RESP 18; TEMP 36; O2SAT 94
[2023-05-11] MEDS: Insulin Glargine,Hum.rec.anlog 100 UNIT/ML 10 ML VIAL 30 UNIT SUBCUT (19:40)
[2023-05-11 20:05] LABS: Glucose, Whole Blood 227 mg/dL (60-115)
[2023-05-12] MEDS: cefTRIAXone sodium 2 GM in 0.9 % Sodium Chloride 50 ML IV (03:08)
[2023-05-12] MEDS: vancomycin HCL 750 MG in 0.9 % Sodium Chloride 250 ML 265 MG IV (03:08)
[2023-05-12 03:19] VITALS: BP 125/58; PULSE 76; RESP 18; TEMP 36.5; O2SAT 95
[2023-05-12] MEDS: Omeprazole 20 MG CAPSULE.DR PO (06:07)
[2023-05-12] MEDS: oxyCODONE HCl Immed Release 5 MG TABLET 10 MG PO ×3 (06:10→21:28)
[2023-05-12 07:18] VITALS: BP 123/82; PULSE 85; RESP 16; TEMP 36; O2SAT 94
[2023-05-12 07:47] LABS: Glucose, Whole Blood 233 mg/dL (60-115)
[2023-05-12] MEDS: Nicotine 21 MG PATCH.TD24 TRANSDERMA (08:00)
[2023-05-12] MEDS: Amphetamine Mixed Salts 10 MG TABLET 30 MG PO ×2 (08:01→12:31)
[2023-05-12] MEDS: Atorvastatin Calcium 40 MG TABLET PO (08:01)
[2023-05-12] MEDS: methADONE HCl 20 MG/2 ML ORAL.CONC 70 MG PO (08:01)
[2023-05-12] MEDS: Gabapentin 400 MG CAPSULE 800 MG PO ×3 (08:01→21:21)
[2023-05-12] MEDS: Sertraline HCL 25 MG TABLET 75 MG PO (08:01)
[2023-05-12] MEDS: Enoxaparin Sodium 40 MG/0.4 ML SYRINGE SUBCUT (08:02)
[2023-05-12] MEDS: 0.9 % Sodium Chloride Flush 3 ML SYRINGE IVFLUSH ×2 (08:02→14:54)
[2023-05-12] MEDS: Insulin Lispro 100 UNIT/ML 3 ML VIAL SUBCUT ×4 (08:02→21:21)
[2023-05-12] MEDS: 0.9 % Sodium Chloride Flush 10 ML SYRINGE 5 ML IVFLUSH ×3 (08:02→21:22)
[2023-05-12 08:30] LABS: Creatinine Clr Calc Pharmacy 132.4; Estimated Glomerular Filt Rate > 60; Vancomycin Random 16.5 mcg/mL (15-20)
--- NOTE | 2023-05-12 08:54 | HE.PHANOTE ---
RE [facility] Patients level came back this morning at 16.5. Renal function unstable. Increasing dose to 1000 mg Q8H. Next draw 05/12 @0800. Predicted AUC 511
[2023-05-12] MEDS: vancomycin HCL 1,000 MG in 0.9 % Sodium Chloride 250 ML 270 MG IV ×2 (09:37→17:32)
[2023-05-12] MEDS: LORazepam 1 MG TABLET PO ×2 (09:38→21:29)
[2023-05-12 11:12] LABS: Glucose, Whole Blood 199 mg/dL (60-115)
--- NOTE | 2023-05-12 11:27 | P.PNIM_ITS ---
Subjective Subjective Date of Service: 05/12/23 Interval History: Acute hypoxic resp failure due to cavitary pneumonia Review of Systems sob improving,some right sided chest soarness,left hand erythema improving Physical Exam 2 Vital Signs: Vital Signs: Last Vital Signs Temp 96.8 F 05/12/23 07:18 Pulse 85 05/12/23 07:18 Resp 16 05/12/23 07:18 BP 123/82 05/12/23 07:18 Pulse Ox 94 05/12/23 07:18 O2 Del Method Room Air 05/12/23 07:18 O2 Flow Rate 3 05/04/23 17:31 BMI result Body Mass Index 36.9 Appearance: Alert.? Oriented X3.? cvs: rrr, [id number]. res:air entry fair ,diminshed on right upper lung /has few cracles. abd: no rebound or guarding ,nt, bs present. ext pulses present , no cyanosis . left hand erythema seems improving neuro: axo3 , nonfocal. Objective Data Active Medications Acetaminophen (Acetaminophen 325 Mg Tablet) 975 mg PO Q8H PRN PRN Reason: Pain, Severe (Pain Scale 7-10) Last Admin: 05/07/23 03:52 Dose: 975 mg Documented By: DALIA Albuterol Sulfate (Albuterol Sulfate (0.083%) 2.5 Mg/3 Ml Vial.Neb) 2.5 mg INHALE Q2H PRN PRN Reason: Shortness of Breath/Wheezing Last Admin: 05/09/23 09:56 Dose: 2.5 mg Documented By: ACACIA Amphetamine/Dextroamphetamine (Amphetamine Mixed Salts 10 Mg Tablet) 30 mg PO BID@0800,1300 [facility] Last Admin: 05/12/23 08:01 Dose: 30 mg Documented By: TEMI Atorvastatin Calcium (Atorvastatin Calcium 40 Mg Tablet) 40 mg PO DAILY [facility] Last Admin: 05/12/23 08:01 Dose: 40 mg Documented By: TEMI Benzonatate (Benzonatate 100 Mg Capsule) 200 mg PO TID PRN PRN Reason: Cough Last Admin: 05/09/23 21:07 Dose: 200 mg Documented By: DALIA Dextrose (Dextrose 50 % 25 Gm/50 Ml Syringe) 25 gm IVPUSH Q15M PRN; Protocol PRN Reason: per Hypoglycemia Standing Ord. Enoxaparin Sodium (Enoxaparin Sodium 40 Mg/0.4 Ml Syringe) 40 mg SUBCUT Q24H [facility] Last Admin: 05/12/23 08:02 Dose: 40 mg Documented By: TEMI Gabapentin (Gabapentin 400 Mg Capsule) 800 mg PO TID [facility] Last Admin: 05/12/23 08:01 Dose: 800 mg Documented By: TEMI Glucose (Glucose Gel 15 Gm Gel..Gram.) 15 gm PO Q15M PRN; Protocol PRN Reason: per Hypoglycemia Standing Ord. Ceftriaxone Sodium 2 gm/ (Sodium Chloride) 50 mls @ 100 mls/hr IV Q24H [facility] Last Infusion: 05/12/23 03:52 Dose: Infused Documented By: VERNA Vancomycin HCl 1,000 mg/ (Sodium Chloride) 270 mls @ 270 mls/hr IV Q8H [facility] Last Infusion: 05/12/23 10:44 Dose: Infused Documented By: TEMI Insulin Glargine (Insulin Glargine,Hum.Rec.Anlog 100 Unit/Ml 10 Ml Vial) 30 unit SUBCUT BEDTIME [facility] Last Admin: 05/11/23 19:40 Dose: 30 unit Documented By: VERNA Insulin Human Lispro (Insulin Lispro 100 Unit/Ml 3 Ml Vial) 0 unit SUBCUT QIDACHS [facility]; Protocol Last Admin: 05/12/23 08:02 Dose: 6 unit Documented By: TEMI Lorazepam (Lorazepam 1 Mg Tablet) 1 mg PO BID PRN PRN Reason: anxiety/restlessness Last Admin: 05/12/23 09:38 Dose: 1 mg Documented By: TEMI Methadone HCl (Methadone Hcl 20 Mg/2 Ml Oral.Conc) 70 mg PO DAILY@0800 [facility] Last Admin: 05/12/23 08:01 Dose: 70 mg Documented By: TEMI Methadone HCl (Methadone Hcl 20 Mg/2 Ml Oral.Conc) 35 mg PO DAILY@1700 [facility] Last Admin: 05/11/23 17:03 Dose: 35 mg Documented By: TEMI Nicotine (Nicotine 21 Mg Patch.Td24) 21 mg TRANSDERMA DAILY [facility] Last Admin: 05/12/23 08:00 Dose: 21 mg Documented By: TEMI Omeprazole (Omeprazole 20 Mg Capsule.Dr) 20 mg PO DAILY@0630 [facility] Last Admin: 05/12/23 06:07 Dose: 20 mg Documented By: VERNA Oxycodone HCl (Oxycodone Hcl Immed Release 5 Mg Tablet) 10 mg PO Q4H PRN PRN Reason: Pain, Severe (Pain Scale 7-10) Last Admin: 05/12/23 06:10 Dose: 10 mg Documented By: VERNA Senna/Docusate Sodium (Sennosides/Docusate Sodium Tablet) 1 tab PO DAILY PRN PRN Reason: Constipation Last Admin: 05/05/23 07:50 Dose: 1 tab Documented By: AIYANA-RIVION Sertraline HCl (Sertraline Hcl 25 Mg Tablet) 75 mg PO DAILY [facility] Last Admin: 05/12/23 08:01 Dose: 75 mg Documented By: TEMI Sodium Chloride (0.9 % Sodium Chloride Flush 3 Ml Syringe) 3 ml IVFLUSH QSHIFT [facility] Last Admin: 05/12/23 08:02 Dose: 3 ml Documented By: TEMI Sodium Chloride (0.9 % Sodium Chloride Flush 10 Ml Syringe) 5 ml IVFLUSH TID [facility] Last Admin: 05/12/23 08:02 Dose: 5 ml Documented By: TEMI Labs 05/05/23 05:42 05/12/23 07:47 Labs: Laboratory Results - last 24 hr 05/11/23 05/11/23 05/12/23 16:06 19:31 07:21 Estim Creat Clear Calc Estimated GFR POC Glucose 203 H 227 H 233 H Random Vancomycin 05/12/23 05/12/23 07:47 11:04 Estim Creat Clear Calc 132.4 Estimated GFR > 60 POC Glucose 199 H Random Vancomycin 16.5 Assessment and Plan (1) Pulmonary abscess: Status: Acute Plan 38 years old woman admitted with: Right upper lobe cavitary nodule likely abscess associated with right middle lobe pneumonia and sepsis . Pulm consulted- suggest 28d ABX then repeat CT scan, IV vancomycin + ceftriaxone 05/02-, blood cultures negative, weaned off O2 TTE 05/03: - The left ventricular systolic function is normal. The calculated ejection fraction is 65% by biplane method. - No obvious valvular pathology seen on this study. left hand abcess -possible sec to ivdu, continue iv antibiotics , ortho eval. L hand purulent cellulitis - POD#1 I+D, start MRI without evidence of osteomyelitis; discuss 2nd MCP joint findings with Ortho -IV vanco/ceftriaxone 08/30 OUD - HCV viral load pending; HIV negative, HBV immune - Addiction Medicine consulted, on split-dose methadone Asthma. DuoNeb as needed. History of ADHD. Dextroamphetamine . DVT prophylaxis: Heparin subcut. Code status: Full ongoing hospitlisation need for IV antibiotics to treat cavitary pneumonia and left hand cellulitis,also need placement. Quality Stroke Does the patient have a stroke diagnosis?: No VTE Prior VTE?: No VTE Risk Level:: Medical - moderate - high VTE Device Contraindication: Treatment Not Indicated VTE Drug Contraindication: N/A - Med Ordered
[2023-05-12] MEDS: Acetaminophen 325 MG TABLET 975 MG PO (12:31)
[2023-05-12 15:08] VITALS: BP 129/71; PULSE 74; RESP 18; TEMP 37; O2SAT 96
[2023-05-12 16:30] LABS: Glucose, Whole Blood 240 mg/dL (60-115)
[2023-05-12] MEDS: methADONE HCl 20 MG/2 ML ORAL.CONC 35 MG PO (17:33)
[2023-05-12 19:10] VITALS: BP 136/72; PULSE 68; RESP 18; TEMP 36; O2SAT 96
[2023-05-12 20:32] LABS: Glucose, Whole Blood 193 mg/dL (60-115)
[2023-05-12] MEDS: Insulin Glargine,Hum.rec.anlog 100 UNIT/ML 10 ML VIAL 30 UNIT SUBCUT (21:21)
[2023-05-13 00:49] VITALS: BP 125/66; PULSE 85; RESP 16; TEMP 36.1; O2SAT 95
[2023-05-13] MEDS: cefTRIAXone sodium 2 GM in 0.9 % Sodium Chloride 50 ML IV (01:56)
[2023-05-13] MEDS: vancomycin HCL 1,000 MG in 0.9 % Sodium Chloride 250 ML 270 MG IV ×3 (02:30→17:10)
[2023-05-13] MEDS: Omeprazole 20 MG CAPSULE.DR PO (05:50)
[2023-05-13 07:17] LABS: Glucose, Whole Blood 268 mg/dL (60-115)
[2023-05-13 07:18] VITALS: BP 117/69; PULSE 86; RESP 16; TEMP 36; O2SAT 96
[2023-05-13] MEDS: Nicotine 21 MG PATCH.TD24 TRANSDERMA (08:03)
[2023-05-13] MEDS: Insulin Lispro 100 UNIT/ML 3 ML VIAL SUBCUT ×4 (08:03→21:51)
[2023-05-13] MEDS: methADONE HCl 20 MG/2 ML ORAL.CONC 70 MG PO (08:03)
[2023-05-13] MEDS: Gabapentin 400 MG CAPSULE 800 MG PO ×3 (08:04→21:51)
[2023-05-13] MEDS: Sertraline HCL 25 MG TABLET 75 MG PO (08:04)
[2023-05-13] MEDS: Atorvastatin Calcium 40 MG TABLET PO (08:04)
[2023-05-13] MEDS: Amphetamine Mixed Salts 10 MG TABLET 30 MG PO ×2 (08:04→12:23)
[2023-05-13] MEDS: Enoxaparin Sodium 40 MG/0.4 ML SYRINGE SUBCUT (08:04)
[2023-05-13] MEDS: oxyCODONE HCl Immed Release 5 MG TABLET 10 MG PO ×3 (08:13→21:50)
[2023-05-13 09:47] LABS: Vancomycin Random 12.2 mcg/mL (15-20)
[2023-05-13 09:48] LABS: Creatinine Clr Calc Pharmacy 149.3; Estimated Glomerular Filt Rate > 60
--- NOTE | 2023-05-13 10:03 | HE.PHANOTE ---
RE [facility] Patients level came back this morning at 12.2 down from 16.5 yesterday even with a dose increase. Patients renal did improve. However will continue with current dose as patient is within AUC goal. Will get another level tomorrow to make sure patient doesnt become sub therapeutic.
[2023-05-13] MEDS: 0.9 % Sodium Chloride Flush 10 ML SYRINGE 5 ML IVFLUSH ×3 (10:15→21:52)
[2023-05-13] MEDS: LORazepam 1 MG TABLET PO ×2 (10:23→21:51)
--- NOTE | 2023-05-13 10:49 | HO.ADDICTPRO ---
Subjective Subjective Date of Service: 05/13/23 Reason For Visit: Left hand abscess I and D Interim History: Patient reporting evening dose is not holding her through and she is waking up sweating and uncomfortable. She requests to increase evening dose Daytime dose she finds works well Review of Systems Acute medical concerns: Yes Medical Review of Systems: unchanged Mental Status Exam Mental Status Exam Patient Appearance: Appropriate Level of Consciousness: Awake and Appropriate Patient Behavior: Appropriate Mood Description: Calm Affect Description: Calm Ability to Follow Directions: Excellent Speech Pattern: Clear Diagnostics Vital Signs (24Hr): Vital Signs - 24 hr 05/12/23 15:08 05/12/23 19:10 05/13/23 00:49 Temperature 98.6 F 96.8 F 97 F Pulse Rate 74 68 85 Respiratory Rate 18 18 16 Blood Pressure 129/71 136/72 125/66 Pulse Oximetry 96 96 95 Oxygen Delivery Method Room Air Room Air 05/13/23 07:18 Temperature 96.8 F Pulse Rate 86 Respiratory Rate 16 Blood Pressure 117/69 Pulse Oximetry 96 Oxygen Delivery Method Room Air BMI result Body Mass Index 36.9 Labs 05/05/23 05:42 05/13/23 09:12 Labs: Laboratory Results - last 48 hr 05/11/23 05/11/23 05/11/23 11:08 16:06 19:31 Hold Purple Top Creatinine Estim Creat Clear Calc Estimated GFR POC Glucose 290 H 203 H 227 H Hold Yellow Top Random Vancomycin 05/12/23 05/12/23 05/12/23 07:21 07:47 11:04 Hold Purple Top Creatinine 0.71 Estim Creat Clear Calc 132.4 Estimated GFR > 60 POC Glucose 233 H 199 H Hold Yellow Top Random Vancomycin 16.5 05/12/23 05/12/23 05/13/23 16:19 20:29 07:10 Hold Purple Top Creatinine Estim Creat Clear Calc Estimated GFR POC Glucose 240 H 193 H 268 H Hold Yellow Top Random Vancomycin 05/13/23 09:12 Hold Purple Top SEE NOTE Creatinine 0.63 Estim Creat Clear Calc 149.3 Estimated GFR > 60 POC Glucose Hold Yellow Top See Note Random Vancomycin 12.2 L Imaging Radiology Impressions: ITS Impressions Chest X-Ray 05/01/23 19:39 IMPRESSION: 1. Bilateral low lung volumes. 2. Slight bronchial thickening. 3. Right basilar opacity which may represent atelectasis versus evolving infectious/inflammatory etiology. Chest CTA 05/01/23 22:06 IMPRESSION: Limited exam due to respiratory motion. No evidence of pulmonary embolism. Right middle lobe pneumonia. Cavitary nodule right upper lobe, probably infectious or inflammatory as well. Given history, septic emboli should be considered. VTE: negative Hand/Wrist X-Ray 05/03/23 13:26 IMPRESSION: 1. Unchanged Normal x-rays of left hand and left wrist. No fracture or dislocation or signs of osteomyelitis are found. 2. Possible recurrence left hand cellulitis. Hand MRI 05/06/23 09:19 IMPRESSION: 1. Soft tissue defect along the radial aspect of the 1st metacarpal with adjacent cellulitis. No abscess formation. No evidence of acute osteomyelitis. 2. Lobulated fluid/cystic structure along the dorsal aspect of the 2nd metacarpophalangeal joint measuring up to 2.4 cm with minimal peripheral enhancement. Findings could represent a synovial recess versus ganglion cyst. Alternatively, findings could indicate a giant cell tumor of the tendon sheath. 3. Volar and dorsal subcutaneous edema adjacent to the metacarpals and extending into the fingers. Medications Medications Current Medications Acetaminophen (Acetaminophen 325 Mg Tablet) 975 mg PO Q8H PRN PRN Reason: Pain, Severe (Pain Scale 7-10) Last Admin: 05/12/23 12:31 Dose: 975 mg Albuterol Sulfate (Albuterol Sulfate (0.083%) 2.5 Mg/3 Ml Vial.Neb) 2.5 mg INHALE Q2H PRN PRN Reason: Shortness of Breath/Wheezing Last Admin: 05/09/23 09:56 Dose: 2.5 mg Amphetamine/Dextroamphetamine (Amphetamine Mixed Salts 10 Mg Tablet) 30 mg PO BID@0800,1300 COUNTS INCLUDE 234 BEDS AT THE [facility] Last Admin: 05/13/23 08:04 Dose: 30 mg Atorvastatin Calcium (Atorvastatin Calcium 40 Mg Tablet) 40 mg PO DAILY COUNTS INCLUDE 234 BEDS AT THE [facility] Last Admin: 05/13/23 08:04 Dose: 40 mg Benzonatate (Benzonatate 100 Mg Capsule) 200 mg PO TID PRN PRN Reason: Cough Last Admin: 05/09/23 21:07 Dose: 200 mg Dextrose (Dextrose 50 % 25 Gm/50 Ml Syringe) 25 gm IVPUSH Q15M PRN; Protocol PRN Reason: per Hypoglycemia Standing Ord. Enoxaparin Sodium (Enoxaparin Sodium 40 Mg/0.4 Ml Syringe) 40 mg SUBCUT Q24H COUNTS INCLUDE 234 BEDS AT THE [facility] Last Admin: 05/13/23 08:04 Dose: 40 mg Gabapentin (Gabapentin 400 Mg Capsule) 800 mg PO TID COUNTS INCLUDE 234 BEDS AT THE [facility] Last Admin: 05/13/23 08:04 Dose: 800 mg Glucose (Glucose Gel 15 Gm Gel..Gram.) 15 gm PO Q15M PRN; Protocol PRN Reason: per Hypoglycemia Standing Ord. Ceftriaxone Sodium 2 gm/ (Sodium Chloride) 50 mls @ 100 mls/hr IV Q24H COUNTS INCLUDE 234 BEDS AT THE [facility] Last Infusion: 05/13/23 02:27 Dose: Infused Vancomycin HCl 1,000 mg/ (Sodium Chloride) 270 mls @ 270 mls/hr IV Q8H COUNTS INCLUDE 234 BEDS AT THE [facility] Last Admin: 05/13/23 10:18 Dose: 270 mls/hr Insulin Glargine (Insulin Glargine,Hum.Rec.Anlog 100 Unit/Ml 10 Ml Vial) 30 unit SUBCUT BEDTIME COUNTS INCLUDE 234 BEDS AT THE [facility] Last Admin: 05/12/23 21:21 Dose: 30 unit Insulin Human Lispro (Insulin Lispro 100 Unit/Ml 3 Ml Vial) 0 unit SUBCUT QIDACHS COUNTS INCLUDE 234 BEDS AT THE [facility]; Protocol Last Admin: 05/13/23 08:03 Dose: 8 unit Lorazepam (Lorazepam 1 Mg Tablet) 1 mg PO BID PRN PRN Reason: anxiety/restlessness Last Admin: 05/13/23 10:23 Dose: 1 mg Methadone HCl (Methadone Hcl 20 Mg/2 Ml Oral.Conc) 70 mg PO DAILY@0800 COUNTS INCLUDE 234 BEDS AT THE [facility] Last Admin: 05/13/23 08:03 Dose: 70 mg Methadone HCl (Methadone Hcl 20 Mg/2 Ml Oral.Conc) 40 mg PO DAILY@1700 COUNTS INCLUDE 234 BEDS AT THE [facility] Nicotine (Nicotine 21 Mg Patch.Td24) 21 mg TRANSDERMA DAILY COUNTS INCLUDE 234 BEDS AT THE [facility] Last Admin: 05/13/23 08:03 Dose: 21 mg Omeprazole (Omeprazole 20 Mg Capsule.Dr) 20 mg PO DAILY@0630 COUNTS INCLUDE 234 BEDS AT THE [facility] Last Admin: 05/13/23 05:50 Dose: 20 mg Oxycodone HCl (Oxycodone Hcl Immed Release 5 Mg Tablet) 10 mg PO Q6H PRN PRN Reason: Pain, Mild (Pain Scale 1-3) Last Admin: 05/13/23 08:13 Dose: 10 mg Senna/Docusate Sodium (Sennosides/Docusate Sodium Tablet) 1 tab PO DAILY PRN PRN Reason: Constipation Last Admin: 05/05/23 07:50 Dose: 1 tab Sertraline HCl (Sertraline Hcl 25 Mg Tablet) 75 mg PO DAILY COUNTS INCLUDE 234 BEDS AT THE [facility] Last Admin: 05/13/23 08:04 Dose: 75 mg Sodium Chloride (0.9 % Sodium Chloride Flush 3 Ml Syringe) 3 ml IVFLUSH QSHIFT COUNTS INCLUDE 234 BEDS AT THE [facility] Last Admin: 05/13/23 08:14 Dose: Not Given Sodium Chloride (0.9 % Sodium Chloride Flush 10 Ml Syringe) 5 ml IVFLUSH TID COUNTS INCLUDE 234 BEDS AT THE [facility] Last Admin: 05/13/23 10:15 Dose: 5 ml Allergies Allergies Allergy/AdvReac Type Severity Reaction Status Date / Time morphine Allergy Hives Verified 03/07/23 20:50 Assessment & Plan Assessment & Plan (1) Opioid use disorder: Status: Acute Code(s): F11.90 - Opioid use, unspecified, uncomplicated Assessment and Plan: increase evening dose of methadone to 40mg continue AM dose of 70mg will continue to follow Total time managing care of this patient today __20__ minutes.
[2023-05-13 11:11] LABS: Glucose, Whole Blood 194 mg/dL (60-115)
--- NOTE | 2023-05-13 12:08 | P.PNIM_ITS ---
Subjective Subjective Date of Service: 05/13/23 Interval History: Acute hypoxic resp failure due to cavitary pneumonia Review of Systems sob improving,some right sided chest soarness,left hand erythema improving no fevers Physical Exam 2 Vital Signs: Vital Signs: Last Vital Signs Temp 96.8 F 05/13/23 07:18 Pulse 86 05/13/23 07:18 Resp 16 05/13/23 07:18 BP 117/69 05/13/23 07:18 Pulse Ox 96 05/13/23 07:18 O2 Del Method Room Air 05/13/23 07:18 O2 Flow Rate 3 05/04/23 17:31 BMI result Body Mass Index 36.9 Appearance: Alert.? Oriented X3.? cvs: rrr, [id number]. res:air entry fair ,diminshed on right upper lung /has few cracles. abd: no rebound or guarding ,nt, bs present. ext pulses present , no cyanosis . left hand erythema seems improving neuro: axo3 , nonfocal. Objective Data Active Medications Acetaminophen (Acetaminophen 325 Mg Tablet) 975 mg PO Q8H PRN PRN Reason: Pain, Severe (Pain Scale 7-10) Last Admin: 05/12/23 12:31 Dose: 975 mg Documented By: KARINE Albuterol Sulfate (Albuterol Sulfate (0.083%) 2.5 Mg/3 Ml Vial.Neb) 2.5 mg INHALE Q2H PRN PRN Reason: Shortness of Breath/Wheezing Last Admin: 05/09/23 09:56 Dose: 2.5 mg Documented By: ACACIA Amphetamine/Dextroamphetamine (Amphetamine Mixed Salts 10 Mg Tablet) 30 mg PO BID@0800,1300 [facility] Last Admin: 05/13/23 08:04 Dose: 30 mg Documented By: SELWYN Atorvastatin Calcium (Atorvastatin Calcium 40 Mg Tablet) 40 mg PO DAILY [facility] Last Admin: 05/13/23 08:04 Dose: 40 mg Documented By: SELWYN Benzonatate (Benzonatate 100 Mg Capsule) 200 mg PO TID PRN PRN Reason: Cough Last Admin: 05/09/23 21:07 Dose: 200 mg Documented By: DALIA Dextrose (Dextrose 50 % 25 Gm/50 Ml Syringe) 25 gm IVPUSH Q15M PRN; Protocol PRN Reason: per Hypoglycemia Standing Ord. Enoxaparin Sodium (Enoxaparin Sodium 40 Mg/0.4 Ml Syringe) 40 mg SUBCUT Q24H [facility] Last Admin: 05/13/23 08:04 Dose: 40 mg Documented By: SELWYN Gabapentin (Gabapentin 400 Mg Capsule) 800 mg PO TID [facility] Last Admin: 05/13/23 08:04 Dose: 800 mg Documented By: SELWYN Glucose (Glucose Gel 15 Gm Gel..Gram.) 15 gm PO Q15M PRN; Protocol PRN Reason: per Hypoglycemia Standing Ord. Ceftriaxone Sodium 2 gm/ (Sodium Chloride) 50 mls @ 100 mls/hr IV Q24H [facility] Last Infusion: 05/13/23 02:27 Dose: Infused Documented By: JACKIE Vancomycin HCl 1,000 mg/ (Sodium Chloride) 270 mls @ 270 mls/hr IV Q8H [facility] Last Admin: 05/13/23 10:18 Dose: 270 mls/hr Documented By: SELWYN Insulin Glargine (Insulin Glargine,Hum.Rec.Anlog 100 Unit/Ml 10 Ml Vial) 30 unit SUBCUT BEDTIME [facility] Last Admin: 05/12/23 21:21 Dose: 30 unit Documented By: JACKIE Insulin Human Lispro (Insulin Lispro 100 Unit/Ml 3 Ml Vial) 0 unit SUBCUT QIDACHS [facility]; Protocol Last Admin: 05/13/23 08:03 Dose: 8 unit Documented By: SELWYN Lorazepam (Lorazepam 1 Mg Tablet) 1 mg PO BID PRN PRN Reason: anxiety/restlessness Last Admin: 05/13/23 10:23 Dose: 1 mg Documented By: SELWYN Methadone HCl (Methadone Hcl 20 Mg/2 Ml Oral.Conc) 70 mg PO DAILY@0800 [facility] Last Admin: 05/13/23 08:03 Dose: 70 mg Documented By: SELWYN Methadone HCl (Methadone Hcl 20 Mg/2 Ml Oral.Conc) 40 mg PO DAILY@1700 [facility] Nicotine (Nicotine 21 Mg Patch.Td24) 21 mg TRANSDERMA DAILY [facility] Last Admin: 05/13/23 08:03 Dose: 21 mg Documented By: SELWYN Omeprazole (Omeprazole 20 Mg Capsule.Dr) 20 mg PO DAILY@0630 [facility] Last Admin: 05/13/23 05:50 Dose: 20 mg Documented By: JACKIE Oxycodone HCl (Oxycodone Hcl Immed Release 5 Mg Tablet) 10 mg PO Q6H PRN PRN Reason: Pain, Mild (Pain Scale 1-3) Last Admin: 05/13/23 08:13 Dose: 10 mg Documented By: SELWYN Senna/Docusate Sodium (Sennosides/Docusate Sodium Tablet) 1 tab PO DAILY PRN PRN Reason: Constipation Last Admin: 05/05/23 07:50 Dose: 1 tab Documented By: CHRIS Sertraline HCl (Sertraline Hcl 25 Mg Tablet) 75 mg PO DAILY [facility] Last Admin: 05/13/23 08:04 Dose: 75 mg Documented By: SELWYN Sodium Chloride (0.9 % Sodium Chloride Flush 3 Ml Syringe) 3 ml IVFLUSH QSHIFT [facility] Last Admin: 05/13/23 08:14 Dose: Not Given Documented By: SELWYN Non-Admin Reason: PICC Sodium Chloride (0.9 % Sodium Chloride Flush 10 Ml Syringe) 5 ml IVFLUSH TID [facility] Last Admin: 05/13/23 10:15 Dose: 5 ml Documented By: SELWYN Labs 05/05/23 05:42 05/13/23 09:12 Labs: Laboratory Results - last 24 hr 05/12/23 05/12/23 05/13/23 16:19 20:29 07:10 Hold Purple Top Estim Creat Clear Calc Estimated GFR POC Glucose 240 H 193 H 268 H Hold Yellow Top Random Vancomycin 05/13/23 05/13/23 09:12 11:06 Hold Purple Top SEE NOTE Estim Creat Clear Calc 149.3 Estimated GFR > 60 POC Glucose 194 H Hold Yellow Top See Note Random Vancomycin 12.2 L Assessment and Plan (1) Abscess of left hand: Status: Acute (2) Pulmonary abscess: Status: Acute Plan 38 years old woman admitted with: Right upper lobe cavitary nodule likely abscess associated with right middle lobe pneumonia and sepsis . TTE 05/03: The left ventricular systolic function is normal. The calculated ejection fraction is 65% by biplane method,No obvious valvular pathology seen on this study. Pulm consulted- suggest 28d ABX then repeat CT scan, IV vancomycin + ceftriaxone intiated 05/02, blood cultures negative, weaned off O2. L hand purulent cellulitis: POD#7 I+D MRI without evidence of osteomyelitis,discuss 2nd MCP joint findings with Ortho IV vanco/ceftriaxone 08/30 OUD - HCV viral load pending; HIV negative, HBV immune - Addiction Medicine consulted, on split-dose methadone Asthma. DuoNeb as needed. History of ADHD. Dextroamphetamine . DVT prophylaxis: Heparin subcut. Code status: Full ongoing hospitlisation need for IV antibiotics to treat cavitary pneumonia and left hand cellulitis,also need placement. Quality Stroke Does the patient have a stroke diagnosis?: No VTE Prior VTE?: No VTE Risk Level:: Medical - moderate - high VTE Device Contraindication: Treatment Not Indicated VTE Drug Contraindication: N/A - Med Ordered
--- NOTE | 2023-05-13 15:21 | P.PNOP_ITS ---
Subjective Subjective Date of Service: 05/13/23 Principal diagnosis: Left hand abscess status post IV drug use Interval history: The patient is a 38-year-old [id number] woman who is status post an I&D of a left radial sided hand abscess that occurred following IV drug use. Patient says that her hand is no longer painful and is doing better. She notes that she still has some swelling in her hands including over the dorsal aspect of the left 2nd MCP joint, but feels this is improving. She believes her dressing is being changed by the nurses now every other day. Physical Exam Vital Signs: Vital Signs: Last Vital Signs Temp 96.8 F 05/13/23 07:18 Pulse 86 05/13/23 07:18 Resp 16 05/13/23 07:18 BP 117/69 05/13/23 07:18 Pulse Ox 96 05/13/23 07:18 O2 Del Method Room Air 05/13/23 07:18 O2 Flow Rate 3 05/04/23 17:31 BMI result Body Mass Index 36.9 Extrem: Other: The patient was alert oriented and in no acute distress. She was sitting up in the bed with her feet dangling to the floor, using a table 2 write letters. She is right-hand dominant. The left hand is in a bandage, but she was able to draw back the distal edge of the dressing to show me the incision site over the dorsal base of the 1st metacarpal. The bandage was dry but there was some yellow fibrinous exudate in the wound. She had excellent range of motion of the thumb without pain including flexion extension and circumduction. She still has a little bit of [place] edema over the dorsal base of the index finger proximal phalanx the area is nontender. It is not particularly erythematous and there are no open wounds. She can bring all of her fingers including the left index finger easily to a fist and back into full extension without any discomfort. Cap refill brisk to all digits. Procedures Date of Service Date of Service: 05/13/23 Progress Note: A&P Assessment and plan (1) Abscess of left hand: Status: Acute Plan Assessment and plan: 1. Left radial sided hand abscess roughly over the dorsal base of the 1st metacarpal This is status post I&D with me on 05/04/2023 2. Question of possible abscess over the dorsal aspect of the left 2nd MCP joint. I do not feel any fluctuance, nor do I see any erythema or appreciate any tenderness that when we normally see with an active abscess. She has full active range of motion of the digit without pain. I would not recommend an I and D of this area unless she develops increasing pain swelling redness or other signs more indicative of an abscess. I educated the patient about these conditions. Continue antibiotics per Infectious Disease recommendations. She is doing very well with her hand range of motion exercises, and has satisfactory hand range of motion. I would allow her to start showering and washing the wound on the dorsal aspect of the left hand with soap and water in the shower or sink every day. I would avoid submerging the wound under water, but washing in the shower seek with soap and water daily along with daily dressing changes would be good at this point. She can then apply a small amount of antibiotic ointment and help participate in her daily dressing changes. She can follow-up in our clinic perhaps a week or 2 after discharge to see how she is doing. I spoke with Dr. Lopez about the above. Time Spent With Patient Time: Total time managing care of this patient today __20__ minutes. Quality Stroke Does the patient have a stroke diagnosis?: No VTE Prior VTE?: No VTE Risk Level:: Medical - moderate - high VTE Device Contraindication: Treatment Not Indicated VTE Drug Contraindication: N/A - Med Ordered
[2023-05-13 15:31] VITALS: BP 137/74; PULSE 98; RESP 18; TEMP 37; O2SAT 98
--- NOTE | 2023-05-13 15:53 | MHC.CM.PN ---
PT WAITING TO GO TO [facility] FOR IV ABX OVIDIO IS WAITING ON PTS GUEST DOSING TO BE ARRANGED AT [facility] IN [place] THIS CM CALLED [facility] YEST[facility]DAY TO INITIATE GUEST DOSING CM SENT PTS DOSING HX AT [facility] [place] TODAY [facility] HAS CONFIRMED THEY HAVE ALL OF THE DOCUMENTATION THEY NEED, AND IT IS IN REVIEW PER OVIDIO, LONG PTS DOSING IS APPROVED BY TOMORROW MORNING, SHE WILL BE ABLE TO TRANSFER TOMORROW
[2023-05-13 16:57] LABS: Glucose, Whole Blood 258 mg/dL (60-115)
[2023-05-13] MEDS: methADONE HCl 20 MG/2 ML ORAL.CONC 40 MG PO (17:07)
[2023-05-13 19:25] VITALS: BP 116/65; PULSE 90; RESP 18; TEMP 36.1; O2SAT 95
[2023-05-13 20:45] LABS: Glucose, Whole Blood 217 mg/dL (60-115)
[2023-05-13] MEDS: Insulin Glargine,Hum.rec.anlog 100 UNIT/ML 10 ML VIAL 30 UNIT SUBCUT (21:51)
--- NOTE | 2023-05-13 22:11 | PC.NURSE ---
Left hand dressing changed today at 22:00, directions as ordered. Covered with isidro wrap per patients request.
[2023-05-14] MEDS: cefTRIAXone sodium 2 GM in 0.9 % Sodium Chloride 50 ML IV (02:26)
[2023-05-14 03:12] VITALS: BP 120/60; PULSE 78; RESP 16; TEMP 36.2; O2SAT 96
[2023-05-14] MEDS: vancomycin HCL 1,000 MG in 0.9 % Sodium Chloride 250 ML 270 MG IV ×3 (03:15→17:53)
[2023-05-14] MEDS: Omeprazole 20 MG CAPSULE.DR PO (06:07)
[2023-05-14 07:14] VITALS: BP 112/69; PULSE 75; RESP 16; TEMP 36.3; O2SAT 95
[2023-05-14 07:34] LABS: Glucose, Whole Blood 227 mg/dL (60-115)
[2023-05-14] MEDS: Insulin Lispro 100 UNIT/ML 3 ML VIAL SUBCUT ×4 (07:48→20:28)
[2023-05-14] MEDS: Enoxaparin Sodium 40 MG/0.4 ML SYRINGE SUBCUT (07:49)
[2023-05-14] MEDS: Atorvastatin Calcium 40 MG TABLET PO (07:50)
[2023-05-14] MEDS: Gabapentin 400 MG CAPSULE 800 MG PO ×3 (07:50→20:27)
[2023-05-14] MEDS: Sertraline HCL 25 MG TABLET 75 MG PO (07:50)
[2023-05-14] MEDS: Amphetamine Mixed Salts 10 MG TABLET 30 MG PO ×2 (07:50→11:59)
[2023-05-14] MEDS: methADONE HCl 20 MG/2 ML ORAL.CONC 70 MG PO (07:51)
[2023-05-14] MEDS: Nicotine 21 MG PATCH.TD24 TRANSDERMA (07:51)
[2023-05-14] MEDS: 0.9 % Sodium Chloride Flush 10 ML SYRINGE 5 ML IVFLUSH ×3 (07:56→20:29)
[2023-05-14 09:10] LABS: Vancomycin Random 14.3 mcg/mL (15-20)
[2023-05-14] MEDS: oxyCODONE HCl Immed Release 5 MG TABLET 10 MG PO ×2 (09:24→17:54)
[2023-05-14 09:50] LABS: Creatinine Clr Calc Pharmacy 128.8; Estimated Glomerular Filt Rate > 60
--- NOTE | 2023-05-14 09:57 | HE.PHANOTE ---
RE: VANCO DOSING Random came back as 14.3 on 05/14/23 @0812 which is higher than predicted trough of 12.9. Serum creatinine went up so will keep dose at 1000 mg q8h and random is scheduled for 05/15/23 @0800.
[2023-05-14 11:47] LABS: Glucose, Whole Blood 227 mg/dL (60-115)
--- NOTE | 2023-05-14 12:43 | MHC.CM.PN ---
[facility] has accepted pt pending methadone guest dosing arrangements
--- NOTE | 2023-05-14 13:50 | P.PNIM_ITS ---
Subjective Subjective Date of Service: 05/14/23 Interval History: Acute hypoxic resp failure due to cavitary pneumonia left hand erythema improving Review of Systems no fevers or chills Physical Exam 2 Vital Signs: Vital Signs: Last Vital Signs Temp 97.4 F 05/14/23 07:14 Pulse 75 05/14/23 07:14 Resp 16 05/14/23 07:14 BP 112/69 05/14/23 07:14 Pulse Ox 95 05/14/23 07:14 O2 Del Method Room Air 05/14/23 07:14 O2 Flow Rate 3 05/04/23 17:31 BMI result Body Mass Index 36.9 Appearance: Alert.? Oriented X3.? cvs: rrr, [id number]. res:air entry fair ,diminshed on right upper lung /has few cracles. abd: no rebound or guarding ,nt, bs present. ext pulses present , no cyanosis . left hand erythema seems improving. neuro: axo3 , nonfocal. Objective Data Active Medications Acetaminophen (Acetaminophen 325 Mg Tablet) 975 mg PO Q8H PRN PRN Reason: Pain, Severe (Pain Scale 7-10) Last Admin: 05/12/23 12:31 Dose: 975 mg Documented By: KARINE Albuterol Sulfate (Albuterol Sulfate (0.083%) 2.5 Mg/3 Ml Vial.Neb) 2.5 mg INHALE Q2H PRN PRN Reason: Shortness of Breath/Wheezing Last Admin: 05/09/23 09:56 Dose: 2.5 mg Documented By: ACACIA Amphetamine/Dextroamphetamine (Amphetamine Mixed Salts 10 Mg Tablet) 30 mg PO BID@0800,1300 [facility] Last Admin: 05/14/23 11:59 Dose: 30 mg Documented By: SELWYN Atorvastatin Calcium (Atorvastatin Calcium 40 Mg Tablet) 40 mg PO DAILY [facility] Last Admin: 05/14/23 07:50 Dose: 40 mg Documented By: SELWYN Benzonatate (Benzonatate 100 Mg Capsule) 200 mg PO TID PRN PRN Reason: Cough Last Admin: 05/09/23 21:07 Dose: 200 mg Documented By: DALIA Dextrose (Dextrose 50 % 25 Gm/50 Ml Syringe) 25 gm IVPUSH Q15M PRN; Protocol PRN Reason: per Hypoglycemia Standing Ord. Enoxaparin Sodium (Enoxaparin Sodium 40 Mg/0.4 Ml Syringe) 40 mg SUBCUT Q24H [facility] Last Admin: 05/14/23 07:49 Dose: 40 mg Documented By: SELWYN Gabapentin (Gabapentin 400 Mg Capsule) 800 mg PO TID [facility] Last Admin: 05/14/23 07:50 Dose: 800 mg Documented By: SELWYN Glucose (Glucose Gel 15 Gm Gel..Gram.) 15 gm PO Q15M PRN; Protocol PRN Reason: per Hypoglycemia Standing Ord. Ceftriaxone Sodium 2 gm/ (Sodium Chloride) 50 mls @ 100 mls/hr IV Q24H [facility] Last Infusion: 05/14/23 03:13 Dose: Infused Documented By: JACKIE Vancomycin HCl 1,000 mg/ (Sodium Chloride) 270 mls @ 270 mls/hr IV Q8H [facility] Last Infusion: 05/14/23 12:00 Dose: Infused Documented By: SELWYN Insulin Glargine (Insulin Glargine,Hum.Rec.Anlog 100 Unit/Ml 10 Ml Vial) 30 unit SUBCUT BEDTIME [facility] Last Admin: 05/13/23 21:51 Dose: 30 unit Documented By: JACKIE Insulin Human Lispro (Insulin Lispro 100 Unit/Ml 3 Ml Vial) 0 unit SUBCUT QIDACHS [facility]; Protocol Last Admin: 05/14/23 11:56 Dose: 6 unit Documented By: SELWYN Methadone HCl (Methadone Hcl 20 Mg/2 Ml Oral.Conc) 70 mg PO DAILY@0800 [facility] Last Admin: 05/14/23 07:51 Dose: 70 mg Documented By: SELWYN Methadone HCl (Methadone Hcl 20 Mg/2 Ml Oral.Conc) 40 mg PO DAILY@1700 [facility] Last Admin: 05/13/23 17:07 Dose: 40 mg Documented By: SELWYN Nicotine (Nicotine 21 Mg Patch.Td24) 21 mg TRANSDERMA DAILY [facility] Last Admin: 05/14/23 07:51 Dose: 21 mg Documented By: SELWYN Omeprazole (Omeprazole 20 Mg Capsule.Dr) 20 mg PO DAILY@0630 [facility] Last Admin: 05/14/23 06:07 Dose: 20 mg Documented By: JACKIE Oxycodone HCl (Oxycodone Hcl Immed Release 5 Mg Tablet) 10 mg PO Q6H PRN PRN Reason: Pain, Mild (Pain Scale 1-3) Last Admin: 05/14/23 09:24 Dose: 10 mg Documented By: SELWYN Senna/Docusate Sodium (Sennosides/Docusate Sodium Tablet) 1 tab PO DAILY PRN PRN Reason: Constipation Last Admin: 05/05/23 07:50 Dose: 1 tab Documented By: CHRIS Sertraline HCl (Sertraline Hcl 25 Mg Tablet) 75 mg PO DAILY [facility] Last Admin: 05/14/23 07:50 Dose: 75 mg Documented By: SELWYN Sodium Chloride (0.9 % Sodium Chloride Flush 3 Ml Syringe) 3 ml IVFLUSH QSHIFT [facility] Last Admin: 05/14/23 07:08 Dose: Not Given Documented By: SELWYN Non-Admin Reason: PICC Sodium Chloride (0.9 % Sodium Chloride Flush 10 Ml Syringe) 5 ml IVFLUSH TID [facility] Last Admin: 05/14/23 07:56 Dose: 5 ml Documented By: SELWYN Labs 05/05/23 05:42 05/14/23 08:12 Labs: Laboratory Results - last 24 hr 05/13/23 05/13/23 05/14/23 16:16 20:34 07:17 Hold Purple Top Estim Creat Clear Calc Estimated GFR POC Glucose 258 H 217 H 227 H Hold Yellow Top Random Vancomycin 05/14/23 05/14/23 08:12 11:42 Hold Purple Top SEE NOTE Estim Creat Clear Calc 128.8 Estimated GFR > 60 POC Glucose 227 H Hold Yellow Top See Note Random Vancomycin 14.3 L Assessment and Plan (1) Pulmonary abscess: Status: Acute (2) Abscess of left hand: Status: Acute Plan 38 years old woman admitted with: Right upper lobe cavitary nodule likely abscess associated with right middle lobe pneumonia and sepsis . TTE 05/03: The left ventricular systolic function is normal. The calculated ejection fraction is 65% by biplane method,No obvious valvular pathology seen on this study. Pulm consulted- suggest 28d ABX then repeat CT scan, IV vancomycin + ceftriaxone intiated 05/02, blood cultures negative, weaned off O2. L hand purulent cellulitis: POD#9(I+D) MRI without evidence of osteomyelitis,discuss 2nd MCP joint findings with Ortho IV vanco/ceftriaxone 08/30 OUD - HCV viral load pending; HIV negative, HBV immune - Addiction Medicine consulted, on split-dose methadone Asthma. DuoNeb as needed. History of ADHD. Dextroamphetamine . DVT prophylaxis: Heparin subcut. Code status: Full ongoing hospitlisation need for IV antibiotics to treat cavitary pneumonia and left hand cellulitis,also need placement. Quality Stroke Does the patient have a stroke diagnosis?: No VTE Prior VTE?: No VTE Risk Level:: Medical - moderate - high VTE Device Contraindication: Treatment Not Indicated VTE Drug Contraindication: N/A - Med Ordered
--- NOTE | 2023-05-14 14:56 | PM.DS ---
DS: Providers Provider Date of Service: 05/14/23 Date of admission: 05/02/23 00:27 Date of discharge: 05/14/23 Primary care physician: Luz Elena Miller MD Consults: 05/02/23 00:46 Consult to Infectious Diseases [place]ine [place] [facility] [facility] [place] Reason for consultation: Right lung cavitary nodule Has provider been notified: No 05/02/23 00:47 Addiction Medicine Routine Consulting Provider: Addiction Covering Reason for consultation: IVDU -heroin,on methadone Has provider been notified: No 05/02/23 01:24 Consult to Pulmonology Routine Consulting [place] [facility] [place] Reason for consultation: IVDU, right lung cavitary nodule/RML pneumonia. Has provider been notified: No 05/02/23 16:54 Consult to Wound Care Routine Reason for consultation: Hx: IVDA Left foot inner aspect of arch with thick scab noted Has provider been notified: Yes 05/03/23 11:52 Consult to Orthopedics Routine Consulting Provider: Tomasa Kessler Reason for consultation: left thumb abcess Has provider been notified: No Attending physician on discharge: David Lopez Discharging clinician: David Lopez DS: Diagnosis Discharge Diagnosis (1) Pulmonary abscess: Status: Acute (2) Abscess of left hand: Status: Acute DS: Summary Hospital Course Hospital Course: 38 years old woman with past medical history significant for 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 She described the pain as a stabbing sensation with intensity of 10/10. It increases with inspiration. The pain radiates to the right back. She denied any cough, fevers and chills. Despite taking methadone she is to using IV heroin. She denied any gastrointestinal or genitourinary symptoms. In the ED, she was found to have sinus tachycardia. She was placed on supplemental oxygen via nasal cannula -she is now on 2L/min. Blood workup was remarkable for leukocytosis of 25.8 and hypomagnesemia of 1.0. There is no lactic acidosis. Her glucose is 337. Bicarb is normal. BNP and LFTs are normal. Creatinine is 1.8. Chest CTA was limited however showed no evidence of pulmonary embolism. There is right middle lobe pneumonia + cavitary nodule of the right upper lobe (infectious versus inflammatory, given the history septic emboli should be considered). ED tx: Ceftriaxone 1 g IV, vancomycin 2 g IV, magnesium 2 g IV, lorazepam 1 mg p.o., Dilaudid 1.5 mg IV (total). Hospital course: Patient was admitted for right lung upper lobe cavitary lesion-found to have pneumonia with sepsis: Subsequently patient was started on IV antibiotics, blood cultures sent and echo was done as well as seen by Pulmonary: With above supportive care with IV antibiotics -patient seems to be improved significantly, sepsis resolved, blood culture negative, echo: The left ventricular systolic function is normal. The calculated ejection fraction is 65% by biplane method,No obvious valvular pathology seen on this study. Weaned off from oxygen therapy. Pulmonary recommended: 28 days of antibiotics and repeat CT chest scan afterwards. Patient will benefit from outpatient pulmonary follow-up. Left hand cellulitis and abscess: Seen and surgery: MRI(please see imaging section for detail information) also reviewed by hand surgery -abscess over the dorsal aspect of the left 2nd MCP joint,less likely tumer . Patient had I&D done And swelling and fluctuance improved, patient has full range of motion without pain, start showering and washing the wound on the dorsal aspect of the left hand with soap and water in the shower or sink every day. recomended to avoid submerging the wound under water, but washing in the shower seek with soap and water daily along with daily dressing changes would be good at this point. She can then apply a small amount of antibiotic ointment and help participate in her daily dressing changes. She can follow-up in our clinic perhaps a week or 2 after discharge to see how she is doing. plan: Complete ceftriaxone 2 g IV daily, vancomycin 1000 mg Q 8 hour-and date will be 05/30/23 . Consider CBC, BMP, LFT monitoring Q weekly while on antibiotics Q weekly. Consider repeating chest CT in 2weeks. also consider repeating hand imaging outpatient if needed per ortho. Patient is to follow-up PCP, Pulmonary and orthopedic outpatient. Time Attestation Total time managing care of this patient today: 50 mintues. Discharge Coordination Time (in mins): 50 min Quality: Safe Use of Opioids Does Pt have an Active Cancer Diagnosis on the Problem List?: No Quality: Stroke Does the patient have a stroke diagnosis?: No Physical Exam Vital Signs: Vital Signs: Last Vital Signs Temp 97.4 F 05/14/23 07:14 Pulse 75 05/14/23 07:14 Resp 16 05/14/23 07:14 BP 112/69 05/14/23 07:14 Pulse Ox 95 05/14/23 07:14 O2 Del Method Room Air 05/14/23 07:14 O2 Flow Rate 3 05/04/23 17:31 BMI result Body Mass Index 36.9 Appearance: Alert.? Oriented X3.? cvs: [id number], [id number]. res:air entry fair ,minimum cracles right upper lung imporved. abd: no rebound or guarding ,nt, bs present. ext pulses present , no cyanosis . left hand erythema seems improving. neuro: axo3 , nonfocal. DS: Data Data Completed and Pending Labs on day of discharge: Laboratory Results - last 24 hr 05/13/23 05/13/23 05/14/23 16:16 20:34 07:17 Hold Purple Top Creatinine Estim Creat Clear Calc Estimated GFR POC Glucose 258 H 217 H 227 H Hold Yellow Top Random Vancomycin 05/14/23 05/14/23 08:12 11:42 Hold Purple Top SEE NOTE Creatinine 0.73 Estim Creat Clear Calc 128.8 Estimated GFR > 60 POC Glucose 227 H Hold Yellow Top See Note Random Vancomycin 14.3 L Imaging Chest x-ray: Radiologist's impression: ITS Impressions Chest X-Ray 05/01/23 19:39 IMPRESSION: 1. Bilateral low lung volumes. 2. Slight bronchial thickening. 3. Right basilar opacity which may represent atelectasis versus evolving infectious/inflammatory etiology. Chest CTA 05/01/23 22:06 IMPRESSION: Limited exam due to respiratory motion. No evidence of pulmonary embolism. Right middle lobe pneumonia. Cavitary nodule right upper lobe, probably infectious or inflammatory as well. Given history, septic emboli should be considered. VTE: negative Hand/Wrist X-Ray 05/03/23 13:26 IMPRESSION: 1. Unchanged Normal x-rays of left hand and left wrist. No fracture or dislocation or signs of osteomyelitis are found. 2. Possible recurrence left hand cellulitis. Hand MRI 05/06/23 09:19 IMPRESSION: 1. Soft tissue defect along the radial aspect of the 1st metacarpal with adjacent cellulitis. No abscess formation. No evidence of acute osteomyelitis. 2. Lobulated fluid/cystic structure along the dorsal aspect of the 2nd metacarpophalangeal joint measuring up to 2.4 cm with minimal peripheral enhancement. Findings could represent a synovial recess versus ganglion cyst. Alternatively, findings could indicate a giant cell tumor of the tendon sheath. 3. Volar and dorsal subcutaneous edema adjacent to the metacarpals and extending into the fingers. Discharge Plan Discharge Anticipated Discharge Date/Time: 05/14/23 14:31 Patient Disposition: er [facility] Discharge Diagnosis: Lung abscess, hand abcess ,IVDU Referrals: [facility] [Outside] Luz Elena Miller MD [Primary Care Provider] - 1 Week Edin Clarke MD [Physician] - 2 Weeks Tomasa Kessler MD [Physician] - 2 Weeks Discharge Medications: New ceftriaxone 2 gram recon soln 2 g IV DAILY Qty: 15 0RF Rx Instructions: end date for ceftriaxone 05/30/23 vancomycin 1,000 mg recon soln 1,004 mg IV Q8H Qty: 1 0RF Rx Instructions: end date for vancomycin 1000 mg iv q8hr -end date 05/30/23 Continued atorvastatin 40 mg tablet 40 mg PO DAILY sennosides-docusate sodium [Stool Softener-Laxative] 8.6-50 mg tablet 1 tab PO DAILY PRN (Reason: Constipation) dextroamphetamine-amphetamine 30 mg tablet 30 mg PO BID@0800,1300 gabapentin 800 mg tablet 800 mg PO TID pantoprazole 40 mg tablet,delayed release (DR/EC) 40 mg PO DAILY@0630 albuterol sulfate [Ventolin HFA] 90 mcg/actuation HFA aerosol inhaler 2 puff inhalation Q6H PRN (Reason: Shortness Of Breath Or Wheezing) sertraline 50 mg tablet 75 mg PO DAILY insulin lispro 100 unit/mL insulin pen 1 sliding scale dose subcut TIDAC insulin glargine [Lantus Solostar U-100 Insulin] 100 unit/mL (3 mL) insulin pen 30 unit subcut BEDTIME Qty: 15 0RF oxycodone 5 mg Tablet 5 mg PO Q4H PRN (Reason: Pain, Severe (Pain Scale 7-10)) Qty: 20 0RF Rx Instructions: Partial Fill upon patient request. methadone [Methadone Intensol] 10 mg/mL Concentrate 105 mg PO DAILY acetaminophen [Tylenol] 325 mg Tablet 650 mg PO Q6H PRN (Reason: Pain) nicotine 21 mg/24 hr Patch 24 Hour 1 patch TRANSDERMAL DAILY Discharge Orders: Discharge Order (Routine); Ordered 05/14/23 Ordered By: David Lopez Diet: Advance to usual diet Activity on Discharge: As tolerated Stand Alone Forms: Patient Portal Discharge page Care Plan Goals: Patient was admitted for right lung upper lobe cavitary lesion-found to have pneumonia with sepsis: Subsequently patient was started on IV antibiotics, blood cultures sent and echo was done as well as seen by Pulmonary: With above supportive care with IV antibiotics -patient seems to be improved significantly, sepsis resolved, blood culture negative, echo: The left ventricular systolic function is normal. The calculated ejection fraction is 65% by biplane method,No obvious valvular pathology seen on this study. Weaned off from oxygen therapy. Pulmonary recommended: 28 days of antibiotics and repeat CT chest scan afterwards. Patient will benefit from outpatient pulmonary follow-up. Consider CBC, BMP, LFT monitoring Q weekly while on antibiotics. Left hand cellulitis and abscess: Seen and surgery: Patient had I&D done: MRI also reviewed by hand surgery -abscess over the dorsal aspect of the left 2nd MCP joint. And swelling and fluctuance improved, patient has full range of motion without pain, start showering and washing the wound on the dorsal aspect of the left hand with soap and water in the shower or sink every day. recomended to avoid submerging the wound under water, but washing in the shower seek with soap and water daily along with daily dressing changes would be good at this point. She can then apply a small amount of antibiotic ointment and help participate in her daily dressing changes. She can follow-up in our clinic perhaps a week or 2 after discharge to see how she is doing. Health Concerns: as above. follow up with pcp,pulmonary ,orthopedics in 1-2 weeks . Plan of Treatment: As above. Assessment: As above.
[2023-05-14 14:59] VITALS: BP 131/86; PULSE 97; RESP 18; TEMP 36.9; O2SAT 93
[2023-05-14 16:26] LABS: Glucose, Whole Blood 210 mg/dL (60-115)
--- NOTE | 2023-05-14 16:38 | MHC.CM.PN ---
Addendum entered by Tanya Navarrete 05/15/23 16:17: CM MET WITH PT WHO STATES SHE WOKE UP TODAY NOT FEELING WELL AND FEELS SHE SHOULD GO [facility] SHE IS AWARE SHE WILL DC WEDNESDAY TO [facility] IN [place] Addendum entered by Tanya Navarrete 05/15/23 10:30: PT UNABLE TO LEAVE AMA YESTERDAY DUE TOP PICC LINE PT AGREED TO REMAIN UNTIL IT COULD BE REMOVED PT STILL SAYING SHE DOES NOT WANT TO GO TO [place], HOWEVER ALSO NOT DEMANDING TO LEAVE [facility] IS NOW UNABLE TO TAKE PT PRIOR TO WEDNESDAY THE METHADONE CLINIC WILL BE CLOSED TOMORROW Original Note: CM MET WITH PT AT RN REQUEST PT STATING SHE DOES NOT WANT TO GO TO [place] SHE SAYS NO ONE TOLD HER SHE WAS GOING TO [place] AND SHE DOES NOT WANT TO GO THAT FAR CM AND RN AT BEDSIDE DISCUSSING RISKS AND BARRIERS TO ALTERNATE PLACEMENTS INFORMED BLS TRANSPORT WITH [facility] NOW ON HOLD
[2023-05-14] MEDS: methADONE HCl 20 MG/2 ML ORAL.CONC 40 MG PO (16:39)
--- NOTE | 2023-05-14 16:49 | PC.NURSE ---
Pt refusing to go to [facility]. Plan to sign out AMA tomorrow after PICC is removed. Encouraged to find alternative Health Care Settings. Pt states [facility] not meeting her needs and what she wants to do. Pt unable to understand POC and SNF's that accept Methadone.
[2023-05-14] MEDS: LORazepam 1 MG TABLET PO (18:37)
[2023-05-14 19:20] VITALS: BP 153/99; PULSE 122; RESP 18; TEMP 37; O2SAT 95
[2023-05-14 19:55] LABS: Glucose, Whole Blood 177 mg/dL (60-115)
[2023-05-14 20:26] VITALS: BP 143/69; PULSE 93
[2023-05-14] MEDS: Insulin Glargine,Hum.rec.anlog 100 UNIT/ML 10 ML VIAL 30 UNIT SUBCUT (20:28)
[2023-05-15] MEDS: oxyCODONE HCl Immed Release 5 MG TABLET 10 MG PO ×3 (01:30→15:19)
[2023-05-15] MEDS: cefTRIAXone sodium 2 GM in 0.9 % Sodium Chloride 50 ML IV (01:31)
--- NOTE | 2023-05-15 01:58 | PC.NURSE ---
dressing to left hand changed, directions as ordered.
[2023-05-15] MEDS: vancomycin HCL 1,000 MG in 0.9 % Sodium Chloride 250 ML 270 MG IV ×3 (02:05→18:06)
[2023-05-15 03:37] VITALS: BP 123/74; PULSE 85; RESP 18; TEMP 36; O2SAT 93
[2023-05-15] MEDS: Omeprazole 20 MG CAPSULE.DR PO (06:08)
[2023-05-15 07:42] LABS: Glucose, Whole Blood 228 mg/dL (60-115)
[2023-05-15] MEDS: 0.9 % Sodium Chloride Flush 3 ML SYRINGE IVFLUSH (08:06)
[2023-05-15] MEDS: Insulin Lispro 100 UNIT/ML 3 ML VIAL SUBCUT ×4 (08:06→20:55)
[2023-05-15] MEDS: Amphetamine Mixed Salts 10 MG TABLET 30 MG PO ×2 (08:07→12:26)
[2023-05-15] MEDS: Gabapentin 400 MG CAPSULE 800 MG PO ×3 (08:07→20:55)
[2023-05-15] MEDS: methADONE HCl 20 MG/2 ML ORAL.CONC 70 MG PO (08:07)
[2023-05-15] MEDS: Atorvastatin Calcium 40 MG TABLET PO (08:07)
[2023-05-15] MEDS: Nicotine 21 MG PATCH.TD24 TRANSDERMA (08:08)
[2023-05-15] MEDS: Sertraline HCL 25 MG TABLET 75 MG PO (08:08)
[2023-05-15] MEDS: Enoxaparin Sodium 40 MG/0.4 ML SYRINGE SUBCUT (08:08)
[2023-05-15] MEDS: 0.9 % Sodium Chloride Flush 10 ML SYRINGE 5 ML IVFLUSH ×3 (08:12→20:55)
[2023-05-15] MEDS: LORazepam 1 MG TABLET PO (08:15)
[2023-05-15 08:48] LABS: Creatinine Clr Calc Pharmacy 138.3; Estimated Glomerular Filt Rate > 60; Vancomycin Random 14.3 mcg/mL (15-20)
--- NOTE | 2023-05-15 09:10 | HE.PHANOTE ---
VANCO DOSE ADJUSTMENT BASED ON TROUGH ADN RENAL FUNCTION DOSE CONTINUED AT 1000 Q8H. NEXT LEVEL 05/15 @ 0800
[2023-05-15 12:21] LABS: Glucose, Whole Blood 237 mg/dL (60-115)
--- NOTE | 2023-05-15 12:46 | P.PNIM_ITS ---
Subjective Subjective Date of Service: 05/15/23 Interval History: Acute hypoxic resp failure due to cavitary pneumonia left hand erythema improving Review of Systems no fevers or chills Physical Exam 2 Vital Signs: Vital Signs: Last Vital Signs Temp 96.8 F 05/15/23 03:37 Pulse 85 05/15/23 03:37 Resp 18 05/15/23 03:37 BP 123/74 05/15/23 03:37 Pulse Ox 93 05/15/23 03:37 O2 Del Method Room Air 05/15/23 03:37 O2 Flow Rate 3 05/04/23 17:31 BMI result Body Mass Index 36.9 Appearance: Alert.? Oriented X3.? cvs: rrr, [id number]. res:air entry fair ,diminshed on right upper lung /has few cracles. abd: no rebound or guarding ,nt, bs present. ext pulses present , no cyanosis . left hand erythema seems improving. neuro: axo3 , nonfocal. Objective Data Active Medications Acetaminophen (Acetaminophen 325 Mg Tablet) 975 mg PO Q8H PRN PRN Reason: Pain, Severe (Pain Scale 7-10) Last Admin: 05/12/23 12:31 Dose: 975 mg Documented By: KARINE Albuterol Sulfate (Albuterol Sulfate (0.083%) 2.5 Mg/3 Ml Vial.Neb) 2.5 mg INHALE Q2H PRN PRN Reason: Shortness of Breath/Wheezing Last Admin: 05/09/23 09:56 Dose: 2.5 mg Documented By: ACACIA Amphetamine/Dextroamphetamine (Amphetamine Mixed Salts 10 Mg Tablet) 30 mg PO BID@0800,1300 [facility] Last Admin: 05/15/23 12:26 Dose: 30 mg Documented By: ESTEVAN Atorvastatin Calcium (Atorvastatin Calcium 40 Mg Tablet) 40 mg PO DAILY [facility] Last Admin: 05/15/23 08:07 Dose: 40 mg Documented By: ESTEVAN Benzonatate (Benzonatate 100 Mg Capsule) 200 mg PO TID PRN PRN Reason: Cough Last Admin: 05/09/23 21:07 Dose: 200 mg Documented By: DALIA Dextrose (Dextrose 50 % 25 Gm/50 Ml Syringe) 25 gm IVPUSH Q15M PRN; Protocol PRN Reason: per Hypoglycemia Standing Ord. Enoxaparin Sodium (Enoxaparin Sodium 40 Mg/0.4 Ml Syringe) 40 mg SUBCUT Q24H [facility] Last Admin: 05/15/23 08:08 Dose: 40 mg Documented By: ESTEVAN Gabapentin (Gabapentin 400 Mg Capsule) 800 mg PO TID [facility] Last Admin: 05/15/23 08:07 Dose: 800 mg Documented By: ESTEVAN Glucose (Glucose Gel 15 Gm Gel..Gram.) 15 gm PO Q15M PRN; Protocol PRN Reason: per Hypoglycemia Standing Ord. Ceftriaxone Sodium 2 gm/ (Sodium Chloride) 50 mls @ 100 mls/hr IV Q24H [facility] Last Infusion: 05/15/23 02:05 Dose: Infused Documented By: JACKIE Vancomycin HCl 1,000 mg/ (Sodium Chloride) 270 mls @ 270 mls/hr IV Q8H [facility] Last Infusion: 05/15/23 11:26 Dose: Infused Documented By: ESTEVAN Insulin Glargine (Insulin Glargine,Hum.Rec.Anlog 100 Unit/Ml 10 Ml Vial) 30 unit SUBCUT BEDTIME [facility] Last Admin: 05/14/23 20:28 Dose: 30 unit Documented By: JACKIE Insulin Human Lispro (Insulin Lispro 100 Unit/Ml 3 Ml Vial) 0 unit SUBCUT QIDACHS [facility]; Protocol Last Admin: 05/15/23 12:27 Dose: 6 unit Documented By: ESTEVAN Lorazepam (Lorazepam 1 Mg Tablet) 1 mg PO BID PRN PRN Reason: anxiety/restlessness Last Admin: 05/15/23 08:15 Dose: 1 mg Documented By: ESTEVAN Methadone HCl (Methadone Hcl 20 Mg/2 Ml Oral.Conc) 70 mg PO DAILY@0800 [facility] Last Admin: 05/15/23 08:07 Dose: 70 mg Documented By: ESTEVAN Methadone HCl (Methadone Hcl 20 Mg/2 Ml Oral.Conc) 40 mg PO DAILY@1700 [facility] Last Admin: 05/14/23 16:39 Dose: 40 mg Documented By: SELWYN Nicotine (Nicotine 21 Mg Patch.Td24) 21 mg TRANSDERMA DAILY [facility] Last Admin: 05/15/23 08:08 Dose: 21 mg Documented By: ESTEVAN Omeprazole (Omeprazole 20 Mg Capsule.Dr) 20 mg PO DAILY@0630 [facility] Last Admin: 05/15/23 06:08 Dose: 20 mg Documented By: JACKIE Oxycodone HCl (Oxycodone Hcl Immed Release 5 Mg Tablet) 10 mg PO Q6H PRN PRN Reason: Pain, Mild (Pain Scale 1-3) Last Admin: 05/15/23 08:15 Dose: 10 mg Documented By: ESTEVAN Senna/Docusate Sodium (Sennosides/Docusate Sodium Tablet) 1 tab PO DAILY PRN PRN Reason: Constipation Last Admin: 05/05/23 07:50 Dose: 1 tab Documented By: AIYANA-RIVION Sertraline HCl (Sertraline Hcl 25 Mg Tablet) 75 mg PO DAILY [facility] Last Admin: 05/15/23 08:08 Dose: 75 mg Documented By: ESTEVAN Sodium Chloride (0.9 % Sodium Chloride Flush 3 Ml Syringe) 3 ml IVFLUSH QSHIFT [facility] Last Admin: 05/15/23 08:06 Dose: 3 ml Documented By: ESTEVAN Sodium Chloride (0.9 % Sodium Chloride Flush 10 Ml Syringe) 5 ml IVFLUSH TID [facility] Last Admin: 05/15/23 08:12 Dose: 5 ml Documented By: ESTEVAN Labs 05/05/23 05:42 05/15/23 08:05 Labs: Laboratory Results - last 24 hr 05/14/23 05/14/23 05/15/23 16:14 19:52 07:38 Hold Purple Top Estim Creat Clear Calc Estimated GFR POC Glucose 210 H 177 H 228 H Random Vancomycin 05/15/23 05/15/23 08:05 12:18 Hold Purple Top SEE NOTE Estim Creat Clear Calc 138.3 Estimated GFR > 60 POC Glucose 237 H Random Vancomycin 14.3 L Assessment and Plan (1) Pulmonary abscess: Status: Acute (2) Abscess of left hand: Status: Acute Plan 38 years old woman admitted with: Right upper lobe cavitary nodule likely abscess associated with right middle lobe pneumonia and sepsis . TTE 05/03: The left ventricular systolic function is normal. The calculated ejection fraction is 65% by biplane method,No obvious valvular pathology seen on this study. Pulm consulted- suggest 28d ABX then repeat CT scan, IV vancomycin + ceftriaxone intiated 05/02, blood cultures negative, weaned off O2. L hand purulent cellulitis: POD#9(I+D) MRI without evidence of osteomyelitis,discuss 2nd MCP joint findings with Ortho IV vanco/ceftriaxone 08/30 OUD - HCV viral load pending; HIV negative, HBV immune - Addiction Medicine consulted, on split-dose methadone Asthma. DuoNeb as needed. History of ADHD. Dextroamphetamine . DVT prophylaxis: Heparin subcut. Code status: Full ongoing hospitlisation need for IV antibiotics to treat cavitary pneumonia and left hand cellulitis,also need placement. Quality Stroke Does the patient have a stroke diagnosis?: No VTE Prior VTE?: No VTE Risk Level:: Medical - moderate - high VTE Device Contraindication: Treatment Not Indicated VTE Drug Contraindication: N/A - Med Ordered
[2023-05-15 15:18] VITALS: BP 138/72; PULSE 87; RESP 18; TEMP 36.7; O2SAT 96
[2023-05-15 16:54] LABS: Glucose, Whole Blood 242 mg/dL (60-115)
[2023-05-15] MEDS: methADONE HCl 20 MG/2 ML ORAL.CONC 40 MG PO (16:56)
[2023-05-15 19:04] VITALS: BP 126/66; PULSE 83; RESP 18; TEMP 36.7; O2SAT 95
[2023-05-15 20:09] LABS: Glucose, Whole Blood 208 mg/dL (60-115)
[2023-05-15] MEDS: Insulin Glargine,Hum.rec.anlog 100 UNIT/ML 10 ML VIAL 30 UNIT SUBCUT (20:56)
[2023-05-16 00:01] VITALS: BP 114/61
[2023-05-16] MEDS: oxyCODONE HCl Immed Release 5 MG TABLET 10 MG PO ×3 (00:03→14:34)
[2023-05-16] MEDS: LORazepam 1 MG TABLET PO ×2 (00:03→12:29)
[2023-05-16 03:13] VITALS: BP 115/68; PULSE 67; RESP 16; TEMP 36; O2SAT 95
[2023-05-16] MEDS: cefTRIAXone sodium 2 GM in 0.9 % Sodium Chloride 50 ML IV (03:18)
[2023-05-16] MEDS: vancomycin HCL 1,000 MG in 0.9 % Sodium Chloride 250 ML 270 MG IV ×2 (04:01→10:13)
[2023-05-16] MEDS: Omeprazole 20 MG CAPSULE.DR PO (06:46)
[2023-05-16 07:11] VITALS: BP 108/67; PULSE 76; RESP 16; TEMP 36.1; O2SAT 94
[2023-05-16 07:19] LABS: Glucose, Whole Blood 220 mg/dL (60-115)
[2023-05-16] MEDS: Insulin Lispro 100 UNIT/ML 3 ML VIAL SUBCUT ×4 (07:57→20:28)
[2023-05-16] MEDS: Gabapentin 400 MG CAPSULE 800 MG PO ×3 (07:58→20:27)
[2023-05-16] MEDS: Enoxaparin Sodium 40 MG/0.4 ML SYRINGE SUBCUT (07:58)
[2023-05-16] MEDS: Nicotine 21 MG PATCH.TD24 TRANSDERMA (07:58)
[2023-05-16] MEDS: Amphetamine Mixed Salts 10 MG TABLET 30 MG PO ×2 (07:58→12:23)
[2023-05-16] MEDS: Sertraline HCL 25 MG TABLET 75 MG PO (07:59)
[2023-05-16] MEDS: Atorvastatin Calcium 40 MG TABLET PO (07:59)
[2023-05-16] MEDS: 0.9 % Sodium Chloride Flush 3 ML SYRINGE IVFLUSH ×2 (07:59→17:09)
[2023-05-16] MEDS: 0.9 % Sodium Chloride Flush 10 ML SYRINGE 5 ML IVFLUSH ×2 (07:59→14:13)
[2023-05-16] MEDS: methADONE HCl 20 MG/2 ML ORAL.CONC 70 MG PO (07:59)
[2023-05-16] MEDS: ondansetron HCL 4 MG/2 ML VIAL IVPUSH (10:36)
[2023-05-16 11:49] LABS: Glucose, Whole Blood 197 mg/dL (60-115)
[2023-05-16 11:50] LABS: Creatinine Clr Calc Pharmacy 127.1; Estimated Glomerular Filt Rate > 60
--- NOTE | 2023-05-16 12:03 | HO.PM.IMPN ---
Subjective Subjective Date of Service: 05/16/23 Interval History: Acute hypoxic resp failure due to cavitary pneumonia left hand erythema improving Review of Systems hand area has little whitsh/yellow discharge no fever or chills Physical Exam Vital Signs: Vital Signs: Last Vital Signs Temp 96.9 F 05/16/23 07:11 Pulse 76 05/16/23 07:11 Resp 16 05/16/23 07:11 BP 108/67 05/16/23 07:11 Pulse Ox 94 05/16/23 07:11 O2 Del Method Room Air 05/16/23 07:11 O2 Flow Rate 3 05/04/23 17:31 BMI result Body Mass Index 36.9 Appearance: Alert.? Oriented X3.? cvs: rrr, [id number]. res:air entry fair ,diminshed on right upper lung /has few cracles. abd: no rebound or guarding ,nt, bs present. ext pulses present , no cyanosis . left hand erythema improving ,still has some serosinginous /whitsh/yellow discharge neuro: axo3 , nonfocal Objective Data Active Medications Acetaminophen (Acetaminophen 325 Mg Tablet) 975 mg PO Q8H PRN PRN Reason: Pain, Severe (Pain Scale 7-10) Last Admin: 05/12/23 12:31 Dose: 975 mg Documented By: AKRINE Albuterol Sulfate (Albuterol Sulfate (0.083%) 2.5 Mg/3 Ml Vial.Neb) 2.5 mg INHALE Q2H PRN PRN Reason: Shortness of Breath/Wheezing Last Admin: 05/09/23 09:56 Dose: 2.5 mg Documented By: ACACIA Amphetamine/Dextroamphetamine (Amphetamine Mixed Salts 10 Mg Tablet) 30 mg PO BID@0800,1300 [facility] Last Admin: 05/16/23 07:58 Dose: 30 mg Documented By: ESTEVAN Atorvastatin Calcium (Atorvastatin Calcium 40 Mg Tablet) 40 mg PO DAILY [facility] Last Admin: 05/16/23 07:59 Dose: 40 mg Documented By: ESTEVAN Benzonatate (Benzonatate 100 Mg Capsule) 200 mg PO TID PRN PRN Reason: Cough Last Admin: 05/09/23 21:07 Dose: 200 mg Documented By: DALIA Dextrose (Dextrose 50 % 25 Gm/50 Ml Syringe) 25 gm IVPUSH Q15M PRN; Protocol PRN Reason: per Hypoglycemia Standing Ord. Enoxaparin Sodium (Enoxaparin Sodium 40 Mg/0.4 Ml Syringe) 40 mg SUBCUT Q24H [facility] Last Admin: 05/16/23 07:58 Dose: 40 mg Documented By: ESTEVAN Gabapentin (Gabapentin 400 Mg Capsule) 800 mg PO TID [facility] Last Admin: 05/16/23 07:58 Dose: 800 mg Documented By: ESTEVAN Glucose (Glucose Gel 15 Gm Gel..Gram.) 15 gm PO Q15M PRN; Protocol PRN Reason: per Hypoglycemia Standing Ord. Ceftriaxone Sodium 2 gm/ (Sodium Chloride) 50 mls @ 100 mls/hr IV Q24H [facility] Last Admin: 05/16/23 03:18 Dose: 100 mls/hr Documented By: QUETA Vancomycin HCl 1,000 mg/ (Sodium Chloride) 270 mls @ 270 mls/hr IV Q8H [facility] Last Infusion: 05/16/23 11:22 Dose: Infused Documented By: ESTEVAN Insulin Glargine (Insulin Glargine,Hum.Rec.Anlog 100 Unit/Ml 10 Ml Vial) 30 unit SUBCUT BEDTIME [facility] Last Admin: 05/15/23 20:56 Dose: 30 unit Documented By: AMRITA Insulin Human Lispro (Insulin Lispro 100 Unit/Ml 3 Ml Vial) 0 unit SUBCUT QIDACHS [facility]; Protocol Last Admin: 05/16/23 07:57 Dose: 6 unit Documented By: ESTEVAN Lorazepam (Lorazepam 1 Mg Tablet) 1 mg PO BID PRN PRN Reason: anxiety/restlessness Last Admin: 05/16/23 00:03 Dose: 1 mg Documented By: QUETA Methadone HCl (Methadone Hcl 20 Mg/2 Ml Oral.Conc) 70 mg PO DAILY@0800 [facility] Last Admin: 05/16/23 07:59 Dose: 70 mg Documented By: ESTEVAN Methadone HCl (Methadone Hcl 20 Mg/2 Ml Oral.Conc) 40 mg PO DAILY@1700 [facility] Last Admin: 05/15/23 16:56 Dose: 40 mg Documented By: AMRITA Nicotine (Nicotine 21 Mg Patch.Td24) 21 mg TRANSDERMA DAILY [facility] Last Admin: 05/16/23 07:58 Dose: 21 mg Documented By: ESTEVAN Omeprazole (Omeprazole 20 Mg Capsule.Dr) 20 mg PO DAILY@0630 [facility] Last Admin: 05/16/23 06:46 Dose: 20 mg Documented By: QUETA Oxycodone HCl (Oxycodone Hcl Immed Release 5 Mg Tablet) 10 mg PO Q6H PRN PRN Reason: Pain, Mild (Pain Scale 1-3) Last Admin: 05/16/23 08:24 Dose: 10 mg Documented By: ESTEVAN Senna/Docusate Sodium (Sennosides/Docusate Sodium Tablet) 1 tab PO DAILY PRN PRN Reason: Constipation Last Admin: 05/05/23 07:50 Dose: 1 tab Documented By: CHRIS Sertraline HCl (Sertraline Hcl 25 Mg Tablet) 75 mg PO DAILY [facility] Last Admin: 05/16/23 07:59 Dose: 75 mg Documented By: ESTEVAN Sodium Chloride (0.9 % Sodium Chloride Flush 3 Ml Syringe) 3 ml IVFLUSH QSHIFT [facility] Last Admin: 05/16/23 07:59 Dose: 3 ml Documented By: ESTEVAN Sodium Chloride (0.9 % Sodium Chloride Flush 10 Ml Syringe) 5 ml IVFLUSH TID [facility] Last Admin: 05/16/23 07:59 Dose: 5 ml Documented By: ESTEVAN Labs 05/05/23 05:42 05/16/23 11:11 Labs: Laboratory Results - last 24 hr 05/15/23 05/15/23 05/15/23 12:18 16:46 20:06 Hold Purple Top Estim Creat Clear Calc Estimated GFR POC Glucose 237 H 242 H 208 H 05/16/23 05/16/23 05/16/23 07:14 11:11 11:45 Hold Purple Top SEE NOTE Estim Creat Clear Calc 127.1 Estimated GFR > 60 POC Glucose 220 H 197 H Assessment and Plan (1) Abscess of left hand: Status: Acute (2) Pulmonary abscess: Status: Acute Plan 38 years old woman admitted with: Right upper lobe cavitary nodule likely abscess associated with right middle lobe pneumonia and sepsis . TTE 05/03: The left ventricular systolic function is normal. The calculated ejection fraction is 65% by biplane method,No obvious valvular pathology seen on this study. Pulm consulted- suggest 28d ABX then repeat CT scan, IV vancomycin + ceftriaxone intiated 05/02, blood cultures negative, weaned off O2. L hand purulent cellulitis: POD#10(I+D) has mild discharge MRI without evidence of osteomyelitis,discuss 2nd MCP joint findings with Ortho IV vanco/ceftriaxone 08/30 OUD - HCV viral load pending; HIV negative, HBV immune - Addiction Medicine consulted, on split-dose methadone Asthma. DuoNeb as needed. History of ADHD. Dextroamphetamine . DVT prophylaxis: Heparin subcut. Code status: Full ongoing hospitlisation need for IV antibiotics to treat cavitary pneumonia and left hand cellulitis,also need placement, Will also need hand surgery follow up in am before discharge. Quality Stroke Does the patient have a stroke diagnosis?: No VTE Prior VTE?: No VTE Risk Level:: Medical - moderate - high VTE Device Contraindication: Treatment Not Indicated VTE Drug Contraindication: N/A - Med Ordered
[2023-05-16 12:20] LABS: Vancomycin Trough 45.7 mcg/mL (10.0-20.0)
--- NOTE | 2023-05-16 13:08 | PC.NURSE ---
Phlebotomy unable to draw vanco trough. Spoke to pharmacist Tomas and decided trough would be drawn with next dose. Dr ordered more labs so phlebotomy logan vanco trough with those labs while vanco was infusing. Vanco trough level 45.7. Pharmacy and Dr. Lopez aware.
[2023-05-16 15:16] VITALS: BP 127/74; PULSE 84; RESP 18; TEMP 36.6; O2SAT 93
[2023-05-16 16:31] LABS: Vancomycin Random 17.4 mcg/mL (15-20)
[2023-05-16 16:40] LABS: Glucose, Whole Blood 262 mg/dL (60-115)
[2023-05-16] MEDS: methADONE HCl 20 MG/2 ML ORAL.CONC 40 MG PO (17:13)
[2023-05-16] MEDS: vancomycin HCL 750 MG in 0.9 % Sodium Chloride 250 ML 265 MG IV (17:45)
[2023-05-16 19:06] VITALS: BP 115/65; PULSE 87; RESP 18; TEMP 36.9; O2SAT 93
[2023-05-16 20:19] LABS: Glucose, Whole Blood 157 mg/dL (60-115)
[2023-05-16] MEDS: Insulin Glargine,Hum.rec.anlog 100 UNIT/ML 10 ML VIAL 30 UNIT SUBCUT (20:27)
[2023-05-17] MEDS: cefTRIAXone sodium 2 GM in 0.9 % Sodium Chloride 50 ML IV (02:17)
[2023-05-17] MEDS: vancomycin HCL 750 MG in 0.9 % Sodium Chloride 250 ML 265 MG IV ×2 (02:51→09:49)
[2023-05-17 03:43] VITALS: BP 136/72; PULSE 82; RESP 18; TEMP 36.1; O2SAT 93
[2023-05-17] MEDS: Omeprazole 20 MG CAPSULE.DR PO (06:13)
[2023-05-17 07:32] VITALS: BP 133/79; PULSE 81; RESP 18; TEMP 36.3; O2SAT 93
[2023-05-17 07:36] LABS: Glucose, Whole Blood 209 mg/dL (60-115)
[2023-05-17] MEDS: Enoxaparin Sodium 40 MG/0.4 ML SYRINGE SUBCUT (07:51)
[2023-05-17] MEDS: Nicotine 21 MG PATCH.TD24 TRANSDERMA (07:51)
[2023-05-17] MEDS: Amphetamine Mixed Salts 10 MG TABLET 30 MG PO (07:52)
[2023-05-17] MEDS: Sertraline HCL 25 MG TABLET 75 MG PO (07:52)
[2023-05-17] MEDS: Atorvastatin Calcium 40 MG TABLET PO (07:52)
[2023-05-17] MEDS: methADONE HCl 20 MG/2 ML ORAL.CONC 70 MG PO (07:53)
[2023-05-17] MEDS: Gabapentin 400 MG CAPSULE 800 MG PO (07:53)
[2023-05-17] MEDS: Insulin Lispro 100 UNIT/ML 3 ML VIAL SUBCUT (07:53)
[2023-05-17] MEDS: 0.9 % Sodium Chloride Flush 10 ML SYRINGE 5 ML IVFLUSH (08:01)
[2023-05-17 08:42] LABS: Creatinine Clr Calc Pharmacy 122.1; Estimated Glomerular Filt Rate > 60
[2023-05-17] MEDS: oxyCODONE HCl Immed Release 5 MG TABLET 10 MG PO (08:55)
--- NOTE | 2023-05-17 10:32 | MHC.RECOVRN ---
Plan for pt to dc to [facility] today. Pt received 70 mg methadone this morning, additional 40 mg ordered now. Pt to receive a total of 110 mg methadone today. Pt is aware it will not be a split dose while at [facility].
[2023-05-17] MEDS: methADONE HCl 20 MG/2 ML ORAL.CONC 40 MG PO (10:40)
[2023-05-17] MEDS: LORazepam 1 MG TABLET PO (11:11)
[2023-05-17] MEDS: ondansetron HCL 4 MG/2 ML VIAL IVPUSH (11:11)
--- NOTE | 2023-05-17 11:44 | PC.NURSE ---
PICC Line dressing changed by Primary RN on this day at 10:30AM with assistance with this fiction and nonfiction writer prose. Sterile technique used, pt wearing mask. Tolerated dressing change well. No s/s infection on the site. No drainage noted from PICC site Right arm. Plan to d/c to SNF for residential ABT.
== END 2023-05-17 11:46 | disposition skilled nursing facility (03) | DRG 871 ==
LOC: HO.ED 21:49 → HO.EDOVER 05-02 00:34 → HO.IMC 05-02 14:53 → HO.S3 05-11 02:35
PROVIDERS: Family Medicine; Hospitalist; Internal Medicine Pulmonary Disease; Nurse Practitioner Family; Orthopaedic Surgery; Admitting Provider Internal Medicine; Emergency Provider Emergency Medicine; PCP Family Medicine; Visit Provider Internal Medicine
PROC: 0HBGXZZ Excision of Left Hand Skin, External Approach (ICD-10-PCS; principal; 2023-05-04 15:00)
PROC: 02HV33Z Insertion of Infusion Device into Superior Vena Cava, Percutaneous Approach (ICD-10-PCS; principal; 2023-05-05 11:30)
DX: A41.9 Sepsis, unspecified organism (principal); J85.1 Abscess of lung with pneumonia; J96.01 Acute respiratory failure with hypoxia; F11.20 Opioid dependence, uncomplicated; L03.114 Cellulitis of left upper limb; E87.1 Hypo-osmolality and hyponatremia; L02.512 Cutaneous abscess of left hand; J45.21 Mild intermittent asthma with (acute) exacerbation; J98.4 Other disorders of lung; F19.10 Other psychoactive substance abuse, uncomplicated; E83.42 Hypomagnesemia; E66.9 Obesity, unspecified; F41.9 Anxiety disorder, unspecified; E11.65 Type 2 diabetes mellitus with hyperglycemia; Z68.36 Body mass index [BMI] 36.0-36.9, adult; F17.210 Nicotine dependence, cigarettes, uncomplicated; Z71.6 Tobacco abuse counseling; F90.9 Attention-deficit hyperactivity disorder, unspecified type; E11.42 Type 2 diabetes mellitus with diabetic polyneuropathy; Z20.822 Contact with and (suspected) exposure to COVID-19; Z23 Encounter for immunization; Z79.4 Long term (current) use of insulin; Z79.899 Other long term (current) drug therapy
CPT/HCPCS: 0241U; 36415; 36573; 71045; 71275; 73110; 73130; 73220; 80048; 80053; 80202; 80307; 82565; 82947; 83036; 83605; 83735; 83880; 84145; 84295; 84484; 85007; 85025; 85027; 85610; 85652; 86140; 86704; 86706; 86780; 87040; 87070; 87205; 87340; 87389; 87522; 90686; 93005; 93306; 94640; 97110; 97116; 97161; 97165; 97530; 99285; A9585; C1751; J0696; J1170; J1644; J1650; J1885; J2250; J2405; J2704; J2795; J2997; J3010; J3370; J3371; J3475; Q9957; Q9967

== ENCOUNTER → 2023-05-01 18:40 | Outpatient (BNV) | payer MEDICARE, MEDICAID, SELFPAY | PROVIDERS: Admitting Provider Internal Medicine; Emergency Provider Emergency Medicine; PCP Family Medicine; Visit Provider Internal Medicine Cardiovascular Disease | DX: R06.02 Shortness of breath (principal) | CPT/HCPCS: 93010 ==

== ENCOUNTER 2023-05-02 00:27 | Outpatient (BNV) | payer MEDICARE, SELFPAY | END 2023-05-03 07:00 | PROVIDERS: Admitting Provider Internal Medicine; Emergency Provider Emergency Medicine; PCP Family Medicine; Visit Provider Internal Medicine | DX: I38 Endocarditis, valve unspecified (principal); R78.81 Bacteremia | CPT/HCPCS: 93306 ==

== ENCOUNTER → 2023-05-02 00:27 | Outpatient (BNV) | payer MEDICARE, MEDICAID, SELFPAY | PROVIDERS: Admitting Provider Internal Medicine; Emergency Provider Emergency Medicine; PCP Family Medicine; Visit Provider Internal Medicine Pulmonary Disease | DX: J85.2 Abscess of lung without pneumonia (principal); J18.9 Pneumonia, unspecified organism | CPT/HCPCS: 99223; 99232 ==

== ENCOUNTER → 2023-05-02 00:27 | Outpatient (BNV) | payer MEDICARE, MEDICAID, SELFPAY | PROVIDERS: Admitting Provider Internal Medicine; Emergency Provider Emergency Medicine; PCP Family Medicine; Visit Provider Internal Medicine | DX: J85.1 Abscess of lung with pneumonia (principal); L02.512 Cutaneous abscess of left hand | CPT/HCPCS: 99223; 99231; 99232; 99233; 99239; 99499 ==

== ENCOUNTER → 2023-05-02 00:27 | Outpatient (BNV) | payer MEDICARE, MEDICAID, SELFPAY | PROVIDERS: Admitting Provider Internal Medicine; Emergency Provider Emergency Medicine; PCP Family Medicine; Visit Provider Nurse Practitioner Psychiatric/Mental Health | DX: F11.90 Opioid use, unspecified, uncomplicated (principal) | CPT/HCPCS: 99222; 99231 ==

== ENCOUNTER → 2023-05-02 00:27 | Outpatient (BNV) | payer MEDICARE, MEDICAID, SELFPAY | PROVIDERS: Admitting Provider Internal Medicine; Emergency Provider Emergency Medicine; PCP Family Medicine; Visit Provider Physician Assistant | DX: L02.512 Cutaneous abscess of left hand (principal) | CPT/HCPCS: 10060; 99024; 99222 ==

== ENCOUNTER → 2023-05-02 00:27 | Outpatient (BNV) | payer MEDICARE, MEDICAID, SELFPAY | PROVIDERS: Admitting Provider Internal Medicine; Emergency Provider Emergency Medicine; PCP Family Medicine; Visit Provider Internal Medicine | DX: L02.512 Cutaneous abscess of left hand (principal); L03.114 Cellulitis of left upper limb; F11.90 Opioid use, unspecified, uncomplicated | CPT/HCPCS: 99222 ==

== ENCOUNTER 2024-11-25 11:05 | Inpatient (IN) | payer MEDICARE, MEDICAID, SELFPAY ==
[2024-11-25] VITALS (7 sets, daily range): BP systolic 109–158; BP diastolic 51–86; PULSE 46–57; RESP 12–19; TEMP 36.2–37.1; O2SAT 97–99; BMI 26.6; BMI 28.6
--- NOTE | ~2024-11-25 | XR_ITS ---
CLINICAL HISTORY: overlying IVDU wound to smith, hx DM 2 view right tibia-fibula Comparison: None provided Findings No acute fracture. No evidence of osteomyelitis. No ankle effusion. No significant arthritic change. There are multiple small pockets of gas within the posteromedial aspect of the calf. On the lateral view, there is a masslike area of relative increased density estimated at 5 cm which could be secondary to edema or fluid collection. There are several small hyperdensities within the anterior soft tissues. These appear to represent calcifications. There is no gross evidence of foreign body. IMPRESSION: There are tiny pockets of gas with surrounding increased density within the posterior calf. Recommend further evaluation with ultrasound to exclude abscess. Alternatively, pockets of gas may be secondary to recent penetrating injury. Necrotizing infection also possible. This document has been electronically signed by: Janay Duke MD on 11/25/2024 13:53:23
--- NOTE | ~2024-11-25 | CT_ITS ---
CLINICAL HISTORY: Necrotizing wound, rule out deep space infection CT right tibia and fibula with contrast Comparison: 11/25/2024 Findings: There is extensive edema of the soft tissues. There are multiple tiny pockets of subcutaneous gas within the posteromedial aspect of the lower leg. There is no associated fluid collection. There are multiple small soft tissue calcifications. There is no radiopaque foreign body. There is three-vessel runoff to the right lower extremity. There is no evidence of venous thrombosis. There is a trace right knee effusion. There is no ankle effusion. There are moderate arthritic changes of the right knee. There are no significant arthritic changes of the ankle. There is no fracture or dislocation. There is no evidence of osteomyelitis. Impression: 1. There are multiple small pockets of gas within the subcutaneous tissues of the posteromedial aspect of the lower leg. There is no associated abscess or evidence of osteomyelitis. This document has been electronically signed by: Janay Duke MD on 11/25/2024 16:10:53
--- NOTE | 2024-11-25 11:24 | ED.GENADULT ---
HPI - General Adult General Chief complaint: Wound/Laceration Stated complaint: RLE WOUND,?FEVER IN AM,IDDM,MISSED METHADONE Time Seen by Provider: 11/25/24 11:14 Source: patient and EMS Mode of arrival: EMS Limitations: no limitations History of Present Illness ED Provider: EVONNE ALVAREZ PA-C HPI narrative: 39 year old female with pmhx significant for asthma, DM, IVDU, and cellulitis presents to the ED today for evaluation of wound to her right lower leg x1 month. Reports the wound began as a small area of redness which has been progressing over the last month. The wound has been draining discharge of all sorts of colors . Reports injecting dope , last injected 5-6days ago. Denies injecting into the affected area. Admits to subjective fevers 2-3 days ago. No known injury/trauma. Patient is currently on methadone. She is typically dosed with 195 mg methadone at [facility]. Reports her last dose was yesterday. Admits to missing her dose this morning. She also reports history of DM - non compliant with her insulin. Last used insluin a few weeks back, my sugars were in the 600's . Related Data Home Medications ?Medication ?Instructions ?Recorded ?Confirmed albuterol sulfate 90 mcg/actuation 2 puff inhalation Q6H PRN 03/07/23 05/02/23 aerosol inhaler (Ventolin HFA) Shortness Of Breath Or Wheezing atorvastatin 40 mg tablet 40 mg PO DAILY 03/07/23 05/02/23 dextroamphetamine-amphetamine 30 30 mg PO BID@0800,1300 03/07/23 05/02/23 mg tablet gabapentin 800 mg tablet 800 mg PO TID 03/07/23 05/02/23 insulin lispro 100 unit/mL 1 sliding scale dose subcut TIDAC 03/07/23 05/02/23 subcutaneous pen pantoprazole 40 mg tablet,delayed 40 mg PO DAILY@0630 03/07/23 05/02/23 release sennosides 8.6 mg-docusate sodium 1 tab PO DAILY PRN Constipation 03/07/23 05/02/23 50 mg tablet (Stool Softener-Laxative) sertraline 50 mg tablet 75 mg PO DAILY 03/07/23 05/02/23 acetaminophen 325 mg tablet 650 mg PO Q6H PRN Pain 05/02/23 05/02/23 (Tylenol) nicotine 21 mg/24 hr daily 1 patch transdermal DAILY 05/02/23 05/02/23 transdermal patch methadone 10 mg/mL oral concentrate 195 mg PO DAILY 11/25/24 11/25/24 Previous Rx's ?Medication ?Instructions ?Recorded insulin glargine 100 unit/mL (3 30 unit (0.3 mL) subcut BEDTIME 03/15/23 mL) subcutaneous pen (Lantus #15 mL Solostar U-100 Insulin) ceftriaxone 2 gram solution for 2 g IV DAILY #15 ea 05/14/23 injection vancomycin 1,000 mg intravenous 1,004 mg IV Q8H #1 ea 05/14/23 injection methadone 10 mg/5 mL oral solution 110 mg (55 mL) PO DAILY #1 mL 05/17/23 oxycodone 5 mg tablet 5 mg PO Q4H PRN Pain, Severe (Pain 05/17/23 Scale 7-10) #10 tabs Allergies Allergy/AdvReac Type Severity Reaction Status Date / Time bee pollen (bee stings) Allergy Severe Facial Verified 11/25/24 11:26 Swelling morphine Allergy Hives Verified 11/25/24 11:26 Review of Systems Review of Systems: Yes all other systems are reviewed and are negative PMFSH Past Medical History Attestation statement: The following information was validated with the patient. Source: old records reviewed and nursing notes reviewed Medical History Polysubstance abuse Intravenous drug abuse Opiate use Type 2 diabetes mellitus Diabetic polyneuropathy Asthma ADHD Surgical History History of incision and drainage Social History Social History Household Members: None Housing: Apartment Do you presently have visiting nurse or other home services: No Patient Tobacco Use Status: Current everyday Tobacco user Tobacco use type: Cigarette Cigarette Packs Per Day: 0.5 Cigarettes Per Day: 20 Smoked in Last 30 Days: Yes Use of substances other than those prescribed or required for medical reasons: Yes Substance Use Type: Crack/Cocaine Substance Use Frequency: Chronic Longstanding Advance Directives: No Advance Directives Information Provided: Yes Patient : No service: No Physical Exam ED Vital Signs: Vital Signs - 24 hr 11/25/24 11:15 11/25/24 11:27 11/25/24 14:05 Temperature 98.7 F 98.7 F Pulse Rate 52 52 47 L Respiratory Rate 15 15 16 Blood Pressure 137/85 109/62 Pulse Oximetry 97 97 99 Oxygen Delivery Method Room Air Room Air Room Air 11/25/24 15:59 Temperature 97.9 F Pulse Rate 47 L Respiratory Rate 19 Blood Pressure 111/67 Pulse Oximetry 98 Oxygen Delivery Method Room Air BMI result Body Mass Index 26.6 vital signs stable General: disheveled Skin: Warm, dry, intact. No rashes or lesions. Head: Normocephalic, atraumatic. EENT: Hearing is intact b/l. Conjunctiva clear. PERRLA. EOM intact. Moist mucous membranes.? Neck: Supple without LAD Cardiac: Chest wall symmetric. RRR Lungs: Normal respiratory effort without accessory muscle use. CTA bilaterally Abdomen: Soft, non-tender, non-distended. No rebound tenderness or guarding. Positive BS x4. Back: No midline spinous or paraspinal tenderness. No step off deformity. Ext: See photo of right lower leg below. 9x10cm area of erythema noted to medial aspect of RLE with induration and 4x4cm area of central necrosis. foul smelling. warm, ttp. no streaking. no expressible discharge or palpable fluctuance. Neuro: AOx3. Normal speech. Ambulating with steady gait. Course Course Course Narrative: CBC without leukocytosis or left shift. No anemia. H&H stable. Chemistry without acute electrolyte abnormality requiring intervention. No DASHAWN. Random glucose 88. Liver function around baseline. ESR and CRP both elevated. X-ray right tib-fib showing tiny pockets of gas with surrounding increased density within the posterior calf. I did obtain CT with contrast of the right lower leg to further characterize findings. CTA showing multiple small pockets of gas within the subcu tissues of the posteromedial aspect of the lower leg without associated abscess or evidence of osteomyelitis. > patient is not septic > treated with Tylenol and Toradol IV. > methadone dose administered > at this time, given findings on CT scan along with patient's IV drug use, I feel she would benefit from continued treatment with IV antibiotics. Patient is agreeable. > I spoke with hospitalist Genia who has accepted patient admission to medicine Medications Administered Discontinued Medications Generic Name Dose Route Start Last Admin Trade Name Jocy PRN Reason Stop Dose Admin Ceftriaxone Sodium 1 gm 11/25/24 11:42 11/25/24 12:28 Ceftriaxone Sodium 1 Gm Vial IVPUSH 11/25/24 11:43 1 gm ONCE ONE Administration Vancomycin HCl 2,000 mg in 500 mls @ 250 mls/hr 11/25/24 11:42 11/25/24 15:03 Vancomycin/Ns IV 11/25/24 13:41 Infused ONCE ONE Infusion Sodium Chloride 1,000 mls @ 999 mls/hr 11/25/24 11:45 11/25/24 15:10 Ns IV 11/25/24 12:45 Infused .Q1H1M CLARE Infusion Acetaminophen 1,000 mg in 100 mls @ 400 mls/hr 11/25/24 12:44 11/25/24 14:35 Ofirmev IV 11/25/24 12:58 Infused ONCE ONE Infusion Iohexol 100 ml 11/25/24 15:07 11/25/24 15:07 Iohexol 350 Mg/Ml 100 Ml Infus..Btl IV 11/25/24 15:08 85 ml ONCE ONE Administration Ketorolac Tromethamine 30 mg 11/25/24 14:48 11/25/24 15:06 Ketorolac Tromethamine 30 Mg/Ml Vial IVPUSH 11/25/24 14:49 30 mg ONCE ONE Administration Methadone HCl 195 mg 11/25/24 12:12 11/25/24 12:35 Methadone Hcl 20 Mg/2 Ml Oral.Conc PO 11/25/24 12:13 195 mg ONCE ONE Administration Medical Decision Making Medical Decision Making MDM Narrative: 39 year old female with pmhx significant for asthma, DM, IVDU, and cellulitis presents to the ED today for evaluation of wound to her right lower leg x1 month. vital signs are stable, she is afebrile. she is disheveled appearing, in NAD. on exam, there is a 9x10cm area of erythema noted to medial aspect of RLE with induration and 4x4cm area of central necrosis. foul smelling. warm, ttp. no streaking. no expressible discharge or palpable fluctuance. Differential diagnosis includes IVDU, polysubstance abuse, cellulitis, osteomyelitis, diabetic ulcer, anemia, electrolyte abnormality, dehydration, hyperglycemia, methadone dependence Plan for labs, inflammatory markers, lactic, blood cultures, xr, abx, and IVF. 1214 -- she does not meet sepsis criteria at this time. Differential Diagnosis Differential Diagnoses: The differential diagnosis associated with the presentation includes as above. Admission/Observation Consideration of admission/observation: Escalation of care including admission/observation considered Patient admitted to medicine for further management of necrotizing wound secondary to IV drug use. Consult Healthcare Provider Management of the patient was discussed with: Hospitalist (genia gregory) Lab Data MDM Lab Attestation statement: I reviewed the patient's lab results. as above. 11/25/24 12:20 11/25/24 12:21 Labs: Lab Results 11/25/24 11/25/24 Range/Units 12:20 12:21 WBC 5.0 (4.8-10.8) X10*3/uL RBC 4.45 (4.20-5.50) X10*6/uL Hgb 12.1 (12.0-16.0) g/dl Hct 37.7 (37.0-47.0) % MCV 84.7 (80.0-98.0) fL MCH 27.2 (27.0-33.0) pg MCHC 32.1 (31.0-35.0) g/dl RDW 15.2 (11.0-16.0) % Plt Count 165 D (160-400) X10*3/uL MPV 10.3 (9.4-12.3) fL Immature Gran % (Auto) 0.4 (0.0-0.4) % Neut % (Auto) 40.3 L (45-73) % Lymph % (Auto) 45.2 H (20-40) % [place] % (Auto) 8.7 (2-11) % Eos % (Auto) 4.2 H (0-4) % Baso % (Auto) 1.2 (0-2) % Lymph # (Auto) 2.3 (1.2-4.9) X10*3/uL [place] # (Auto) 0.4 (0.1-1.2) X10*3/uL Eos # (Auto) 0.2 (0.0-0.4) X10*3/uL Baso # (Auto) 0.1 (0.0-0.2) X10*3/uL Abs Immat Gran (auto) 0.02 (0.00-0.03) X10*3/uL Absolute Neuts (auto) 2.0 (2.0-8.3) x10*3/uL Absolute Nucleated RBC 0.000 (0.0-0.012) X10*3/uL Nucleated RBC % (auto) 0.0 (0.0-0.2) /100WBC ESR 21 H (0-20) MM/HR Sodium 140 (135-145) mmol/L Potassium 3.8 (3.3-5.1) mmol/L Chloride 103 (96-108) mmol/L Carbon Dioxide 31 H (22-29) mmol/L Anion Gap 10 L (12-20) BUN 15 (9-16) mg/dL Creatinine 0.78 (0.5-1.4) mg/dL Estim Creat Clear Calc 101.5 Estimated GFR > 60 Random Glucose 88 (60-115) mg/dL Lactic Acid 0.8 (0.5-2.0) mmol/L Calcium 9.1 (8.4-10.2) mg/dL Magnesium 1.8 (1.6-2.6) mg/dL Total Bilirubin 0.4 (0.0-1.0) mg/dL AST 22 (5-31) U/L ALT 16 (0-31) U/L Alkaline Phosphatase 67 (39-117) U/L C-Reactive Protein 0.79 H (< or = 0.50) mg/dL Total Protein 7.3 (6.5-8.0) g/dL Albumin 3.7 (3.5-5.0) g/dL Independent Interpretation I performed an independent interpretation of an: Plain X-Ray Interpretation: xr right tib/fib without osseous injury ct RLE showing gas to subq tissues Radiology Impression Discussion of test interpretation with radiology: I have reviewed the radiologist's reading. Radiologist Impression: Procedure(s): CT lower leg RT w IV con Accession Number(s): [id number] cc: Luz Elena Miller MD; Evonne Alvarez~ Report Number: [id number]: Total DLP = 0.00 mGy-cm Reason for Exam: Necrotizing wound, rule out deep space infection CLINICAL HISTORY: Necrotizing wound, rule out deep space infection CT right tibia and fibula with contrast Comparison: 11/25/2024 Findings: There is extensive edema of the soft tissues. There are multiple tiny pockets of subcutaneous gas within the posteromedial aspect of the lower leg. There is no associated fluid collection. There are multiple small soft tissue calcifications. There is no radiopaque foreign body. There is three-vessel runoff to the right lower extremity. There is no evidence of venous thrombosis. There is a trace right knee effusion. There is no ankle effusion. There are moderate arthritic changes of the right knee. There are no significant arthritic changes of the ankle. There is no fracture or dislocation. There is no evidence of osteomyelitis. Impression: 1. There are multiple small pockets of gas within the subcutaneous tissues of the posteromedial aspect of the lower leg. There is no associated abscess or evidence of osteomyelitis. This document has been electronically signed by: Janay Duke MD on 11/25/2024 16:10:53 Reason for Exam: overlying IVDU wound to smith, hx DM ADDENDUMThis document has been electronically signed by: Janay Duke MD on 11/25/2024 13:53:23 ADDENDUM: This report was discussed with Kim Douglass MD on Nov 25, 2024 13:56:00 EDT. This document has been electronically signed by: Juliana Dupont on 11/25/2024 13:56:55 Addendum Dictated By: Janay Duke MD Addendum Signed By: <Electronically signed by Janay Duke MD in OV> 11/25/24 522 Addendum Cosigned By: DD/ TD/TT: 11/25/24 CLINICAL HISTORY: overlying IVDU wound to smith, hx DM 2 view right tibia-fibula Comparison: None provided Findings No acute fracture. No evidence of osteomyelitis. No ankle effusion. No significant arthritic change. There are multiple small pockets of gas within the posteromedial aspect of the calf. On the lateral view, there is a masslike area of relative increased density estimated at 5 cm which could be secondary to edema or fluid collection. There are several small hyperdensities within the anterior soft tissues. These appear to represent calcifications. There is no gross evidence of foreign body. IMPRESSION: There are tiny pockets of gas with surrounding increased density within the posterior calf. Recommend further evaluation with ultrasound to exclude abscess. Alternatively, pockets of gas may be secondary to recent penetrating injury. Necrotizing infection also possible. This document has been electronically signed by: Janay Duke MD on 11/25/2024 13:53:23 Independent Historian Clinical information obtained from an independent historian. History obtained from or confirmed by: EMS External Record Review External record reviewed: Inpatient record Prescription Management I considered prescription management with: Pain Medication and Antibiotic Chronic Conditions Patient?s care impacted by: Diabetes Social Determinants Patient?s care significantly limited by Social Determinants of Health including: Other Social Determinant of Health Critical Care Time Critical Care Time Critical Care Time: Yes Total Critical Care Time: 40 Attestation: Critical care time in the amount of 40 minutes has been provided to the patient in terms of direct patient care, frequent reevaluation, consultation with hospitalist, review and interpretation of medical data and results, and management of potentially life-threatening conditions. This is all outside of any medical procedures. Discharge Plan Discharge Clinical Impression: Necrotic eschar, IVDU (intravenous drug user) Patient Disposition: Admitted As Inpatient Print Language: Amharic
--- NOTE | 2024-11-25 12:18 | HE.PHANOTE ---
RE: methadone Last dose 195mg at [facility] 11/24/24
[2024-11-25] MEDS: vancomycin/NS 2,000 MG/500 ML PLAST..BAG 250 MG IV (12:29)
[2024-11-25 12:30] LABS: MANUAL DIFF FLAG NO
[2024-11-25 12:32] LABS: Hematocrit 37.7 % (37.0-47.0); Hemoglobin 12.1 g/dl (12.0-16.0); Imm Gran Abs Auto 0.02 X10*3/uL (0.00-0.03); Imm Gran Pct Auto 0.4 % (0.0-0.4); Lymphocytes Absolute Auto 2.3 X10*3/uL (1.2-4.9); Mean Corpuscular HGB Conc 32.1 g/dl (31.0-35.0); Mean Corpuscular Hemoglobin 27.2 pg (27.0-33.0); Mean Corpuscular Volume 84.7 fL (80.0-98.0); NRBC Abs Auto 0.000 X10*3/uL (0.0-0.012); NRBC Pct Auto 0.0 /100WBC (0.0-0.2); Platelet Count 165 X10*3/uL (160-400); Red Blood Count 4.45 X10*6/uL (4.20-5.50); White Blood Count 5.0 X10*3/uL (4.8-10.8)
[2024-11-25] MEDS: methADONE HCl 20 MG/2 ML ORAL.CONC 195 MG PO (12:35)
--- NOTE | 2024-11-25 12:43 | PC.NURSE ---
METHADONE CLINIC CONTACTED. DOSE AND LAST ADMIN CONFIRMED. IV PLACED VIA ULTRASOUND. PT REPORTS 10/10 PAIN IN RIGHT LEG. PHYSICIAN TO ORDER PAIN MEDICATIONS. FRIEND AT BEDSIDE.
--- OUTSIDE RECORDS SUMMARY | 2024-11-25 12:46 | XMS_ITS | Encounter Summary ---
Author Organization [facility] Address [address] [place] [address] 7 [place] [address] Care Team Providers Care Microarray Analyst Name Role Phone Luz Elena Miller MD Primary Care Provider [phone] Encounter Details Date Type Department Care Team ([facility] Contact Info) Description 05/11/2022 Orders Only [facility] MEDICAL [address] [place] [address] Provider, MD Darrell Social History Tobacco Use Types Packs/Day Years Used Date Smoking Tobacco: Every Day Cigarettes Alcohol Use Standard Drinks/Week Comments Not Currently 0 (1 standard drink = 0.6 oz pur e alcohol) Comments Unknown Sex and Gender Information Value Date Recorded Sex Assigned at Female 03/11/2022 12:56 PM EST Legal Sex Female 8:40 PM EDT Gender Identity Female 03/11/2022 12:56 PM EST Sexual Orientation Straight 03/11/2022 3: 18 PM EST COVID-19 Exposure Response Date Recorded In the last 10 days, have yo u been in contact with someone who was confirmed or suspected to have Coronavirus/COVID-19? No / Unsure 05/11/2022 9:29 AM EST documented as of this encounter Plan of Treatment Not on file documented as of this encounter Procedures Procedure Name Priority Date/Time Associated Diagnosis Comments PLATELET COUNT Routine 05/01/2022 CBC Routine 04/28/2022 CBC AND DIFFERENTIAL - WAM A ND NON-WAM Routine 04/24/2022 COMPREHENSIVE METABOLIC PANEL Routine 04/24/2022 HEMOGLOBIN A1C (EXTERNAL RES ULTS ONLY) Routine 04/23/2022 documented in this encounter Results * Platelet Count (05/01/2022) Blood Venous blood specimen / Unknown us Historical Provider LAB BLOOD ORDERABLES Genie l Result * CBC (04/28/2022) Blood Venous blood specimen / Unknown Result [facility] Provider LAB BLOOD ORDERABLES Genie l Result * CBC and differential (04/24/2022) Blood Venous blood specimen / Unknown Result [facility] Provider LAB BLOOD ORDERABLES Genie l Result * Comprehensive Metabolic Panel (04/24/2022) Blood Venous blood specimen / Unknown Result [facility] Provider LAB BLOOD ORDERABLES Genie l Result * Hemoglobin A1c (04/23/2022) Result [facility] Provider POINT OF CARE TEST ENTER/ EDIT ORDERABLES Final Result documented in this encounter Visit Diagnoses Not on filedocumented in this encounter Care Teams Microarray Analyst Relationship Specialty Start Date End Date Luz Elena Miller MD [address] [place] [address] PCP - General Family Medicine 04/24/22 documented as of this encounter
--- OUTSIDE RECORDS SUMMARY | 2024-11-25 12:46 | XMS_ITS | Encounter Summary ---
Author Organization [employer] Address [address] [place] [address] 7t [place] [address] Care Team Providers Care Car Top Bolter Name Role Phone Luz Elena Miller MD Primary Care Provider [phone] Encounter Details Date Type Department Care Team ([facility] st Contact Info) Description 05/07/2022 Orders Only [facility] MEDICAL [address] [place] [address] Provider, MD Darrell Social History Tobacco Use Types Packs/Day Years Used Date Smoking Tobacco: Never Assessed Comments Unknown Sex and Gender Information Value Date Recorded Sex Assigned at Female 03/11/2022 12:56 PM EST Legal Sex Female 8:40 PM EDT Gender Identity Female 03/11/2022 12:56 PM EST Sexual Orientation Straight 03/11/2022 3: 18 PM EST documented as of this encounter Plan of Treatment Not on file documented as of this encounter Procedures Procedure Name Priority Date/Time Associated Diagnosis Comments C-REACTIVE PROTEIN Routine 04/23/2022 CBC AND DIFFERENTIAL - WAM A ND NON-WAM Routine 04/22/2022 LD Routine 04/22/2022 documented in this encounter Results * C-reactive Protein (04/23/2022) Blood Venous blood specimen / Unknown us Historical Provider LAB BLOOD ORDERABLES Genie l Result * CBC and differential (04/22/2022) Blood Venous blood specimen / Unknown Historical Provider LAB BLOOD ORDERABLES Genie l Result * Lactate Dehydrogenase (LD) (04/22/2022) Blood Venous blood specimen / Unknown us Historical Provider LAB BLOOD ORDERABLES Genie l Result documented in this encounter Visit Diagnoses Not on filedocumented in this encounter Care Teams Car Top Bolter Relationship Specialty Start Date End Date Luz Elena Miller MD [address] [place] [address] PCP - General Family Medicine 04/24/22 documented as of this encounter
--- OUTSIDE RECORDS SUMMARY | 2024-11-25 12:46 | XMS_ITS | Encounter Summary ---
Author Organization [employer] [facility] Address [address] [place] [address] 7 [place] [address] Care Team Providers Care Power Tong Operator Name Role Phone Luz Elena Miller MD Primary Care Provider [phone] Encounter Details Date Type Department Care Team ([facility] Contact Info) Description 04/27/2022 Orders Only [facility] MEDICAL [address] [place] [address] Provider, MD Darrell Social History Tobacco Use [...] Procedure Name Priority Date/Time Associated Diagnosis Comments HCG, QL, URINE Routine 04/25/2022 WOUND CULTURE Routine 04/25/2022 documented in this encounter Results * Wound culture (04/25/2022) Swab Historical Provider LAB MICROBIOLOGY - GENERA L ORDERABLES Final Result * HCG, Qualitative, Urine (04/25/2022) Urine Urine specimen obtained by clean catch procedure / Unknown Historical Provider LAB URINE ORDERABLES Genie l Result documented in this encounter Visit Diagnoses Not on filedocumented in this encounter Care Teams Power Tong Operator Relationship Specialty Start Date End Date Luz Elena Miller MD [address] [facility] [place] [address] PCP - General Family Medicine 04/24/22 documented as of this encounter
--- OUTSIDE RECORDS SUMMARY | 2024-11-25 12:46 | XMS_ITS | Encounter Summary ---
Author Organization [employer] Address [address] [place] [address] 7[address] [place] [address] Care Team Providers Care Vamp Presser Name Role Phone Luz Elena Miller MD Primary Care Provider [phone] Reason for Visit * Reason Comments Med Refill Encounter Details Date Type Department Care Team ([facility] st Contact Info) Description 11/12/2022 Refill [facility] MEDICAL [address] [place] [address] Luz Elena Miller MD [address] [place] [address] Moderate episode of recurrent major depressive disorder (CMS/HCC); ADHD, impulsive type Social History Tobacco Use Types Packs/Day Years [...] PM EST documented as of this encounter Miscellaneous Notes * Telephone Encounter - Melissa Mendoza - 11/19/2022 10:02 AM EDT Phone went right to DANIELLE barrios for pt to cb and schedule appt. Will send letter next. * Telephone Encounter - Melissa Mendoza - 11/14/2022 8:35 AM EDT LMOM for PT to CB and schedule appt. documented in this encounter Plan of Treatment Not on file documented as of this encounter Visit Diagnoses Diagnosis Moderate episode of recurrent major depressive disorder (CMS/HCC) ADHD, impulsive type documented in this encounter Care Teams Vamp Presser Relationship Specialty Start Date End Date Luz Elena Miller MD [address] [place] [address] PCP - General Family Medicine 04/24/22 documented as of this encounter
--- OUTSIDE RECORDS SUMMARY | 2024-11-25 12:47 | XMS_ITS | Encounter Summary ---
Author Organization [employer] Address [address] [facility] 7 [place] [address] Care Team Providers Care Hair Blender Name Role Phone Luz Elena Miller MD Primary Care Provider [phone] Reason for Visit * Reason Onset Date Comments New Med Request 05/15/2024 Encounter Details Date Type Department Care Team (Late st Contact Info) Description 05/15/2024 Telephone [facility] MEDICAL [address] [place] [address] Luz Elena Miller MD [address] [place] [address] New Med Request Social History Tobacco Use Types Packs/Day Years [...] encounter Miscellaneous Notes * Telephone Encounter - Kirstie Pinedo - 05/15/2024 4:29 PM EDT Quique ([facility]) called stating we didn't receive the following 4 prescriptions: gabapentin (Neurontin) 800 MG tablet Sig: Take 1 tablet (800 mg) by mouth 3 times daily. insulin lispro (HumaLOG) 100 UNIT/ML injection Sig: Inject 1-4 times per day as directed. metFORMIN (Glucophage) 500 MG tablet Sig: Take 1 tablet (500 mg) by mouth with breakfast and with evening meal. Alcohol wipes/alcohol swabs for insulin (something that Medicare will pay for) - unable to find a prescription for this in the patient's chart. Quique asked for [facility]'s fax number and states he just needs the prescriptions sent but someone can call if they have any questions at [phone], okay to leave a detailed message on voicemail. Thank you! documented in this encounter Plan of Treatment Not on file documented as of this encounter Visit Diagnoses Diagnosis Type 2 diabetes mellitus without complication, with long-term current use of insulin (CMS/[facility]) Type 2 diabetes mellitus with foot ulcer, with long-term current use of insulin (CMS/[facility]) documented in this encounter Care Teams Hair Blender Relationship Specialty Start Date End Date Luz Elena Miller MD [address] [place] [address] PCP - General Family Medicine 04/24/22 documented as of this encounter
--- OUTSIDE RECORDS SUMMARY | 2024-11-25 12:47 | XMS_ITS | Encounter Summary ---
Author Organization [employer] Address [address] [facility] 7t [place] [address] Care Team Providers Care Fire Extinguisher Charger Name Role Phone Luz Elena Miller MD Primary Care Provider [phone] Encounter Details Date Type Department Care Team ([facility] Contact Info) Description 06/08/2023 Orders Only [facility] [address] [place] [address] Luz Elena Miller MD [address] [place] [address] Social History Tobacco Use Types Packs/Day Years [...] Procedure Name Priority Date/Time Associated Diagnosis Comments COMPREHENSIVE METABOLIC PANEL Routine 05/27/2023 10:36 AM EDT documented in this encounter Results * Comprehensive Metabolic Panel (05/27/2023 10:36 AM EDT) Blood Venous blood specimen / Unknown Luz Elena Miller MD LAB BLOOD ORDERABLES Final Res ult documented in this encounter Visit Diagnoses Not on filedocumented in this encounter Care Teams Fire Extinguisher Charger Relationship Specialty Start Date End Date Luz Elena Miller MD [address] [facility] [address] PCP - General Family Medicine 04/24/22 documented as of this encounter
--- OUTSIDE RECORDS SUMMARY | 2024-11-25 12:47 | XMS_ITS | Clinical Summary ---
Author Organization [facility] Address [address] [place] [address] 7t [place] [address] Care Team Providers Care Home Child Care Provider Name Role Phone Luz Elena Miller MD Primary Care Provider [phone] Allergies No known active allergies Medications * This document contains information received from the source organization and may not represent a complete record from that organization. fluticasone (Flovent HFA) 220 MCG/ACT inhalerIndicatio ns:COPD (chronic obstructive pulmonary disease) with chronic bronchitis ([facility]) Inhale 2 puffs in the morning and at bedtime. 12 g 11 3 Active Comfort EZ Pen [place] 31G X 5 MM misc 2 Active Ventolin HFA 108 (90 Base) MCG/ACT inhaler 3 Active sertraline (Zoloft) 50 MG tabletIndication s:Moderate episode of recurrent major depressive disorder ([facility]) Take 1.5 tablets (75 mg) by mouth in the morning. 135 tablet 3 3 Active metFORMIN (Glucophage) 500 MG tabletIndication s:Type 2 diabetes mellitus without complication, with long-term current use of insulin ([facility]) Take 1 tablet (500 mg) by mouth with breakfast and with evening meal. 60 tablet 11 3 Active pantoprazole (ProtoNix) 40 MG EC tabletIndication s:Gastroesophage al reflux disease without esophagitis Take 1 tablet (40 mg) by mouth before breakfast. Do not crush, chew, or split. 90 tablet 3 3 Active insulin lispro (HumaLOG) 100 UNIT/ML injectionIndicat ions:Type 2 diabetes mellitus with foot ulcer, with long-term current use of insulin ([facility]) Inject 1-4 times per day as directed. 15 mL 11 3 Active insulin glargine (Lantus SoloStar) 100 UNIT/ML penIndications:T ype 2 diabetes mellitus without complication, with long-term current use of insulin ([facility]) Inject 40 Units under the skin at bedtime. 4 each 11 3 Active gabapentin (Neurontin) 800 MG tablet Take 1 tablet (800 mg) by mouth 3 times daily. 270 tablet 3 3 Active atorvastatin (Lipitor) 40 MG tabletIndication s:Type 2 diabetes mellitus without complication, with long-term current use of insulin ([facility]) Take 1 tablet (40 mg) by mouth in the morning. 30 tablet 11 3 Active glucose blood (Contour Next Test) test stripIndications :Type 2 diabetes mellitus with foot ulcer, with long-term current use of insulin ([facility]) TEST 3 TIMES A DAY 100 strip 3 Active amphetamine-dext roamphetamine (Adderall) 30 MG tabletIndication s:ADHD, impulsive type TAKE ONE (1) TABLET (30 MG) BY MOUTH TWO (2) TIMES DAILY. 58 tablet 3 Active Active Problems Problem Noted Date Diagnosed Date Type 2 diabetes mellitus wit h foot ulcer, with long-term current use of insulin 05/11/2022 ASCUS with positive high risk HPV cervical 05/11 Vaginal candidiasis 05/11/2022 ADHD, impulsive type 03/11/2022 COPD (chronic obstructive pu lmonary disease) with chronic bronchitis 03/11/2022 Methadone dependence 03/11/2022 Moderate episode of recurrent major depressive d isorder 03/11/2022 Long-term insulin use in type 2 diabetes 023 Assessment & Plan (05/11/2022 10:19 AM EST): Needs repeat A1C. Was a 11. Lantus icreased to 35 at night. Needs to add sliding scale. Discussed today and did teaching. WOUND was debrided with a scapel today down to healthy beefy granulation tissue. Discussed DAILY wound care with WTD dressing. Continue augmentin., Sheltered homelessness 03/11/2022 Assessment & Plan (03/11/2022 3:22 PM EST): Patient called very upset about the following issue. Sent email to Mayor's office, Senator, Rep [place], and [place] [employer] End Homelessness. Also discussed at Case Conference. Hi All, I was just informed that [facility] held a House Meeting at the [facility] informing residents that it is now a 60 max stay longterm. Four clients were given end dates. The clients were told they may be asked to leave immediately. I can personally state that two of these clients are doing VERY well and are ready for housing. I am frustrated because the [facility] ([facility]H also run by [facility]) continues to have at least SIX open rooms that are ready for occupancy (even one ADA unit!). It is very unclear to me as to why these stable people would not be offered internal PSH through [facility] and instead kicked back to the streets. As a reminder, [facility] elected to keep the [facility] as part of their Housing and Senior Living Program for the indefinite future, despite not renewing the congregate longterm contracts for [place]. Thanks, -Dr. Solis Gastroesophageal reflux disease without esophagi tis 03/11/2022 Resolved Problems Problem Noted Date Diagnosed Date Resolved Date Diabetic polyneuropathy asso ciated with type 2 diabetes mellitus 03/11/2022 05/11/2022 Immunizations Immunization Administration Dates Next Due Influenza injectable quadrivalent preservative f ree 02/22/2018,12/04/2016 Influenza, IIV3, injectable 12/19/2020 Pneumococcal Polysaccharide PPSV23 02/22/2018 Family History Medical History Relation Name Comments Heart attack Father Pancreatic cancer Father Other Mother murdered when p t was 11 Relation Name Status Comments Father Mother Social History Tobacco Use Types Packs/Day Years Used Date Smoking Tobacco: Every Day Cigarettes Tobacco Cessation:Ready to Q uit: Not Asked; Counseling Given: Not Answered Alcohol Use Standard Drinks/Week Comments Not Currently 0 (1 standard drink = 0.6 oz pur e alcohol) Comments Unknown Sex and Gender Information Value Date Recorded Sex Assigned at Female 03/11/2022 12:56 PM EST Legal Sex Female 8:40 PM EDT Gender Identity Female 03/11/2022 12:56 PM EST Sexual Orientation Straight 03/11/2022 3: 18 PM EST Last Filed Vital Signs Vital Sign Reading Time Taken Comments Blood Pressure 131/107 11/23/2022 10:39 AM EDT Pulse 119 11/23/2022 10:39 AM EDT Temperature 37.3 C (99.1 F) 11/23/2022 10:39 AM EDT Respiratory Rate 17 11/23/2022 10:39 AM EDT Oxygen Saturation 98% 05/11/2022 9:30 AM EST Inhaled Oxygen Concentration - - Weight 116 kg (255 lb 8 oz) 11/23/2022 10:39 AM EDT Height 170.2 cm (5' 7 ) 11/23/2022 10:39 AM EDT Body Mass Index 40.02 11/23/2022 10:39 AM EDT Plan of Treatment Health Maintenance Due Date Last Done Comments Depression Screening 1985 HIV Screening 1985 Lipid Panel 1983 SDOH Screening 1983 Disability Screening 1983 Diabetes: Foot Exam 1993 Eye Exam 1993 Alcohol/Substance Use Screening 1995 Family Planning (PISQ) 1998 HPV Vaccines (1 - 3-dose series) 1998 Hepatitis C Screening 2001 DTaP/Tdap/Td Vaccines (1 - Tdap) 2002 Diabetes: Urine Protein Screening 2002 Hepatitis B Vaccines (1 of 3 - 19+ 3-dose series) 2002 Pap Smear 02/05/2004 Cervical Cancer Screening 2013 HPV/Cotest 2013 Pneumococcal Vaccine: Pediatrics (0 to 5 Years) and At-Risk Patients (6 to 49) Years (2 of 2 - PCV) 02/22/2019 02/22/2018 Diabetes: Hemoglobin A1C 07/21/2022 04/23/2022 Mammogram 2023 Tobacco Screening 07/09/2023 07/08/2022 COVID-19 Vaccine ( - season) 2024 Influenza Vaccine (#1) 2024 4, 12/19/2020, 02/22/2018, Additional history exists Zoster Vaccines (1 of 2) 2033 RSV Patients and Patients Aged 60 years or older (1 - 1-dose 75+ series) 2058 HIB Vaccines Aged Out No longer eligi ble based on patient's age to complete this topic Hepatitis A Vaccines Aged Out No long er eligible based on patient's age to complete this topic IPV Vaccines Aged Out No longer eligi ble based on patient's age to complete this topic Meningococcal B Vaccine Aged Out No l onger eligible based on patient's age to complete this topic Meningococcal Vaccine Aged Out No gary edwina eligible based on patient's age to complete this topic RSV under 20 months Aged Out No longe r eligible based on patient's age to complete this topic Rotavirus Vaccines Aged Out No longer eligible based on patient's age to complete this topic Procedures Procedure Name Priority Date/Time Associated Diagnosis Comments HEMOGLOBIN A1C (EXTERNAL RES ULTS ONLY) Routine 04/23/2022 from Last 3 Months or Most Recently Relevant to Health Maintenance Results * Hemoglobin A1c (04/23/2022) [facility] Provider MD POINT OF CARE TEST ENTER/ EDIT ORDERABLES Final Result from Last 3 Months or Most Recently Relevant to Health Maintenance Insurance [address] [place] [address] MEDICARE [facility] Care Teams Home Child Care Provider Relationship Specialty Start Date End Date Luz Elena Miller MD [address] [place] [address] PCP - General Family Medicine 04/24/22
--- OUTSIDE RECORDS SUMMARY | 2024-11-25 12:47 | XMS_ITS ---
Author Organization [facility] Care Team Providers Care Perfusionist Name Role Phone Boris Fonseca Unavailable Unavail able Josesito Guy Unavailable Unavailable Allergies and adverse reactions Code CodeSystem Substance Reaction Severity StartDate Concern Status 7052 RXNORM Morphine Unknown 05/17/2023 active Care Team Name Role Address Phone Organization Dates Josesito Guy PCP [address] [address], [facility] (Office): [facility] 05/17/2023 - 06/02/2023 Boris Fonseca [address] [address], [facility] (Office): [facility] 05/17/2023 - 06/02/2023 Immunizations Immunization Status Vaccine Details Vaccine Code CodeSystem Deshawn e Notes Influenza cancelled Influenza, high-dose, split virus, quadrivalent, injectable, preservative free 197 CVX created date: 06/03/2023 consent date: 06/03/2023 TB 2 Step Mantoux Skin Test completed tuberculin skin test; unspecified formulation lotNumber: [id number] expiry: 08/06/2023 Mfg: [employer] Given 0.1 ml Right Forearm intradermally Step 1 of Multi-step with next step required 98 CVX created date: 05/25/2023 consent date: 05/25/2023 administere d date: 05/25/2023 Tdap (Tetanus/ Diptheria) cancelled tetanus toxoid, reduced diphtheria toxoid, and acellular pertussis vaccine, adsorbed 115 CVX created date: 06/03/2023 consent date: 06/03/2023 SARS-COV-2 (COVID-19) completed SARS-COV-2 (COVID-19) vaccine, mRNA, spike protein, LNP, preservative free, 100 mcg/0.5mL dose or 50 mcg/0.25mL dose Step 2 of Multi-step with next step required 207 CVX created date: 06/03/2023 administere d date: 07/10/2021 SARS-COV-2 (COVID-19) completed SARS-COV-2 (COVID-19) vaccine, mRNA, spike protein, LNP, preservative free, 100 mcg/0.5mL dose or 50 mcg/0.25mL dose Step 1 of Multi-step with next step required 207 CVX created date: 06/03/2023 administere d date: 12/25/2020 Hepatitis A - Adult dose cancelled hepatitis A vaccine, adult dosage 52 CVX created date: 06/03/2023 consent date: 06/03/2023 Mental Status Section Date Assessment Total Score Description 06/02/2023 BIMS 15 cognitively int act CAM 0 No delirium ind icated PHQ-9 00 05/24/2023 BIMS 15 cognitively int act CAM 0 No delirium ind icated PHQ-9 00 Problems Problem # Description Date of onset Resolved Date Code CodeSystem Concern Status 1 UNSTEADINESS ON FEET 05/19/[address] active 2 WEAKNESS 05/19/[address] active 3 ABSCESS OF LUNG WITH PNEUMONIA 05/17/[address] active 4 ATTENTION AND CONCENTRATION DEFICIT 05/17/[address] active 5 BODY MASS INDEX [BMI] 39.0-39.9, ADULT 05/17/[address] active 6 CELLULITIS OF LEFT UPPER LIMB 05/17/[address] active 7 CONSTIPATION, UNSPECIFIED 05/17/[address] active 8 CUTANEOUS ABSCESS OF LEFT HAND 05/17/[address] active 9 DIABETES MELLITUS DUE TO UNDERLYING CONDITION WITH DIABETIC NEUROPATHY, UNSPECIFIED 05/17/[address] active 10 MORBID (SEVERE) OBESITY DUE TO EXCESS CALORIES 05/17/[address] active 11 OPIOID DEPENDENCE, UNCOMPLICATED 05/17/[address] active 12 OTHER PSYCHOACTIVE SUBSTANCE ABUSE, UNCOMPLICATED 05/17/[address] active 13 SEPSIS, UNSPECIFIED ORGANISM 05/17/[address] active 14 UNSPECIFIED ASTHMA, UNCOMPLICATED 05/17/[address] active Reason for Referral No Reasons for Referral Entered Social History Social History Observation Description Start Date End Date Code Code System Current Smoking Status Tobacco smoking consumption unknown 439024709 SNOMED CT Sex Assigned At Female 1985 68524-0 [facility] Gender Identity Sexual Orientation Vital Signs Code Code System Vitals Name Values and Units Timing Information 2339-0 [facility] Blood Sugar Iohbs=700.0 Units=mg/dL 06/02/2023 07329-8 [facility] Pain Level Value=4.0 06/02/2023 51069-3 [facility] Weight Cwxrq=864.0 Units=Lbs 8302-2 [facility] Height Value=68.0 Units=Inches 05/17/2023 9279-1 [facility] Respiratory Rate Value=20.0 Units=/m in 05/17/2023 8462-4 [facility] Blood Pressure-Diastolic Value=75 Un its=mmHg 05/17/2023 8480-6 [facility] Blood Pressure-Systolic Ekcbr=539 Un its=mmHg 05/17/2023 8310-5 [facility] Body Temperature Value=97.3 Units= F 05/17/2023 8867-4 [facility] Heart rate Value=79.0 Units=/min 01/2024 05498-4 [facility] O2 % dC Oximetry Value=98.0 Units= % 05/17/2023
--- OUTSIDE RECORDS SUMMARY | 2024-11-25 12:47 | XMS_ITS | Encounter Summary ---
Author Organization [employer] Address [address] [place] [address] 7 [place] [address] Care Team Providers Care French Instructor Name Role Phone Luz Elena Miller MD Primary Care Provider [phone] Reason for Visit * Reason Comments Med Refill Encounter Details Date Type Department Care Team ([facility] Contact Info) Description 05/05/2024 Refill [place] [facility] [address] [place] [address] Luz Elena Miller MD [address] [place] [address] Type 2 diabetes mellitus without complication, with long-term current use of insulin (CMS/HCC); Moderate episode of recurrent major depressive disorder (CMS/HCC); Gastroesophageal reflux disease without esophagitis Social History Tobacco Use Types Packs/Day Years [...] complication, with long-term current use of insulin (CMS/HCC) Moderate episode of recurrent major depressive disorder (CMS/HCC) Gastroesophageal reflux disease without esophagitis Esophageal reflux documented in this encounter Care Teams French Instructor Relationship Specialty Start Date End Date Luz Elena Miller MD [address] [place] [address] PCP - General Family Medicine 04/24/22 documented as of this encounter
--- OUTSIDE RECORDS SUMMARY | 2024-11-25 12:47 | XMS_ITS | Encounter Summary ---
Author Organization [employer] Address [address] [place] [address] 7 [place] [address] Care Team Providers Care Recruiting Administrator Name Role Phone Luz Elena Miller MD Primary Care Provider [phone] Reason for Visit * Reason Comments Med Change Request Encounter Details Date Type Department Care Team ([facility] Contact Info) Description 11/23/2022 Refill [place] [facility] [address] [place] [address] Luz Elena Miller MD [address] [place] [address] Type 2 diabetes mellitus with foot ulcer, with long-term current use of insulin (CMS/[facility]) Social History Tobacco Use Types Packs/Day Years [...] Visit Diagnoses Diagnosis Type 2 diabetes mellitus with foot ulcer, with long-term current use of insulin (CMS/HCC) documented in this encounter Care Teams Recruiting Administrator Relationship Specialty Start Date End Date Luz Elena Miller MD [address] [place] [address] PCP - General Family Medicine 04/24/22 documented as of this encounter
--- OUTSIDE RECORDS SUMMARY | 2024-11-25 12:47 | XMS_ITS | Encounter Summary ---
Author Organization [employer] Address [address] [facility] [address] [place] [address] Care Team Providers Care Liver Trimmer Name Role Phone Luz Elena Miller MD Primary Care Provider Encounter Details Date Type Department Care Team ([facility] Contact Info) Description 06/04/2023 Orders Only [facility] [address] [place] [address] Luz Elena Miller MD [address] [place] [address] Social History Tobacco Use Types Packs/Day Years [...] Procedure Name Priority Date/Time Associated Diagnosis Comments MR HAND W AND WO CONTRAST LEFT Routine 05/06/2023 11:40 AM EST XR HAND WRIST LT Routine 05/03/2023 11:4 2 AM EST TRANSTHORACIC ECHO (TTE) COMPLETE Routine 05/03/2023 11:37 AM EST CBC WITH AUTO DIFFERENTIAL Routine 05/01/2023 11:43 AM EST XR CHEST 1 VIEW Routine 05/01/2023 11:[address] CHEST W CONTRAST Routine 05/01/2023 1 1:41 AM EST ECG 12-LEAD Routine 05/01/2023 11:38 AM EST CBC WITH AUTO DIFFERENTIAL Routine 03/07/2023 11:53 AM EST XR ANKLE 2 VIEWS RIGHT Routine 11:53 AM EST XR ANKLE 2 VIEWS LEFT Routine 03/07/2023 11:52 AM EST XR HAND WRIST RT Routine 03/07/2023 11:5 1 AM EST XR HAND WRIST LT Routine 03/07/2023 11:4 8 AM EST MR FOOT W AND WO CONTRAST RIGHT Routine 03/07/2023 11:47 AM EST MR FOOT W AND WO CONTRAST LEFT Routine 03/07/2023 11:46 AM EST documented in this encounter Results * MR Hand w/ and w/o Contrast Left (05/06/2023 11:40 AM EST) Anatomical Region Laterality Modality Upper Extremities, Hand Left Magnetic Resonance us Luz Elena Miller MD IMG MRI PROCEDURES Final Resul t * XR HAND WRIST LT (05/03/2023 11:42 AM EST) Anatomical Region Laterality Modality Abdomen Radiographic Kim ging us Luz Elena Miller MD IMG XR PROCEDURES Final Result * Transthoracic echo (TTE) complete (05/03/2023 11:37 AM EST) us Luz Elena Miller MD CV ECHO PROCEDURES Final Resul t * CBC auto differential (05/01/2023 11:43 AM EST) Blood Venous blood specimen / Unknown us Luz Elena Miller MD LAB BLOOD ORDERABLES Final Res ult * XR Chest 1 View (05/01/2023 11:43 AM EST) Anatomical Region Laterality Modality Chest Radiographic Kim ging us Luz Elena Miller MD IMG XR PROCEDURES Final Result * CT Chest w/ Contrast (05/01/2023 11:41 AM EST) Anatomical Region Laterality Modality Body, Chest Computed Tomogra phy us Luz Elena Miller MD IMG CT PROCEDURES Final Result * ECG 12 lead (05/01/2023 11:38 AM EST) Result Benjamin Miller MD ECG ORDERABLES Final Result * CBC auto differential (03/07/2023 11:53 AM EST) Blood Venous blood specimen / Unknown Result Benjamin Miller MD LAB BLOOD ORDERABLES Final Res ult * XR Ankle 2 Views Right (03/07/2023 11:53 AM EST) Anatomical Region Laterality Modality Lower Extremities, Ankle Right Radiogr aphic Imaging Result Benjamin Miller MD IMG XR PROCEDURES Final Result * XR Ankle 2 Views Left (03/07/2023 11:52 AM EST) Anatomical Region Laterality Modality Lower Extremities, Ankle Left Radiogr aphic Imaging Result Benjamin Miller MD IMG XR PROCEDURES Final Result * XR HAND WRIST RT (03/07/2023 11:51 AM EST) Anatomical Region Laterality Modality Abdomen Radiographic Kim ging Result Benjamin Miller MD IMG XR PROCEDURES Final Result * XR HAND WRIST LT (03/07/2023 11:48 AM EST) Anatomical Region Laterality Modality Abdomen Radiographic Kim ging Result Benjamin Miller MD IMG XR PROCEDURES Final Result * MR Foot w/ and w/o Contrast Right (03/07/2023 11:47 AM EST) Anatomical Region Laterality Modality Lower Extremities, Foot Right Magnetic Resonance Result Benjamin Miller MD IMG MRI PROCEDURES Final Resul t * MR Foot w and w/o Contrast Left (03/07/2023 11:46 AM EST) Anatomical Region Laterality Modality Lower Extremities, Foot Left Magnetic Resonance Result Benjamin Miller MD IMG MRI PROCEDURES Final Resul t documented in this encounter Visit Diagnoses Not on filedocumented in this encounter Care Teams Liver Trimmer Relationship Specialty Start Date End Date Luz Elena Miller MD [address] [facility] [place] [address] PCP - General Family Medicine 04/24/22 documented as of this encounter
[2024-11-25 12:49] LABS: Alanine Aminotransferase 16 U/L (0-31); Albumin Level 3.7 g/dL (3.5-5.0); Alkaline Phosphatase 67 U/L (39-117); Anion Gap 10 (12-20); Aspartate Amino Transferase 22 U/L (5-31); Blood Urea Nitrogen 15 mg/dL (9-16); Calcium 9.1 mg/dL (8.4-10.2); Carbon Dioxide 31 mmol/L (22-29); Chloride 103 mmol/L (96-108); Creatinine Clr Calc Pharmacy 101.5; Estimated Glomerular Filt Rate > 60; Magnesium 1.8 mg/dL (1.6-2.6); Potassium 3.8 mmol/L (3.3-5.1); Sodium 140 mmol/L (135-145); Total Protein 7.3 g/dL (6.5-8.0)
--- NOTE | 2024-11-25 14:47 | PC.NURSE ---
IV placed by ultrasound. Normal saline hung to gravity r/t lack of pumps. NS is infusing slowly, as the IV is positional.
[2024-11-25] MEDS: iohexoL 350 MG/ML 100 ML INFUS..BTL IV (15:07)
--- NOTE | 2024-11-25 16:48 | P.HPHOSP_ITS ---
History of Present Illness Date of Service: 11/25/24 Chief Complaint: right leg wound 39-year-old female with a history of diabetes, hyperlipidemia, peripheral neuropathy, GERD, mood disorder, and substance use disorder (including intravenous drug use, currently on methadone), presents with a right leg wound. The wound began as an area of inflamed skin and has progressed to a large open lesion with a necrotic surface. She denies injecting drugs in the affected area. She has been performing self-care with soap and water and covering the wound with a bandage. She reports having had a fever several days ago. CT of the right lower leg reveals multiple small pockets of gas within the subcutaneous tissues of the posteromedial aspect of the lower leg, without evidence of abscess or osteomyelitis. She was started on vancomycin and ceftriaxone; blood cultures were obtained. Laboratory results show a normal white blood cell count, ESR of 21, and an unremarkable basic metabolic panel. [facility] Medical History Polysubstance abuse Intravenous drug abuse Opiate use Type 2 diabetes mellitus Diabetic polyneuropathy Asthma ADHD Surgical History History of incision and drainage Social History Household Members: None Housing: Apartment Do you presently have visiting nurse or other home services: No Patient Tobacco Use Status: Current everyday Tobacco user Tobacco use type: Cigarette Cigarette Packs Per Day: 0.5 Cigarettes Per Day: 20 Smoked in Last 30 Days: Yes e-Cigarette/Vaping Use: Former Use Patient Interested in Nicotine Replacement: Yes Patient Given Instructions on How to Stop Smoking: Yes Date Education Initiated: 11/25/24 Second Hand Smoke Exposure: Yes Use of substances other than those prescribed or required for medical reasons: Yes Substance Use Type: Crack/Cocaine Substance Use Frequency: Chronic Longstanding Currently Displaying Signs/Symptoms of Drug Intoxication Withdrawal: No Have you been hit, kicked, punched, or otherwise hurt by someone within the past year? If so, by whom?: No Do you feel safe in your current relationship?: Yes Is there a partner from a previous relationship who is making you feel unsafe now?: No Are you made to feel afraid or neglected: No Advance Directives: No Advance Directives Information Provided: Yes Do you have a plan to hurt others: No Plan Recently lost weight without trying: Yes How much weight loss: 34pounds or more Eating poorly because of decreased appetite: Yes Nutrition screen score: 7 Nutrition Risks: No Nutritional Risk Patient : No : No Poor oral hygiene: No service: No Meds Allergies Allergy/AdvReac Type Severity Reaction Status Date / Time bee pollen (bee stings) Allergy Severe Facial Verified 11/25/24 11:26 Swelling morphine Allergy Hives Verified 11/25/24 11:26 Home Medications ?Medication ?Instructions ?Recorded ?Confirmed ?Last Taken ?Type albuterol sulfate 90 mcg/actuation 2 puff inhalation Q 6H PRN 03/07/23 11/25/24 Unknown History aerosol inhaler (Ventolin HFA) Shortness Of Breath Or Wheezing atorvastatin 40 mg tablet 40 mg PO DAILY 03/07/2311/0711/24/24 History gabapentin 800 mg tablet 800 mg PO TID 03/07/2311/2511/24/24 History insulin lispro 100 unit/mL 1 sliding scale dose subcut TIDAC 03/07/23 11/25/24 11/24/24 History subcutaneous pen pantoprazole 40 mg tablet,delayed 40 mg PO DAILY@0630 03/07/23 11/25/24 11/24/24 History release sennosides 8.6 mg-docusate sodium 1 tab PO DAILY PRN C onstipation 03/07/23 11/25/24 03/05/23 History 50 mg tablet (Stool Softener-Laxative) sertraline 50 mg tablet 75 mg PO DAILY 03/07/2311/0711/24/24 History nicotine 21 mg/24 hr daily 1 patch transdermal DAILY 0 05/02/23 11/25/24 11/24/24 History transdermal patch insulin glargine 100 unit/mL (3 40 unit subcut BEDTIME 11/25/24 11/25/24 11/24/24 History mL) subcutaneous pen (Lantus Solostar U-100 Insulin) methadone 10 mg/mL oral concentrate 195 mg PO DAILY 11/25/24 11/24/24 History Physical Exam 2 Vital Signs and Narrative: Vital Signs: Last Vital Signs Temp 97.9 F 11/25/24 15:59 Pulse 47 L 11/25/24 15:59 Resp 19 11/25/24 15:59 BP 111/67 11/25/24 15:59 Pulse Ox 98 11/25/24 15:59 O2 Del Method Room Air 11/25/24 15:59 BMI result Body Mass Index 26.6 Const: Other: General: AO X 3, no acute distress Resp: CTA bilateral CVS: S1,S2,RRR GI: +BS, NT, no distention Skin: Neuro: motor grossly intact Psych: appropriate affect Results Labs 11/26/24 07:11 11/26/24 07:11 Labs: Laboratory Results - last 24 hr 11/25/24 11/25/24 12:20 12:21 MCV 84.7 MCH 27.2 MCHC 32.1 RDW 15.2 Plt Count 165 D MPV 10.3 Immature Gran % (Auto) 0.4 Neut % (Auto) 40.3 L Lymph % (Auto) 45.2 H [place] % (Auto) 8.7 Eos % (Auto) 4.2 H Baso % (Auto) 1.2 Lymph # (Auto) 2.3 [place] # (Auto) 0.4 Eos # (Auto) 0.2 Baso # (Auto) 0.1 Abs Immat Gran (auto) 0.02 Absolute Neuts (auto) 2.0 Absolute Nucleated RBC 0.000 Nucleated RBC % (auto) 0.0 ESR 21 H Anion Gap 10 L Estim Creat Clear Calc 101.5 Estimated GFR > 60 Random Glucose 88 Lactic Acid 0.8 Calcium 9.1 Magnesium 1.8 Total Bilirubin 0.4 AST 22 ALT 16 Alkaline Phosphatase 67 C-Reactive Protein 0.79 H Total Protein 7.3 Albumin 3.7 Assessment and Plan (1) Opioid use disorder: Status: Acute (2) IVDU (intravenous drug user): Status: Acute (3) Cellulitis: Qualifiers: Laterality: left Site of cellulitis: extremity Site of cellulitis of extremity: upper extremity Qualified Code(s): L03.114 - Cellulitis of left upper limb Status: Acute (4) Abscess of left hand: Status: Acute Plan Assessment: 39-year-old female with a history of diabetes (on insulin), hyperlipidemia (on atorvastatin), GERD (on omeprazole), peripheral neuropathy, mood disorder, and substance use disorder (including IV drug use, currently on methadone), presenting with a progressively enlarging right lower leg wound with necrotic surface and subcutaneous gas on imaging. She denies injecting drugs in the area. Recent history of fever. No leukocytosis, ESR mildly elevated, and no evidence of abscess or osteomyelitis on CT. Currently on empiric vancomycin and ceftriaxone. * Right lower leg wound with necrosis and subcutaneous gas * Concerning for necrotizing soft tissue infection (NSTI) or severe cellulitis with gas-forming organisms. No abscess or osteomyelitis on imaging. * Diabetes mellitus, insulin-dependent * Poor wound healing risk factor. * History of IV drug use (on methadone) * Increased risk for atypical infections and poor wound healing. * Hyperlipidemia (on atorvastatin) * GERD (on omeprazole) * Peripheral neuropathy * May contribute to delayed recognition of wound severity. * Mood disorder * Recent fever--Suggests possible systemic infection. * Bradycardia--possible from methadone Plan: * Right lower leg wound with necrosis and subcutaneous gas * Continue empiric IV vancomycin and ceftriaxone; adjust antibiotics based on culture results and sensitivities. * Consult surgery for urgent evaluation for possible debridement given necrosis and subcutaneous gas. * Monitor for clinical signs of systemic toxicity (hemodynamic instability, worsening pain, rapid progression). * Wound care: daily assessment * Diabetes mellitus * Continue insulin; monitor blood glucose closely, especially in the setting of infection. * Substance use disorder * Continue methadone maintenance. * Involve addiction medicine and social work for support and discharge planning. * Hyperlipidemia * Continue atorvastatin. * GERD * Continue omeprazole. * Peripheral neuropathy * Continue Gabapentin * Mood disorder * Continue current psychiatric management; monitor for mood changes during hospitalization. * Monitoring and follow-up * Serial exams of the affected limb. * Monitor labs: CBC, BMP, inflammatory markers. * Follow blood and wound culture results. * Adjust management based on clinical course and surgical recommendations. * Bradycardia--possibly related to Methadone, monitor Disposition: Admit for IV antibiotics, surgical evaluation, and close monitoring, will need at least 2 midnights Quality Stroke Does the patient have a stroke diagnosis?: No VTE Prior VTE?: No VTE Risk Level:: Medical - moderate - high VTE Device Contraindication: Treatment Not Indicated VTE Drug Contraindication: N/A - Med Ordered
[2024-11-25] MEDS: oxyCODONE HCl Immed Release 5 MG TABLET PO (17:22)
--- NOTE | 2024-11-25 18:26 | MHC.RECOVRN ---
TW attempted to meet with pt in ED-06 after consult placed to Addiction Medicine. Intention was to discuss OUD. On approach pt was laying in bed, eyes closed, respirations even and unlabored. No apparent signs of distress observed. Pt stirred when name was called but did not awaken. TW to visit pt tomorrow to perform assessment/interview related to AMANDA.
--- NOTE | 2024-11-25 18:53 | PHA.MEDREC ---
Addendum entered by Kishore Bonner RPh 11/25/24 19:00: MED REC REVIEWED BY [facility] Original Note: Pharmacy Consult ? Medication Reconciliation Pharmacy has completed the medication reconciliation. Confirmed medication list with patient. Patient took all non-PRN medications yesterday.
--- NOTE | 2024-11-25 20:10 | ECG_ITS ---
Test Reason : BRADYCARDIA Blood Pressure : */* mmHG Vent. Rate : 42 BPM Atrial Rate : 42 BPM P-R Int : 128 ms QRS Dur : 86 ms QT Int : 524 ms P-R-T Axes : 40 68 65 degrees QTcB Int : 437 ms Marked sinus bradycardia Abnormal ECG When compared with ECG of 01-May-2023 18:40, Vent. rate has decreased by 72 bpm Referred By: [facility] Electronically Signed By: ASHLIE BEACH
[2024-11-25 20:20] LABS: Glucose, Whole Blood 133 mg/dL (60-115)
[2024-11-26] VITALS (8 sets, daily range): BP systolic 105–145; BP diastolic 67–84; PULSE 44–76; RESP 16–18; TEMP 36–36.6; O2SAT 92–99
--- NOTE | 2024-11-26 | ECG_ITS ---
Test Reason : Bradycardia Blood Pressure : */* mmHG Vent. Rate : 46 BPM Atrial Rate : 46 BPM P-R Int : 122 ms QRS Dur : 84 ms QT Int : 520 ms P-R-T Axes : 31 67 61 degrees QTcB Int : 455 ms Sinus bradycardia Otherwise normal ECG When compared with ECG of 25-Nov-2024 20:27, No significant change was found Referred By: Clayton Thomas Electronically Signed By: Jett Marlow
[2024-11-26 07:16] LABS: Glucose, Whole Blood 120 mg/dL (60-115)
[2024-11-26 08:01] LABS: Imm Gran Abs Auto 0.01 X10*3/uL (0.00-0.03); Imm Gran Pct Auto 0.2 % (0.0-0.4); MANUAL DIFF FLAG SCAN; NRBC Abs Auto 0.000 X10*3/uL (0.0-0.012); NRBC Pct Auto 0.0 /100WBC (0.0-0.2); PLT CLUMP 1; SCAN SMEAR FLAG 1
[2024-11-26 08:04] LABS: Hematocrit 34.9 % (37.0-47.0); Hemoglobin 11.1 g/dl (12.0-16.0); Lymphocytes Absolute Auto 2.1 X10*3/uL (1.2-4.9); Mean Corpuscular HGB Conc 31.8 g/dl (31.0-35.0); Mean Corpuscular Hemoglobin 26.7 pg (27.0-33.0); Mean Corpuscular Volume 83.9 fL (80.0-98.0); Red Blood Count 4.16 X10*6/uL (4.20-5.50)
[2024-11-26 08:09] LABS: Anion Gap 10 (12-20); Blood Urea Nitrogen 14 mg/dL (9-16); Calcium 8.4 mg/dL (8.4-10.2); Carbon Dioxide 29 mmol/L (22-29); Chloride 106 mmol/L (96-108); Creatinine Clr Calc Pharmacy 115.3; Estimated Glomerular Filt Rate > 60; Potassium 3.9 mmol/L (3.3-5.1); Sodium 141 mmol/L (135-145)
[2024-11-26 08:42] LABS: Platelet Count 114 X10*3/uL (160-400); White Blood Count 4.2 X10*3/uL (4.8-10.8)
[2024-11-26] MEDS: Flu Vacc TS2025-26(6mo up)/PF 0.5 ML SYRINGE IM (09:05)
[2024-11-26] MEDS: Nicotine 21 MG PATCH.TD24 TRANSDERMA (09:38)
[2024-11-26] MEDS: methADONE HCl 20 MG/2 ML ORAL.CONC 195 MG PO (09:39)
--- NOTE | 2024-11-26 09:48 | MHC.CM.PN ---
CM met with Patient at bedside and addressed IMM with her, providing Patient with the original and a copy has been placed on the chart. Patient lives alone in an apartment and she is functionally independent. Patient may benefit from a PT & Recovery Team Consult to assist with disposition. CM has initiated and will follow for dc planning. PCP is Dr. Luz Elena Miller and HCP is Friend/Marcial. Patient obtains her Methadone from [facility].
[2024-11-26 11:05] LABS: Glucose, Whole Blood 144 mg/dL (60-115)
[2024-11-26] MEDS: oxyCODONE HCl Immed Release 5 MG TABLET PO ×2 (11:06→17:12)
--- NOTE | 2024-11-26 11:43 | HO.PM.IMPN ---
Subjective Subjective Date of Service: 11/26/24 Interval History: f/u on abscess of the leg in the setting of drug use No septic Physical Exam Vital Signs: Vital Signs: Last Vital Signs Temp 97.8 F 11/26/24 11:18 Pulse 58 11/26/24 11:18 Resp 18 11/26/24 11:18 BP 145/80 H 11/26/24 11:18 Pulse Ox 98 11/26/24 11:18 O2 Del Method Room Air 11/26/24 11:18 BMI result Body Mass Index 28.6 Const: Other: General: AO X 3, no acute distress Resp: CTA bilateral CVS: S1,S2,RRR GI: +BS, NT, no distention Skin: Neuro: motor grossly intact Psych: appropriate affect Objective Data Active Medications Acetaminophen (Acetaminophen 325 Mg Tablet) 650 mg PO Q6H PRN PRN Reason: Pain, Mild 1-3,fever,headache Albuterol Sulfate (Albuterol Sulfate 90 Mcg 8 Gm Inhaler) 2 puff INHALE Q6H PRN PRN Reason: Shortness Of Breath Or Wheezing Atorvastatin Calcium (Atorvastatin Calcium 40 Mg Tablet) 40 mg PO DAILY [facility] Last Admin: 11/26/24 09:39 Dose: 40 mg Documented By: VIVIANE Ceftriaxone Sodium (Ceftriaxone Sodium 1 Gm Vial) 1 gm IVPUSH Q24H [facility] Dextrose (Dextrose 50 % 25 Gm/50 Ml Syringe) 25 gm IVPUSH Q15M PRN; Protocol PRN Reason: per Hypoglycemia Standing Ord. Enoxaparin Sodium (Enoxaparin Sodium 40 Mg/0.4 Ml Syringe) 40 mg SUBCUT Q24H [facility] Last Admin: 11/25/24 17:20 Dose: 40 mg Documented By: LB Gabapentin (Gabapentin 400 Mg Capsule) 800 mg PO TID [facility] Last Admin: 11/26/24 09:39 Dose: 800 mg Documented By: VIVIANE Glucose (Glucose Gel 15 Gm Gel..Gram.) 15 gm PO Q15M PRN; Protocol PRN Reason: per Hypoglycemia Standing Ord. Hydromorphone HCl (Hydromorphone Hcl 0.5 Mg/0.5 Ml Syringe) 0.5 mg IVPUSH Q4H PRN; Protocol PRN Reason: Pain, Severe (Pain Scale 7-10) Last Admin: 11/26/24 09:57 Dose: 0.5 mg Documented By: VIVIANE Vancomycin HCl 1,000 mg/ (Sodium Chloride) 270 mls @ 270 mls/hr IV Q12H [facility] Last Infusion: 11/26/24 00:42 Dose: Infused Documented By: LOS Insulin Glargine (Insulin Glargine,Hum.Rec.Anlog 100 Unit/Ml 10 Ml Vial) 20 unit SUBCUT BEDTIME [facility] Insulin Human Lispro (Insulin Lispro 100 Unit/Ml 3 Ml Vial) 0 unit SUBCUT QIDACHS [facility]; Protocol Last Admin: 11/26/24 11:12 Dose: Not Given Documented By: VIVIANE Non-Admin Reason: NPO Magnesium Hydroxide (Milk Of Magnesia 30 Ml Oral.Susp) 30 ml PO DAILY PRN PRN Reason: Constipation Melatonin (Melatonin 3 Mg Tablet) 6 mg PO BEDTIME PRN PRN Reason: Insomnia Methadone HCl (Methadone Hcl 20 Mg/2 Ml Oral.Conc) 195 mg PO DAILY [facility] Last Admin: 11/26/24 09:39 Dose: 195 mg Documented By: VIVIANE Co-signed By: HORACIO Nicotine (Nicotine 21 Mg Patch.Td24) 21 mg TRANSDERMA DAILY [facility] Last Admin: 11/26/24 09:38 Dose: 21 mg Documented By: VIVIANE Omeprazole (Omeprazole 20 Mg Capsule.Dr) 20 mg PO DAILY@0630 [facility] Oxycodone HCl (Oxycodone Hcl Immed Release 5 Mg Tablet) 5 mg PO Q6H PRN PRN Reason: Pain, Moderate(Pain Scale 4-6) Last Admin: 11/26/24 11:06 Dose: 5 mg Documented By: VIVIANE Oxycodone HCl (Oxycodone Hcl Immed Release 5 Mg Tablet) 5 mg PO Q4H PRN PRN Reason: Pain, Severe (Pain Scale 7-10) Pharmacy Consult (Consult Rx Vancomycin Dosing) 1 each MISCELLANE DAILY PRN PRN Reason: Consult order Polyethylene Glycol (Polyethylene Glycol 3350 17 Gm Powd.Pack) 17 gm PO DAILY PRN PRN Reason: Constipation Senna/Docusate Sodium (Sennosides/Docusate Sodium Tablet) 1 tab PO DAILY PRN PRN Reason: Constipation Sertraline HCl (Sertraline Hcl 25 Mg Tablet) 75 mg PO DAILY [facility] Last Admin: 11/26/24 09:39 Dose: 75 mg Documented By: VIVIANE Labs 11/26/24 07:11 11/26/24 07:11 Labs: Laboratory Results - last 24 hr 11/25/24 11/25/24 11/25/24 12:20 12:21 20:13 MCV 84.7 MCH 27.2 MCHC 32.1 RDW 15.2 Plt Count 165 D MPV 10.3 Immature Gran % (Auto) 0.4 Neut % (Auto) 40.3 L Lymph % (Auto) 45.2 H [place] % (Auto) 8.7 Eos % (Auto) 4.2 H Baso % (Auto) 1.2 Lymph # (Auto) 2.3 [place] # (Auto) 0.4 Eos # (Auto) 0.2 Baso # (Auto) 0.1 Abs Immat Gran (auto) 0.02 Absolute Neuts (auto) 2.0 Absolute Nucleated RBC 0.000 Nucleated RBC % (auto) 0.0 Smear Tech's Comments ESR 21 H Anion Gap 10 L Estim Creat Clear Calc 101.5 Estimated GFR > 60 POC Glucose 133 H Random Glucose 88 Lactic Acid 0.8 Calcium 9.1 Magnesium 1.8 Total Bilirubin 0.4 AST 22 ALT 16 Alkaline Phosphatase 67 C-Reactive Protein 0.79 H Total Protein 7.3 Albumin 3.7 Random Vancomycin 11/26/24 11/26/24 11/26/24 07:09 07:11 10:58 MCV 83.9 MCH 26.7 L MCHC 31.8 RDW 15.3 Plt Count 114 L D MPV 11.2 Immature Gran % (Auto) 0.2 Neut % (Auto) 37.1 L Lymph % (Auto) 51.0 H [place] % (Auto) 6.5 Eos % (Auto) 4.5 H Baso % (Auto) 0.7 Lymph # (Auto) 2.1 [place] # (Auto) 0.3 Eos # (Auto) 0.2 Baso # (Auto) 0.0 Abs Immat Gran (auto) 0.01 Absolute Neuts (auto) 1.6 L Absolute Nucleated RBC 0.000 Nucleated RBC % (auto) 0.0 Smear Tech's Comments VERIFIED ESR Anion Gap 10 L Estim Creat Clear Calc 115.3 Estimated GFR > 60 POC Glucose 120 H 144 H Random Glucose 116 H Lactic Acid Calcium 8.4 D Magnesium Total Bilirubin AST ALT Alkaline Phosphatase C-Reactive Protein Total Protein Albumin Random Vancomycin 16.1 Assessment and Plan (1) Infected skin lesion: Status: Acute (2) Cellulitis: Status: Acute (3) Abscess of left hand: Status: Acute (4) IVDU (intravenous drug user): Status: Acute Plan Assessment: 39-year-old female with a history of diabetes (on insulin), hyperlipidemia (on atorvastatin), GERD (on omeprazole), peripheral neuropathy, mood disorder, and substance use disorder (including IV drug use, currently on methadone), presenting with a progressively enlarging right lower leg wound with necrotic surface and subcutaneous gas on imaging. She denies injecting drugs in the area. Recent history of fever. No leukocytosis, ESR mildly elevated, and no evidence of abscess or osteomyelitis on CT. Currently on empiric vancomycin and ceftriaxone. Plan: Right lower leg wound with necrosis and subcutaneous gas Continue empiric IV vancomycin and ceftriaxone; adjust antibiotics based on culture results and sensitivities. Consult surgery for evaluation for possible debridement given necrosis and subcutaneous gas. Monitor for clinical signs of systemic toxicity (hemodynamic instability, worsening pain, rapid progression). Wound care consult on wednesday Diabetes mellitus Continue insulin (Lantus and SSI); monitor blood glucose closely Substance use disorder Continue methadone maintenance. Involve addiction medicine and social work for support and discharge planning. Hyperlipidemia Continue atorvastatin. GERD Continue omeprazole. Peripheral neuropathy Continue Gabapentin Mood disorder Continue current psychiatric management; monitor for mood changes during hospitalization. Monitoring and follow-up Serial exams of the affected limb. Monitor labs: CBC, BMP, inflammatory markers. Follow blood and wound culture results. Adjust management based on clinical course and surgical recommendations. Bradycardia--possibly related to Methadone, appear chronic and stable, get routine ECG Disposition: Home once IV Abx no longer indicated Quality Stroke Does the patient have a stroke diagnosis?: No VTE Prior VTE?: No VTE Risk Level:: Medical - moderate - high VTE Device Contraindication: Treatment Not Indicated VTE Drug Contraindication: N/A - Med Ordered
--- NOTE | 2024-11-26 13:02 | P.CONGS_ITS ---
History of Present Illness Consult details Consult date: 11/26/24 Reason for consult: wound care Requesting physician: Clayton Kelley Narrative: The patient is a 39-year-old female diabetic IV drug user who says that she has had lower extremity wounds in the past. She denies injecting in her legs but she has been here with other wounds in her legs before. She says this 1 has been here for several days it has gotten worse very painful and as a result she has comes into the emergency room. Here along the medial lower leg there is about a 3-1/2 cm dark eschar wound the surrounding erythema. Patient denies any fevers or chills. She has been admitted to the medical team in his being treated with IV antibiotics vancomycin and ceftriaxone. White count is normal ESR is elevated. CT scan shows necrotic tissue with subcutaneous gas. She says she has been clean for many years but then recently had some issues and started back using drugs. She is going to a methadone clinic and the goal is to get off the methadone. She denies any chest pain shortness of breath urinary musculoskeletal issues other than her right lower leg PMFSH Past Medical History Medical History Polysubstance abuse Intravenous drug abuse Opiate use Type 2 diabetes mellitus Diabetic polyneuropathy Asthma ADHD Surgical History Surgical History History of incision and drainage Social History Social History Household Members: None Housing: Apartment Do you presently have visiting nurse or other home services: No Patient Tobacco Use Status: Current everyday Tobacco user Tobacco use type: Cigarette Cigarette Packs Per Day: 0.5 Cigarettes Per Day: 20 Smoked in Last 30 Days: Yes e-Cigarette/Vaping Use: Former Use Patient Interested in Nicotine Replacement: Yes Patient Given Instructions on How to Stop Smoking: Yes Date Education Initiated: 11/25/24 Second Hand Smoke Exposure: Yes Use of substances other than those prescribed or required for medical reasons: Yes Substance Use Type: Crack/Cocaine Substance Use Frequency: Chronic Longstanding Currently Displaying Signs/Symptoms of Drug Intoxication Withdrawal: No Have you been hit, kicked, punched, or otherwise hurt by someone within the past year? If so, by whom?: No Do you feel safe in your current relationship?: Yes Is there a partner from a previous relationship who is making you feel unsafe now?: No Are you made to feel afraid or neglected: No Advance Directives: No Advance Directives Information Provided: Yes Do you have a plan to hurt others: No Plan Recently lost weight without trying: Yes How much weight loss: 34pounds or more Eating poorly because of decreased appetite: Yes Nutrition screen score: 7 Nutrition Risks: No Nutritional Risk Patient : No : No Poor oral hygiene: No service: No Meds Allergies Allergy/AdvReac Type Severity Reaction Status Date / Time bee pollen (bee stings) Allergy Severe Facial Verified 11/25/24 11:26 Swelling morphine Allergy Hives Verified 11/25/24 11:26 Active Medications: Current Medications Acetaminophen (Acetaminophen 325 Mg Tablet) 650 mg PO Q6H PRN PRN Reason: Pain, Mild 1-3,fever,headache Last Admin: 11/26/24 12:22 Dose: 650 mg Albuterol Sulfate (Albuterol Sulfate 90 Mcg 8 Gm Inhaler) 2 puff INHALE Q6H PRN PRN Reason: Shortness Of Breath Or Wheezing Atorvastatin Calcium (Atorvastatin Calcium 40 Mg Tablet) 40 mg PO DAILY [facility] Last Admin: 11/26/24 09:39 Dose: 40 mg Ceftriaxone Sodium (Ceftriaxone Sodium 1 Gm Vial) 1 gm IVPUSH Q24H [facility] Last Admin: 11/26/24 12:23 Dose: 1 gm Dextrose (Dextrose 50 % 25 Gm/50 Ml Syringe) 25 gm IVPUSH Q15M PRN; Protocol PRN Reason: per Hypoglycemia Standing Ord. Enoxaparin Sodium (Enoxaparin Sodium 40 Mg/0.4 Ml Syringe) 40 mg SUBCUT Q24H [facility] Last Admin: 11/25/24 17:20 Dose: 40 mg Gabapentin (Gabapentin 400 Mg Capsule) 800 mg PO TID [facility] Last Admin: 11/26/24 09:39 Dose: 800 mg Glucose (Glucose Gel 15 Gm Gel..Gram.) 15 gm PO Q15M PRN; Protocol PRN Reason: per Hypoglycemia Standing Ord. Hydromorphone HCl (Hydromorphone Hcl 0.5 Mg/0.5 Ml Syringe) 0.5 mg IVPUSH Q4H PRN; Protocol PRN Reason: Pain, Severe (Pain Scale 7-10) Last Admin: 11/26/24 09:57 Dose: 0.5 mg Vancomycin HCl 1,000 mg/ (Sodium Chloride) 270 mls @ 270 mls/hr IV Q12H [facility] Last Admin: 11/26/24 12:23 Dose: 270 mls/hr Insulin Glargine (Insulin Glargine,Hum.Rec.Anlog 100 Unit/Ml 10 Ml Vial) 20 unit SUBCUT BEDTIME [facility] Insulin Human Lispro (Insulin Lispro 100 Unit/Ml 3 Ml Vial) 0 unit SUBCUT QIDACHS [facility]; Protocol Last Admin: 11/26/24 11:12 Dose: Not Given Magnesium Hydroxide (Milk Of Magnesia 30 Ml Oral.Susp) 30 ml PO DAILY PRN PRN Reason: Constipation Melatonin (Melatonin 3 Mg Tablet) 6 mg PO BEDTIME PRN PRN Reason: Insomnia Methadone HCl (Methadone Hcl 20 Mg/2 Ml Oral.Conc) 195 mg PO DAILY [facility] Last Admin: 11/26/24 09:39 Dose: 195 mg Nicotine (Nicotine 21 Mg Patch.Td24) 21 mg TRANSDERMA DAILY [facility] Last Admin: 11/26/24 09:38 Dose: 21 mg Omeprazole (Omeprazole 20 Mg Capsule.Dr) 20 mg PO DAILY@0630 [facility] Oxycodone HCl (Oxycodone Hcl Immed Release 5 Mg Tablet) 5 mg PO Q6H PRN PRN Reason: Pain, Moderate(Pain Scale 4-6) Last Admin: 11/26/24 11:06 Dose: 5 mg Oxycodone HCl (Oxycodone Hcl Immed Release 5 Mg Tablet) 5 mg PO Q4H PRN PRN Reason: Pain, Severe (Pain Scale 7-10) Pharmacy Consult (Consult Rx Vancomycin Dosing) 1 each MISCELLANE DAILY PRN PRN Reason: Consult order Polyethylene Glycol (Polyethylene Glycol 3350 17 Gm Powd.Pack) 17 gm PO DAILY PRN PRN Reason: Constipation Senna/Docusate Sodium (Sennosides/Docusate Sodium Tablet) 1 tab PO DAILY PRN PRN Reason: Constipation Sertraline HCl (Sertraline Hcl 25 Mg Tablet) 75 mg PO DAILY [facility] Last Admin: 11/26/24 09:39 Dose: 75 mg Home Medications ?Medication ?Instructions ?Recorded ?Confirmed ?Last Taken ?Type albuterol sulfate 90 mcg/actuation 2 puff inhalation Q 6H PRN 12/31/23 09/20/25 Unknown History aerosol inhaler (Ventolin HFA) Shortness Of Breath Or Wheezing atorvastatin 40 mg tablet 40 mg PO DAILY 03/07/23/11/24/24 History gabapentin 800 mg tablet 800 mg PO TID 03/07/2311/2511/24/24 History insulin lispro 100 unit/mL 1 sliding scale dose subcut TIDAC 03/07/23 11/25/24 11/24/24 History subcutaneous pen pantoprazole 40 mg tablet,delayed 40 mg PO DAILY@0630 03/07/23 11/25/24 11/24/24 History release sennosides 8.6 mg-docusate sodium 1 tab PO DAILY PRN C onstipation 03/07/23 11/25/24 03/05/23 History 50 mg tablet (Stool Softener-Laxative) sertraline 50 mg tablet 75 mg PO DAILY 03/07/2311/0711/24/24 History nicotine 21 mg/24 hr daily 1 patch transdermal DAILY 0 05/02/23 11/25/24 11/24/24 History transdermal patch insulin glargine 100 unit/mL (3 40 unit subcut BEDTIME 11/25/24 11/25/24 11/24/24 History mL) subcutaneous pen (Lantus Solostar U-100 Insulin) methadone 10 mg/mL oral concentrate 195 mg PO DAILY 11/25/24 11/24/24 History Physical Exam 2 Vital Signs: Vital Signs: Last Vital Signs Temp 97.8 F 11/26/24 11:18 Pulse 58 11/26/24 11:18 Resp 18 11/26/24 11:18 BP 145/80 H 11/26/24 11:18 Pulse Ox 98 11/26/24 11:18 O2 Del Method Room Air 11/26/24 11:18 BMI result Body Mass Index 28.6 Const: General: cooperative, healthy appearing, comfortable and no acute distress Eyes: Other: Nonicteric Extrem: Other: Right medial lower leg has a about a 3-1/2 x 3-1/2 cm eschar that debrided reveals subcutaneous fatty tissue that looks relatively healthy. There is a ring of cellulitic changes about 4 mm surrounding the dark eschar. She has palpable pedal pulses Results Labs 11/26/24 07:11 11/26/24 07:11 Labs: Abnormal lab results 11/25/24 11/25/24 11/26/24 Range/Units 12:20 20:13 07:09 WBC (4.8-10.8) X10*3/uL RBC (4.20-5.50) X10*6/uL Hgb (12.0-16.0) g/dl Hct (37.0-47.0) % MCH (27.0-33.0) pg Plt Count (160-400) X10*3/uL Neut % (Auto) (45-73) % Lymph % (Auto) (20-40) % Eos % (Auto) (0-4) % Absolute Neuts (auto) (2.0-8.3) x10*3/uL ESR 21 H (0-20) MM/HR Anion Gap (12-20) POC Glucose 133 H 120 H (60-115) mg/dL Random Glucose (60-115) mg/dL 11/26/24 11/26/24 Range/Units 07:11 10:58 WBC 4.2 L (4.8-10.8) X10*3/uL RBC 4.16 L (4.20-5.50) X10*6/uL Hgb 11.1 L (12.0-16.0) g/dl Hct 34.9 L (37.0-47.0) % MCH 26.7 L (27.0-33.0) pg Plt Count 114 L D (160-400) X10*3/uL Neut % (Auto) 37.1 L (45-73) % Lymph % (Auto) 51.0 H (20-40) % Eos % (Auto) 4.5 H (0-4) % Absolute Neuts (auto) 1.6 L (2.0-8.3) x10*3/uL ESR (0-20) MM/HR Anion Gap 10 L (12-20) POC Glucose 144 H (60-115) mg/dL Random Glucose 116 H (60-115) mg/dL Short CBC 11/26/24 Range/Units 07:11 WBC 4.2 L (4.8-10.8) X10*3/uL Hgb 11.1 L (12.0-16.0) g/dl Hct 34.9 L (37.0-47.0) % Plt Count 114 L D (160-400) X10*3/uL BMP 11/26/24 07:11 Sodium 141 Potassium 3.9 Chloride 106 Carbon Dioxide 29 BUN 14 Creatinine 0.71 Calcium 8.4 D All other labs normal. Imaging Additional studies: Signed Patient: Gloria Hernandez MR#: [id number] : 1985 Acct:[id number] Age/Sex: 39 / F ADM Date: 11/25/24 Loc: HO.ED Attending Dr: Ordering Physician: Evonne Alvarez Date of Service: 11/25/24 Procedure(s): CT lower leg RT w IV con Accession Number(s): [id number] cc: Luz Elena Miller MD; Evonne Alvarez~ Report Number: [id number]: Total DLP = 0.00 mGy-cm Reason for Exam: Necrotizing wound, rule out deep space infection CLINICAL HISTORY: Necrotizing wound, rule out deep space infection CT right tibia and fibula with contrast Comparison: 11/25/2024 Findings: There is extensive edema of the soft tissues. There are multiple tiny pockets of subcutaneous gas within the posteromedial aspect of the lower leg. There is no associated fluid collection. There are multiple small soft tissue calcifications. There is no radiopaque foreign body. There is three-vessel runoff to the right lower extremity. There is no evidence of venous thrombosis. There is a trace right knee effusion. There is no ankle effusion. There are moderate arthritic changes of the right knee. There are no significant arthritic changes of the ankle. There is no fracture or dislocation. There is no evidence of osteomyelitis. Impression: 1. There are multiple small pockets of gas within the subcutaneous tissues of the posteromedial aspect of the lower leg. There is no associated abscess or evidence of osteomyelitis. This document has been electronically signed by: Janay Duke MD on 11/25/2024 16:10:53 Dictated By: Janay Duke MD Signed By: <Electronically signed by Janay Duke MD in OV> Assessment and Plan (1) Abscess of right lower leg: Status: Acute Plan 39-year-old female with abscess type wound right lower leg debrided to the subcutaneous fatty tissue which looks relatively healthier and clean. Plan to continue with daily dressing changes of normal saline gauze and follow up on cultures. Currently on vancomycin and ceftriaxone. We will follow along Procedures Date of Service Date of Service: 11/26/24 Abscess I/D Consent for Procedure: Elective - informed consent obtained Site: lower extremity Side (if applicable): right Sedation/analgesia: none Technique: other (Incised with 10 blade) Amount of fluid (mL): 4 Irrigation: Yes Additional comments: The eschar area was excised with a 10 blade opening up the abscess with drainage of some murky fluid. The surrounding and underlying subcutaneous tissue looks relatively healthy yellow pink. No undermining
[2024-11-26 16:54] LABS: Glucose, Whole Blood 105 mg/dL (60-115)
--- NOTE | 2024-11-26 17:39 | MHC.RECOVRN ---
TW met with the patient to discuss current substance use and concerns related to increased risk of substance use related problems. On approach pt was irritable, guarded, and dismissive. Visitor was present at bedside, however pt told TW, ?we can talk, but we have to make it fast?. Tw explained the interview could take place at a later time however pt declined.? Pt states she is 13mg of methadone because she was smoking crack/cocaine and had a cousin present who was also smoking fentanyl and the cousin ?kept switching their pipes?. She reports this went on for several weeks. She states she presented at [facility] after waking up with ?sweats, diarrhea, and vomiting? and was initiated on Methadone.? Discussed how substance use has impacted health, including negative impact on mental health and overall physical well being.? Discussed and provided written education and resources for harm reduction techniques including utilizing [employer] for sterile supplies and drug testing, harm reduction techniques such as not sharing needles or smoking paraphernalia,? utilizing a test shot when using a supply from a new supplier, and the importance of seeking medical help for wound care as well as education about the current drug supply and cutting agents used Provided pt with written resources including information on inpatient and outpatient treatment, harm reduction, [facility] [place], and pathways to recovery.?? Pt?s MOUD has been continued while admitted and pt reports she will return to [facility] upon discharge to continue dosing in the community. She declines further intervention or outpatient appt for treatment related to AUD at this time.? Pt was provided with TW?s contact information if questions or concerns arise which he denies at this time.? TW available as needed for? further support and resources relating to AUD.?
--- NOTE | 2024-11-26 17:40 | MHC.RECOVRN ---
TW met with the patient to discuss current substance use and concerns related to increased risk of substance use related problems. On approach pt was sitting in bed with eyes closed, visitor at bedside. She awoke easily to name being called and agreed to meeting w/ TW with visitor present. Pt reports she only uses heroin when she is unable to make it to her [facility] clinic and reports last use ?about a week ago?. She does endorse daily crack cocaine use ?about 8 $5 bags daily? for the last 25 years. Pt states she no longer desires to use substances and accepted a referral for Recovery Coaching and to the [facility]? Discussed how substance use has impacted health, including negative impact on mental health and overall physical well being. Discussed and provided written education and resources for harm reduction techniques including utilizing [employer] for sterile supplies and drug testing, harm reduction techniques such as not sharing needles or smoking paraphernalia, utilizing a test shot when using a supply from a new supplier, and the importance of seeking medical help for wound care as well as education about the current drug supply and cutting agents used Provided pt with written resources including information on inpatient and outpatient treatment, harm reduction, [facility] [place], and pathways to recovery. Pt?s MOUD has been continued while admitted and pt reports she will return to [facility] upon discharge to continue w/ , he declines further intervention or outpatient appt for treatment related to AUD at this time. Pt was provided with TW?s contact information if questions or concerns arise which he denies at this time. TW available as needed for further support and resources relating to [facility].
[2024-11-26 20:14] LABS: Glucose, Whole Blood 96 mg/dL (60-115)
[2024-11-27 04:00] VITALS: BP 121/71; PULSE 58; RESP 18; TEMP 36.6; O2SAT 97
[2024-11-27 07:24] VITALS: BP 129/78; PULSE 52; RESP 18; TEMP 36.1; O2SAT 98
[2024-11-27 07:42] LABS: Glucose, Whole Blood 144 mg/dL (60-115)
[2024-11-27] MEDS: Nicotine 21 MG PATCH.TD24 TRANSDERMA (08:15)
[2024-11-27] MEDS: methADONE HCl 20 MG/2 ML ORAL.CONC 195 MG PO (08:16)
[2024-11-27 09:26] LABS: Creatinine Clr Calc Pharmacy 113.7; Estimated Glomerular Filt Rate > 60
--- NOTE | 2024-11-27 10:14 | HE.PHANOTE ---
RE: VANCO Trough returned at 12.8. Renal function is stable. Increasing dose to 1250 mg Q12H with predicted AUC of 524 and trough of 14.8. Next trough to be drawn 11/28 @1000.
[2024-11-27 11:06] VITALS: BP 137/65; PULSE 51; RESP 17; TEMP 36.2; O2SAT 95
--- NOTE | 2024-11-27 11:13 | P.PNGS_ITS ---
Subjective Subjective Date of Service: 11/27/24 Interval history: C/o pain at right lower leg. Thinks redness and swelling overall improved. Physical Exam 2 Vital Signs: Vital Signs: Last Vital Signs Temp 97.1 F 11/27/24 11:06 Pulse 51 11/27/24 11:06 Resp 17 11/27/24 11:06 BP 137/65 11/27/24 11:06 Pulse Ox 95 11/27/24 11:06 O2 Del Method Room Air 11/27/24 11:06 BMI result Body Mass Index 28.6 Const: General: comfortable, no acute distress and alert Skin: Other: warm and dry Extrem: Other: right lower extremity- mild persistent edema and erythema surrounding debridement site, small amount of eschar circumferentially but good granulation at wound base, no necrotic tissue centrally Objective Data Active Medications Acetaminophen (Acetaminophen 325 Mg Tablet) 650 mg PO Q6H PRN PRN Reason: Pain, Mild 1-3,fever,headache Last Admin: 11/26/24 12:22 Dose: 650 mg Documented By: VIVIANE Albuterol Sulfate (Albuterol Sulfate 90 Mcg 8 Gm Inhaler) 2 puff INHALE Q6H PRN PRN Reason: Shortness Of Breath Or Wheezing Atorvastatin Calcium (Atorvastatin Calcium 40 Mg Tablet) 40 mg PO DAILY [facility] Last Admin: 11/27/24 08:15 Dose: 40 mg Documented By: VIVIANE Ceftriaxone Sodium (Ceftriaxone Sodium 1 Gm Vial) 1 gm IVPUSH Q24H [facility] Last Admin: 11/26/24 12:23 Dose: 1 gm Documented By: VIVIANE Dextrose (Dextrose 50 % 25 Gm/50 Ml Syringe) 25 gm IVPUSH Q15M PRN; Protocol PRN Reason: per Hypoglycemia Standing Ord. Enoxaparin Sodium (Enoxaparin Sodium 40 Mg/0.4 Ml Syringe) 40 mg SUBCUT Q24H [facility] Last Admin: 11/26/24 17:08 Dose: 40 mg Documented By: VIVIANE Gabapentin (Gabapentin 400 Mg Capsule) 800 mg PO TID [facility] Last Admin: 11/27/24 08:16 Dose: 800 mg Documented By: VIVIANE Glucose (Glucose Gel 15 Gm Gel..Gram.) 15 gm PO Q15M PRN; Protocol PRN Reason: per Hypoglycemia Standing Ord. Hydromorphone HCl (Hydromorphone Hcl 0.5 Mg/0.5 Ml Syringe) 0.5 mg IVPUSH Q4H PRN; Protocol PRN Reason: Pain, Severe (Pain Scale 7-10) Last Admin: 11/27/24 10:36 Dose: 0.5 mg Documented By: VIVIANE Vancomycin HCl 1,250 mg/ (Sodium Chloride) 250 mls @ 166.667 mls/hr IV Q12H [facility] Insulin Glargine (Insulin Glargine,Hum.Rec.Anlog 100 Unit/Ml 10 Ml Vial) 20 unit SUBCUT BEDTIME [facility] Last Admin: 11/26/24 22:22 Dose: Not Given Documented By: LOS Non-Admin Reason: Physician Approved Insulin Human Lispro (Insulin Lispro 100 Unit/Ml 3 Ml Vial) 0 unit SUBCUT QIDACHS [facility]; Protocol Last Admin: 11/27/24 07:43 Dose: Not Given Documented By: VIVIANE Non-Admin Reason: No Insulin Coverage Magnesium Hydroxide (Milk Of Magnesia 30 Ml Oral.Susp) 30 ml PO DAILY PRN PRN Reason: Constipation Melatonin (Melatonin 3 Mg Tablet) 6 mg PO BEDTIME PRN PRN Reason: Insomnia Methadone HCl (Methadone Hcl 20 Mg/2 Ml Oral.Conc) 195 mg PO DAILY [facility] Last Admin: 11/27/24 08:16 Dose: 195 mg Documented By: VIVIANE Co-signed By: HORACIO Nicotine (Nicotine 21 Mg Patch.Td24) 21 mg TRANSDERMA DAILY [facility] Last Admin: 11/27/24 08:15 Dose: 21 mg Documented By: VIVIANE Omeprazole (Omeprazole 20 Mg Capsule.Dr) 20 mg PO DAILY@0630 [facility] Last Admin: 11/27/24 08:16 Dose: 20 mg Documented By: VIVIANE Oxycodone HCl (Oxycodone Hcl Immed Release 5 Mg Tablet) 5 mg PO Q6H PRN PRN Reason: Pain, Moderate(Pain Scale 4-6) Last Admin: 11/26/24 17:12 Dose: 5 mg Documented By: VIVIANE Oxycodone HCl (Oxycodone Hcl Immed Release 5 Mg Tablet) 5 mg PO Q4H PRN PRN Reason: Pain, Severe (Pain Scale 7-10) Pharmacy Consult (Consult Rx Vancomycin Dosing) 1 each MISCELLANE DAILY PRN PRN Reason: Consult order Polyethylene Glycol (Polyethylene Glycol 3350 17 Gm Powd.Pack) 17 gm PO DAILY PRN PRN Reason: Constipation Senna/Docusate Sodium (Sennosides/Docusate Sodium Tablet) 1 tab PO DAILY PRN PRN Reason: Constipation Sertraline HCl (Sertraline Hcl 25 Mg Tablet) 75 mg PO DAILY [facility] Last Admin: 11/27/24 08:16 Dose: 75 mg Documented By: VIVIANE Labs 11/26/24 07:11 11/27/24 08:52 Labs: Laboratory Results - last 24 hr 11/26/24 11/26/24 11/27/24 16:29 19:59 07:35 Estim Creat Clear Calc Estimated GFR POC Glucose 105 96 144 H Random Vancomycin 11/27/24 11/27/24 08:52 09:38 Estim Creat Clear Calc 113.7 Estimated GFR > 60 POC Glucose Random Vancomycin 12.8 L Microbiology Microbiology Results: Microbiology 11/25/24 12:20 Blood Culture - Preliminary Blood - Venous No growth after 24 hours. 11/25/24 12:20 Blood Culture - Preliminary Blood - Venous No growth after 24 hours. Procedures Date of Service Date of Service: 11/27/24 Progress Note: A&P Assessment and plan (1) Abscess of right lower leg: Status: Acute (2) Cellulitis: Status: Acute Plan Underwent bedside debridement of RLE eschar, abscess yesterday. Surrounding cellulitis improving, wound clean centrally, small amount of eschar circumferentially which will hopefully slough off with wet to dry. Cont local wound care with wet to dry saline soaked fluff, kerlix wrap. Cont IV abx, right leg elevation. Time Spent With Patient Time: Total time managing care of this patient today ____ minutes. Quality Stroke Does the patient have a stroke diagnosis?: No VTE Prior VTE?: No VTE Risk Level:: Medical - moderate - high VTE Device Contraindication: Treatment Not Indicated VTE Drug Contraindication: N/A - Med Ordered
[2024-11-27 11:32] LABS: Glucose, Whole Blood 134 mg/dL (60-115)
--- NOTE | 2024-11-27 11:37 | HO.WOUND ---
Wound Consult: deferred Wound team consulted for right leg wounding, upon chart review, patient was seen by general surgery yesterday 11/26/24 for debridement and recommendations for saline wet to dry dressings. Will defer consult at this time, wound care will follow along through chart review and anticipate wound care recommendations for discharge.
[2024-11-27 12:04] VITALS: BMI 28.6
--- NOTE | 2024-11-27 12:09 | MHC.CLN ---
CONSULT PT IS MODERATELY MALNOURISHED WITH INCREASED NUTRITION RISK R/T PRESSURE INJURY PT WITH 23% NONSIGNIFICANT WT LOSS X1.5 YEARS WITH CHRONIC POOR PO INTAKE PO INTAKE 100% X2 MEALS DIET RX: 2000DM RECOMMEND ADDING ENSURE MAX BID TO PROMOTE WOUND HEALING SUPP TO PROVIDE 300KCALS, 60G PROTEIN MONITOR PO INTAKE AND ENCOURAGE SUPPLEMENTS SEE FULL ASSESSMENT
--- NOTE | 2024-11-27 13:34 | HO.ADDICTPRO ---
Subjective Subjective Date of Service: 11/27/24 Reason For Visit: right leg abcess, bradycardia Interim History: Patient is a 39 year old female medically admitted with abscess of the lower leg. History of OUD, currently engaged in treatment with OTP and methadone dose is 195mg daily. Patient seen by diffuser operator during admission, no concerns at that time. Patient seen in follow up by t/w in room 477. Patient is awake, alert, engaged in interview. Reports overall pain is managed, but inquiring about breakthrough pain medications in btwn Dilaudid doses. Appeared comfortable, eating and watching tv. Leg elevated and wrapped Review of Systems Acute medical concerns: Yes Review of Systems Constitutional: Reports as per HPI Mental Status Exam Mental Status Exam Patient Appearance: Appropriate Level of Consciousness: Awake, Appropriate and Alert Patient Behavior: Appropriate and Cooperative Affect Description: Calm Speech Pattern: Clear Thought Process: Intact Thought Content: positive for Intact Judgement: Good Diagnostics Vital Signs (24Hr): Vital Signs - 24 hr 11/26/24 15:46 11/26/24 19:36 11/26/24 19:44 Temperature 97.5 F 98 F 96.8 F Pulse Rate 50 51 76 Respiratory Rate 16 18 18 Blood Pressure 133/82 121/79 136/82 Pulse Oximetry 96 98 92 Oxygen Delivery Method Room Air Room Air Room Air 11/26/24 23:48 11/27/24 04:00 11/27/24 07:24 Temperature 96.8 F 97.8 F 96.9 F Pulse Rate 56 58 52 Respiratory Rate 18 18 18 Blood Pressure 130/75 121/71 129/78 Pulse Oximetry 98 97 98 Oxygen Delivery Method Room Air Room Air Room Air 11/27/24 11:06 Temperature 97.1 F Pulse Rate 51 Respiratory Rate 17 Blood Pressure 137/65 Pulse Oximetry 95 Oxygen Delivery Method Room Air BMI result Body Mass Index 28.6 Labs 11/26/24 07:11 11/27/24 08:52 Labs: Laboratory Results - last 48 hr 11/25/24 11/26/24 11/26/24 20:13 07:09 07:11 WBC 4.2 L RBC 4.16 L Hgb 11.1 L Hct 34.9 L MCV 83.9 MCH 26.7 L MCHC 31.8 RDW 15.3 Plt Count 114 L D MPV 11.2 Immature Gran % (Auto) 0.2 Neut % (Auto) 37.1 L Lymph % (Auto) 51.0 H Chaves % (Auto) 6.5 Eos % (Auto) 4.5 H Baso % (Auto) 0.7 Lymph # (Auto) 2.1 Chaves # (Auto) 0.3 Eos # (Auto) 0.2 Baso # (Auto) 0.0 Abs Immat Gran (auto) 0.01 Absolute Neuts (auto) 1.6 L Absolute Nucleated RBC 0.000 Nucleated RBC % (auto) 0.0 Smear Tech's Comments VERIFIED Sodium 141 Potassium 3.9 Chloride 106 Carbon Dioxide 29 Anion Gap 10 L BUN 14 Creatinine 0.71 Estim Creat Clear Calc 115.3 Estimated GFR > 60 POC Glucose 133 H 120 H Random Glucose 116 H Calcium 8.4 D Random Vancomycin 16.1 11/26/24 11/26/24 11/26/24 10:58 16:29 19:59 WBC RBC Hgb Hct MCV MCH MCHC RDW Plt Count MPV Immature Gran % (Auto) Neut % (Auto) Lymph % (Auto) Chaves % (Auto) Eos % (Auto) Baso % (Auto) Lymph # (Auto) Chaves # (Auto) Eos # (Auto) Baso # (Auto) Abs Immat Gran (auto) Absolute Neuts (auto) Absolute Nucleated RBC Nucleated RBC % (auto) Smear Tech's Comments Sodium Potassium Chloride Carbon Dioxide Anion Gap BUN Creatinine Estim Creat Clear Calc Estimated GFR POC Glucose 144 H 105 96 Random Glucose Calcium Random Vancomycin 11/27/24 11/27/24 11/27/24 07:35 08:52 09:38 WBC RBC Hgb Hct MCV MCH MCHC RDW Plt Count MPV Immature Gran % (Auto) Neut % (Auto) Lymph % (Auto) Chaves % (Auto) Eos % (Auto) Baso % (Auto) Lymph # (Auto) Chaves # (Auto) Eos # (Auto) Baso # (Auto) Abs Immat Gran (auto) Absolute Neuts (auto) Absolute Nucleated RBC Nucleated RBC % (auto) Smear Tech's Comments Sodium Potassium Chloride Carbon Dioxide Anion Gap BUN Creatinine 0.72 Estim Creat Clear Calc 113.7 Estimated GFR > 60 POC Glucose 144 H Random Glucose Calcium Random Vancomycin 12.8 L 11/27/24 11:27 WBC RBC Hgb Hct MCV MCH MCHC RDW Plt Count MPV Immature Gran % (Auto) Neut % (Auto) Lymph % (Auto) Chaves % (Auto) Eos % (Auto) Baso % (Auto) Lymph # (Auto) Chaves # (Auto) Eos # (Auto) Baso # (Auto) Abs Immat Gran (auto) Absolute Neuts (auto) Absolute Nucleated RBC Nucleated RBC % (auto) Smear Tech's Comments Sodium Potassium Chloride Carbon Dioxide Anion Gap BUN Creatinine Estim Creat Clear Calc Estimated GFR POC Glucose 134 H Random Glucose Calcium Random Vancomycin Medications Medications Current Medications Acetaminophen (Acetaminophen 325 Mg Tablet) 650 mg PO Q6H PRN PRN Reason: Pain, Mild 1-3,fever,headache Last Admin: 11/26/24 12:22 Dose: 650 mg Albuterol Sulfate (Albuterol Sulfate 90 Mcg 8 Gm Inhaler) 2 puff INHALE Q6H PRN PRN Reason: Shortness Of Breath Or Wheezing Atorvastatin Calcium (Atorvastatin Calcium 40 Mg Tablet) 40 mg PO DAILY [facility] Last Admin: 11/27/24 08:15 Dose: 40 mg Ceftriaxone Sodium (Ceftriaxone Sodium 1 Gm Vial) 1 gm IVPUSH Q24H [facility] Last Admin: 11/27/24 12:04 Dose: 1 gm Dextrose (Dextrose 50 % 25 Gm/50 Ml Syringe) 25 gm IVPUSH Q15M PRN; Protocol PRN Reason: per Hypoglycemia Standing Ord. Enoxaparin Sodium (Enoxaparin Sodium 40 Mg/0.4 Ml Syringe) 40 mg SUBCUT Q24H [facility] Last Admin: 11/26/24 17:08 Dose: 40 mg Gabapentin (Gabapentin 400 Mg Capsule) 800 mg PO TID [facility] Last Admin: 11/27/24 08:16 Dose: 800 mg Glucose (Glucose Gel 15 Gm Gel..Gram.) 15 gm PO Q15M PRN; Protocol PRN Reason: per Hypoglycemia Standing Ord. Hydromorphone HCl (Hydromorphone Hcl 0.5 Mg/0.5 Ml Syringe) 0.5 mg IVPUSH Q4H PRN; Protocol PRN Reason: Pain, Severe (Pain Scale 7-10) Last Admin: 11/27/24 10:36 Dose: 0.5 mg Vancomycin HCl 1,250 mg/ (Sodium Chloride) 250 mls @ 166.667 mls/hr IV Q12H [facility] Last Admin: 11/27/24 12:04 Dose: 166.67 mls/hr Insulin Glargine (Insulin Glargine,Hum.Rec.Anlog 100 Unit/Ml 10 Ml Vial) 20 unit SUBCUT BEDTIME [facility] Last Admin: 11/26/24 22:22 Dose: Not Given Insulin Human Lispro (Insulin Lispro 100 Unit/Ml 3 Ml Vial) 0 unit SUBCUT QIDACHS [facility]; Protocol Last Admin: 11/27/24 11:34 Dose: Not Given Magnesium Hydroxide (Milk Of Magnesia 30 Ml Oral.Susp) 30 ml PO DAILY PRN PRN Reason: Constipation Melatonin (Melatonin 3 Mg Tablet) 6 mg PO BEDTIME PRN PRN Reason: Insomnia Methadone HCl (Methadone Hcl 20 Mg/2 Ml Oral.Conc) 195 mg PO DAILY [facility] Last Admin: 11/27/24 08:16 Dose: 195 mg Nicotine (Nicotine 21 Mg Patch.Td24) 21 mg TRANSDERMA DAILY [facility] Last Admin: 11/27/24 08:15 Dose: 21 mg Omeprazole (Omeprazole 20 Mg Capsule.Dr) 20 mg PO DAILY@0630 [facility] Last Admin: 11/27/24 08:16 Dose: 20 mg Oxycodone HCl (Oxycodone Hcl Immed Release 5 Mg Tablet) 5 mg PO Q6H PRN PRN Reason: Pain, Moderate(Pain Scale 4-6) Last Admin: 11/26/24 17:12 Dose: 5 mg Oxycodone HCl (Oxycodone Hcl Immed Release 5 Mg Tablet) 5 mg PO Q4H PRN PRN Reason: Pain, Severe (Pain Scale 7-10) Pharmacy Consult (Consult Rx Vancomycin Dosing) 1 each MISCELLANE DAILY PRN PRN Reason: Consult order Polyethylene Glycol (Polyethylene Glycol 3350 17 Gm Powd.Pack) 17 gm PO DAILY PRN PRN Reason: Constipation Senna/Docusate Sodium (Sennosides/Docusate Sodium Tablet) 1 tab PO DAILY PRN PRN Reason: Constipation Sertraline HCl (Sertraline Hcl 25 Mg Tablet) 75 mg PO DAILY [facility] Last Admin: 11/27/24 08:16 Dose: 75 mg Allergies Allergies Allergy/AdvReac Type Severity Reaction Status Date / Time bee pollen (bee stings) Allergy Severe Facial Verified 11/25/24 11:26 Swelling morphine Allergy Hives Verified 11/25/24 11:26 Assessment & Plan Assessment & Plan (1) Opioid use disorder: Status: Acute Code(s): F11.90 - Opioid use, unspecified, uncomplicated Assessment and Plan: continue current methadone dose PRN oxycodone available for in btwn dilaudid when needed--asked RN to remind patient that is available no additional follow up indicated at this time. take home narcan at discharge and last dose letter. --Reciver RN to check in PRN Total time managing care of this patient today ___20_ minutes.
[2024-11-27] MEDS: oxyCODONE HCl Immed Release 5 MG TABLET PO (13:39)
[2024-11-27 15:05] VITALS: BP 122/65; PULSE 53; RESP 18; TEMP 36.3; O2SAT 97
--- NOTE | 2024-11-27 15:27 | MHC.CM.PN ---
EMR reviewed and per MD rounds, pt is not medically cleared for discharge due to management of right leg wound, and blood cultures pending.
[2024-11-27 16:08] LABS: Glucose, Whole Blood 143 mg/dL (60-115)
[2024-11-27 19:50] VITALS: BP 124/77; PULSE 77; RESP 19; TEMP 36.9; O2SAT 98
[2024-11-27 20:56] LABS: Glucose, Whole Blood 129 mg/dL (60-115)
[2024-11-27] MEDS: Insulin Glargine,Hum.rec.anlog 100 UNIT/ML 10 ML VIAL 20 UNIT SUBCUT (21:02)
[2024-11-27 23:51] VITALS: BP 111/65; PULSE 55; RESP 18; TEMP 36.4; O2SAT 98
[2024-11-28] MEDS: oxyCODONE HCl Immed Release 5 MG TABLET PO ×3 (00:16→17:17)
[2024-11-28 03:51] VITALS: BP 142/87; PULSE 58; RESP 18; TEMP 36.2; O2SAT 95
[2024-11-28 07:18] VITALS: BP 127/76; PULSE 58; RESP 20; TEMP 36.3; O2SAT 96
[2024-11-28] MEDS: Nicotine 21 MG PATCH.TD24 TRANSDERMA (09:05)
[2024-11-28] MEDS: methADONE HCl 20 MG/2 ML ORAL.CONC 195 MG PO (09:07)
--- NOTE | 2024-11-28 09:39 | P.PNGS_ITS ---
Subjective Subjective Date of Service: 11/28/24 Interval history: Continues to c/o pain at right leg. Physical Exam 2 Vital Signs: Vital Signs: Last Vital Signs Temp 97.4 F 11/28/24 07:18 Pulse 58 11/28/24 07:18 Resp 20 11/28/24 07:18 BP 127/76 11/28/24 07:18 Pulse Ox 96 11/28/24 07:18 O2 Del Method Room Air 11/28/24 07:18 BMI result Body Mass Index 28.6 Const: General: comfortable, no acute distress and alert Resp: Effort & Inspection: normal respiratory effort Extrem: Other: right lower leg- erythema and edema improving, no fluctuance- good granulation tissue centrally, rim of eschar circumferentially Objective Data Active Medications Acetaminophen (Acetaminophen 325 Mg Tablet) 650 mg PO Q6H PRN PRN Reason: Pain, Mild 1-3,fever,headache Last Admin: 11/26/24 12:22 Dose: 650 mg Documented By: VIVIANE Albuterol Sulfate (Albuterol Sulfate 90 Mcg 8 Gm Inhaler) 2 puff INHALE Q6H PRN PRN Reason: Shortness Of Breath Or Wheezing Atorvastatin Calcium (Atorvastatin Calcium 40 Mg Tablet) 40 mg PO DAILY [facility] Last Admin: 11/28/24 09:08 Dose: 40 mg Documented By: HUMBERTO Ceftriaxone Sodium (Ceftriaxone Sodium 1 Gm Vial) 1 gm IVPUSH Q24H [facility] Last Admin: 11/27/24 12:04 Dose: 1 gm Documented By: VIVIANE Dextrose (Dextrose 50 % 25 Gm/50 Ml Syringe) 25 gm IVPUSH Q15M PRN; Protocol PRN Reason: per Hypoglycemia Standing Ord. Enoxaparin Sodium (Enoxaparin Sodium 40 Mg/0.4 Ml Syringe) 40 mg SUBCUT Q24H [facility] Last Admin: 11/27/24 16:55 Dose: 40 mg Documented By: VIVIANE Gabapentin (Gabapentin 400 Mg Capsule) 800 mg PO TID [facility] Last Admin: 11/28/24 09:08 Dose: 800 mg Documented By: HUMBERTO Glucose (Glucose Gel 15 Gm Gel..Gram.) 15 gm PO Q15M PRN; Protocol PRN Reason: per Hypoglycemia Standing Ord. Hydromorphone HCl (Hydromorphone Hcl 0.5 Mg/0.5 Ml Syringe) 0.5 mg IVPUSH Q4H PRN; Protocol PRN Reason: Pain, Severe (Pain Scale 7-10) Last Admin: 11/28/24 05:28 Dose: 0.5 mg Documented By: DAWN Vancomycin HCl 1,250 mg/ (Sodium Chloride) 250 mls @ 166.667 mls/hr IV Q12H [facility] Last Infusion: 11/28/24 01:56 Dose: Infused Documented By: DAWN Insulin Glargine (Insulin Glargine,Hum.Rec.Anlog 100 Unit/Ml 10 Ml Vial) 20 unit SUBCUT BEDTIME [facility] Last Admin: 11/27/24 21:02 Dose: 20 unit Documented By: DAWN Insulin Human Lispro (Insulin Lispro 100 Unit/Ml 3 Ml Vial) 0 unit SUBCUT QIDACHS [facility]; Protocol Last Admin: 11/28/24 08:41 Dose: Not Given Documented By: HUMBERTO Non-Admin Reason: glucose out of range Magnesium Hydroxide (Milk Of Magnesia 30 Ml Oral.Susp) 30 ml PO DAILY PRN PRN Reason: Constipation Melatonin (Melatonin 3 Mg Tablet) 6 mg PO BEDTIME PRN PRN Reason: Insomnia Methadone HCl (Methadone Hcl 20 Mg/2 Ml Oral.Conc) 195 mg PO DAILY [facility] Last Admin: 11/28/24 09:07 Dose: 195 mg Documented By: HUMBERTO Co-signed By: LEXY Nicotine (Nicotine 21 Mg Patch.Td24) 21 mg TRANSDERMA DAILY [facility] Last Admin: 11/28/24 09:05 Dose: 21 mg Documented By: HUMBERTO Omeprazole (Omeprazole 20 Mg Capsule.Dr) 20 mg PO DAILY@0630 [facility] Last Admin: 11/28/24 05:29 Dose: 20 mg Documented By: DAWN Oxycodone HCl (Oxycodone Hcl Immed Release 5 Mg Tablet) 5 mg PO Q6H PRN PRN Reason: Pain, Moderate(Pain Scale 4-6) Last Admin: 11/27/24 13:39 Dose: 5 mg Documented By: VIVIANE Oxycodone HCl (Oxycodone Hcl Immed Release 5 Mg Tablet) 5 mg PO Q4H PRN PRN Reason: Pain, Severe (Pain Scale 7-10) Last Admin: 11/28/24 00:16 Dose: 5 mg Documented By: DAWN Pharmacy Consult (Consult Rx Vancomycin Dosing) 1 each MISCELLANE DAILY PRN PRN Reason: Consult order Polyethylene Glycol (Polyethylene Glycol 3350 17 Gm Powd.Pack) 17 gm PO DAILY PRN PRN Reason: Constipation Senna/Docusate Sodium (Sennosides/Docusate Sodium Tablet) 1 tab PO DAILY PRN PRN Reason: Constipation Sertraline HCl (Sertraline Hcl 25 Mg Tablet) 75 mg PO DAILY [facility] Last Admin: 11/28/24 09:07 Dose: 75 mg Documented By: HUMBERTO Labs 11/26/24 07:11 11/28/24 06:32 Labs: Laboratory Results - last 24 hr 11/27/24 11/27/24 11/27/24 09:38 11:27 16:03 Estim Creat Clear Calc Estimated GFR POC Glucose 134 H 143 H Random Vancomycin 12.8 L 11/27/24 11/28/24 11/28/24 20:51 06:32 06:56 Estim Creat Clear Calc 126.0 Estimated GFR > 60 POC Glucose 129 H 118 H Random Vancomycin Microbiology Microbiology Results: Microbiology 11/25/24 12:20 Blood Culture - Preliminary Blood - Venous No growth after 48 hours. 11/25/24 12:20 Blood Culture - Preliminary Blood - Venous No growth after 48 hours. Procedures Date of Service Date of Service: 11/28/24 Progress Note: A&P Assessment and plan (1) Necrotic eschar: Status: Acute (2) Abscess of right lower leg: Status: Acute Plan Admitted with right lower leg eschar and underlying abscess, underwent bedside debridement 2 days prior. Surrounding cellulitis is resolving. Attempted to sharply debride remaining rim of eschar however she was not tolerating at bedside. I do not feel as if this is inhibiting resolution of cellulitis and will likely slough off with time so further surgical debridement held off. Wet to dry saline soaked fluff placed, followed by dry fluff and kerlix wrap. Will discuss with wound care regarding recommendations for home as she has good granulation centrally. She should have VNA and can follow up with wound center upon discharge. Discussed with lockstitch coat joiner Macarena- recommend santyl to outer edge of wound to help with eschar breakdown with silver alginate to wound bed centrally. Time Spent With Patient Time: Total time managing care of this patient today ____ minutes. Quality Stroke Does the patient have a stroke diagnosis?: No VTE Prior VTE?: No VTE Risk Level:: Medical - moderate - high VTE Device Contraindication: Treatment Not Indicated VTE Drug Contraindication: N/A - Med Ordered
[2024-11-28 11:06] VITALS: BP 124/69; PULSE 65; RESP 20; TEMP 36.6; O2SAT 98
--- NOTE | 2024-11-28 11:06 | HE.PHANOTE ---
Re: Vanco Renal function is improving, trough returned at 17.3, pt is subratherapeutic. Dose reduced to 1g q12h with predicted AUC 482, predicted trough 15.7. Next trough 11/29 @ 1000.
--- NOTE | 2024-11-28 12:06 | P.PNIM_ITS ---
Subjective Subjective Date of Service: 11/28/24 Interval History: f/u on abscess of the leg in the setting of drug use Not septic, wound with good granulation tissue Physical Exam 2 Vital Signs: Vital Signs: Last Vital Signs Temp 97.9 F 11/28/24 11:06 Pulse 65 11/28/24 11:06 Resp 20 11/28/24 11:06 BP 124/69 11/28/24 11:06 Pulse Ox 98 11/28/24 11:06 O2 Del Method Room Air 11/28/24 11:06 BMI result Body Mass Index 28.6 General: AO X 3, no acute distress Resp: CTA bilateral CVS: S1,S2,RRR GI: +BS, NT, no distention Skin: Neuro: motor grossly intact Psych: appropriate affect Objective Data Active Medications Acetaminophen (Acetaminophen 325 Mg Tablet) 650 mg PO Q6H PRN PRN Reason: Pain, Mild 1-3,fever,headache Last Admin: 11/28/24 11:54 Dose: 650 mg Documented By: HUMBERTO Albuterol Sulfate (Albuterol Sulfate 90 Mcg 8 Gm Inhaler) 2 puff INHALE Q6H PRN PRN Reason: Shortness Of Breath Or Wheezing Atorvastatin Calcium (Atorvastatin Calcium 40 Mg Tablet) 40 mg PO DAILY [facility] Last Admin: 11/28/24 09:08 Dose: 40 mg Documented By: HUMBERTO Ceftriaxone Sodium (Ceftriaxone Sodium 1 Gm Vial) 1 gm IVPUSH Q24H [facility] Last Admin: 11/28/24 11:53 Dose: 1 gm Documented By: HUMBERTO Collagenase (Collagenase Clostridium Hist. 30 Gm Tube) 1 appl TOPICAL DAILY [facility]; Protocol Dextrose (Dextrose 50 % 25 Gm/50 Ml Syringe) 25 gm IVPUSH Q15M PRN; Protocol PRN Reason: per Hypoglycemia Standing Ord. Enoxaparin Sodium (Enoxaparin Sodium 40 Mg/0.4 Ml Syringe) 40 mg SUBCUT Q24H [facility] Last Admin: 11/27/24 16:55 Dose: 40 mg Documented By: VIVIANE Gabapentin (Gabapentin 400 Mg Capsule) 800 mg PO TID [facility] Last Admin: 11/28/24 09:08 Dose: 800 mg Documented By: HUMBERTO Glucose (Glucose Gel 15 Gm Gel..Gram.) 15 gm PO Q15M PRN; Protocol PRN Reason: per Hypoglycemia Standing Ord. Hydromorphone HCl (Hydromorphone Hcl 0.5 Mg/0.5 Ml Syringe) 0.5 mg IVPUSH Q4H PRN; Protocol PRN Reason: Pain, Severe (Pain Scale 7-10) Last Admin: 11/28/24 09:30 Dose: 0.5 mg Documented By: HUMBERTO Vancomycin HCl 1,000 mg/ (Sodium Chloride) 270 mls @ 270 mls/hr IV Q12H [facility] Last Admin: 11/28/24 11:54 Dose: 270 mls/hr Documented By: HUMBERTO Insulin Glargine (Insulin Glargine,Hum.Rec.Anlog 100 Unit/Ml 10 Ml Vial) 20 unit SUBCUT BEDTIME [facility] Last Admin: 11/27/24 21:02 Dose: 20 unit Documented By: DAWN Insulin Human Lispro (Insulin Lispro 100 Unit/Ml 3 Ml Vial) 0 unit SUBCUT QIDACHS [facility]; Protocol Last Admin: 11/28/24 11:32 Dose: Not Given Documented By: HUMBERTO Non-Admin Reason: Glucose out of range Magnesium Hydroxide (Milk Of Magnesia 30 Ml Oral.Susp) 30 ml PO DAILY PRN PRN Reason: Constipation Melatonin (Melatonin 3 Mg Tablet) 6 mg PO BEDTIME PRN PRN Reason: Insomnia Methadone HCl (Methadone Hcl 20 Mg/2 Ml Oral.Conc) 195 mg PO DAILY [facility] Last Admin: 11/28/24 09:07 Dose: 195 mg Documented By: HUMBERTO Co-signed By: LEXY Nicotine (Nicotine 21 Mg Patch.Td24) 21 mg TRANSDERMA DAILY [facility] Last Admin: 11/28/24 09:05 Dose: 21 mg Documented By: HUMBERTO Omeprazole (Omeprazole 20 Mg Capsule.Dr) 20 mg PO DAILY@0630 [facility] Last Admin: 11/28/24 05:29 Dose: 20 mg Documented By: DAWN Oxycodone HCl (Oxycodone Hcl Immed Release 5 Mg Tablet) 5 mg PO Q6H PRN PRN Reason: Pain, Moderate(Pain Scale 4-6) Last Admin: 11/28/24 11:56 Dose: 5 mg Documented By: HUMBERTO Oxycodone HCl (Oxycodone Hcl Immed Release 5 Mg Tablet) 5 mg PO Q4H PRN PRN Reason: Pain, Severe (Pain Scale 7-10) Last Admin: 11/28/24 00:16 Dose: 5 mg Documented By: DAWN Pharmacy Consult (Consult Rx Vancomycin Dosing) 1 each MISCELLANE DAILY PRN PRN Reason: Consult order Polyethylene Glycol (Polyethylene Glycol 3350 17 Gm Powd.Pack) 17 gm PO DAILY PRN PRN Reason: Constipation Senna/Docusate Sodium (Sennosides/Docusate Sodium Tablet) 1 tab PO DAILY PRN PRN Reason: Constipation Sertraline HCl (Sertraline Hcl 25 Mg Tablet) 75 mg PO DAILY [facility] Last Admin: 11/28/24 09:07 Dose: 75 mg Documented By: HUMBERTO Labs 11/26/24 07:11 11/28/24 06:32 Labs: Laboratory Results - last 24 hr 11/27/24 11/27/24 11/28/24 16:03 20:51 06:32 Estim Creat Clear Calc 126.0 Estimated GFR > 60 POC Glucose 143 H 129 H Random Vancomycin 11/28/24 11/28/24 11/28/24 06:56 10:34 10:46 Estim Creat Clear Calc Estimated GFR POC Glucose 118 H 115 Random Vancomycin 17.3 Microbiology Microbiology Results: Microbiology 11/25/24 12:20 Blood Culture - Preliminary Blood - Venous No growth after 48 hours. 11/25/24 12:20 Blood Culture - Preliminary Blood - Venous No growth after 48 hours. Assessment and Plan (1) Infected skin lesion: Status: Acute (2) Cellulitis: Status: Acute (3) Abscess of left hand: Status: Acute (4) IVDU (intravenous drug user): Status: Acute Plan Assessment: 39-year-old female with a history of diabetes (on insulin), hyperlipidemia (on atorvastatin), GERD (on omeprazole), peripheral neuropathy, mood disorder, and substance use disorder (including IV drug use, currently on methadone), presenting with a progressively enlarging right lower leg wound with necrotic surface and subcutaneous gas on imaging. She denies injecting drugs in the area. Recent history of fever. No leukocytosis, ESR mildly elevated, and no evidence of abscess or osteomyelitis on CT. Currently on empiric vancomycin and ceftriaxone. Plan: Right lower leg wound with necrosis, now eschar s/p debridment On empiric IV vancomycin and ceftriaxone; s/p debridment with good granulation tissue, see pic culture so far negative. wound care advise for home care consider dc with po abx later today Diabetes mellitus Continue insulin (Lantus and SSI); monitor blood glucose closely Substance use disorder Continue methadone maintenance. seen by addiction team Hyperlipidemia Continue atorvastatin. GERD Continue omeprazole. Peripheral neuropathy Continue Gabapentin Mood disorder Continue current psychiatric management; monitor for mood changes during hospitalization. Bradycardia--possibly related to Methadone, appear chronic and stable, get routine ECG Disposition: Home once IV Abx no longer indicated Quality Stroke Does the patient have a stroke diagnosis?: No VTE Prior VTE?: No VTE Risk Level:: Medical - moderate - high VTE Device Contraindication: Treatment Not Indicated VTE Drug Contraindication: N/A - Med Ordered
--- NOTE | 2024-11-28 14:34 | PC.NURSE ---
P: Alteration in Comfort I: See nursing documentation and MD orders E: Pt reported pain per pain scale. PRN hydromorphone, oxycodone, and acetaminaphen given with some affect. Scheduled gabapentin given with some affect.
[2024-11-28 15:09] VITALS: BP 125/79; PULSE 58; RESP 18; TEMP 36.8; O2SAT 98
--- NOTE | 2024-11-28 15:53 | HO.WOUND ---
Wound Consult: Initial 39yr old? female admitted to [facility] on 11/25/24 - See progress notes and H&P for detailed history.? Wound consult placed for Right Lower Leg - currently followed by general surgery after debridement - requesting in woud care nurse for topical care recommendations. Patient is current with wet to dry dressing by general surgery - spoke to general surgery agreeable to Santly use for enzymatic debridement to benefit wound edges. ? Patient agreeable to assessment and photo documentation.? Seen with Dr. Riggins General Surgeon. Right Leg Etiology: ??S/P I&D for abscess Measurements: 4cm x 3.8cm x 0.4cm Wound Bed: moist red clean central wound bed with black adherent eschar to wound edges Drainage / Odor: serosang drainage Edges: ? epibole Tara wound: red erythema - improving per direct care team and providers Pain: reports pain Goals of Treatment: ? Santyl for enzymatic debridement and wound edges preparation Recommendations: 1. Turn and Reposition every 2 hours and as needed for patient comfort.? Use pillows or wedges to support off loading positions. 2. Off Load all bony prominences with use of pillows and heel boots if needed.? Apply Preventative foams where needed. ? 3. Monitor for incontinence and moisture control, use barrier creams when needed for prevention and treatment. 4. Provide adequate and supplemental nutrition.? 5. Order or Continue low air loss mattress. 6. When applicable maintain blood glucose levels per Providers order. Right Lower Leg - Cleanse with normal saline, pat dry. ?Apply barrier to the immediate tara wound, apply thick layer of Santyl to entire wound bed, cover with saline moist gauze, cover with dry gauze, ABD pad and gauze wrap, change Daily. Re-consult wound care Nurse for wound deterioration or wound changes.
[2024-11-28 16:02] LABS: Glucose, Whole Blood 111 mg/dL (60-115)
--- NOTE | 2024-11-28 16:03 | MHC.RECOVRN ---
T/W met with pt. in to check in and offer support. Pt resting in bed comfortably alert and oriented and able to interact with this feature writer effectively. She reports she is using her PRN pain meds more frequently with good effect. She denies any questions/concerns further needs at this time. Cultures still pending. ACS available PRN.
[2024-11-28 20:00] VITALS: BP 124/70; PULSE 52; RESP 19; TEMP 36
[2024-11-28 21:29] LABS: Glucose, Whole Blood 130 mg/dL (60-115)
[2024-11-28] MEDS: Insulin Glargine,Hum.rec.anlog 100 UNIT/ML 10 ML VIAL 20 UNIT SUBCUT (21:57)
[2024-11-28 22:13] VITALS: BP 132/73; PULSE 60; RESP 18; TEMP 36.6; O2SAT 98
[2024-11-29] VITALS: BP 132/71; PULSE 53; RESP 18; TEMP 36.8; O2SAT 97
[2024-11-29] MEDS: oxyCODONE HCl Immed Release 5 MG TABLET PO ×2 (00:27→06:25)
[2024-11-29 03:15] VITALS: BP 140/82; PULSE 54; RESP 18; TEMP 36.9; O2SAT 97
[2024-11-29 06:52] LABS: Creatinine Clr Calc Pharmacy 120.4; Estimated Glomerular Filt Rate > 60
[2024-11-29 07:25] VITALS: BP 134/77; PULSE 50; RESP 16; TEMP 36.4; O2SAT 98
[2024-11-29 07:30] LABS: Glucose, Whole Blood 80 mg/dL (60-115)
[2024-11-29] MEDS: Nicotine 21 MG PATCH.TD24 TRANSDERMA (07:57)
[2024-11-29] MEDS: methADONE HCl 20 MG/2 ML ORAL.CONC 195 MG PO (08:00)
--- NOTE | 2024-11-29 09:12 | PC.NURSE ---
awaiting for pharmacy to bring Santyln for wound.
[2024-11-29 09:24] VITALS: PULSE 60
--- NOTE | 2024-11-29 10:29 | PM.DS ---
DS: Providers Provider Date of Service: 11/29/24 Date of admission: 11/25/24 16:49 Date of discharge: 11/29/24 Primary care physician: Luz Elena Miller MD Consults: 11/25/24 16:48 Addiction Medicine Provider Routine Consulting Provider: Addiction Covering Reason for consultation: AMANDA Has provider been notified: No 11/26/24 09:37 Consult to General Surgery Routine Consulting Provider: [facility] General Surgeons Reason for consultation: leg abscess Has provider been notified: Yes 11/26/24 11:16 Consult to Wound Care Routine Reason for consultation: right leg wound 11/28/24 12:06 Consult to Wound Care Routine Reason for consultation: eschar of leg DS: Diagnosis Discharge Diagnosis (1) Necrotic eschar: Status: Acute (2) Abscess of right lower leg: Status: Acute DS: Summary Hospital Course Hospital Course: admission hpi Chief Complaint: right leg wound 39-year-old female with a history of diabetes, hyperlipidemia, peripheral neuropathy, GERD, mood disorder, and substance use disorder (including intravenous drug use, currently on methadone), presents with a right leg wound. The wound began as an area of inflamed skin and has progressed to a large open lesion with a necrotic surface. She denies injecting drugs in the affected area. She has been performing self-care with soap and water and covering the wound with a bandage. She reports having had a fever several days ago. CT of the right lower leg reveals multiple small pockets of gas within the subcutaneous tissues of the posteromedial aspect of the lower leg, without evidence of abscess or osteomyelitis. She was started on vancomycin and ceftriaxone; blood cultures were obtained. Laboratory results show a normal white blood cell count, ESR of 21, and an unremarkable basic metabolic panel. Hospital course 39-year-old female with a history of diabetes (on insulin), hyperlipidemia (on atorvastatin), GERD (on omeprazole), peripheral neuropathy, mood disorder, and substance use disorder (including IV drug use, currently on methadone), presenting with a progressively enlarging right lower leg wound with necrotic surface and subcutaneous gas on imaging. She denies injecting drugs in the area. Recent history of fever. No leukocytosis, ESR mildly elevated, and no evidence of abscess or osteomyelitis on CT was admitted and started on empiric vancomycin and ceftriaxone, culture have been negative. The area was debrided by surgery, wound has good granulation tissues. Will transition to oral Augmentin and Doxy and local wound care see wound care instruction Diabetes mellitus resule home meds and adhere to diabetes diabetes and compliance with meds Substance use disorder Continue methadone maintenance. seen by addiction team and given resources take home Naloxone Hyperlipidemia Continue atorvastatin. GERD Continue omeprazole. Peripheral neuropathy Continue Gabapentin Mood disorder Continue current psychiatric management; monitor for mood changes during hospitalization. Bradycardia--possibly related to Methadone, appear chronic and stable, ECG sinus saray, HR in 60s Final diagnosis: Necrotic ulcer of leg IVDU disorder diabetes, Time Attestation Discharge Coordination Time (in mins): 35 Quality: Safe Use of Opioids Does Pt have an Active Cancer Diagnosis on the Problem List?: No Quality: Stroke Does the patient have a stroke diagnosis?: No Physical Exam Vital Signs: Vital Signs: Last Vital Signs Temp 97.5 F 11/29/24 07:25 Pulse 60 11/29/24 09:24 Resp 16 11/29/24 07:25 BP 134/77 11/29/24 07:25 Pulse Ox 98 11/29/24 07:25 O2 Del Method Room Air 11/29/24 07:25 BMI result Body Mass Index 28.6 DS: Data Data Completed and Pending Completed studies during hospitalization [Text1]: Procedures Excision of Left Hand Skin, External Approach (05/02/23) Insertion of Infusion Device into Superior Vena Cava, Percutaneous Approach (05/02/23) Ultrasonography of Superior Vena Cava, Guidance (05/02/23) Labs on day of discharge: Laboratory Results - last 24 hr 11/28/24 11/28/24 11/28/24 10:34 10:46 15:58 Creatinine Estim Creat Clear Calc Estimated GFR POC Glucose 115 111 Random Vancomycin 17.3 11/28/24 11/29/24 11/29/24 21:25 06:00 07:24 Creatinine 0.68 Estim Creat Clear Calc 120.4 Estimated GFR > 60 POC Glucose 130 H 80 Random Vancomycin Preliminary micro results at discharge 11/25/24 12:20 Blood Culture - Preliminary Blood - Venous No growth after 48 hours. 11/25/24 12:20 Blood Culture - Preliminary Blood - Venous No growth after 48 hours. Discharge Plan Discharge Anticipated Discharge Date/Time: 11/29/24 10:32 Patient Disposition: Home Health Service Discharge Diagnosis: Skin abscess with necrotic issues Referrals: [facility] Wound Care Management [Provider Group] - 1 Week [facility] [Outside] - 1 Week Referral Note: HOME SERVICES FOR [facility]: A NURSE WILL CALL YOU TO SET UP FIRST VISIT Luz Elena Miller MD [Primary Care Provider, Medical] - 1 Week Discharge Medications: Continued atorvastatin 40 mg tablet 40 mg PO DAILY sennosides-docusate sodium [Stool Softener-Laxative] 8.6-50 mg tablet 1 tab PO DAILY PRN (Reason: Constipation) gabapentin 800 mg tablet 800 mg PO TID pantoprazole 40 mg tablet,delayed release (DR/EC) 40 mg PO DAILY@0630 albuterol sulfate [Ventolin HFA] 90 mcg/actuation HFA aerosol inhaler 2 puff inhalation Q6H PRN (Reason: Shortness Of Breath Or Wheezing) sertraline 50 mg tablet 75 mg PO DAILY insulin lispro 100 unit/mL insulin pen 1 sliding scale dose subcut TIDAC nicotine 21 mg/24 hr Patch 24 Hour 1 patch TRANSDERMAL DAILY oxycodone 5 mg Tablet 5 mg PO Q4H PRN (Reason: Pain, Severe (Pain Scale 7-10)) Qty: 10 0RF Rx Instructions: Partial Fill upon patient request. methadone 10 mg/mL Concentrate 195 mg PO DAILY insulin glargine [Lantus Solostar U-100 Insulin] 100 unit/mL (3 mL) insulin pen 40 unit subcut BEDTIME Discharge Orders: Discharge Order (Routine); Ordered 11/29/24 Ordered By: Clayton Kelley Diet: Advance to usual diet Activity on Discharge: As tolerated Stand Alone Forms: Patient Portal Discharge page Print Language: Maori Activity Restrictions/Additional Instructions: Topical Wound Care Recommendations: Right Lower Leg - Cleanse with normal saline, pat dry. ?Apply barrier to the immediate tara wound, apply thick layer of Santyl to entire wound bed, cover with saline moist gauze, cover with dry gauze, ABD pad and gauze wrap, change Daily. Care Plan Goals: properly healing of wound/ulcer Health Concerns: iv drug use ulcer/wound of leg take augmentin and doxycyline as recommended Plan of Treatment: see above Assessment: see above
[2024-11-29] MEDS: Naloxone HCl Nasal TAKE HOME 4 MG SPRAY 8 MG NOSTRILALT (10:51)
--- NOTE | 2024-11-29 11:05 | MHC.CM.PN ---
DP: PT HAS BEEN MEDICALLY CLEARED FOR DC HOME WITH NEW [facility] FOR SN/WOUND CARE. [facility] NOTIFIED OF TODAY'S DC. PT WILL TAKE [facility] AT 1: 45 PM. FINAL IMM DELIVERED
--- NOTE | 2024-11-29 11:08 | W.MHC.F2F ---
Service Date Service Date: 11/29/24 Encounter Date of encounter: 11/29/24 Reasons for Services Signs and symptoms assessed: wound infection on leg Reason for halfway: wound care Homebound: Leaving the home is medically contraindicated at this time without the asist of a device and/or another person due th the listed conditions above and below. Reason homebound: pain with ambulation Homebound supporting statement: due to pain with ambulation from large ulcer and needs assistance for proper caring for healing and prevent sepsis Certification: Based on the above findings, I certify that this patient is confined to the home and needs intermittent halfway care, physical therapy and/or speech therapy, or continues to need occupational therapy. The patient is under my care, and I have initiated the establishment of the plan of care. The patient will be followed by a physician who will periodically review the plan of care. Time Spent With Patient Time: Total time managing care of this patient today ____ minutes.
[2024-11-29 11:15] LABS: Glucose, Whole Blood 136 mg/dL (60-115)
[2024-11-29 11:22] VITALS: BP 126/77; PULSE 56; RESP 16; TEMP 36.8; O2SAT 95
== END 2024-11-29 12:13 | disposition home health service (06) | DRG 571 ==
LOC: HO.ED 17:01 → HO.EDOVER 17:12 → HO.IMC 20:24 → HO.S3 11-28 19:17
PROVIDERS: Physician Assistant Medical; Admitting Provider Internal Medicine; Emergency Provider Emergency Medicine; PCP Family Medicine; Visit Provider Internal Medicine
DX: L02.415 Cutaneous abscess of right lower limb (principal); F11.20 Opioid dependence, uncomplicated; I96 Gangrene, not elsewhere classified; E78.5 Hyperlipidemia, unspecified; E11.42 Type 2 diabetes mellitus with diabetic polyneuropathy; K21.9 Gastro-esophageal reflux disease without esophagitis; L03.115 Cellulitis of right lower limb; Z23 Encounter for immunization; Z91.148 Patient's other noncompliance with medication regimen for other reason; Z79.4 Long term (current) use of insulin; Z79.899 Other long term (current) drug therapy
CPT/HCPCS: 36415; 73590; 73701; 80048; 80053; 80202; 82565; 82947; 83605; 83735; 85025; 85652; 86140; 87040; 90656; 93005; 99285; J0131; J0696; J1171; J1650; J1885; J3373; J3374; Q9967; S9485

== ENCOUNTER → 2024-11-25 11:36 | Outpatient (BNV) | payer MEDICARE, MEDICAID, SELFPAY | PROVIDERS: Emergency Provider Emergency Medicine; PCP Family Medicine; Visit Provider Radiology Diagnostic Radiology | DX: S81.801A Unspecified open wound, right lower leg, initial encounter (principal); F11.90 Opioid use, unspecified, uncomplicated; E11.9 Type 2 diabetes mellitus without complications | CPT/HCPCS: 73590; 73701 ==

== ENCOUNTER 2024-11-25 16:49 | Outpatient (BNV) | payer MEDICARE, MEDICAID, SELFPAY | END 2024-11-25 20:10 | PROVIDERS: Admitting Provider Internal Medicine; Emergency Provider Emergency Medicine; PCP Family Medicine; Visit Provider Internal Medicine | DX: R00.1 Bradycardia, unspecified (principal) | CPT/HCPCS: 93010 ==

== ENCOUNTER 2024-11-25 16:49 | Outpatient (BNV) | payer MEDICARE, MEDICAID, SELFPAY | END 2024-11-26 13:44 | PROVIDERS: Admitting Provider Internal Medicine; Emergency Provider Emergency Medicine; PCP Family Medicine; Visit Provider Internal Medicine Cardiovascular Disease | DX: R00.1 Bradycardia, unspecified (principal) | CPT/HCPCS: 93010 ==

== ENCOUNTER → 2024-11-25 16:49 | Outpatient (BNV) | payer OTHER, MEDICAID, SELFPAY | PROVIDERS: Admitting Provider Internal Medicine; Emergency Provider Emergency Medicine; PCP Family Medicine; Visit Provider Nurse Practitioner Psychiatric/Mental Health | DX: F11.90 Opioid use, unspecified, uncomplicated (principal) | CPT/HCPCS: 99231 ==

== ENCOUNTER → 2024-11-25 16:49 | Outpatient (BNV) | payer MEDICARE, MEDICAID, SELFPAY | PROVIDERS: Admitting Provider Internal Medicine; Emergency Provider Emergency Medicine; PCP Family Medicine; Visit Provider Surgery | DX: L02.415 Cutaneous abscess of right lower limb (principal) | CPT/HCPCS: 10060; 99222 ==

== ENCOUNTER → 2024-11-25 16:49 | Outpatient (BNV) | payer MEDICARE, MEDICAID, SELFPAY | PROVIDERS: Admitting Provider Internal Medicine; Emergency Provider Emergency Medicine; PCP Family Medicine; Visit Provider Internal Medicine | DX: I96 Gangrene, not elsewhere classified (principal); L02.415 Cutaneous abscess of right lower limb | CPT/HCPCS: 99223; 99232; 99233; 99239 ==